=== PATIENT | male | born 1940 | race Caucasian/White ===

== ENCOUNTER 2019-12-13 12:44 | Inpatient (IN) | payer MEDICARE, BC, OTHER ==
--- NOTE | 2019-12-13 13:08 | EDM.PDOC ---
ED HPI GENERAL MEDICAL PROBLEM - General Chief Complaint: General Stated Complaint: fatigue Time Seen by Provider: 12/13/19 12:45 Source of Information: Reports: Patient, Old Records ([facility] EMR. No paper hospital chart available.), Other (Transfer records from [facility] in [place]. Hospital records from hospitalization at [facility] in [place], [place] in September 2019 and at [facility] in [place], [place] in November 2019) History Limitations: Reports: No Limitations - History of Present Illness INITIAL COMMENTS - FREE TEXT/NARRATIVE: The patient drove himself to this facility via private automobile for evaluation of progressive nonspecific dyspnea and fatigue during the last 1-2 weeks with patient just returning from [place] with hospitalization in early November for CHF and atrial fibrillation with rapid ventricular response and only briefly successful electrocardioversion and cardiac ablation. He was evaluated by STANLEY Becerra at the [facility], who did refer the patient to our emergency room for further treatment and evaluation Note previous hospitalization in [place] in early September for CHF and pneumonia with no known exposure to coccidiosis, COVID-19, influenza, etc., although he was apparently prophylactically treated with Tamiflu for possible undiagnosed influenza versus exposure in September with no known definite diagnosis of influenza at that time by patient history. He is a somewhat poor historian, however. The patient denies any chest pain/pressure, heart flutter, dizziness, orthostasis, orthopnea , diaphoresis, paresthesias, or any other anginal-type symptoms, although his exercise tolerance has been decreasing during the last couple of weeks as above. No recent history of abdominal pain, heartburn, nausea, diarrhea, melena , gross hematochezia, or any food intolerance, including fatty foods, etc., although he did have a large emesis yesterday evening despite no current or previous complaints. The patient did have a normal bowel movement yesterday evening. He denies any gross hematuria, colic, or other UTI symptoms. The patient also denies any recent fever, cough, wheezing, etc., although he has not measured his temperature or taken any recent antipyretic medications. He has been compliant with his CPAP, however has not been using O2 as recommended per his physicians in [place]. He denies any specific pain or discomfort. Onset: Gradual Duration: Week(s): (As above), Getting Worse Location: Reports: Other (No pain) Quality: Reports: Same as Previous Episode Severity: Moderate Improves with: Reports: Rest Worsens with: Reports: Movement (Activity/walking) Context: Reports: Other (As above). Denies: Sick Contact, Trauma Associated Symptoms: Reports: Nausea/Vomiting, Shortness of Breath. Denies: Confusion, Chest Pain, Cough, cough w sputum, Diaphoresis, Fever/Chills, Headaches, Loss of Appetite, Malaise, Seizure, Syncope, Weakness Treatments DIRECTOR OF MEDICAL SERVICES: Reports: Other (see below) (None although he did take his medications today.) - Related Data Allergies Allergy/AdvReac Type Severity Reaction Status Date / Time atorvastatin [From Lipitor] Allergy UNKNOWN Verified 12/13/19 12:57 clindamycin Allergy UNKNOWN Verified 12/13/19 12:57 lisinopril Allergy Cough Verified 12/13/19 12:57 Penicillins Allergy UNKNOWN Verified 12/13/19 12:57 rosuvastatin [From Crestor] Allergy unknown Verified 12/13/19 12:57 valsartan [From Diovan] Allergy UNKNOWN Verified 12/13/19 12:57 Home Meds: Home Meds ALPRAZolam [Alprazolam] 0.5 mg PO BID PRN 07/21/16 [History] Albuterol/Ipratropium [DuoNeb 3.0-0.5 MG/3 ML] 1 ampule INH QID PRN 07/21/16 [ History] Budesonide/Formoterol [Symbicort 160-4.5 MCG] 2 puff INH BID 07/21/16 [History] Calcium Carbonate/Vitamin D3 [Calcium 600 + Vit D Tablet] 1 tab PO QAM 07/21/16 [History] Cholecalciferol (Vitamin D3) [Vitamin D3] 1,000 unit PO QAM 07/21/16 [History] Furosemide [Lasix] 40 mg PO QAM 07/21/16 [History] Lovastatin 40 mg PO BEDTIME 07/21/16 [History] Magnesium 250 mg PO QAM 07/21/16 [History] Multivitamins [Tab-A-Juan] 1 tab PO DAILY 07/21/16 [History] Non-Formulary Medication [NF Drug] 1 tab PO DAILY PRN 07/21/16 [History] Omeprazole 20 mg PO DAILY 07/21/16 [History] Potassium Chloride [Klor-Con 10] 10 meq PO QAM 07/21/16 [History] Sertraline [Zoloft] 100 mg PO QAM 07/21/16 [History] Spironolactone [Aldactone] 50 mg PO BID@0812 07/21/16 [History] amLODIPine [Norvasc] 10 mg PO QAM 07/21/16 [History] metFORMIN HCl [Metformin HCl] 1,000 mg PO BID 07/21/16 [History] rOPINIRole [Requip] 1 mg PO DAILY@16 PRN 07/21/16 [History] rOPINIRole [Requip] 1 tab PO BID@07/21/16 [History] Cyanocobalamin (Vitamin B-12) [Vitamin B-12] 1,000 mcg PO DAILY 12/13/19 [ History] Gabapentin [Neurontin] 300 mg PO DAILY@16 PRN 12/13/19 [History] Gabapentin [Neurontin] 300 mg PO TID@,,12/13/19 [History] Insulin Detemir [Levemir] 22 unit SUBCUT BEDTIME 12/13/19 [History] Metoprolol Succinate 50 mg PO DAILY 12/13/19 [History] Naproxen Sodium [Aleve] 400 mg PO BID PRN 12/13/19 [History] Triamcinolone Acetonide [Kenalog 0.1% Crm] 1 applic TOP QID PRN 12/13/19 [ History] Warfarin Sodium [Jantoven] 5 mg PO SUTUWETHFRSA@12/13/19 [History] Warfarin Sodium [Jantoven] 7.5 mg PO MO@12/13/19 [History] Past Medical History HEENT History: Reports: Cataract, Impaired Vision, Other (See Below). Denies: Allergic Rhinitis, Glaucoma, Hard of Hearing, Macular Degeneration, Otitis Media , Retinal Detachment Other HEENT History: He wears glasses. No surgeries for his cataracts to this point. No history of diabetic retinopathy. Cardiovascular History: Reports: Afib, Aneurysm, Arrhythmia, CAD, Cardiomyopathy , Heart Failure, Heart Murmur, High Cholesterol, Hypertension, UT, Other (See Below). Denies: Blood Clots/VTE/DVT, Bypass, Pacemaker, PTCA, Pulmonary Hypertension, PVD, Stents, Syncope Other Cardiovascular History: History of possible small inferior wall UT, which was not known by the patient, per Cardiolite scan on 09/22/19 with evidence of reversible inferior wall cardiac ischemia and small reversible anterior wall reversible ischemia. Moderate left atrial enlargement, mild to moderate mitral valve insufficiency, and diastolic dysfunction by echocardiograms as below. Recurrent CHF with secondary hypoxia although overall good systolic ejection fraction by echocardiogram as below. Recurrent atrial fibrillation/flutter with rapid ventricular response, including previous 3:1 AND 4:1 AV block. Small abdominal aortic aneurysm by CT scan of the abdomen and pelvis on 11/10/19. Respiratory History: Reports: Bronchitis, Recurrent, COPD, Intubation, Previous , Pneumonia, Recurrent, Pulmonary Fibrosis, Sleep Apnea, SOB, Other (See Below) . 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 Patient is compliant with his CPAP. Multiple bilateral pulmonary nodules, including 9 millimeter lesion in the right middle lobe with additional 1.5 cm right-sided paratracheal lymphadenopathy by CT scan on 11/10/19. Gastrointestinal History: Reports: Colon Polyp, Diverticulosis, Gastritis, GERD , Hiatal Hernia, Other (See Below). Denies: Celiac Disease, Cholelithiasis, Chronic Constipation, Chronic Diarrhea, Fatty Liver, GI Bleed, Inflammatory Bowel Disease, Irritable Bowel Syndrome, Jaundice, Pancreatitis, PUD Other Gastrointestinal History: History of recurrent colonic polyps including arthroplastic colonic polyp removed from the proximal ascending colon and 2 tubular adenomas removed from the rectal region on 07/21/16. Genitourinary History: Reports: Acute Renal Failure, BPH, Chronic Renal Insuffiency, Diabetic Nephropathy, Other (See Below). Denies: Renal Calculus, Retention, Urinary, STD, Urinary Incontinence, UTI, Recurrent Other Genitourinary History: Bilateral complex renal cysts by CT scan on 11/10/19 with patient apparently refusing biopsies. Musculoskeletal History: Reports: Arthritis, Back Pain, Chronic, Fracture, Neck Pain, Chronic, Osteoarthritis, Osteoporosis, Other (See Below). Denies: Amputation, Gout, RA, SLE Other Musculoskeletal History: C7 cervical fracture requiring surgery as below. Multiple possible bilateral rib fractures secondary to football injuries, etc. as a teenager and in his 20s. Neurological History: Reports: Neuropathy, Diabetic, Neuropathy, Peripheral, Other (See Below). Denies: Alzheimers Disease, Cerebral Aneurysms, Concussion, CVA, Headaches, Chronic, Head Trauma, Migraines, MS, Parkinson's, Seizure, TIA, Vertigo Other Neuro History: Cerebral atrophy by CT scan. Restless leg syndrome; bIlateral carpal tunnel syndrome? Psychiatric History: Reports: Addiction, Anxiety, Dementia, Depression, Other ( See Below). Denies: Abuse, Victim of, ADD, ADHD, Psych Hospitalization(s), PTSD , Suicide Attempt, Suicidal Ideation Other Psychiatric History: Insomnia and claustrophobia. Per medical records history of previous alcohol abuse, which the patient adamantly denies. Endocrine/Metabolic History: Reports: Diabetes, Type II, IDDM, Obesity/BMI 30+, Osteopenia, Osteoporosis. Denies: Diabetes, Type I, Diabetes Mellitus, Type 3c , Hypothyroidism Hematologic History: Reports: Anemia, B12 Deficiency, Iron Deficiency. Denies: Blood Transfusion(s) Immunologic History: Reports: None. Denies: AIDS, HIV, SLE Oncologic (Cancer) History: Reports: Malignant Melanoma, Other (See Below). 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 Dermatologic History: Reports: Venous Stasis Dermatitis. Denies: Eczema, Psoriasis - Infectious Disease History Infectious Disease History: Reports: Chicken Pox, Measles, Mumps. Denies: C- Difficile, Meningitis, Mononucleosis, MRSA, Novel Coronavirus, Pertussis ( Whooping Cough), Rheumatic Fever, Rubella, Scarlet Fever, Shingles, TB, VRE - Past Surgical History Head Surgeries/Procedures: Reports: None HEENT Surgical History: Reports: Oral Surgery, Other (See Below). Denies: Adenoidectomy, Cataract Surgery, Eye Surgery, Laser Surgery, LASIK, Myringotomy w Tube(s), Naso-Sinus Surgery, Tonsillectomy Other HEENT Surgeries/Procedures: Initial excision of large right auricular melanoma on 09/28/05, including superficial parotidectomy, with subsequent reexcision/biopsy on 10/26/05 with no evidence of recurrence. Multiple teeth extractions with partial lowers. Cardiovascular Surgical History: Reports: Cardiac Ablation, Other (See Below). Denies: Aneurysm, Varicose Other Cardiovascular Surgeries/Procedures: Briefly successful cardiac ablation for atrial flutter on 11/14/19 in [place]. Respiratory Surgical History: Reports: None. Denies: Thoracentesis GI Surgical History: Reports: Colonoscopy, EGD, Polypectomy, Other (See Below). Denies: Appendectomy, Cholecystectomy, Hernia, Abdominal, Hernia, Inguinal, Hernia Repair/Other Other GI Surgeries/Procedures: Last EGD and colonoscopy on 06/18/19 with previous colonoscopy including multiple polypectomies as below on 07/21/16. Note cauterization without biopsy of hyperplastic appearing polyp in the transverse colon at that time. Male Surgical History: Reports: Vasectomy, Other (See Below). Denies: Circumcision, TURP-Transurethral Resection of Prostate Other Male Surgeries/Procedures: Vasectomy in about 1968 Endocrine Surgical History: Reports: None. Denies: Thyroid Biopsy Neurological Surgical History: Reports: C-Spine, Discectomy, Laminectomy, Spinal Fusion, Other (See Below). Denies: Lumbar Spine, Sacral Spine, Thoracic Spine, Vertebroplasty Other Neurological Surgeries/Procedures: C6C7 anterior laminectomy and spinal fusion on 03/27/12 with additional Aburto head pins secondary to previous C7 fracture. Musculoskeletal Surgical History: Reports: Knee Replacement, Other (See Below). Denies: Arthroscopic Knee, Arthroscopic Procedure, Carpal Tunnel, Ganglion Cyst, Hip Replacement, ORIF, Shoulder Surgery Other Musculoskeletal Surgeries/Procedures:: Bilateral TKAs in the Oncologic Surgical History: Reports: Other (See Below) Other Oncologic Surgeries/Procedures: Melanoma excision as above. Dermatological Surgical History: Reports: Other (See Below) Other Dermatological Surgeries/Procedures: Melanoma excision as above - Past Imaging History Past Imaging History: Reports: Cardiac Echo (Last Cardiac echo in [place] on 11/13 with ejection fraction of 5560 percent with previous echocardiogram in [place] on 09/22/19 with ejection fraction of 55% and otherwise findings as above. ), CAT Scan (DT scan of the brain on 09/21/[address] scan of the chest, abdomen , and pelvis without contrast on 11/10/19 with findings as above.), Stress Testing (Lexiscan Cardiolite evaluation on 09/22/19 with findings as above and ejection fraction of 65%.). Denies: Holter Monitor Social & Family History - Family History HEENT: Reports: None. Denies: Cataract, Macular Degeneration, Retinal Detachment Cardiac: Reports: CAD, Hypertension, UT, Other (See Below). Denies: Afib, Aneurysm, Arrhythmia, Blood Clots/VTE/DVT, Bypass, Heart Failure, High Cholesterol, Pacemaker, PVD/COD, Stent, Syncope Other Cardiac Family History: Parents from an [place] in their 70s with no apparent procedures. Hypertension in brother. Respiratory: Reports: None. Denies: Asthma, COPD, PE, Pneumothorax, Sleep Apnea GI: Reports: None. Denies: Celiac Disease, Cholelithiasis, Colon Polyps, GERD, GI bleed, Inflammatory Bowel Disease, Irritable Bowel Syndrome, PUD : Reports: None. Denies: Renal Calculus, Renal Disease/Insufficiency OBGYN: Reports: None Musculoskeletal: Reports: Arthritis, Osteoarthritis, Other (See Below). Denies : Gout, RA, SLE Other Musculoskeletal Family History: Arthritis in parents, sisters 2, and brothers 2 Neurological: Reports: None. Denies: Alzheimers Disease, CVA, Dementia, Migraines, MS, Parkinson's, Seizure, TIA Psychiatric: Reports: None. Denies: Abuse, Victim of, ADD, ADHD, Anxiety, Depression, Psych Hospitalization(s), PTSD, Suicide Attempt Endocrine/Metabolic: Reports: None. Denies: Diabetes, Type I, Diabetes, type II , Diabetes Mellitus, Type 3c, Hypothyroidism, IDDM Hematologic: Reports: None. Denies: Anemia, SLE Immunologic: Reports: None. Denies: AIDS, HIV, SLE Dermatologic: Reports: None. Denies: Eczema, Psoriasis Oncologic: Reports: Leukemia, Other (See Below). Denies: Colon Other Oncologic Family History: Brother with fatal CLL and another brother with unknown type of cancer. - Tobacco Use Smoking Status *Q: Former Smoker Tobacco Use Within Last Twelve Months: No Years of Tobacco use: 30 Packs/Tins Daily: 4 Packs/Tins Daily Comment: Smoked 45 packs of cigarettes per day with last use on 09/11/86. Used Tobacco, but Quit: Yes Smoking Cessation Information Provided To Patient: No Second Hand Smoke Exposure: No Second Hand Smoke Education Provided: No - Caffeine Use Caffeine Use: Reports: Tea (Very occasional). Denies: Coffee, Energy Drinks, Soda - Alcohol Use Alcohol Use History: Yes Days Per Week of Alcohol Use: 7 Number of Drinks Per Day: 7 Number of Drinks Per Day Comment: Usually mixed drinks per medical records with patient adamantly denying up all abuse history despite medical records Total Drinks Per Week: 49 Alcohol Use in Last Twelve Months: Yes Alcohol Use Frequency: Binges - Recreational Drug Use Recreational Drug Use: No Drug Use in Last 12 Months: No Recreational Drug Type: Denies: Amphetamines (Speed), Cocaine, Heroin, Inhalants (Glues, Solvents, Aerosols), LSD (Acid), Marijuana/Hashish (Patient denies previous marijuana use despite previous medical records), Methamphetamine , Morphine, Oxycodone - Living Situation & Occupation Living situation: Reports: (5 children), Alone 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 ED EXAM, GENERAL - Physical Exam Exam: See Below Exam Limited By: No Limitations General Appearance: WD/WN, No Apparent Distress Eye Exam: Bilateral Eye: EOMI, Normal Inspection (No nystagmus. Patient is wearing glasses), PERRL Ears: Normal External Exam, Normal Canal, Hearing Grossly Normal, Normal TMs Nose: Normal Inspection, Normal Mucosa, No Blood Throat/Mouth: Normal Inspection, Normal Lips, Normal Teeth (Partial dentures lowers), Normal Gums, Normal Oropharynx, Normal Voice, No Airway Compromise. No : Dysphagia, Perioral Cyanosis Head: Atraumatic, Normocephalic. No: Facial Swelling, Facial Tenderness, Sinus Tenderness Neck: Supple, Non-Tender, Full Range of Motion, Carotid Bruit (Mild bilateral carotid bruits versus transmitted heart sounds). No: Lymphadenopathy (L), Lymphadenopathy (R), Thyromegaly Respiratory/Chest: No Respiratory Distress, No Accessory Muscle Use, Chest Non- Tender, Rales (Mild diffuse bilateral particularly in the bases), Wheezing ( Occasional mild bilateral). No: Pleural Rub, Retractions Cardiovascular: Normal Peripheral Pulses, No Gallop, No JVD, No Rub, Systolic Murmur (Mild 1/6 ANDREW of the mitral and aortic valves), Irregularly Irregular. No: No Edema (Dependent edema as below), Gallop/S3, Gallop/S4, Extra Beats, Friction Rub Peripheral Pulses: 2+: Radial (L), Radial (R), Dorsalis Pedis (L), Dorsalis Pedis (R) GI/Abdominal: Normal Bowel Sounds, Soft, Non-Tender, No Organomegaly, No Distention, No Abnormal Bruit, No Mass, Other (Obese). No: Guarding (Male) Exam: Deferred Rectal (Males) Exam: Deferred Back Exam: Full Range of Motion, Other (Mild Kyphosis). No: CVA Tenderness (L) , CVA Tenderness (R), Muscle Spasm, Paraspinal Tenderness, Vertebral Tenderness Extremities: Normal Range of Motion, Non-Tender, Normal Capillary Refill, Pedal Edema (Trace to +1 bilateral pedal/pretibial edema), Other (Moderate venous stasis dermatitis in the anterior tibial regions bilaterally). No: Blas's Sign Neurological: Alert, Oriented, CN II-XII Intact, Normal Cognition, Normal Gait, No Motor/Sensory Deficits Psychiatric: Normal Affect, Normal Mood Skin Exam: Warm, Dry, Intact, Normal Color, Ecchymosis (Mild ecchymosis in the forearms bilaterally), Other (Venous stasis dermatitis as above). No: Diaphoretic, Wound/Incision Lymphatic: No Adenopathy EKG INTERPRETATION EKG Date: 12/13/19 Time: 13:22 Rhythm: A-Fib (With resolution of previous a flutter with 3:1 AV block) Rate (Beats/Min): 67 [place]: Normal (Neutral) P-Wave: Variable QRS: Wide (0.10 seconds representing stable repolarization changes) ST-T: Normal QT: Normal NH/PQ Interval: Variable Comparison: Change From Previous EKG (As above since the last EKG from [place] on 11/13/19) EKG Interpretation Comments: 1. No acute ischemic changes 2. Atrial fibrillation 3. Repolarization changes Course - Vital Signs Last Recorded V/S: Last Vital Signs Temp 37.1 C 12/13/19 12:51 Pulse 75 12/13/19 14:45 Resp 23 H 12/13/19 14:45 BP 100/50 L 12/13/19 14:45 Pulse Ox 95 12/13/19 14:45 Vital Signs - 24 hr 12/13/19 12/13/19 12/13/19 12:51 13:00 13:15 Temperature [ 37.1 C Oral] Pulse, 68 75 73 Peripheral [ Apical] Respiratory 20 23 H 24 H Rate Blood Pressure 101/78 105/81 121/98 H [Left Upper Arm ] O2 Sat by Pulse 92 L 94 L 94 L Oximetry 12/13/19 12/13/19 12/13/19 13:46 14:16 14:45 Temperature [ Oral] Pulse, 71 73 75 Peripheral [ Apical] Respiratory 23 H 21 H 23 H Rate Blood Pressure 105/55 L 100/50 L [Left Upper Arm ] O2 Sat by Pulse 96 95 95 Oximetry - Orders/Labs/Meds Orders: Active Orders 24 hr Category Date Time Status Cardiac Monitoring [RC] CONTINUOUS Care 12/13/19 13:09 Active Communication Order [RC] ROUTINE Care 12/13/19 13:09 Active EKG Documentation Completion [RC] ASDIRECTED Care 12/13/19 13:12 Active Oxygen Therapy, ED [RC] PRN Care 12/13/19 13:09 Active Peripheral IV Care [RC] . DIRECTED Care 12/13/19 13:12 Active Pulse Oximetry [RC] CONTINUOUS Care 12/13/19 13:09 Active Up With Assistance [RC] ASDIRECTED Care 12/13/19 13:09 Active Nothing Per Oral Diet [DIET] Diet 12/13/19 Breakfast Active Chest PE [Ang Chest] [CT] Stat Exams 12/13/19 14:37 Taken CULTURE BLOOD [BC] Stat Lab 12/13/19 13:12 Ordered CULTURE BLOOD [BC] Stat Lab 12/13/19 13:12 Ordered CULTURE SPUTUM + SMEAR [RM] Urgent Lab 12/13/19 13:09 Ordered CULTURE URINE [RM] Routine Lab 12/13/19 13:09 Ordered Sodium Chloride 0.9% [Saline Flush] Med 12/13/19 13:09 Active 10 ml FLUSH ASDIRECTED PRN Blood Culture x2 Reflex Set [OM.PC] Stat Oth 12/13/19 13:09 Ordered Obtain Past Medical Record [OM.PC] Stat Oth 12/13/19 13:09 Active Peripheral IV Insertion Adult [OM.PC] Stat Oth 12/13/19 13:09 Ordered Resuscitation Status Routine Resus Stat 12/13/19 13:09 Ordered Medication Orders Sodium Chloride (Saline Flush) 10 ml FLUSH ASDIRECTED PRN PRN Reason: Keep Vein Open Labs: Laboratory Tests 12/13/19 12/13/19 12/13/19 Range/Units 09:54 09:58 13:40 APTT 49.3 H (24.5-32.8) SEC D-Dimer, Quantitative 886 H (0-400) ng/mL Lactic Acid (0.4-2.0) mmol/L Magnesium 1.6 L (1.8-2.4) mg/dL Creatine Kinase 48 (26-308) U/L Creatine Kinase Index 1.9 (0.0-2.5) % CK-MB (CK-2) 0.90 (0.00-3.60) ng/mL Troponin I 0.000 (0.000-0.056) ng/mL TSH, Ultra Sensitive 1.787 (0.358-3.740) mIU/mL Specimen Type Urine Color Urine Appearance Urine pH (5.0-9.0) Ur Specific [place] (1.005-1.030) Urine Protein (NEGATIVE) mg/dL Urine Glucose (UA) (NEGATIVE) mg/dL Urine Ketones (NEGATIVE) mg/dL Urine Occult Blood (NEGATIVE) Urine Nitrite (NEGATIVE) Urine Bilirubin (NEGATIVE) Urine Urobilinogen (0.2-1.0) E.U./dL Ur Leukocyte Esterase (NEGATIVE) Urine RBC /HPF Urine WBC /HPF Ur Epithelial Cells /LPF Urine Bacteria (NONE TO FEW) /HPF 12/13/19 12/13/19 Range/Units 13:40 14:10 APTT (24.5-32.8) SEC D-Dimer, Quantitative (0-400) ng/mL Lactic Acid 1.1 (0.4-2.0) mmol/L Magnesium (1.8-2.4) mg/dL Creatine Kinase (26-308) U/L Creatine Kinase Index (0.0-2.5) % CK-MB (CK-2) (0.00-3.60) ng/mL Troponin I (0.000-0.056) ng/mL TSH, Ultra Sensitive (0.358-3.740) mIU/mL Specimen Type Urincc Urine Color Yellow Urine Appearance Clear Urine pH 5.5 (5.0-9.0) Ur Specific [place] 1.015 (1.005-1.030) Urine Protein Negative (NEGATIVE) mg/dL Urine Glucose (UA) Negative (NEGATIVE) mg/dL Urine Ketones Negative (NEGATIVE) mg/dL Urine Occult Blood Small H (NEGATIVE) Urine Nitrite Positive H (NEGATIVE) Urine Bilirubin Negative (NEGATIVE) Urine Urobilinogen 0.2 (0.2-1.0) E.U./dL Ur Leukocyte Esterase Small H (NEGATIVE) Urine RBC 5-10 H /HPF Urine WBC 30-40 H /HPF Ur Epithelial Cells Not seen /LPF Urine Bacteria Many H (NONE TO FEW) /HPF Blood cultures 2 were collected Urine specimen set up for culture and sensitivity Note previous blood work ordered by STANLEY Becerra at the [facility] earlier today with pertinent findings, including PVCs of 18.8, hemoglobin of 10.4, 80.8% neutrophils, random glucose 129, BUN 29, creatinine 1.16, BNP of 5192, CRP was normal, and therapeutic INR 2.3 Influenza and COVID-19 screens are pending Meds: Medications Generic Name Dose Route Start Last Admin Trade Name Freq PRN Reason Stop Dose Admin Sodium Chloride 10 ml 12/13/19 13:09 Saline Flush FLUSH ASDIRECTED PRN Keep Vein Open Discontinued Medications Generic Name Dose Route Start Last Admin Trade Name Freq PRN Reason Stop Dose Admin Iopamidol 100 ml 12/13/19 14:38 12/13/19 15:39 Isovue-370 (76%) IVPUSH 12/13/19 14:39 100 ml ONETIME ONE Administration - Radiology Interpretation Free Text/Narrative:: Chest x-ray, PA and lateral, which was ordered by STANLEY Becerra at the [facility] shows moderate COPD changes with mild aortic valve calcification and probable mild centralized CHF and/or right perihilar pulmonary infiltrates. No pneumothorax. Moderate osteoarthritic and osteoporotic changes noted. color television console monitor shows atrial fibrillation with heart rate in the 60s to 70s Departure - Departure Time of Disposition: 15:50 Disposition: Admitted As Inpatient 66 Condition: Fair Clinical Impression: CHF, Congestive heart failure, Pneumonia, D-dimer, elevated, Hypomagnesemia, Hypoalbuminemia, Mixed anxiety depressive disorder, IDDM (insulin dependent diabetes mellitus) COPD (chronic obstructive pulmonary disease) Qualifiers: COPD type: COPD with acute lower respiratory infection Qualified Code(s): J44.0 - Chronic obstructive pulmonary disease with (acute) lower respiratory infection Osteoarthritis Qualifiers: Osteoarthritis location: multiple joints Osteoarthritis type: primary Qualified Code(s): M89.49 - Other hypertrophic osteoarthropathy, multiple sites Sleep apnea Qualifiers: Sleep apnea type: obstructive Qualified Code(s): G47.33 - Obstructive sleep apnea (adult) (pediatric) Hypertension Qualifiers: Hypertension type: essential hypertension Qualified Code(s): I10 - Essential ( primary) hypertension Atrial fibrillation Qualifiers: Atrial fibrillation type: longstanding persistent Qualified Code(s): I48.11 - Longstanding persistent atrial fibrillation Coronary artery disease Qualifiers: Coronary Disease-Associated Artery/Lesion type: [place] artery [place] vs. transplanted heart: [place] heart Associated angina: without angina Qualified Code(s): I25.10 - Atherosclerotic heart disease of [place] coronary artery without angina pectoris Hyperlipidemia Qualifiers: Hyperlipidemia type: mixed hyperlipidemia Qualified Code(s): E78.2 - Mixed hyperlipidemia Anemia Qualifiers: Anemia type: iron deficiency Iron deficiency anemia type: other iron deficiency Qualified Code(s): D50.8 - Other iron deficiency anemias UTI (urinary tract infection) Qualifiers: Urinary tract infection type: acute cystitis Hematuria presence: without hematuria Qualified Code(s): N30.00 - Acute cystitis without hematuria - Discharge Information *PRESCRIPTION DRUG MONITORING PROGRAM REVIEWED*: Not Applicable *COPY OF PRESCRIPTION DRUG MONITORING REPORT IN PATIENT JOSE: Not Applicable Sepsis Event Note - Evaluation Sepsis Screening Result: No Definite Risk - Focused Exam Vital Signs: Vital Signs Temp Pulse Resp BP Pulse Ox 12/13/19 14:45 75 23 H 100/50 L 95 12/13/19 14:16 73 21 H 95 12/13/19 13:46 71 23 H 105/55 L 96 12/13/19 13:15 73 24 H 121/98 H 94 L 12/13/19 13:00 75 23 H 105/81 94 L 12/13/19 12:51 37.1 C 68 20 101/78 92 L Date Exam was Performed: 12/13/19 Time Exam was Performed: 15:50 - Problem List & Annotations (1) CHF, Congestive heart failure SNOMED Code(s): 66602215 Code(s): I50.9 - HEART FAILURE, UNSPECIFIED Status: Acute Priority: High Current Visit: No Onset Date: ~12/13/19 Annotation/Comment:: History of recurrent CHF, including recent hospitalizations in September and November 2019 as above. Initiate IV Lasix therapy with caution secondary to his previous history of diabetic nephropathy. Note recent cardiac workup including Cardiolite evaluations, echocardiograms, etc. as above. No chest pain or anginal type symptoms prior to arrival with chest pain protocol not initiated in the emergency room. Cardiology consultation depending on his clinical course. Initiate standard rule out UT orders. (2) COPD (chronic obstructive pulmonary disease) SNOMED Code(s): 73423122 Code(s): J44.9 - CHRONIC OBSTRUCTIVE PULMONARY DISEASE, UNSPECIFIED Status : Chronic Priority: Medium Current Visit: No Annotation/Comment:: COPD exacerbation secondary to probable right middle lobe pneumonia with moderate cytosis. Only minimal fever blood cultures 2 collected. Attempt to obtain sputum specimen RON. Initiate IV Rocephin and Levaquin therapy with caution secondary to his Coumadin. He has been noncompliant with his O2 therapy. O2 saturations with ambulation should be conducted prior to discharge. Consider PFTs depending on his clinical course. Low probability of COVID-19 diagnosis, however nasal specimen was collected for this virus and also influenza by STANLEY Becerra at the [facility] earlier this afternoon with results pending. Isolation protocol to be initiated. Qualifiers: COPD type: COPD with acute lower respiratory infection Qualified Code(s): J44.0 - Chronic obstructive pulmonary disease with (acute) lower respiratory infection (3) UTI (urinary tract infection) SNOMED Code(s): 25805135 Code(s): N39.0 - URINARY TRACT INFECTION, SITE NOT SPECIFIED Status: Acute Priority: High Current Visit: No Onset Date: 12/13/19 Annotation/ Comment:: IV antibiotics as above. Urine specimen collected for culture and sensitivity Qualifiers: Urinary tract infection type: acute cystitis Hematuria presence: without hematuria Qualified Code(s): N30.00 - Acute cystitis without hematuria (4) Coronary artery disease SNOMED Code(s): 86129242 Code(s): I25.10 - ATHSCL HEART DISEASE OF [place] CORONARY ARTERY W/O ANG PCTRS Status: Acute Current Visit: No Annotation/Comment:: As above. Qualifiers: Coronary Disease-Associated Artery/Lesion type: [place] artery [place] vs. transplanted heart: [place] heart Associated angina: without angina Qualified Code(s): I25.10 - Atherosclerotic heart disease of [place] coronary artery without angina pectoris (5) D-dimer, elevated SNOMED Code(s): 261370619 Code(s): R79.89 - OTHER SPECIFIED ABNORMAL FINDINGS OF BLOOD CHEMISTRY Status: Acute Priority: High Current Visit: No Onset Date: 12/13/19 Annotation/Comment:: CTA of the chest has been ordered with results pending at time of admission. Patient is already on Coumadin. Venous Doppler studies of the lower extremities will be conducted at time of next availability on 12/15 in this facility. No direct clinical evidence of DVT or PE, however. (6) Hypertension SNOMED Code(s): 65795566 Code(s): I10 - ESSENTIAL (PRIMARY) HYPERTENSION Status: Chronic Priority : Medium Current Visit: No Annotation/Comment:: Stable by history and in the emergency room. Qualifiers: Hypertension type: essential hypertension Qualified Code(s): I10 - Essential (primary) hypertension (7) Hypoalbuminemia SNOMED Code(s): 027666159 Code(s): E88.09 - OTH DISORDERS OF PLASMA-PROTEIN METABOLISM, NEC Status: Acute Priority: Medium Current Visit: No Onset Date: 12/13/19 Annotation /Comment:: Observe for now. Note obesity. Consider high protein Glucerna supplements as snacks. (8) Hypomagnesemia SNOMED Code(s): 429463785 Code(s): E83.42 - HYPOMAGNESEMIA Status: Acute Priority: Medium Current Visit: No Onset Date: 12/13/19 Annotation/Comment:: Initiate magnesium oxide therapy and especially in light of IV Lasix therapy. Continue close observation after discharge by his regular provider. (9) IDDM (insulin dependent diabetes mellitus) SNOMED Code(s): 40370673 Code(s): ZTG1258 - Status: Chronic Priority: Medium Current Visit: No Annotation/Comment:: He does not take home Accu-Cheks. Glycosylated hemoglobin in the a.m. (10) Mixed anxiety depressive disorder SNOMED Code(s): 798203051 Code(s): F41.8 - OTHER SPECIFIED ANXIETY DISORDERS Status: Chronic Priority: Medium Current Visit: No Annotation/Comment:: Stable by history. Patient denies alcohol abuse as above. No evidence of intoxication today. (11) Osteoarthritis SNOMED Code(s): 006961869 Code(s): M19.90 - UNSPECIFIED OSTEOARTHRITIS, UNSPECIFIED SITE Status: Chronic Priority: Medium Current Visit: No Annotation/Comment:: Stable by history Qualifiers: Osteoarthritis location: multiple joints Osteoarthritis type: primary Qualified Code(s): M89.49 - Other hypertrophic osteoarthropathy, multiple sites (12) Pneumonia SNOMED Code(s): 918512302 Code(s): J18.9 - PNEUMONIA, UNSPECIFIED ORGANISM Status: Acute Priority: High Current Visit: No Annotation/Comment:: As above (13) Sleep apnea SNOMED Code(s): 24732810 Code(s): G47.30 - SLEEP APNEA, UNSPECIFIED Status: Chronic Priority: Medium Current Visit: No Annotation/Comment:: He has been compliant with his CPAP, which will also be conducted during this hospitalization. Note oxygen noncompliance, however. Qualifiers: Sleep apnea type: obstructive Qualified Code(s): G47.33 - Obstructive sleep apnea (adult) (pediatric) (14) Atrial fibrillation SNOMED Code(s): 07791844 Code(s): I48.91 - UNSPECIFIED ATRIAL FIBRILLATION Status: Chronic Priority: High Current Visit: No Annotation/Comment:: Recent unsuccessful permanent cardiac ablation as above. Patient is already on Coumadin. Qualifiers: Atrial fibrillation type: longstanding persistent Qualified Code(s): I48.11 - Longstanding persistent atrial fibrillation (15) Hyperlipidemia SNOMED Code(s): 36052346 Code(s): E78.5 - HYPERLIPIDEMIA, UNSPECIFIED Status: Chronic Priority: Medium Current Visit: No Annotation/Comment:: Lipid panel in the a.m. Weight loss in moderation is advisable. Qualifiers: Hyperlipidemia type: mixed hyperlipidemia Qualified Code(s): E78.2 - Mixed hyperlipidemia (16) Anemia SNOMED Code(s): 836009043 Code(s): D64.9 - ANEMIA, UNSPECIFIED Status: Chronic Priority: Medium Current Visit: No Annotation/Comment:: Iron studies, vitamin B-12, etc. in the a.m. with current vitamin B-12 supplementation. Qualifiers: Anemia type: iron deficiency Iron deficiency anemia type: other iron deficiency Qualified Code(s): D50.8 - Other iron deficiency anemias - Problem List Review Problem List Initiated/Reviewed/Updated: Yes - My Orders Last 24 Hours: My Active Orders 12/13/19 13:09 Cardiac Monitoring [RC] CONTINUOUS Communication Order [RC] ROUTINE Oxygen Therapy, ED [RC] PRN Pulse Oximetry [RC] CONTINUOUS Up With Assistance [RC] ASDIRECTED CULTURE SPUTUM + SMEAR [RM] Urgent CULTURE URINE [RM] Routine Sodium Chloride 0.9% [Saline Flush] 10 ml FLUSH ASDIRECTED PRN Blood Culture x2 Reflex Set [OM.PC] Stat Obtain Past Medical Record [OM.PC] Stat Peripheral IV Insertion Adult [OM.PC] Stat Resuscitation Status Routine 12/13/19 13:12 EKG Documentation Completion [RC] ASDIRECTED Peripheral IV Care [RC] . DIRECTED CULTURE BLOOD [BC] Stat CULTURE BLOOD [BC] Stat 12/13/19 14:37 Chest PE [Ang Chest] [CT] Stat 12/13/19 Breakfast Nothing Per Oral Diet [DIET] - Assessment/Plan Admission H&P: Please use this note as an admission H&P Last 24 Hours: My Active Orders 12/13/19 13:09 Cardiac Monitoring [RC] CONTINUOUS Communication Order [RC] ROUTINE Oxygen Therapy, ED [RC] PRN Pulse Oximetry [RC] CONTINUOUS Up With Assistance [RC] ASDIRECTED CULTURE SPUTUM + SMEAR [RM] Urgent CULTURE URINE [RM] Routine Sodium Chloride 0.9% [Saline Flush] 10 ml FLUSH ASDIRECTED PRN Blood Culture x2 Reflex Set [OM.PC] Stat Obtain Past Medical Record [OM.PC] Stat Peripheral IV Insertion Adult [OM.PC] Stat Resuscitation Status Routine 12/13/19 13:12 EKG Documentation Completion [RC] ASDIRECTED Peripheral IV Care [RC] . DIRECTED CULTURE BLOOD [BC] Stat CULTURE BLOOD [BC] Stat 12/13/19 14:37 Chest PE [Ang Chest] [CT] Stat 12/13/19 Breakfast Nothing Per Oral Diet [DIET] Assessment:: As above Plan: As above. Extensive precautions were given to the patient, who is in agreement with the treatment plan. The patient will require about 3-4 days of inpatient/ acute care secondary to multiple health problems as above. [facility] physician assumes care later this evening.
[2019-12-13] MEDS ORDERED: Iopamidol 755 Mg/ML 100 ML Bottle IVPUSH ONE (14:38)
[2019-12-13] MEDS ORDERED: Albuterol/Ipratropium 3.0-0.5 MG/3 ML Neb Soln NEB PRN (15:58)
[2019-12-13] MEDS ORDERED: Gabapentin 300 MG Cap PO PRN (16:00)
[2019-12-13] MEDS ORDERED: Albuterol 0.083% 2.5 MG/3 ML Neb Soln NEB PRN (16:00)
[2019-12-13] MEDS ORDERED: Acetaminophen 325 MG Tab PO PRN (16:00)
[2019-12-13] MEDS ORDERED: Furosemide 40 MG/4 ML VIAL IVPUSH SCH (16:15)
[2019-12-13] MEDS: Albuterol/Ipratropium 3.0-0.5 MG/3 ML Neb Soln NEB SCH ×2 (17:25→21:37)
[2019-12-13] MEDS: Potassium Chloride 20 MEQ Tab.ER PO SCH (17:26)
[2019-12-13] MEDS: Levofloxacin/Dextrose 5%-Water 500 MG in Premix Bag 1 BAG IV SCH (17:26)
[2019-12-13] MEDS: Warfarin 5 MG Tab PO SCH (17:26)
[2019-12-13] MEDS: Sodium Chloride 0.9% 10 ML Syringe FLUSH PRN (17:26)
[2019-12-13] MEDS ORDERED: Potassium Chloride 20 MEQ Tab.ER PO SCH (18:00)
[2019-12-13] MEDS: Sodium Chloride 0.9% 10 ML Syringe FLUSH SCH (21:16)
[2019-12-13] MEDS: cefTRIAXone 1 GM in Sodium Chloride 0.9% 100 ML IV SCH (21:16)
[2019-12-13] MEDS: Furosemide 40 MG/4 ML VIAL IVPUSH SCH (21:17)
[2019-12-13] MEDS: Simvastatin 20 MG Tab PO SCH (21:24)
[2019-12-13] MEDS: Gabapentin 300 MG Cap PO SCH (21:24)
[2019-12-13] MEDS: rOPINIRole 1 MG Tab PO SCH (21:25)
[2019-12-13] MEDS: Dextromethorphan/guaiFENesin 600-30 MG Tab.ER PO SCH (21:25)
[2019-12-13] MEDS: Budesonide 0.5 MG/2 ML Neb Susp NEB SCH (21:37)
[2019-12-14] MEDS: Insulin Lispro 100 Units/ML 3 ML Vial SUBCUT SCH ×4 (08:07→21:17)
[2019-12-14] MEDS: Magnesium Oxide 400 MG Tab PO SCH (08:18)
[2019-12-14] MEDS: Sodium Chloride 0.9% 10 ML Syringe FLUSH SCH ×2 (08:18→21:06)
[2019-12-14] MEDS: Furosemide 40 MG/4 ML VIAL IVPUSH SCH ×2 (08:18→21:07)
[2019-12-14] MEDS: Potassium Chloride 20 MEQ Tab.ER PO SCH ×2 (08:18→17:09)
[2019-12-14] MEDS: Sertraline 50 MG Tab PO SCH (08:19)
[2019-12-14] MEDS: Gabapentin 300 MG Cap PO SCH ×3 (08:19→21:13)
[2019-12-14] MEDS: Omeprazole 20 MG Cap.CR PO SCH (08:19)
[2019-12-14] MEDS: Dextromethorphan/guaiFENesin 600-30 MG Tab.ER PO SCH ×2 (08:19→21:14)
[2019-12-14] MEDS: Cholecalciferol (Vitamin D3) 25 MCG Tab PO SCH (08:19)
[2019-12-14] MEDS: rOPINIRole 1 MG Tab PO SCH ×2 (08:19→21:13)
[2019-12-14] MEDS: Cyanocobalamin (Vitamin B12) 1,000 MCG Tab PO SCH (08:20)
[2019-12-14] MEDS: amLODIPine 5 MG Tab PO SCH (08:20)
[2019-12-14] MEDS: Metoprolol Succinate 50 MG Tab.ER PO SCH (08:20)
[2019-12-14] MEDS: Spironolactone 25 MG Tab PO SCH ×2 (08:20→11:47)
[2019-12-14] MEDS: Albuterol/Ipratropium 3.0-0.5 MG/3 ML Neb Soln NEB SCH ×4 (08:21→21:19)
[2019-12-14] MEDS: Budesonide 0.5 MG/2 ML Neb Susp NEB SCH ×2 (08:21→21:19)
--- NOTE | 2019-12-14 08:22 | PCM.PN ---
- General Info Date of Service: 12/14/19 Admission Dx/Problem (Free Text): UTI, CHF, COPD, sleep apnea, diabetes, atrial fibrillation. Subjective Update: Overall doing very well this morning. He denies any shortness of breath or cough. No chest pain or tightness. No dizziness or lightheadedness. No nausea , vomiting or diarrhea. No dysuria, urgency or frequency. Functional Status: Reports: Pain Controlled, Tolerating Diet - Review of Systems General: Denies: Fever, Fatigue Pulmonary: Denies: Shortness of Breath, Cough, Wheezing Cardiovascular: Denies: Chest Pain, Palpitations, Edema Gastrointestinal: Denies: Abdominal Pain, Nausea, Vomiting Genitourinary: Denies: Dysuria, Frequency, Urgency Skin: Denies: Rash Neurological: Denies: Confusion, Dizziness Psychiatric: Denies: Confusion, Depression - Patient Data Vitals - Most Recent: Last Vital Signs Temp 36.9 C 12/14/19 08:10 Pulse 71 12/14/19 08:10 Resp 22 H 12/14/19 08:10 BP 121/63 12/14/19 08:10 Pulse Ox 97 12/14/19 08:10 Weight - Most Recent: 152.679 kg I&O - Last 24 Hours: Intake & Output 12/13/19 12/14/19 12/14/19 22:59 06:59 14:59 Intake Total 200 Output Total 700 500 Balance -700 -300 Lab Results Last 24 Hours: Laboratory Results - last 24 hr 12/13/19 12/13/19 12/13/19 Range/Units 09:54 09:58 13:40 APTT 49.3 H (24.5-32.8) SEC D-Dimer, Quantitative 886 H (0-400) ng/mL POC Glucose (65-110) mg/dl Hemoglobin A1c (4.3-5.7) % Lactic Acid (0.4-2.0) mmol/L Magnesium 1.6 L (1.8-2.4) mg/dL Creatine Kinase 48 (26-308) U/L Creatine Kinase Index 1.9 (0.0-2.5) % CK-MB (CK-2) 0.90 (0.00-3.60) ng/mL Troponin I 0.000 (0.000-0.056) ng/mL TSH, Ultra Sensitive 1.787 (0.358-3.740) mIU/mL Specimen Type Urine Color Urine Appearance Urine pH (5.0-9.0) Ur Specific [place] (1.005-1.030) Urine Protein (NEGATIVE) mg/dL Urine Glucose (UA) (NEGATIVE) mg/dL Urine Ketones (NEGATIVE) mg/dL Urine Occult Blood (NEGATIVE) Urine Nitrite (NEGATIVE) Urine Bilirubin (NEGATIVE) Urine Urobilinogen (0.2-1.0) E.U./dL Ur Leukocyte Esterase (NEGATIVE) Urine RBC /HPF Urine WBC /HPF Ur Epithelial Cells /LPF Urine Bacteria (NONE TO FEW) /HPF 12/13/19 12/13/19 12/13/19 Range/Units 13:40 14:10 20:47 APTT (24.5-32.8) SEC D-Dimer, Quantitative (0-400) ng/mL POC Glucose (65-110) mg/dl Hemoglobin A1c (4.3-5.7) % Lactic Acid 1.1 (0.4-2.0) mmol/L Magnesium (1.8-2.4) mg/dL Creatine Kinase 38 (26-308) U/L Creatine Kinase Index 2.6 H (0.0-2.5) % CK-MB (CK-2) 1.00 (0.00-3.60) ng/mL Troponin I 0.000 (0.000-0.056) ng/mL TSH, Ultra Sensitive (0.358-3.740) mIU/mL Specimen Type Urincc Urine Color Yellow Urine Appearance Clear Urine pH 5.5 (5.0-9.0) Ur Specific [place] 1.015 (1.005-1.030) Urine Protein Negative (NEGATIVE) mg/dL Urine Glucose (UA) Negative (NEGATIVE) mg/dL Urine Ketones Negative (NEGATIVE) mg/dL Urine Occult Blood Small H (NEGATIVE) Urine Nitrite Positive H (NEGATIVE) Urine Bilirubin Negative (NEGATIVE) Urine Urobilinogen 0.2 (0.2-1.0) E.U./dL Ur Leukocyte Esterase Small H (NEGATIVE) Urine RBC 5-10 H /HPF Urine WBC 30-40 H /HPF Ur Epithelial Cells Not seen /LPF Urine Bacteria Many H (NONE TO FEW) /HPF 12/14/19 12/14/19 Range/Units 07:15 07:40 APTT (24.5-32.8) SEC D-Dimer, Quantitative (0-400) ng/mL POC Glucose 142 H (65-110) mg/dl Hemoglobin A1c 8.0 H (4.3-5.7) % Lactic Acid (0.4-2.0) mmol/L Magnesium (1.8-2.4) mg/dL Creatine Kinase (26-308) U/L Creatine Kinase Index (0.0-2.5) % CK-MB (CK-2) (0.00-3.60) ng/mL Troponin I (0.000-0.056) ng/mL TSH, Ultra Sensitive (0.358-3.740) mIU/mL Specimen Type Urine Color Urine Appearance Urine pH (5.0-9.0) Ur Specific [place] (1.005-1.030) Urine Protein (NEGATIVE) mg/dL Urine Glucose (UA) (NEGATIVE) mg/dL Urine Ketones (NEGATIVE) mg/dL Urine Occult Blood (NEGATIVE) Urine Nitrite (NEGATIVE) Urine Bilirubin (NEGATIVE) Urine Urobilinogen (0.2-1.0) E.U./dL Ur Leukocyte Esterase (NEGATIVE) Urine RBC /HPF Urine WBC /HPF Ur Epithelial Cells /LPF Urine Bacteria (NONE TO FEW) /HPF Med Orders - Current: Current Medications Acetaminophen (Tylenol) 650 mg PO Q4HR PRN PRN Reason: Pain/Fever Albuterol (Proventil Neb Soln) 2.5 mg NEB Q2H PRN PRN Reason: Dyspnea Albuterol/Ipratropium (Duoneb 3.0-0.5 Mg/3 Ml) 3 ml NEB Q4HRRT PRN PRN Reason: Dyspnea Albuterol/Ipratropium (Duoneb 3.0-0.5 Mg/3 Ml) 3 ml NEB QID [facility] Last Admin: 12/13/19 21:37 Dose: 3 ml Alprazolam (Xanax) 0.5 mg PO BID PRN PRN Reason: Anxiety Amlodipine Besylate (Norvasc) 10 mg PO QAM [facility] Budesonide (Pulmicort) 0.5 mg NEB BIDRT [facility] Last Admin: 12/13/19 21:37 Dose: 0.5 mg Cholecalciferol (Vitamin D3) [facility] Cyanocobalamin (Vitamin B12) 1,000 mcg PO DAILY [facility] Furosemide (Lasix) 40 mg IVPUSH Q12HR [facility] Last Admin: 12/13/19 21:17 Dose: 40 mg Gabapentin (Neurontin) 300 mg PO DAILY@16 PRN PRN Reason: RLS Gabapentin (Neurontin) 300 mg PO TID@08,12,20 [facility] Last Admin: 12/13/19 21:24 Dose: 300 mg Guaifenesin/Dextromethorphan (Mucinex Dm Er 600-30 Mg) 1 tab PO Q12HR [facility] Last Admin: 12/13/19 21:25 Dose: 1 tab Ceftriaxone Sodium 1 gm/ (Sodium Chloride) 100 mls @ 200 mls/hr IV Q24H [facility] Last Admin: 12/13/19 21:16 Dose: 200 mls/hr Levofloxacin/Dextrose 500 mg/ (Premix) 100 mls @ 100 mls/hr IV Q24H [facility] Last Admin: 12/13/19 17:26 Dose: 100 mls/hr Insulin Human Lispro (Humalog) 0 unit SUBCUT QIDACANDBED [facility]; Protocol Last Admin: 12/14/19 08:07 Dose: Not Given Magnesium Oxide (Magnesium Oxide) 400 mg PO DAILY [facility] Metformin HCl (Glucophage) 1,000 mg PO BID [facility] Metoprolol Succinate (Toprol Xl) 50 mg PO DAILY [facility] Omeprazole (Omeprazole) 20 mg PO DAILY [facility] Potassium Chloride (Klor-Con M20) 20 meq PO BID [facility] Last Admin: 12/13/19 17:26 Dose: 20 meq Ropinirole HCl (Requip) 1 mg PO DAILY@16 PRN PRN Reason: RLS Ropinirole HCl (Requip) 1 mg PO BID@,20 [facility] Last Admin: 12/13/19 21:25 Dose: 1 mg Sertraline HCl (Zoloft) 100 mg PO QAM [facility] Simvastatin (Zocor) 20 mg PO BEDTIME [facility] Last Admin: 12/13/19 21:24 Dose: 20 mg Sodium Chloride (Saline Flush) 10 ml FLUSH ASDIRECTED PRN PRN Reason: Keep Vein Open Last Admin: 12/13/19 17:26 Dose: 10 ml Sodium Chloride (Saline Flush) 10 ml FLUSH Q12HR [facility] Last Admin: 12/13/19 21:16 Dose: 10 ml Spironolactone (Aldactone) 50 mg PO BID@0800,1200 [facility] Warfarin Sodium (Coumadin) 5 mg PO SUTUWETHFRSA@18 [facility] Last Admin: 12/13/19 17:26 Dose: 5 mg Warfarin Sodium (Coumadin) 7.5 mg PO MO@18 [facility] Discontinued Medications Furosemide (Lasix) 40 mg IVPUSH Q8H [facility] Iopamidol (Isovue-370 (76%)) 100 ml IVPUSH ONETIME ONE Stop: 12/13/19 14:39 Last Admin: 12/13/19 15:39 Dose: 100 ml Potassium Chloride (Klor-Con M20) 20 meq PO TID [facility] - Exam General: Alert, Oriented Lungs: Normal Respiratory Effort, Wheezing (Mild diffuse end expiratory wheezes. ). No: Rales, Rhonchi Cardiovascular: Regular Rate, Regular Rhythm GI/Abdominal Exam: Normal Bowel Sounds, Soft, Non-Tender, No Distention, No Mass Sepsis Event Note - Evaluation Sepsis Screening Result: No Definite Risk - Focused Exam Vital Signs: Vital Signs Temp Pulse Resp BP BP Pulse Ox 12/14/19 08:10 36.9 C 71 22 H 121/63 97 12/14/19 04:00 36.9 C 71 20 96/46 L 96 Date Exam was Performed: 12/14/19 Time Exam was Performed: 09:00 - Problem List Review Problem List Initiated/Reviewed/Updated: Yes - Assessment Assessment:: Overall patient is stable. Elevated d-dimer slightly improved. Mild anemia but stable. - Plan Plan:: Continue current cares.
[2019-12-14 08:45] LABS: CHLORIDE,CL 104 mmol/L (98-107); SODIUM,NA 139 mmol/L (136-145)
[2019-12-14] MEDS: Warfarin 5 MG Tab PO SCH (17:09)
[2019-12-14] MEDS: Sodium Chloride 0.9% 10 ML Syringe FLUSH PRN (17:12)
[2019-12-14] MEDS: Levofloxacin/Dextrose 5%-Water 500 MG in Premix Bag 1 BAG IV SCH (17:12)
[2019-12-14] MEDS: cefTRIAXone 1 GM in Sodium Chloride 0.9% 100 ML IV SCH (21:11)
[2019-12-14] MEDS: Simvastatin 20 MG Tab PO SCH (21:13)
[2019-12-15] MEDS: Sodium Chloride 0.9% 10 ML Syringe FLUSH SCH ×2 (07:24→20:43)
[2019-12-15] MEDS: Albuterol/Ipratropium 3.0-0.5 MG/3 ML Neb Soln NEB SCH ×4 (07:25→20:58)
[2019-12-15] MEDS: Budesonide 0.5 MG/2 ML Neb Susp NEB SCH ×2 (07:25→20:58)
[2019-12-15] MEDS: Insulin Lispro 100 Units/ML 3 ML Vial SUBCUT SCH ×4 (07:25→20:53)
[2019-12-15] MEDS: Sertraline 50 MG Tab PO SCH (07:27)
[2019-12-15] MEDS: Magnesium Oxide 400 MG Tab PO SCH (07:27)
[2019-12-15] MEDS: Cholecalciferol (Vitamin D3) 25 MCG Tab PO SCH (07:27)
[2019-12-15] MEDS: Spironolactone 25 MG Tab PO SCH ×2 (07:28→12:03)
[2019-12-15] MEDS: Omeprazole 20 MG Cap.CR PO SCH (07:28)
[2019-12-15] MEDS: rOPINIRole 1 MG Tab PO SCH ×2 (07:29→20:56)
[2019-12-15] MEDS: Cyanocobalamin (Vitamin B12) 1,000 MCG Tab PO SCH (07:29)
[2019-12-15] MEDS: Potassium Chloride 20 MEQ Tab.ER PO SCH ×2 (07:29→17:39)
[2019-12-15] MEDS: Dextromethorphan/guaiFENesin 600-30 MG Tab.ER PO SCH ×2 (07:29→20:56)
[2019-12-15] MEDS: Gabapentin 300 MG Cap PO SCH ×3 (07:29→20:56)
[2019-12-15] MEDS: Furosemide 40 MG/4 ML VIAL IVPUSH SCH ×2 (07:30→20:43)
[2019-12-15] MEDS: Metoprolol Succinate 50 MG Tab.ER PO SCH (07:30)
[2019-12-15] MEDS: amLODIPine 5 MG Tab PO SCH (07:30)
--- NOTE | 2019-12-15 09:30 | PCM.PN ---
- General Info Date of Service: 12/15/19 Admission Dx/Problem (Free Text): UTI, CHF, COPD, sleep apnea, diabetes, atrial fibrillation. Subjective Update: Overall doing well. Feels like he is at his baseline. No shortness of breath. No chest pain or tightness. No dizziness or lightheadedness. No nausea, vomiting or diarrhea. Weight is down and edema is improved. - Review of Systems General: Denies: Fever, Chills HEENT: Reports: No Symptoms Pulmonary: Denies: Shortness of Breath, Cough, Wheezing Cardiovascular: Denies: Chest Pain, Palpitations, Lightheadedness Gastrointestinal: Denies: Abdominal Pain, Nausea, Vomiting Genitourinary: Denies: Dysuria, Frequency, Urgency Neurological: Denies: Confusion, Dizziness Psychiatric: Denies: Depression - Patient Data Vitals - Most Recent: Last Vital Signs Temp 36.9 C 12/15/19 07:22 Pulse 64 12/15/19 07:30 Resp 22 H 12/15/19 07:22 BP 121/65 12/15/19 07:30 Pulse Ox 96 12/15/19 07:22 Weight - Most Recent: 150.683 kg I&O - Last 24 Hours: Intake & Output 12/14/19 12/15/19 12/15/19 22:59 06:59 14:59 Intake Total 640 300 Output Total 600 1800 Balance 40 -1500 Lab Results Last 24 Hours: Laboratory Results - last 24 hr 12/14/19 12/14/19 12/14/19 Range/Units 11:17 17:07 21:16 PT (9.5-12.0) SEC INR POC Glucose 211 H 255 H* 212 H (65-110) mg/dl 12/15/19 12/15/19 Range/Units 07:19 07:20 PT 40.5 H (9.5-12.0) SEC INR 4.2 POC Glucose 216 H (65-110) mg/dl Arik Results Last 24 Hours: Microbiology 12/13/19 13:09 Urine Culture - Final Urine, Clean Catch Escherichia Coli 12/14/19 10:00 Stool Occult Blood (ARIK) - Final Stool / Feces NEGATIVE OCCULT BLOOD REFERENCE RANGE: NEGATIVE Med Orders - Current: Current Medications Acetaminophen (Tylenol) 650 mg PO Q4HR PRN PRN Reason: Pain/Fever Albuterol (Proventil Neb Soln) 2.5 mg NEB Q2H PRN PRN Reason: Dyspnea Albuterol/Ipratropium (Duoneb 3.0-0.5 Mg/3 Ml) 3 ml NEB Q4HRRT PRN PRN Reason: Dyspnea Albuterol/Ipratropium (Duoneb 3.0-0.5 Mg/3 Ml) 3 ml NEB QID [facility] Last Admin: 12/15/19 07:25 Dose: 3 ml Alprazolam (Xanax) 0.5 mg PO BID PRN PRN Reason: Anxiety Amlodipine Besylate (Norvasc) 10 mg PO QAM [facility] Last Admin: 12/15/19 07:30 Dose: 10 mg Budesonide (Pulmicort) 0.5 mg NEB BIDRT [facility] Last Admin: 12/15/19 07:25 Dose: 0.5 mg Cholecalciferol (Vitamin D3) [facility] Admin: 12/15/19 07:27 Dose: 25 mcg Cyanocobalamin (Vitamin B12) 1,000 mcg PO DAILY [facility] Last Admin: 12/15/19 07:29 Dose: 1,000 mcg Furosemide (Lasix) 40 mg IVPUSH Q12HR [facility] Last Admin: 12/15/19 07:30 Dose: 40 mg Gabapentin (Neurontin) 300 mg PO DAILY@16 PRN PRN Reason: RLS Gabapentin (Neurontin) 300 mg PO TID@08,12,20 [facility] Last Admin: 12/15/19 07:29 Dose: 300 mg Guaifenesin/Dextromethorphan (Mucinex Dm Er 600-30 Mg) 1 tab PO Q12HR [facility] Last Admin: 12/15/19 07:29 Dose: 1 tab Ceftriaxone Sodium 1 gm/ (Sodium Chloride) 100 mls @ 200 mls/hr IV Q24H [facility] Last Admin: 12/14/19 21:11 Dose: 200 mls/hr Levofloxacin/Dextrose 500 mg/ (Premix) 100 mls @ 100 mls/hr IV Q24H [facility] Last Admin: 12/14/19 17:12 Dose: 100 mls/hr Insulin Human Lispro (Humalog) 0 unit SUBCUT QIDACANDBED [facility]; Protocol Last Admin: 12/15/19 07:25 Dose: 4 units Magnesium Oxide (Magnesium Oxide) 400 mg PO DAILY [facility] Last Admin: 12/15/19 07:27 Dose: 400 mg Metformin HCl (Glucophage) 1,000 mg PO BID [facility] Metoprolol Succinate (Toprol Xl) 50 mg PO DAILY [facility] Last Admin: 12/15/19 07:30 Dose: 50 mg Omeprazole (Omeprazole) 20 mg PO DAILY [facility] Last Admin: 12/15/19 07:28 Dose: 20 mg Potassium Chloride (Klor-Con M20) 20 meq PO BID [facility] Last Admin: 12/15/19 07:29 Dose: 20 meq Ropinirole HCl (Requip) 1 mg PO DAILY@16 PRN PRN Reason: RLS Ropinirole HCl (Requip) 1 mg PO BID@08,20 [facility] Last Admin: 12/15/19 07:29 Dose: 1 mg Sertraline HCl (Zoloft) 100 mg PO QAM [facility] Last Admin: 12/15/19 07:27 Dose: 100 mg Simvastatin (Zocor) 20 mg PO BEDTIME [facility] Last Admin: 12/14/19 21:13 Dose: 20 mg Sodium Chloride (Saline Flush) 10 ml FLUSH ASDIRECTED PRN PRN Reason: Keep Vein Open Last Admin: 12/14/19 17:12 Dose: 10 ml Sodium Chloride (Saline Flush) 10 ml FLUSH Q12HR [facility] Last Admin: 12/15/19 07:24 Dose: 10 ml Spironolactone (Aldactone) 50 mg PO BID@0800,1200 [facility] Last Admin: 12/15/19 07:28 Dose: 50 mg Warfarin Sodium (Coumadin) 5 mg PO SUTUWETHFRSA@18 [facility] Last Admin: 12/14/19 17:09 Dose: 5 mg Warfarin Sodium (Coumadin) 7.5 mg PO MO@18 [facility] Discontinued Medications Furosemide (Lasix) 40 mg IVPUSH Q8H [facility] Iopamidol (Isovue-370 (76%)) 100 ml IVPUSH ONETIME ONE Stop: 12/13/19 14:39 Last Admin: 12/13/19 15:39 Dose: 100 ml Potassium Chloride (Klor-Con M20) 20 meq PO TID [facility] - Exam General: Alert, Oriented Lungs: Normal Respiratory Effort, Crackles (Few crackles at the base bilaterally. Lungs are otherwise clear to auscultation.) Cardiovascular: Regular Rate, Regular Rhythm GI/Abdominal Exam: Normal Bowel Sounds, Soft, Non-Tender Extremities: Pedal Edema (Trace pedal edema bilaterally.) Sepsis Event Note - Evaluation Sepsis Screening Result: No Definite Risk - Focused Exam Vital Signs: Vital Signs Temp Pulse Pulse Resp BP BP Pulse Ox 12/15/19 07:30 64 121/65 12/15/19 07:22 36.9 C 64 22 H 121/65 96 Date Exam was Performed: 12/15/19 Time Exam was Performed: 09:23 - Problem List Review Problem List Initiated/Reviewed/Updated: Yes - My Orders Last 24 Hours: My Active Orders 12/15/19 08:00 Vital Signs [RC] Q4HWA - Assessment Assessment:: Doing well overall. INR is elevated. We will hold his Coumadin. Recheck tomorrow. Urine culture is sensitive to current antibiotics. Breathing and swelling are improved. - Plan Plan:: Continue IV antibiotics. Continue diuresis. Hold his Coumadin today. Recheck INR tomorrow. Otherwise routine cares.
[2019-12-15] MEDS: rOPINIRole 1 MG Tab PO PRN (14:09)
[2019-12-15] MEDS: Levofloxacin/Dextrose 5%-Water 500 MG in Premix Bag 1 BAG IV SCH (17:37)
[2019-12-15] MEDS: Sodium Chloride 0.9% 10 ML Syringe FLUSH PRN (17:40)
[2019-12-15] MEDS: metFORMIN 500 MG Tab PO SCH (18:04)
[2019-12-15] MEDS: cefTRIAXone 1 GM in Sodium Chloride 0.9% 100 ML IV SCH (20:44)
[2019-12-15] MEDS: Simvastatin 20 MG Tab PO SCH (20:56)
[2019-12-15] MEDS: ALPRAZolam 0.25 MG Tab PO PRN (21:14)
[2019-12-16 07:45] LABS: CHLORIDE,CL 101 mmol/L (98-107); SODIUM,NA 139 mmol/L (136-145)
[2019-12-16] MEDS: Gabapentin 300 MG Cap PO SCH ×3 (08:28→20:43)
[2019-12-16] MEDS: Potassium Chloride 20 MEQ Tab.ER PO SCH ×2 (08:28→17:05)
[2019-12-16] MEDS: Spironolactone 25 MG Tab PO SCH ×2 (08:28→12:02)
[2019-12-16] MEDS: Omeprazole 20 MG Cap.CR PO SCH (08:28)
[2019-12-16] MEDS: Cyanocobalamin (Vitamin B12) 1,000 MCG Tab PO SCH (08:28)
[2019-12-16] MEDS: Sertraline 50 MG Tab PO SCH (08:28)
[2019-12-16] MEDS: Magnesium Oxide 400 MG Tab PO SCH (08:28)
[2019-12-16] MEDS: rOPINIRole 1 MG Tab PO SCH ×2 (08:29→20:43)
[2019-12-16] MEDS: metFORMIN 500 MG Tab PO SCH ×2 (08:31→17:06)
[2019-12-16] MEDS: Sodium Chloride 0.9% 10 ML Syringe FLUSH SCH ×2 (08:32→20:43)
[2019-12-16] MEDS: Albuterol/Ipratropium 3.0-0.5 MG/3 ML Neb Soln NEB SCH ×4 (08:32→20:44)
[2019-12-16] MEDS: Dextromethorphan/guaiFENesin 600-30 MG Tab.ER PO SCH ×2 (08:32→20:43)
[2019-12-16] MEDS: Furosemide 40 MG/4 ML VIAL IVPUSH SCH ×2 (08:32→20:44)
[2019-12-16] MEDS: Cholecalciferol (Vitamin D3) 25 MCG Tab PO SCH (08:32)
[2019-12-16] MEDS: Budesonide 0.5 MG/2 ML Neb Susp NEB SCH ×2 (08:32→20:44)
[2019-12-16] MEDS: Metoprolol Succinate 50 MG Tab.ER PO SCH (08:34)
[2019-12-16] MEDS: Insulin Lispro 100 Units/ML 3 ML Vial SUBCUT SCH ×4 (08:35→20:41)
[2019-12-16] MEDS: amLODIPine 5 MG Tab PO SCH (08:35)
--- NOTE | 2019-12-16 08:54 | PCM.PN ---
- General Info Date of Service: 12/16/19 Admission Dx/Problem (Free Text): 1. CHF 2. Coronary artery disease 3. COPD 4. Pneumonia 5. UTI 6. Recurrent atrial fibrillation/flutter Functional Status: Reports: Pain Controlled, Tolerating Diet, Ambulating, Urinating, Incentive Spirometry. Denies: New Symptoms Pain Score: 0 - Review of Systems General: Reports: No Symptoms. Denies: Fever, Weakness, Fatigue, Malaise, Chills, Night Sweats, Appetite (Good) HEENT: Reports: Glasses. Denies: Dysphasia, Ear Pain, Eye Pain, Headaches, Sinus Congestion, Sore Throat, Visual Changes Pulmonary: Reports: No Symptoms. Denies: Shortness of Breath, Pleuritic Chest Pain, Cough, Sputum, Hemoptysis, Wheezing Cardiovascular: Reports: Edema (Improved). Denies: Chest Pain, Palpitations, Dyspnea on Exertion, Orthopnea, PND, Lightheadedness Gastrointestinal: Reports: Other (Normal bowel movements yesterday). Denies: Abdominal Pain, Constipation, Decreased Appetite, Diarrhea, Difficulty Swallowing, Flatus, Hematochezia, Melena, Nausea, Vomiting Genitourinary: Reports: No Symptoms. Denies: Dysuria, Frequency, Burning, Pain , Urgency, Incontinence, Hematuria, Retention, Flank Pain Musculoskeletal: Reports: Shoulder Pain (Stable chronic). Denies: Neck Pain, Arm Pain, Hand Pain, Back Pain, Leg Pain, Joint Swelling Skin: Reports: Bruising (Stable). Denies: Diaphoresis, Pruritis, Rash Neurological: Reports: Numbness (Stable diabetic neuropathy), Paresthesia, Tingling. Denies: Confusion, Dizziness, Headache, Difficulty Walking, Weakness Psychiatric: Reports: No Symptoms. Denies: Confusion, Depression, Anxiety, Agitation, Cravings, Hallucinations - Patient Data Vitals - Most Recent: Last Vital Signs Temp 36.8 C 12/15/19 20:00 Pulse 69 12/16/19 08:34 Resp 20 12/15/19 20:00 BP 116/62 12/16/19 08:35 Pulse Ox 93 L 12/15/19 20:00 Vital Signs - 24 hr 12/15/19 12/15/19 12/16/19 16:22 20:00 08:34 Temperature [ 36.6 C 36.8 C Oral] Pulse, 69 Peripheral Pulse, 68 66 Peripheral [ Pulse Oximetry] Respiratory 22 H 20 Rate Blood Pressure 116/62 Blood Pressure 129/55 L 144/67 H [Left Upper Arm ] O2 Sat by Pulse 97 93 L Oximetry 12/16/19 08:35 Temperature [ Oral] Pulse, Peripheral Pulse, Peripheral [ Pulse Oximetry] Respiratory Rate Blood Pressure 116/62 Blood Pressure [Left Upper Arm ] O2 Sat by Pulse Oximetry Weight - Most Recent: 148.597 kg I&O - Last 24 Hours: Intake & Output 12/15/19 12/16/19 12/16/19 22:59 06:59 14:59 Intake Total 1000 500 Output Total 1450 1300 Balance -450 -800 Imaging Impressions - Last 24 Hours: monitoring tech stable atrial fibrillation/flutter with heart rate in the 80s with occasional PVCs Lab Results Last 24 Hours: Laboratory Results - last 24 hr 12/15/19 12/15/19 12/15/19 Range/Units 07:20 11:14 17:36 WBC 7.7 (4.0-10.2) K/uL RBC 4.81 (4.33-5.41) M/uL Hgb 10.0 L (13.1-16.8) g/dL Hct 33.2 L (39.0-49.0) % MCV 69.0 L (84.0-98.0) fL MCH 20.8 L (28.2-33.3) pg MCHC 30.1 L (31.7-36.0) g/dL RDW 18.1 H (11.2-14.1) % Plt Count 301 (150-350) K/uL Neut % (Auto) 63.6 (45.0-80.0) % Lymph % (Auto) 21.1 (10.0-50.0) % Lynn % (Auto) 12.2 (2.0-14.0) % Eos % (Auto) 2.7 (0.0-5.0) % Baso % (Auto) 0.4 (0.0-2.0) % Neut # (Auto) 4.88 (1.40-7.00) K/uL Lymph # (Auto) 1.62 (0.50-3.50) K/uL Lynn # (Auto) 0.94 (0.00-1.00) K/uL Eos # (Auto) 0.21 (0.00-0.50) K/uL Baso # (Auto) 0.03 (0.00-0.20) K/uL PT (9.5-12.0) SEC INR Sodium (136-145) mmol/L Potassium (3.5-5.1) mmol/L Chloride (98-107) mmol/L Carbon Dioxide (21.0-32.0) mmol/L BUN (7-18) mg/dL Creatinine (0.51-1.17) mg/dL Est Cr Clr Drug Dosing mL/min Estimated GFR (MDRD) mL/min Glucose (74-106) mg/dL POC Glucose 225 H 220 H (65-110) mg/dl Calcium (8.5-10.1) mg/dL Total Bilirubin (0.2-1.0) mg/dL AST (15-37) U/L ALT (12-78) U/L Alkaline Phosphatase (46-116) IU/L Total Protein (6.4-8.2) g/dL Albumin (3.4-5.0) g/dL 12/15/19 12/16/19 12/16/19 Range/Units 20:53 07:00 07:00 WBC (4.0-10.2) K/uL RBC (4.33-5.41) M/uL Hgb (13.1-16.8) g/dL Hct (39.0-49.0) % MCV (84.0-98.0) fL MCH (28.2-33.3) pg MCHC (31.7-36.0) g/dL RDW (11.2-14.1) % Plt Count (150-350) K/uL Neut % (Auto) (45.0-80.0) % Lymph % (Auto) (10.0-50.0) % Lynn % (Auto) (2.0-14.0) % Eos % (Auto) (0.0-5.0) % Baso % (Auto) (0.0-2.0) % Neut # (Auto) (1.40-7.00) K/uL Lymph # (Auto) (0.50-3.50) K/uL Lynn # (Auto) (0.00-1.00) K/uL Eos # (Auto) (0.00-0.50) K/uL Baso # (Auto) (0.00-0.20) K/uL PT 31.8 H (9.5-12.0) SEC INR 3.3 Sodium 139 (136-145) mmol/L Potassium 4.4 (3.5-5.1) mmol/L Chloride 101 (98-107) mmol/L Carbon Dioxide 28.6 (21.0-32.0) mmol/L BUN 22 H (7-18) mg/dL Creatinine 0.92 (0.51-1.17) mg/dL Est Cr Clr Drug Dosing 71.46 mL/min Estimated GFR (MDRD) > 60 mL/min Glucose 198 H (74-106) mg/dL POC Glucose 237 H (65-110) mg/dl Calcium 8.6 (8.5-10.1) mg/dL Total Bilirubin 0.2 (0.2-1.0) mg/dL AST 11 L (15-37) U/L ALT 19 (12-78) U/L Alkaline Phosphatase 87 (46-116) IU/L Total Protein 7.0 (6.4-8.2) g/dL Albumin 2.7 L (3.4-5.0) g/dL Arik Results Last 24 Hours: Microbiology 12/13/19 13:09 Urine Culture - Final Urine, Clean Catch Escherichia Coli Med Orders - Current: Current Medications Acetaminophen (Tylenol) 650 mg PO Q4HR PRN PRN Reason: Pain/Fever Last Admin: 12/15/19 14:21 Dose: 650 mg Albuterol (Proventil Neb Soln) 2.5 mg NEB Q2H PRN PRN Reason: Dyspnea Albuterol/Ipratropium (Duoneb 3.0-0.5 Mg/3 Ml) 3 ml NEB Q4HRRT PRN PRN Reason: Dyspnea Albuterol/Ipratropium (Duoneb 3.0-0.5 Mg/3 Ml) 3 ml NEB QID BAILEY Last Admin: 12/16/19 08:32 Dose: 3 ml Alprazolam (Xanax) 0.5 mg PO BID PRN PRN Reason: Anxiety Last Admin: 12/15/19 21:14 Dose: 0.5 mg Amlodipine Besylate (Norvasc) 10 mg PO QPM [facility] Budesonide (Pulmicort) 0.5 mg NEB BIDRT [facility] Last Admin: 12/16/19 08:32 Dose: 0.5 mg Cholecalciferol (Vitamin D3) 25 mcg PO QAM [facility] Last Admin: 12/16/19 08:32 Dose: 25 mcg Cyanocobalamin (Vitamin B12) 1,000 mcg PO DAILY [facility] Last Admin: 12/16/19 08:28 Dose: 1,000 mcg Furosemide (Lasix) 40 mg IVPUSH Q12HR [facility] Last Admin: 12/16/19 08:32 Dose: 40 mg Gabapentin (Neurontin) 300 mg PO DAILY@16 PRN PRN Reason: RLS Last Admin: 12/15/19 16:21 Dose: 300 mg Gabapentin (Neurontin) 300 mg PO TID@08,12,20 [facility] Last Admin: 12/16/19 08:28 Dose: 300 mg Guaifenesin/Dextromethorphan (Mucinex Dm Er 600-30 Mg) 1 tab PO Q12HR [facility] Last Admin: 12/16/19 08:32 Dose: 1 tab Ceftriaxone Sodium 1 gm/ (Sodium Chloride) 100 mls @ 200 mls/hr IV Q24H [facility] Last Admin: 12/15/19 20:44 Dose: 200 mls/hr Levofloxacin/Dextrose 500 mg/ (Premix) 100 mls @ 100 mls/hr IV Q24H [facility] Last Admin: 12/15/19 17:37 Dose: 100 mls/hr Insulin Human Lispro (Humalog) 0 unit SUBCUT QIDACANDBED [facility]; Protocol Last Admin: 12/16/19 08:35 Dose: 2 units Magnesium Oxide (Magnesium Oxide) 400 mg PO DAILY [facility] Last Admin: 12/16/19 08:28 Dose: 400 mg Metformin HCl (Glucophage) 1,000 mg PO BID [facility] Last Admin: 12/16/19 08:31 Dose: 1,000 mg Metoprolol Succinate (Toprol Xl) 50 mg PO DAILY [facility] Last Admin: 12/16/19 08:34 Dose: 50 mg Omeprazole (Omeprazole) 20 mg PO DAILY [facility] Last Admin: 12/16/19 08:28 Dose: 20 mg Potassium Chloride (Klor-Con M20) 20 meq PO BID [facility] Last Admin: 12/16/19 08:28 Dose: 20 meq Ropinirole HCl (Requip) 1 mg PO DAILY@16 PRN PRN Reason: RLS Last Admin: 12/15/19 14:09 Dose: 1 mg Ropinirole HCl (Requip) 1 mg PO BID@08,20 [facility] Last Admin: 12/16/19 08:29 Dose: 1 mg Sertraline HCl (Zoloft) 100 mg PO QAM [facility] Last Admin: 12/16/19 08:28 Dose: 100 mg Simvastatin (Zocor) 20 mg PO BEDTIME [facility] Last Admin: 12/15/19 20:56 Dose: 20 mg Sodium Chloride (Saline Flush) 10 ml FLUSH ASDIRECTED PRN PRN Reason: Keep Vein Open Last Admin: 12/15/19 17:40 Dose: 10 ml Sodium Chloride (Saline Flush) 10 ml FLUSH Q12HR [facility] Last Admin: 12/16/19 08:32 Dose: 10 ml Spironolactone (Aldactone) 50 mg PO BID@0800,1200 [facility] Last Admin: 12/16/19 08:28 Dose: 50 mg Discontinued Medications Amlodipine Besylate (Norvasc) 10 mg PO QAM [facility] Last Admin: 12/16/19 08:35 Dose: Not Given Furosemide (Lasix) 40 mg IVPUSH Q8H [facility] Iopamidol (Isovue-370 (76%)) 100 ml IVPUSH ONETIME ONE Stop: 12/13/19 14:39 Last Admin: 12/13/19 15:39 Dose: 100 ml Potassium Chloride (Klor-Con M20) 20 meq PO TID [facility] Warfarin Sodium (Coumadin) 5 mg PO SUTUWETHFRSA@18 [facility] Last Admin: 12/14/19 17:09 Dose: 5 mg Warfarin Sodium (Coumadin) 7.5 mg PO MO@18 [facility] - Exam Quality Assessment: Supplemental Oxygen, DVT Prophylaxis (Coumadin). No: Central Line/PICC, Restraints General: Alert, Oriented, Cooperative, No Acute Distress HEENT: Pupils Equal, Pupils Reactive, EOMI, Mucous Membr. Moist/Merrill, Other ( Patient wearing glasses). No: Scleral Icterus Neck: Supple, Trachea Midline, No JVD, No Thyromegaly, Carotid Bruit (Stable mild bilateral carotid bruits versus transmitted heart sounds). No: Lymphadenopathy Lungs: Normal Respiratory Effort, Rales (Mild bilateral basilar improved from admission). No: Rhonchi, Rub, Wheezing Cardiovascular: Irregular Rhythm, Murmurs (Stable 1/6 ANDREW of the mitral and aortic valve). No: Gallops, Rubs GI/Abdominal Exam: Normal Bowel Sounds, Soft, Non-Tender, No Organomegaly, No Distention, No Abnormal Bruit, No Mass, Other (Obese). No: Guarding (Male) Exam: Deferred Back Exam: Full Range of Motion, Other (Mild kyphosis). No: CVA Tenderness (L) , CVA Tenderness (R), Muscle Spasm, Paraspinal Tenderness, Vertebral Tenderness Extremities: Normal Range of Motion, Non-Tender, Normal Capillary Refill, Pedal Edema (Approved trace bilateral pedal/pretibial edema. Stable moderate venous stasis dermatitis of the lower extremities). No: Blas's Sign Peripheral Pulses: 2+: Radial (L), Radial (R), Dorsalis Pedis (L), Dorsalis Pedis (R) Skin: Warm, Dry, Intact, Ecchymosis (Occasional mostly in the forearms bilaterally) Neurological: No New Focal Deficit, Other (No clinical orthostasis) Psy/Mental Status: Alert, Normal Affect, Normal Mood. No: Anxious, Depressed, Agitated, Hallucinations, Withdrawal Symptoms Sepsis Event Note - Evaluation Sepsis Screening Result: No Definite Risk - Focused Exam Vital Signs: Vital Signs Pulse BP 12/16/19 08:35 116/62 12/16/19 08:34 69 116/62 Date Exam was Performed: 12/16/19 Time Exam was Performed: 09:30 - Problem List & Annotations (1) CHF, Congestive heart failure SNOMED Code(s): 77685313 Code(s): I50.9 - HEART FAILURE, UNSPECIFIED Status: Acute Priority: High Current Visit: Yes Onset Date: ~12/13/19 Annotation/Comment:: History of recurrent CHF, including recent hospitalizations in September and November 2019 as per emergency room note. Initiated IV Lasix therapy with caution on admission secondary to his previous history of diabetic nephropathy , which has been stable. Note recent cardiac workup, including Cardiolite evaluations, echocardiograms, etc. as per emergency room note. No chest pain or anginal type symptoms prior to arrival with chest pain protocol not initiated in the emergency room. No chest pain or anginal type symptoms throughout this hospitalization with stable atrial fibrillation. Repeat Cardiology consultation depending on his clinical course. Standard rule out [place] orders have been negative. (2) COPD (chronic obstructive pulmonary disease) SNOMED Code(s): 84256533 Code(s): J44.9 - CHRONIC OBSTRUCTIVE PULMONARY DISEASE, UNSPECIFIED Status : Chronic Priority: Medium Current Visit: Yes Qualifiers: COPD type: COPD with acute lower respiratory infection Qualified Code(s): J44.0 - Chronic obstructive pulmonary disease with (acute) lower respiratory infection Annotation/Comment:: COPD exacerbation secondary to probable right middle lobe pneumonia with moderate cyanosis on admission, although significantly improved throughout this hospitalization. cytosis. Only minimal fever on admission with negative blood cultures 2. Note positive UA for Escherichia coli with culture and sensitivity indicating sensitivity to both Rocephin and Levaquin. Sputum specimen has yet to be collected. Initiated IV Rocephin and Levaquin therapy with caution secondary to his Coumadin. He has been noncompliant with his O2 therapy. O2 saturations with ambulation should be conducted prior to discharge. Consider PFTs on an outpatient basis depending on his clinical course. Low probability of COVID-19 diagnosis, however nasal specimen was collected for this virus by STANLEY Becerra at the [facility] prior to admission, although an influenza screen was apparently not conducted per my previous request based on my review of [place]'s EMR today. Isolation protocol were initiated on admission with negative COVID19 screen as above. (3) UTI (urinary tract infection) SNOMED Code(s): 21738867 Code(s): N39.0 - URINARY TRACT INFECTION, SITE NOT SPECIFIED Status: Acute Priority: High Current Visit: Yes Onset Date: 12/13/19 Qualifiers: Urinary tract infection type: acute cystitis Hematuria presence: without hematuria Qualified Code(s): N30.00 - Acute cystitis without hematuria Annotation/Comment:: IV antibiotics and culture and sensitivity results as above. (4) Coronary artery disease SNOMED Code(s): 47018812 Code(s): I25.10 - ATHSCL HEART DISEASE OF [place] CORONARY ARTERY W/O ANG PCTRS Status: Chronic Priority: Medium Current Visit: Yes Qualifiers: Coronary Disease-Associated Artery/Lesion type: [place] artery [place] vs. transplanted heart: [place] heart Associated angina: without angina Qualified Code(s): I25.10 - Atherosclerotic heart disease of [place] coronary artery without angina pectoris Annotation/Comment:: As above. (5) D-dimer, elevated SNOMED Code(s): 720689070 Code(s): R79.89 - OTHER SPECIFIED ABNORMAL FINDINGS OF BLOOD CHEMISTRY Status: Acute Priority: High Current Visit: Yes Onset Date: 12/13/19 Annotation/Comment:: CTA of the chest results from 12/13/19 were negative. Patient is already on Coumadin. Venous Doppler studies of the lower extremities will be conducted at time of next availability on 12/15 in this facility. No direct clinical evidence of DVT or PE, however. (6) Hypertension SNOMED Code(s): 42027663 Code(s): I10 - ESSENTIAL (PRIMARY) HYPERTENSION Status: Chronic Priority : Medium Current Visit: Yes Qualifiers: Hypertension type: essential hypertension Qualified Code(s): I10 - Essential (primary) hypertension Annotation/Comment:: Stable by history and under good control in the emergency room and throughout this hospitalization. A.M. blood pressures have been somewhat low, however with Norvasc changed to an every afternoon regimen on 12/15. (7) Hypoalbuminemia SNOMED Code(s): 974445383 Code(s): E88.09 - OTH DISORDERS OF PLASMA-PROTEIN METABOLISM, NEC Status: Acute Priority: Medium Current Visit: Yes Onset Date: 12/13/19 Annotation/Comment:: Observe for now. Note obesity. Consider high protein Glucerna supplements as snacks. (8) Hypomagnesemia SNOMED Code(s): 191101930 Code(s): E83.42 - HYPOMAGNESEMIA Status: Acute Priority: Medium Current Visit: Yes Onset Date: 12/13/19 Annotation/Comment:: Initiated higher magnesium oxide therapy on admission especially in light of IV Lasix therapy. Continue close observation after discharge by his regular provider. (9) IDDM (insulin dependent diabetes mellitus) SNOMED Code(s): 10294357 Code(s): EZH8156 - Status: Chronic Priority: Medium Current Visit: Yes Annotation/Comment:: Blood sugars somewhat elevated and ranging in the 200s to 240s secondary to metformin being held, which was necessary secondary to IV contrast during his CTA of the chest as above. Reinitiated metformin on 12/14 with sliding scale to be continued at this time. Levemir not available in our facility. Lantus initiated on 12/15. Glycosylated hemoglobin on 12/13 was increased to 8.0%. (10) Mixed anxiety depressive disorder SNOMED Code(s): 469689657 Code(s): F41.8 - OTHER SPECIFIED ANXIETY DISORDERS Status: Chronic Priority: Medium Current Visit: Yes Annotation/Comment:: Stable by history. Patient denies alcohol abuse as above. No evidence of intoxication today. (11) Osteoarthritis SNOMED Code(s): 874319877 Code(s): M19.90 - UNSPECIFIED OSTEOARTHRITIS, UNSPECIFIED SITE Status: Chronic Priority: Medium Current Visit: Yes Qualifiers: Osteoarthritis location: multiple joints Osteoarthritis type: primary Qualified Code(s): M89.49 - Other hypertrophic osteoarthropathy, multiple sites Annotation/Comment:: Stable by history with the exception of chronic bilateral shoulder pain. (12) Pneumonia SNOMED Code(s): 536003485 Code(s): J18.9 - PNEUMONIA, UNSPECIFIED ORGANISM Status: Acute Priority: High Current Visit: Yes Annotation/Comment:: As above (13) Sleep apnea SNOMED Code(s): 55081466 Code(s): G47.30 - SLEEP APNEA, UNSPECIFIED Status: Chronic Priority: Medium Current Visit: Yes Qualifiers: Sleep apnea type: obstructive Qualified Code(s): G47.33 - Obstructive sleep apnea (adult) (pediatric) Annotation/Comment:: He has been compliant with his CPAP, which was also continued during this hospitalization. Note oxygen noncompliance, however. (14) Atrial fibrillation SNOMED Code(s): 41845708 Code(s): I48.91 - UNSPECIFIED ATRIAL FIBRILLATION Status: Chronic Priority: Medium Current Visit: Yes Qualifiers: Atrial fibrillation type: longstanding persistent Qualified Code(s): I48.11 - Longstanding persistent atrial fibrillation Annotation/Comment:: Recent unsuccessful permanent cardiac ablation as per emergency room note. Patient is already on Coumadin with mildly elevated INR during this hospitalization secondary to his antibiotics and was held on 12/14. INR is therapeutic on 12/15 with decreased dose today. (15) Hyperlipidemia SNOMED Code(s): 25520523 Code(s): E78.5 - HYPERLIPIDEMIA, UNSPECIFIED Status: Chronic Priority: Medium Current Visit: Yes Qualifiers: Hyperlipidemia type: mixed hyperlipidemia Qualified Code(s): E78.2 - Mixed hyperlipidemia Annotation/Comment:: Lipid panel on 12/13 showed persistent moderate dyslipidemia. Weight loss in moderation is advisable. (16) Anemia SNOMED Code(s): 132759930 Code(s): D64.9 - ANEMIA, UNSPECIFIED Status: Chronic Priority: Medium Current Visit: Yes Qualifiers: Anemia type: iron deficiency Iron deficiency anemia type: other iron deficiency Qualified Code(s): D50.8 - Other iron deficiency anemias Annotation/Comment:: Iron studies on 12/13 did show some mild iron deficiency, although his ferritin was normal. Note some mild hypoalbuminemia. Vitamin B-12 and folic acid levels were normal on 12/13 with continuation of current vitamin B- 12 supplementation. Initiate low-dose iron sulfate therapy with iron studies to be repeated in about 4 weeks. - Problem List Review Problem List Initiated/Reviewed/Updated: Yes - My Orders Last 24 Hours: My Active Orders 12/16/19 05:11 Venous Doppler Lwr Ext Bi [US] Urgent 12/16/19 18:00 amLODIPine [Norvasc] 10 mg PO QPM - Assessment Assessment:: As above - Plan Plan:: As above. Extensive precautions were given to the patient, who is in agreement with the treatment plan. Likely discharge from acute care tomorrow.
[2019-12-16] MEDS ORDERED: metFORMIN 500 MG Tab PO SCH (09:27)
[2019-12-16] MEDS: Ferrous Sulfate 325 MG Tab PO SCH (17:05)
[2019-12-16] MEDS: Levofloxacin/Dextrose 5%-Water 500 MG in Premix Bag 1 BAG IV SCH (17:06)
[2019-12-16] MEDS: Sodium Chloride 0.9% 10 ML Syringe FLUSH PRN (17:07)
[2019-12-16] MEDS: Insulin Glarg,Human.Rec.Analog 100 Unit/ML SUBCUT SCH (17:13)
[2019-12-16] MEDS ORDERED: Diltiazem 180 MG Cap.CD PO SCH (18:00)
[2019-12-16] MEDS ORDERED: Warfarin 2.5 MG Tab PO ONE (18:00)
[2019-12-16] MEDS ORDERED: Warfarin 2.5 MG Tab PO SCH (18:00)
[2019-12-16] MEDS ORDERED: amLODIPine 5 MG Tab PO SCH (18:00)
[2019-12-16] MEDS ORDERED: Simvastatin 10 MG Tab PO SCH (20:00)
[2019-12-16] MEDS: cefTRIAXone 1 GM in Sodium Chloride 0.9% 100 ML IV SCH (20:45)
[2019-12-16] MEDS: ALPRAZolam 0.25 MG Tab PO PRN (21:14)
[2019-12-17] MEDS: rOPINIRole 1 MG Tab PO PRN (01:41)
[2019-12-17 07:54] VITALS: BP 118/62; PULSE 66
[2019-12-17] MEDS: Magnesium Oxide 400 MG Tab PO SCH (07:54)
[2019-12-17] MEDS: Sertraline 50 MG Tab PO SCH (07:54)
[2019-12-17] MEDS: Spironolactone 25 MG Tab PO SCH (07:55)
[2019-12-17] MEDS: rOPINIRole 1 MG Tab PO SCH (07:55)
[2019-12-17] MEDS: Omeprazole 20 MG Cap.CR PO SCH (07:55)
[2019-12-17] MEDS: Gabapentin 300 MG Cap PO SCH (07:55)
[2019-12-17] MEDS: Cyanocobalamin (Vitamin B12) 1,000 MCG Tab PO SCH (07:55)
[2019-12-17] MEDS: Potassium Chloride 20 MEQ Tab.ER PO SCH (07:55)
[2019-12-17] MEDS: Metoprolol Succinate 50 MG Tab.ER PO SCH (07:55)
[2019-12-17] MEDS: metFORMIN 500 MG Tab PO SCH (07:55)
[2019-12-17] MEDS: Budesonide 0.5 MG/2 ML Neb Susp NEB SCH (07:56)
[2019-12-17] MEDS: Sodium Chloride 0.9% 10 ML Syringe FLUSH SCH (07:56)
[2019-12-17] MEDS: Cholecalciferol (Vitamin D3) 25 MCG Tab PO SCH (07:56)
[2019-12-17] MEDS: Dextromethorphan/guaiFENesin 600-30 MG Tab.ER PO SCH (07:56)
[2019-12-17] MEDS: Albuterol/Ipratropium 3.0-0.5 MG/3 ML Neb Soln NEB SCH (07:56)
[2019-12-17] MEDS: Insulin Lispro 100 Units/ML 3 ML Vial SUBCUT SCH (07:57)
[2019-12-17] MEDS: Furosemide 40 MG/4 ML VIAL IVPUSH SCH (07:59)
[2019-12-17] MEDS: Insulin Glarg,Human.Rec.Analog 100 Unit/ML SUBCUT SCH (07:59)
[2019-12-17 08:20] LABS: CHLORIDE,CL 100 mmol/L (98-107); SODIUM,NA 137 mmol/L (136-145)
--- NOTE | 2019-12-17 09:40 | PCM.DCSUM1 ---
Discharge Summary - Hospital Course HPI Initial Comments: See emergency room note/admission H&P Brief History: See emergency room note/admission H&P Diagnosis: Stroke: No Modified [place] Scale: No Symptoms at All Modified [place] Scale Score: 0 - Discharge Data Discharge Date: 12/17/19 Discharge Disposition: Home, Self-Care 01 Condition: Good - Referral to Home Health Primary Care Physician: Kelley Nagel NP - Discharge Diagnosis/Problem(s) (1) CHF, Congestive heart failure SNOMED Code(s): 37417270 ICD Code: I50.9 - HEART FAILURE, UNSPECIFIED Status: Acute Priority: High Current Visit: Yes Onset Date: ~12/13/19 Problem Details: History of recurrent CHF, including recent hospitalizations in September and November 2019 as per emergency room note. Initiated IV Lasix therapy with caution on admission secondary to his previous history of diabetic nephropathy , which has been stable. Note recent cardiac workup, including Cardiolite evaluations, echocardiograms, etc. as per emergency room note. No chest pain or anginal type symptoms prior to arrival with chest pain protocol not initiated in the emergency room. No chest pain or anginal type symptoms throughout this hospitalization with stable atrial fibrillation. Repeat Cardiology consultation depending on his clinical course with close follow-up by his regular provider as per discharge instructions. Standard rule out IN orders have been negative. BNP has improved with improved CHF by clinical exam. (2) COPD (chronic obstructive pulmonary disease) SNOMED Code(s): 39173142 ICD Code: J44.9 - CHRONIC OBSTRUCTIVE PULMONARY DISEASE, UNSPECIFIED Status : Chronic Priority: Medium Current Visit: Yes Problem Details: COPD exacerbation secondary to probable right middle lobe pneumonia with moderate cyanosis on admission, although significantly improved throughout this hospitalization. Only minimal fever on admission with negative blood cultures 2. Note positive UA for Escherichia coli with culture and sensitivity indicating sensitivity to both Rocephin and Levaquin. Sputum specimen has yet to be collected. Initiated IV Rocephin and Levaquin therapy with caution secondary to his Coumadin. He has been noncompliant with his previously recommended O2 therapy. O2 saturations with ambulation conducted prior to discharge showed no evidence of hypoxia or significant tachycardia with ambulation on room air. Consider PFTs on an outpatient basis depending on his clinical course and once his cardiac and pulmonary status has improved. Low probability of COVID-19 diagnosis, however nasal specimen was collected for this virus by STANLEY Becerra at the [facility] prior to admission, although an influenza screen was apparently not conducted per my previous request based on my review of [facility] EMR. Isolation protocols were initiated on admission with negative COVID19 screen as above. Qualifiers: COPD type: COPD with acute lower respiratory infection Qualified Code(s): J44.0 - Chronic obstructive pulmonary disease with (acute) lower respiratory infection (3) UTI (urinary tract infection) SNOMED Code(s): 66683528 ICD Code: N39.0 - URINARY TRACT INFECTION, SITE NOT SPECIFIED Status: Acute Priority: High Current Visit: Yes Onset Date: 12/13/19 Problem Details: IV antibiotics and culture and sensitivity results as above. He will be discharged on Levaquin, which is appropriate based on the above culture and sensitivity results. Note mild persistent leukocytosis, however patient is afebrile. Close follow-up by regular provider. Qualifiers: Urinary tract infection type: acute cystitis Hematuria presence: without hematuria Qualified Code(s): N30.00 - Acute cystitis without hematuria (4) Coronary artery disease SNOMED Code(s): 29944021 ICD Code: I25.10 - ATHSCL HEART DISEASE OF [place] CORONARY ARTERY W/O ANG PCTRS Status: Chronic Priority: Medium Current Visit: Yes Problem Details: As above. Qualifiers: Coronary Disease-Associated Artery/Lesion type: [place] artery [place] vs. transplanted heart: [place] heart Associated angina: without angina Qualified Code(s): I25.10 - Atherosclerotic heart disease of [place] coronary artery without angina pectoris (5) D-dimer, elevated SNOMED Code(s): 150229476 ICD Code: R79.89 - OTHER SPECIFIED ABNORMAL FINDINGS OF BLOOD CHEMISTRY Status: Acute Priority: High Current Visit: Yes Onset Date: 12/13/19 Problem Details: CTA of the chest results from 12/13/19 were negative. Patient is already on Coumadin. Venous Doppler studies of the lower extremities were conducted at time of next availability on 12/15 in this facility with negative preliminary report as below. No direct clinical evidence of DVT or PE. (6) Hypertension SNOMED Code(s): 22137370 ICD Code: I10 - ESSENTIAL (PRIMARY) HYPERTENSION Status: Chronic Priority : Medium Current Visit: Yes Problem Details: Stable by history and under good control in the emergency room and throughout this hospitalization. A.M. blood pressures have been somewhat low, however with Norvasc changed to an every afternoon Cardizem CD regimen 12/15 secondary to his occasional breakthrough tachycardia and recurrent atrial fibrillation. Close follow-up by his regular provider. Qualifiers: Hypertension type: essential hypertension Qualified Code(s): I10 - Essential (primary) hypertension (7) Hypoalbuminemia SNOMED Code(s): 307093005 ICD Code: E88.09 - OTH DISORDERS OF PLASMA-PROTEIN METABOLISM, NEC Status: Acute Priority: Medium Current Visit: Yes Onset Date: 12/13/19 Problem Details: Observe for now. Note obesity. Consider high protein Glucerna supplements as snacks. (8) Hypomagnesemia SNOMED Code(s): 307746135 ICD Code: E83.42 - HYPOMAGNESEMIA Status: Acute Priority: Medium Current Visit: Yes Onset Date: 12/13/19 Problem Details: Initiated higher magnesium oxide therapy on admission especially in light of IV Lasix therapy with persistent decreased magnesium prior to discharge. Continue close observation after discharge by his regular provider. (9) IDDM (insulin dependent diabetes mellitus) SNOMED Code(s): 80461415 ICD Code: TQA3017 - Status: Chronic Priority: Medium Current Visit: Yes Problem Details: Accu-Cheks improved prior to discharge. Blood sugars somewhat elevated and ranging in the 200s to 240s secondary to metformin being held, which was necessary secondary to IV contrast during his CTA of the chest as above. Reinitiated metformin on 12/14 with sliding scale to be continued at this time. Levemir not available in our facility. Lantus initiated on 12/15. Glycosylated hemoglobin on 12/13 was increased to 8.0%. (10) Mixed anxiety depressive disorder SNOMED Code(s): 819660272 ICD Code: F41.8 - OTHER SPECIFIED ANXIETY DISORDERS Status: Chronic Priority: Medium Current Visit: Yes Problem Details: Stable by history. Patient denies alcohol abuse as above. No evidence of intoxication on admission with no DTs during this hospitalization. (11) Osteoarthritis SNOMED Code(s): 639571191 ICD Code: M19.90 - UNSPECIFIED OSTEOARTHRITIS, UNSPECIFIED SITE Status: Chronic Priority: Medium Current Visit: Yes Problem Details: Stable by history with the exception of chronic bilateral shoulder pain. Qualifiers: Osteoarthritis location: multiple joints Osteoarthritis type: primary Qualified Code(s): M89.49 - Other hypertrophic osteoarthropathy, multiple sites (12) Pneumonia SNOMED Code(s): 611520523 ICD Code: J18.9 - PNEUMONIA, UNSPECIFIED ORGANISM Status: Acute Priority : High Current Visit: Yes Problem Details: As above. Patient discharged on Levaquin as above. Continue aggressive outpatient nebulizer therapy. (13) Sleep apnea SNOMED Code(s): 71867490 ICD Code: G47.30 - SLEEP APNEA, UNSPECIFIED Status: Chronic Priority: Medium Current Visit: Yes Problem Details: He has been compliant with his CPAP, which was also continued during this hospitalization. Note previous oxygen noncompliance, however this is no longer needed at this time as above. Qualifiers: Sleep apnea type: obstructive Qualified Code(s): G47.33 - Obstructive sleep apnea (adult) (pediatric) (14) Atrial fibrillation SNOMED Code(s): 77714167 ICD Code: I48.91 - UNSPECIFIED ATRIAL FIBRILLATION Status: Chronic Priority: Medium Current Visit: Yes Problem Details: Recent unsuccessful permanent cardiac ablation as per emergency room note. Patient is already on Coumadin with mildly elevated INR during this hospitalization secondary to his antibiotics with Coumadin held on 12/14. INR is therapeutic on 12/15 with decreased dose on 12/15 and at discharge. Close follow-up by regular provider. Qualifiers: Atrial fibrillation type: longstanding persistent Qualified Code(s): I48.11 - Longstanding persistent atrial fibrillation (15) Hyperlipidemia SNOMED Code(s): 07039839 ICD Code: E78.5 - HYPERLIPIDEMIA, UNSPECIFIED Status: Chronic Priority: Medium Current Visit: Yes Problem Details: Lipid panel on 12/13 showed persistent moderate dyslipidemia. Weight loss in moderation is advisable. Qualifiers: Hyperlipidemia type: mixed hyperlipidemia Qualified Code(s): E78.2 - Mixed hyperlipidemia (16) Anemia SNOMED Code(s): 101187336 ICD Code: D64.9 - ANEMIA, UNSPECIFIED Status: Chronic Priority: Medium Current Visit: Yes Problem Details: Iron studies on 12/13 did show some mild iron deficiency, although his ferritin was normal. Note some mild hypoalbuminemia. Vitamin B-12 and folic acid levels were normal on 12/13 with continuation of current vitamin B-12 supplementation. Initiate low-dose iron sulfate therapy with iron studies to be repeated in about 4 weeks. Qualifiers: Anemia type: iron deficiency Iron deficiency anemia type: other iron deficiency Qualified Code(s): D50.8 - Other iron deficiency anemias - Patient Summary/Data Operative Procedure(s) Performed: None Complications: None Consults: None Labs Pending at D/C: 1. No chest x-ray report from 12/17/19 2. Final radiological report from venous Doppler studies on 12/16/19 3. Final blood culture results 2 Recommended Follow-up Testing/Procedures: As per discharge instructions Planned Operative Procedure(s) after DC: None Hospital Course: The patient was admitted to inpatient/acute care on telemetry with negative workup for acute IN as above. Note multiple medication adjustments required during this hospitalization as above. His pneumonia, COPD, and UTI were treated with aggressive triple nebulizer and DuoNeb nebulizer treatments with additional IV Rocephin and IV Levaquin with overall good results as above. Note multiple recent hospitalizations in September and November of this year, which did require a somewhat extended hospitalization and treatment for this acute admission. Close follow-up by regular provider as per discharge instructions and as above. - Patient Instructions Diet: Fluid Restriction Diet, Other: Heart Healthy, 1500-calorie ADA, diverticulosis Activity: As Tolerated Driving: May Drive Today Showering/Bathing: May Shower Notify Provider of: Fever, Increased Pain, Nausea and/or Vomiting Other/Special Instructions: 1. Followup with your regular provider in 7 days as directed for reevaluation and recommended CBC, comprehensive metabolic panel , magnesium level, uric acid level, CK, CK-MB, troponin I, d-dimer, BNP, EKG, and chest x-ray. Bring these discharge instructions with you to that visit. 2. Recommend repeat TIBC panel and ferritin level in 4 weeks. 3. No as needed aspirin ibuprofen, Aleve, other NSAIDs, and/or Tylenol secondary to your current Coumadin therapy as discussed. 4. Public health has been notified of your multiple medication changes during this hospitalization and will set these up for you later today. 5. Immediately after this visit verify that your cellular telephone's voicemail has been activated and is empty. Also verify that your home telephone's answering machine is operating properly and has space to receive messages. Note that it is sometimes necessary for us to be able to contact you at a later date to discuss your medical care. 6. Please remember that we are ALWAYS here for you and want to answer any questions you may have. Feel free to call the hospital any time and we call you back RON. 7. Continue using your CPAP as beforecongratulations - Discharge Plan *PRESCRIPTION DRUG MONITORING PROGRAM REVIEWED*: Not Applicable *COPY OF PRESCRIPTION DRUG MONITORING REPORT IN PATIENT JOSE: Not Applicable Prescriptions/Med Rec: Dextromethorphan/guaiFENesin [Mucinex DM ER 600-30 MG] 1 tab PO Q12HR #20 tab.er Diltiazem HCl [Diltiazem 24Hr Cd] 180 mg PO QPM #30 cap.er.24h Ferrous Sulfate 325 mg PO QPM #60 tablet Furosemide [Lasix] 40 mg PO BID #20 tab Levofloxacin [Levaquin] 500 mg PO DAILY #7 tablet Lovastatin [Mevacor] 20 mg PO BEDTIME #30 tablet Magnesium Oxide 400 mg PO DAILY #30 tablet Potassium Chloride [Klor-Con M20] 20 meq PO BID #20 tab.er Warfarin Sodium [Coumadin] 2.5 mg PO QPM #20 tablet Home Medications: Home Meds ALPRAZolam [Alprazolam] 0.5 mg PO BID PRN 07/21/16 [History] Budesonide/Formoterol [Symbicort 160-4.5 MCG] 2 puff INH BID 07/21/16 [History] Calcium Carbonate/Vitamin D3 [Calcium 600 + Vit D Tablet] 1 tab PO QAM 07/21/16 [History] Cholecalciferol (Vitamin D3) [Vitamin D3] 1,000 unit PO QAM 07/21/16 [History] Multivitamins [Tab-A-Juan] 1 tab PO DAILY 07/21/16 [History] Non-Formulary Medication [NF Drug] 1 tab PO DAILY PRN 07/21/16 [History] Omeprazole 20 mg PO DAILY 07/21/16 [History] Sertraline [Zoloft] 100 mg PO QAM 07/21/16 [History] Spironolactone [Aldactone] 50 mg PO BID@0812 07/21/16 [History] metFORMIN HCl [Metformin HCl] 1,000 mg PO BID 07/21/16 [History] rOPINIRole [Requip] 1 mg PO DAILY@16 PRN 07/21/16 [History] rOPINIRole [Requip] 1 tab PO BID@,07/21/16 [History] Cyanocobalamin (Vitamin B-12) [Vitamin B-12] 1,000 mcg PO DAILY 12/13/19 [ History] Gabapentin [Neurontin] 300 mg PO DAILY@16 PRN 12/13/19 [History] Gabapentin [Neurontin] 300 mg PO TID@,,12/13/19 [History] Insulin Detemir [Levemir] 22 unit SUBCUT BEDTIME 12/13/19 [History] Metoprolol Succinate 50 mg PO DAILY 12/13/19 [History] Triamcinolone Acetonide [Kenalog 0.1% Crm] 1 applic TOP QID PRN 12/13/19 [ History] Albuterol/Ipratropium [DuoNeb 3.0-0.5 MG/3 ML] 3 ml NEB Q4HRRT PRN neb [Rx] Albuterol/Ipratropium [DuoNeb 3.0-0.5 MG/3 ML] 3 ml NEB QID neb 12/17/19 [Rx] Dextromethorphan/guaiFENesin [Mucinex DM ER 600-30 MG] 1 tab PO Q12HR #20 tab.er 12/17/19 [Rx] Diltiazem HCl [Diltiazem 24Hr Cd] 180 mg PO QPM #30 cap.er.24h 12/17/19 [Rx] Ferrous Sulfate 325 mg PO QPM #60 tablet 12/17/19 [Rx] Furosemide [Lasix] 40 mg PO BID #20 tab 12/17/19 [Rx] Levofloxacin [Levaquin] 500 mg PO DAILY #7 tablet 12/17/19 [Rx] Lovastatin [Mevacor] 20 mg PO BEDTIME #30 tablet 12/17/19 [Rx] Magnesium Oxide 400 mg PO DAILY #30 tablet 12/17/19 [Rx] Potassium Chloride [Klor-Con M20] 20 meq PO BID #20 tab.er 12/17/19 [Rx] Warfarin Sodium [Coumadin] 2.5 mg PO QPM #20 tablet 12/17/19 [Rx] Oxygen Therapy Mode: Room Air Patient Handouts: Urinary Tract Infection, Adult, [id number], Heart Failure, [id number]-[id number], Community-Acquired Pneumonia, Adult, Eekc-[id number] Forms: ED Department Discharge Referrals: Kelley Nagel FILTER W[employer]ER [employer]ESSER [Primary Care Provider] - - Discharge Summary/Plan Comment DC Time >30 min.: Yes (Coordination of care ) Discharge Summary/Plan Comment: As above. Extensive precautions were given to the patient, who is in agreement with the treatment plan. See Patient Instructions for further treatment and plan. - General Info Date of Service: 12/17/19 Admission Dx/Problem (Free Text: 1. CHF 2. Coronary artery disease 3. COPD 4. Pneumonia 5. UTI 6. Recurrent atrial fibrillation/flutter Functional Status: Reports: Pain Controlled, Tolerating Diet, Ambulating, Urinating, Incentive Spirometry. Denies: New Symptoms Numeric/FACES Score: 0 - Review of Systems General: Reports: No Symptoms. Denies: Fever, Weakness, Fatigue, Chills, Night Sweats, Appetite (Good) HEENT: Reports: Glasses. Denies: Dysphasia, Ear Pain, Eye Pain, Headaches, Post Nasal Drip, Sinus Congestion, Sore Throat, Rhinitis, Visual Changes Pulmonary: Reports: No Symptoms. Denies: Shortness of Breath, Pleuritic Chest Pain, Cough, Sputum, Hemoptysis, Wheezing Cardiovascular: Reports: Edema (Stable dependent). Denies: Chest Pain, Palpitations, Lightheadedness Gastrointestinal: Reports: No Symptoms, Other (Normal bowel movements yesterday and earlier today). Denies: Abdominal Pain, Constipation, Decreased Appetite, Diarrhea, Difficulty Swallowing, Flatus, Hematochezia, Melena, Nausea, Vomiting Genitourinary: Reports: No Symptoms. Denies: Dysuria, Frequency, Burning, Pain , Urgency, Incontinence, Hematuria, Retention, Flank Pain Musculoskeletal: Reports: Shoulder Pain (Bilateral chronic shoulder painstable) , Joint Pain (Shoulders as above). Denies: Neck Pain, Arm Pain, Hand Pain, Back Pain, Leg Pain Skin: Reports: Bruising (Stable). Denies: Diaphoresis, Rash Neurological: Reports: Numbness (Stable diabetic neuropathy), Paresthesia (As above), Tingling (As above). Denies: Confusion, Dizziness, Difficulty Walking, Weakness Psychiatric: Reports: No Symptoms. Denies: Confusion, Depression, Anxiety, Agitation, Hallucinations, Homicidal Ideation - Patient Data Vitals - Most Recent: Last Vital Signs Temp 36.4 C 12/17/19 07:53 Pulse 66 12/17/19 07:55 Resp 18 12/17/19 07:53 BP 118/62 12/17/19 07:55 Pulse Ox 96 12/17/19 07:53 Vital Signs - 24 hr 12/16/19 12/16/19 12/16/19 12:00 15:29 20:00 Temperature [ 36.6 C 36.3 C 36.9 C Oral] Pulse, Peripheral Pulse, 74 74 76 Peripheral [ Pulse Oximetry] Respiratory 20 18 18 Rate Blood Pressure Blood Pressure 132/71 [Left Upper Arm ] Blood Pressure 144/80 H 131/75 [Right Upper Arm] O2 Sat by Pulse 98 96 95 Oximetry 12/16/19 12/17/19 12/17/19 23:51 07:53 07:55 Temperature [ 36.8 C 36.4 C Oral] Pulse, 66 Peripheral Pulse, 71 66 Peripheral [ Pulse Oximetry] Respiratory 20 18 Rate Blood Pressure 118/62 Blood Pressure 130/71 [Left Upper Arm ] Blood Pressure 118/62 [Right Upper Arm] O2 Sat by Pulse 93 L 96 Oximetry Note O2 sat on room air with ambulation showed stable atrial fibrillation with heart rate in the 70s and stable 02 saturation of 94% with activity Weight - Most Recent: 148.778 kg I&O - Last 24 hours: Intake & Output 12/16/19 12/17/19 12/17/19 22:59 06:59 14:59 Intake Total 240 600 600 Output Total 450 1600 Balance -210 -1000 600 Imaging Impressions - Last 24 hrs: Programming Director shows stable atrial fibrillation with heart rate in the 70s with no other ectopy or arrhythmia Final Chest x-ray, PA and lateral, on 12/17/19 shows stable moderate COPD changes with mild mostly centralized CHF with possible additional right perihilar pulmonary infiltrates. Moderate osteoarthritic and osteoporotic changes in the thoracic spine. Preliminary verbal report from Radha electronics engineering technician, of venous Doppler studies of the lower extremities bilaterally 12/16/19. No evidence of DVT. CTA of the chest using PE protocol on 12/13/19 was mildly suboptimal however no evidence of PE Lab Results - Last 24 hrs: Laboratory Results - last 24 hr 12/16/19 12/16/19 12/16/19 Range/Units 12:01 17:02 20:38 WBC (4.0-10.2) K/uL RBC (4.33-5.41) M/uL Hgb (13.1-16.8) g/dL Hct (39.0-49.0) % MCV (84.0-98.0) fL MCH (28.2-33.3) pg MCHC (31.7-36.0) g/dL RDW (11.2-14.1) % Plt Count (150-350) K/uL Neut % (Auto) (45.0-80.0) % Lymph % (Auto) (10.0-50.0) % [place] % (Auto) (2.0-14.0) % Eos % (Auto) (0.0-5.0) % Baso % (Auto) (0.0-2.0) % Neut # (Auto) (1.40-7.00) K/uL Lymph # (Auto) (0.50-3.50) K/uL [place] # (Auto) (0.00-1.00) K/uL Eos # (Auto) (0.00-0.50) K/uL Baso # (Auto) (0.00-0.20) K/uL PT (9.5-12.0) SEC INR D-Dimer, Quantitative (0-400) ng/mL Sodium (136-145) mmol/L Potassium (3.5-5.1) mmol/L Chloride (98-107) mmol/L Carbon Dioxide (21.0-32.0) mmol/L BUN (7-18) mg/dL Creatinine (0.51-1.17) mg/dL Est Cr Clr Drug Dosing mL/min Estimated GFR (MDRD) mL/min Glucose (74-106) mg/dL POC Glucose 140 H 202 H 157 H (65-110) mg/dl Calcium (8.5-10.1) mg/dL Magnesium (1.8-2.4) mg/dL Creatine Kinase (26-308) U/L Creatine Kinase Index (0.0-2.5) % CK-MB (CK-2) (0.00-3.60) ng/mL Troponin I (0.000-0.056) ng/mL NT-Pro-B Natriuret Pep (0-125) pg/mL 12/17/19 12/17/19 12/17/19 Range/Units 07:05 07:05 07:05 WBC 11.2 H (4.0-10.2) K/uL RBC 5.07 (4.33-5.41) M/uL Hgb 10.7 L (13.1-16.8) g/dL Hct 34.9 L (39.0-49.0) % MCV 68.8 L (84.0-98.0) fL MCH 21.1 L (28.2-33.3) pg MCHC 30.7 L (31.7-36.0) g/dL RDW 18.7 H (11.2-14.1) % Plt Count 324 (150-350) K/uL Neut % (Auto) 69.0 (45.0-80.0) % Lymph % (Auto) 20.8 (10.0-50.0) % [place] % (Auto) 7.4 (2.0-14.0) % Eos % (Auto) 2.4 (0.0-5.0) % Baso % (Auto) 0.4 (0.0-2.0) % Neut # (Auto) 7.72 H (1.40-7.00) K/uL Lymph # (Auto) 2.33 (0.50-3.50) K/uL [place] # (Auto) 0.83 (0.00-1.00) K/uL Eos # (Auto) 0.27 (0.00-0.50) K/uL Baso # (Auto) 0.05 (0.00-0.20) K/uL PT 22.3 H (9.5-12.0) SEC INR 2.3 D-Dimer, Quantitative 189 (0-400) ng/mL Sodium (136-145) mmol/L Potassium (3.5-5.1) mmol/L Chloride (98-107) mmol/L Carbon Dioxide (21.0-32.0) mmol/L BUN (7-18) mg/dL Creatinine (0.51-1.17) mg/dL Est Cr Clr Drug Dosing mL/min Estimated GFR (MDRD) mL/min Glucose (74-106) mg/dL POC Glucose (65-110) mg/dl Calcium (8.5-10.1) mg/dL Magnesium (1.8-2.4) mg/dL Creatine Kinase (26-308) U/L Creatine Kinase Index (0.0-2.5) % CK-MB (CK-2) (0.00-3.60) ng/mL Troponin I (0.000-0.056) ng/mL NT-Pro-B Natriuret Pep (0-125) pg/mL 12/17/19 12/17/19 Range/Units 07:05 07:41 WBC (4.0-10.2) K/uL RBC (4.33-5.41) M/uL Hgb (13.1-16.8) g/dL Hct (39.0-49.0) % MCV (84.0-98.0) fL MCH (28.2-33.3) pg MCHC (31.7-36.0) g/dL RDW (11.2-14.1) % Plt Count (150-350) K/uL Neut % (Auto) (45.0-80.0) % Lymph % (Auto) (10.0-50.0) % [place] % (Auto) (2.0-14.0) % Eos % (Auto) (0.0-5.0) % Baso % (Auto) (0.0-2.0) % Neut # (Auto) (1.40-7.00) K/uL Lymph # (Auto) (0.50-3.50) K/uL [place] # (Auto) (0.00-1.00) K/uL Eos # (Auto) (0.00-0.50) K/uL Baso # (Auto) (0.00-0.20) K/uL PT (9.5-12.0) SEC INR D-Dimer, Quantitative (0-400) ng/mL Sodium 137 (136-145) mmol/L Potassium 4.4 (3.5-5.1) mmol/L Chloride 100 (98-107) mmol/L Carbon Dioxide 27.8 (21.0-32.0) mmol/L BUN 26 H (7-18) mg/dL Creatinine 1.01 (0.51-1.17) mg/dL Est Cr Clr Drug Dosing 65.18 mL/min Estimated GFR (MDRD) > 60 mL/min Glucose 166 H (74-106) mg/dL POC Glucose 158 H (65-110) mg/dl Calcium 8.9 (8.5-10.1) mg/dL Magnesium 1.4 L (1.8-2.4) mg/dL Creatine Kinase 24 L (26-308) U/L Creatine Kinase Index 2.9 H (0.0-2.5) % CK-MB (CK-2) 0.70 (0.00-3.60) ng/mL Troponin I 0.000 (0.000-0.056) ng/mL NT-Pro-B Natriuret Pep 1345 H (0-125) pg/mL Laboratory Tests 12/13/19 12/13/19 12/13/19 Range/Units 09:54 09:58 13:40 WBC (4.0-10.2) K/uL RBC (4.33-5.41) M/uL Hgb (13.1-16.8) g/dL Hct (39.0-49.0) % MCV (84.0-98.0) fL MCH (28.2-33.3) pg MCHC (31.7-36.0) g/dL RDW (11.2-14.1) % Plt Count (150-350) K/uL Neut % (Auto) (45.0-80.0) % Lymph % (Auto) (10.0-50.0) % [place] % (Auto) (2.0-14.0) % Eos % (Auto) (0.0-5.0) % Baso % (Auto) (0.0-2.0) % Neut # (Auto) (1.40-7.00) K/uL Lymph # (Auto) (0.50-3.50) K/uL [place] # (Auto) (0.00-1.00) K/uL Eos # (Auto) (0.00-0.50) K/uL Baso # (Auto) (0.00-0.20) K/uL PT (9.5-12.0) SEC INR APTT 49.3 H (24.5-32.8) SEC D-Dimer, Quantitative 886 H (0-400) ng/mL Sodium (136-145) mmol/L Potassium (3.5-5.1) mmol/L Chloride (98-107) mmol/L Carbon Dioxide (21.0-32.0) mmol/L BUN (7-18) mg/dL Creatinine (0.51-1.17) mg/dL Est Cr Clr Drug Dosing mL/min Estimated GFR (MDRD) mL/min Glucose (74-106) mg/dL POC Glucose (65-110) mg/dl Hemoglobin A1c (4.3-5.7) % Lactic Acid (0.4-2.0) mmol/L Calcium (8.5-10.1) mg/dL Magnesium 1.6 L (1.8-2.4) mg/dL Iron (50-175) ug/dL TIBC (250-450) ug/dL % Saturation Ferritin (8-388) ng/mL Total Bilirubin (0.2-1.0) mg/dL AST (15-37) U/L ALT (12-78) U/L Alkaline Phosphatase (46-116) IU/L Creatine Kinase 48 (26-308) U/L Creatine Kinase Index 1.9 (0.0-2.5) % CK-MB (CK-2) 0.90 (0.00-3.60) ng/mL Troponin I 0.000 (0.000-0.056) ng/mL NT-Pro-B Natriuret Pep (0-125) pg/mL Total Protein (6.4-8.2) g/dL Albumin (3.4-5.0) g/dL Triglycerides (30-150) mg/dL Cholesterol (100-200) mg/dL LDL Cholesterol, Calc (0-100) mg/dL HDL Cholesterol (40-60) mg/dL Vitamin B12 (193-986) pg/mL Folate (8.6-58.9) ng/mL TSH, Ultra Sensitive 1.787 (0.358-3.740) mIU/mL Specimen Type Urine Color Urine Appearance Urine pH (5.0-9.0) Ur Specific [place] (1.005-1.030) Urine Protein (NEGATIVE) mg/dL Urine Glucose (UA) (NEGATIVE) mg/dL Urine Ketones (NEGATIVE) mg/dL Urine Occult Blood (NEGATIVE) Urine Nitrite (NEGATIVE) Urine Bilirubin (NEGATIVE) Urine Urobilinogen (0.2-1.0) E.U./dL Ur Leukocyte Esterase (NEGATIVE) Urine RBC /HPF Urine WBC /HPF Ur Epithelial Cells /LPF Urine Bacteria (NONE TO FEW) /HPF 12/13/19 12/13/19 12/13/19 Range/Units 13:40 14:10 20:47 WBC (4.0-10.2) K/uL RBC (4.33-5.41) M/uL Hgb (13.1-16.8) g/dL Hct (39.0-49.0) % MCV (84.0-98.0) fL MCH (28.2-33.3) pg MCHC (31.7-36.0) g/dL RDW (11.2-14.1) % Plt Count (150-350) K/uL Neut % (Auto) (45.0-80.0) % Lymph % (Auto) (10.0-50.0) % [place] % (Auto) (2.0-14.0) % Eos % (Auto) (0.0-5.0) % Baso % (Auto) (0.0-2.0) % Neut # (Auto) (1.40-7.00) K/uL Lymph # (Auto) (0.50-3.50) K/uL [place] # (Auto) (0.00-1.00) K/uL Eos # (Auto) (0.00-0.50) K/uL Baso # (Auto) (0.00-0.20) K/uL PT (9.5-12.0) SEC INR APTT (24.5-32.8) SEC D-Dimer, Quantitative (0-400) ng/mL Sodium (136-145) mmol/L Potassium (3.5-5.1) mmol/L Chloride (98-107) mmol/L Carbon Dioxide (21.0-32.0) mmol/L BUN (7-18) mg/dL Creatinine (0.51-1.17) mg/dL Est Cr Clr Drug Dosing mL/min Estimated GFR (MDRD) mL/min Glucose (74-106) mg/dL POC Glucose (65-110) mg/dl Hemoglobin A1c (4.3-5.7) % Lactic Acid 1.1 (0.4-2.0) mmol/L Calcium (8.5-10.1) mg/dL Magnesium (1.8-2.4) mg/dL Iron (50-175) ug/dL TIBC (250-450) ug/dL % Saturation Ferritin (8-388) ng/mL Total Bilirubin (0.2-1.0) mg/dL AST (15-37) U/L ALT (12-78) U/L Alkaline Phosphatase (46-116) IU/L Creatine Kinase 38 (26-308) U/L Creatine Kinase Index 2.6 H (0.0-2.5) % CK-MB (CK-2) 1.00 (0.00-3.60) ng/mL Troponin I 0.000 (0.000-0.056) ng/mL NT-Pro-B Natriuret Pep (0-125) pg/mL Total Protein (6.4-8.2) g/dL Albumin (3.4-5.0) g/dL Triglycerides (30-150) mg/dL Cholesterol (100-200) mg/dL LDL Cholesterol, Calc (0-100) mg/dL HDL Cholesterol (40-60) mg/dL Vitamin B12 (193-986) pg/mL Folate (8.6-58.9) ng/mL TSH, Ultra Sensitive (0.358-3.740) mIU/mL Specimen Type Urincc Urine Color Yellow Urine Appearance Clear Urine pH 5.5 (5.0-9.0) Ur Specific [place] 1.015 (1.005-1.030) Urine Protein Negative (NEGATIVE) mg/dL Urine Glucose (UA) Negative (NEGATIVE) mg/dL Urine Ketones Negative (NEGATIVE) mg/dL Urine Occult Blood Small H (NEGATIVE) Urine Nitrite Positive H (NEGATIVE) Urine Bilirubin Negative (NEGATIVE) Urine Urobilinogen 0.2 (0.2-1.0) E.U./dL Ur Leukocyte Esterase Small H (NEGATIVE) Urine RBC 5-10 H /HPF Urine WBC 30-40 H /HPF Ur Epithelial Cells Not seen /LPF Urine Bacteria Many H (NONE TO FEW) /HPF 04/04/20 04/04/20 04/04/20 Range/Units 07:15 07:15 07:15 WBC 8.7 (4.0-10.2) K/uL RBC 4.58 (4.33-5.41) M/uL Hgb 9.6 L (13.1-16.8) g/dL Hct 31.9 L (39.0-49.0) % MCV 69.7 L (84.0-98.0) fL MCH 21.0 L (28.2-33.3) pg MCHC 30.1 L (31.7-36.0) g/dL RDW 18.1 H (11.2-14.1) % Plt Count 230 (150-350) K/uL Neut % (Auto) 80.3 H (45.0-80.0) % Lymph % (Auto) 9.5 L (10.0-50.0) % [place] % (Auto) 8.8 (2.0-14.0) % Eos % (Auto) 1.2 (0.0-5.0) % Baso % (Auto) 0.2 (0.0-2.0) % Neut # (Auto) 6.97 (1.40-7.00) K/uL Lymph # (Auto) 0.82 (0.50-3.50) K/uL [place] # (Auto) 0.76 (0.00-1.00) K/uL Eos # (Auto) 0.10 (0.00-0.50) K/uL Baso # (Auto) 0.02 (0.00-0.20) K/uL PT (9.5-12.0) SEC INR APTT (24.5-32.8) SEC D-Dimer, Quantitative 519 H (0-400) ng/mL Sodium 139 (136-145) mmol/L Potassium 4.3 (3.5-5.1) mmol/L Chloride 104 (98-107) mmol/L Carbon Dioxide 26.0 (21.0-32.0) mmol/L BUN 27 H (7-18) mg/dL Creatinine 1.01 (0.51-1.17) mg/dL Est Cr Clr Drug Dosing 65.09 mL/min Estimated GFR (MDRD) > 60 mL/min Glucose 139 H (74-106) mg/dL POC Glucose (65-110) mg/dl Hemoglobin A1c (4.3-5.7) % Lactic Acid (0.4-2.0) mmol/L Calcium 8.5 (8.5-10.1) mg/dL Magnesium (1.8-2.4) mg/dL Iron (50-175) ug/dL TIBC (250-450) ug/dL % Saturation Ferritin (8-388) ng/mL Total Bilirubin 0.3 (0.2-1.0) mg/dL AST 14 L (15-37) U/L ALT 19 (12-78) U/L Alkaline Phosphatase 81 (46-116) IU/L Creatine Kinase 19 L (26-308) U/L Creatine Kinase Index 3.7 H (0.0-2.5) % CK-MB (CK-2) 0.70 (0.00-3.60) ng/mL Troponin I 0.000 (0.000-0.056) ng/mL NT-Pro-B Natriuret Pep 2603 H (0-125) pg/mL Total Protein 7.0 (6.4-8.2) g/dL Albumin 2.5 L (3.4-5.0) g/dL Triglycerides 100 (30-150) mg/dL Cholesterol 155 (100-200) mg/dL LDL Cholesterol, Calc 106 H (0-100) mg/dL HDL Cholesterol 29 L (40-60) mg/dL Vitamin B12 455 (193-986) pg/mL Folate 22.6 (8.6-58.9) ng/mL TSH, Ultra Sensitive (0.358-3.740) mIU/mL Specimen Type Urine Color Urine Appearance Urine pH (5.0-9.0) Ur Specific [place] (1.005-1.030) Urine Protein (NEGATIVE) mg/dL Urine Glucose (UA) (NEGATIVE) mg/dL Urine Ketones (NEGATIVE) mg/dL Urine Occult Blood (NEGATIVE) Urine Nitrite (NEGATIVE) Urine Bilirubin (NEGATIVE) Urine Urobilinogen (0.2-1.0) E.U./dL Ur Leukocyte Esterase (NEGATIVE) Urine RBC /HPF Urine WBC /HPF Ur Epithelial Cells /LPF Urine Bacteria (NONE TO FEW) /HPF 12/14/19 12/14/19 12/14/19 Range/Units 07:15 07:15 07:15 WBC (4.0-10.2) K/uL RBC (4.33-5.41) M/uL Hgb (13.1-16.8) g/dL Hct (39.0-49.0) % MCV (84.0-98.0) fL MCH (28.2-33.3) pg MCHC (31.7-36.0) g/dL RDW (11.2-14.1) % Plt Count (150-350) K/uL Neut % (Auto) (45.0-80.0) % Lymph % (Auto) (10.0-50.0) % [place] % (Auto) (2.0-14.0) % Eos % (Auto) (0.0-5.0) % Baso % (Auto) (0.0-2.0) % Neut # (Auto) (1.40-7.00) K/uL Lymph # (Auto) (0.50-3.50) K/uL [place] # (Auto) (0.00-1.00) K/uL Eos # (Auto) (0.00-0.50) K/uL Baso # (Auto) (0.00-0.20) K/uL PT 36.0 H (9.5-12.0) SEC INR 3.8 APTT (24.5-32.8) SEC D-Dimer, Quantitative (0-400) ng/mL Sodium (136-145) mmol/L Potassium (3.5-5.1) mmol/L Chloride (98-107) mmol/L Carbon Dioxide (21.0-32.0) mmol/L BUN (7-18) mg/dL Creatinine (0.51-1.17) mg/dL Est Cr Clr Drug Dosing mL/min Estimated GFR (MDRD) mL/min Glucose (74-106) mg/dL POC Glucose (65-110) mg/dl Hemoglobin A1c 8.0 H (4.3-5.7) % Lactic Acid (0.4-2.0) mmol/L Calcium (8.5-10.1) mg/dL Magnesium (1.8-2.4) mg/dL Iron 13 L (50-175) ug/dL TIBC 337 (250-450) ug/dL % Saturation [id number] Ferritin 132 (8-388) ng/mL Total Bilirubin (0.2-1.0) mg/dL AST (15-37) U/L ALT (12-78) U/L Alkaline Phosphatase (46-116) IU/L Creatine Kinase (26-308) U/L Creatine Kinase Index (0.0-2.5) % CK-MB (CK-2) (0.00-3.60) ng/mL Troponin I (0.000-0.056) ng/mL NT-Pro-B Natriuret Pep (0-125) pg/mL Total Protein (6.4-8.2) g/dL Albumin (3.4-5.0) g/dL Triglycerides (30-150) mg/dL Cholesterol (100-200) mg/dL LDL Cholesterol, Calc (0-100) mg/dL HDL Cholesterol (40-60) mg/dL Vitamin B12 (193-986) pg/mL Folate (8.6-58.9) ng/mL TSH, Ultra Sensitive (0.358-3.740) mIU/mL Specimen Type Urine Color Urine Appearance Urine pH (5.0-9.0) Ur Specific [place] (1.005-1.030) Urine Protein (NEGATIVE) mg/dL Urine Glucose (UA) (NEGATIVE) mg/dL Urine Ketones (NEGATIVE) mg/dL Urine Occult Blood (NEGATIVE) Urine Nitrite (NEGATIVE) Urine Bilirubin (NEGATIVE) Urine Urobilinogen (0.2-1.0) E.U./dL Ur Leukocyte Esterase (NEGATIVE) Urine RBC /HPF Urine WBC /HPF Ur Epithelial Cells /LPF Urine Bacteria (NONE TO FEW) /HPF 12/14/19 12/14/19 12/14/19 Range/Units 07:40 11:17 17:07 WBC (4.0-10.2) K/uL RBC (4.33-5.41) M/uL Hgb (13.1-16.8) g/dL Hct (39.0-49.0) % MCV (84.0-98.0) fL MCH (28.2-33.3) pg MCHC (31.7-36.0) g/dL RDW (11.2-14.1) % Plt Count (150-350) K/uL Neut % (Auto) (45.0-80.0) % Lymph % (Auto) (10.0-50.0) % [place] % (Auto) (2.0-14.0) % Eos % (Auto) (0.0-5.0) % Baso % (Auto) (0.0-2.0) % Neut # (Auto) (1.40-7.00) K/uL Lymph # (Auto) (0.50-3.50) K/uL [place] # (Auto) (0.00-1.00) K/uL Eos # (Auto) (0.00-0.50) K/uL Baso # (Auto) (0.00-0.20) K/uL PT (9.5-12.0) SEC INR APTT (24.5-32.8) SEC D-Dimer, Quantitative (0-400) ng/mL Sodium (136-145) mmol/L Potassium (3.5-5.1) mmol/L Chloride (98-107) mmol/L Carbon Dioxide (21.0-32.0) mmol/L BUN (7-18) mg/dL Creatinine (0.51-1.17) mg/dL Est Cr Clr Drug Dosing mL/min Estimated GFR (MDRD) mL/min Glucose (74-106) mg/dL POC Glucose 142 H 211 H 255 H* (65-110) mg/dl Hemoglobin A1c (4.3-5.7) % Lactic Acid (0.4-2.0) mmol/L Calcium (8.5-10.1) mg/dL Magnesium (1.8-2.4) mg/dL Iron (50-175) ug/dL TIBC (250-450) ug/dL % Saturation Ferritin (8-388) ng/mL Total Bilirubin (0.2-1.0) mg/dL AST (15-37) U/L ALT (12-78) U/L Alkaline Phosphatase (46-116) IU/L Creatine Kinase (26-308) U/L Creatine Kinase Index (0.0-2.5) % CK-MB (CK-2) (0.00-3.60) ng/mL Troponin I (0.000-0.056) ng/mL NT-Pro-B Natriuret Pep (0-125) pg/mL Total Protein (6.4-8.2) g/dL Albumin (3.4-5.0) g/dL Triglycerides (30-150) mg/dL Cholesterol (100-200) mg/dL LDL Cholesterol, Calc (0-100) mg/dL HDL Cholesterol (40-60) mg/dL Vitamin B12 (193-986) pg/mL Folate (8.6-58.9) ng/mL TSH, Ultra Sensitive (0.358-3.740) mIU/mL Specimen Type Urine Color Urine Appearance Urine pH (5.0-9.0) Ur Specific [place] (1.005-1.030) Urine Protein (NEGATIVE) mg/dL Urine Glucose (UA) (NEGATIVE) mg/dL Urine Ketones (NEGATIVE) mg/dL Urine Occult Blood (NEGATIVE) Urine Nitrite (NEGATIVE) Urine Bilirubin (NEGATIVE) Urine Urobilinogen (0.2-1.0) E.U./dL Ur Leukocyte Esterase (NEGATIVE) Urine RBC /HPF Urine WBC /HPF Ur Epithelial Cells /LPF Urine Bacteria (NONE TO FEW) /HPF 12/14/19 12/15/19 12/15/19 Range/Units 21:16 07:19 07:20 WBC (4.0-10.2) K/uL RBC (4.33-5.41) M/uL Hgb (13.1-16.8) g/dL Hct (39.0-49.0) % MCV (84.0-98.0) fL MCH (28.2-33.3) pg MCHC (31.7-36.0) g/dL RDW (11.2-14.1) % Plt Count (150-350) K/uL Neut % (Auto) (45.0-80.0) % Lymph % (Auto) (10.0-50.0) % [place] % (Auto) (2.0-14.0) % Eos % (Auto) (0.0-5.0) % Baso % (Auto) (0.0-2.0) % Neut # (Auto) (1.40-7.00) K/uL Lymph # (Auto) (0.50-3.50) K/uL [place] # (Auto) (0.00-1.00) K/uL Eos # (Auto) (0.00-0.50) K/uL Baso # (Auto) (0.00-0.20) K/uL PT 40.5 H (9.5-12.0) SEC INR 4.2 APTT (24.5-32.8) SEC D-Dimer, Quantitative (0-400) ng/mL Sodium (136-145) mmol/L Potassium (3.5-5.1) mmol/L Chloride (98-107) mmol/L Carbon Dioxide (21.0-32.0) mmol/L BUN (7-18) mg/dL Creatinine (0.51-1.17) mg/dL Est Cr Clr Drug Dosing mL/min Estimated GFR (MDRD) mL/min Glucose (74-106) mg/dL POC Glucose 212 H 216 H (65-110) mg/dl Hemoglobin A1c (4.3-5.7) % Lactic Acid (0.4-2.0) mmol/L Calcium (8.5-10.1) mg/dL Magnesium (1.8-2.4) mg/dL Iron (50-175) ug/dL TIBC (250-450) ug/dL % Saturation Ferritin (8-388) ng/mL Total Bilirubin (0.2-1.0) mg/dL AST (15-37) U/L ALT (12-78) U/L Alkaline Phosphatase (46-116) IU/L Creatine Kinase (26-308) U/L Creatine Kinase Index (0.0-2.5) % CK-MB (CK-2) (0.00-3.60) ng/mL Troponin I (0.000-0.056) ng/mL NT-Pro-B Natriuret Pep (0-125) pg/mL Total Protein (6.4-8.2) g/dL Albumin (3.4-5.0) g/dL Triglycerides (30-150) mg/dL Cholesterol (100-200) mg/dL LDL Cholesterol, Calc (0-100) mg/dL HDL Cholesterol (40-60) mg/dL Vitamin B12 (193-986) pg/mL Folate (8.6-58.9) ng/mL TSH, Ultra Sensitive (0.358-3.740) mIU/mL Specimen Type Urine Color Urine Appearance Urine pH (5.0-9.0) Ur Specific [place] (1.005-1.030) Urine Protein (NEGATIVE) mg/dL Urine Glucose (UA) (NEGATIVE) mg/dL Urine Ketones (NEGATIVE) mg/dL Urine Occult Blood (NEGATIVE) Urine Nitrite (NEGATIVE) Urine Bilirubin (NEGATIVE) Urine Urobilinogen (0.2-1.0) E.U./dL Ur Leukocyte Esterase (NEGATIVE) Urine RBC /HPF Urine WBC /HPF Ur Epithelial Cells /LPF Urine Bacteria (NONE TO FEW) /HPF 12/15/19 12/15/19 12/15/19 Range/Units 07:20 11:14 17:36 WBC 7.7 (4.0-10.2) K/uL RBC 4.81 (4.33-5.41) M/uL Hgb 10.0 L (13.1-16.8) g/dL Hct 33.2 L (39.0-49.0) % MCV 69.0 L (84.0-98.0) fL MCH 20.8 L (28.2-33.3) pg MCHC 30.1 L (31.7-36.0) g/dL RDW 18.1 H (11.2-14.1) % Plt Count 301 (150-350) K/uL Neut % (Auto) 63.6 (45.0-80.0) % Lymph % (Auto) 21.1 (10.0-50.0) % [place] % (Auto) 12.2 (2.0-14.0) % Eos % (Auto) 2.7 (0.0-5.0) % Baso % (Auto) 0.4 (0.0-2.0) % Neut # (Auto) 4.88 (1.40-7.00) K/uL Lymph # (Auto) 1.62 (0.50-3.50) K/uL [place] # (Auto) 0.94 (0.00-1.00) K/uL Eos # (Auto) 0.21 (0.00-0.50) K/uL Baso # (Auto) 0.03 (0.00-0.20) K/uL PT (9.5-12.0) SEC INR APTT (24.5-32.8) SEC D-Dimer, Quantitative (0-400) ng/mL Sodium (136-145) mmol/L Potassium (3.5-5.1) mmol/L Chloride (98-107) mmol/L Carbon Dioxide (21.0-32.0) mmol/L BUN (7-18) mg/dL Creatinine (0.51-1.17) mg/dL Est Cr Clr Drug Dosing mL/min Estimated GFR (MDRD) mL/min Glucose (74-106) mg/dL POC Glucose 225 H 220 H (65-110) mg/dl Hemoglobin A1c (4.3-5.7) % Lactic Acid (0.4-2.0) mmol/L Calcium (8.5-10.1) mg/dL Magnesium (1.8-2.4) mg/dL Iron (50-175) ug/dL TIBC (250-450) ug/dL % Saturation Ferritin (8-388) ng/mL Total Bilirubin (0.2-1.0) mg/dL AST (15-37) U/L ALT (12-78) U/L Alkaline Phosphatase (46-116) IU/L Creatine Kinase (26-308) U/L Creatine Kinase Index (0.0-2.5) % CK-MB (CK-2) (0.00-3.60) ng/mL Troponin I (0.000-0.056) ng/mL NT-Pro-B Natriuret Pep (0-125) pg/mL Total Protein (6.4-8.2) g/dL Albumin (3.4-5.0) g/dL Triglycerides (30-150) mg/dL Cholesterol (100-200) mg/dL LDL Cholesterol, Calc (0-100) mg/dL HDL Cholesterol (40-60) mg/dL Vitamin B12 (193-986) pg/mL Folate (8.6-58.9) ng/mL TSH, Ultra Sensitive (0.358-3.740) mIU/mL Specimen Type Urine Color Urine Appearance Urine pH (5.0-9.0) Ur Specific [place] (1.005-1.030) Urine Protein (NEGATIVE) mg/dL Urine Glucose (UA) (NEGATIVE) mg/dL Urine Ketones (NEGATIVE) mg/dL Urine Occult Blood (NEGATIVE) Urine Nitrite (NEGATIVE) Urine Bilirubin (NEGATIVE) Urine Urobilinogen (0.2-1.0) E.U./dL Ur Leukocyte Esterase (NEGATIVE) Urine RBC /HPF Urine WBC /HPF Ur Epithelial Cells /LPF Urine Bacteria (NONE TO FEW) /HPF 12/15/19 12/16/19 12/16/19 Range/Units 20:53 07:00 07:00 WBC (4.0-10.2) K/uL RBC (4.33-5.41) M/uL Hgb (13.1-16.8) g/dL Hct (39.0-49.0) % MCV (84.0-98.0) fL MCH (28.2-33.3) pg MCHC (31.7-36.0) g/dL RDW (11.2-14.1) % Plt Count (150-350) K/uL Neut % (Auto) (45.0-80.0) % Lymph % (Auto) (10.0-50.0) % [place] % (Auto) (2.0-14.0) % Eos % (Auto) (0.0-5.0) % Baso % (Auto) (0.0-2.0) % Neut # (Auto) (1.40-7.00) K/uL Lymph # (Auto) (0.50-3.50) K/uL [place] # (Auto) (0.00-1.00) K/uL Eos # (Auto) (0.00-0.50) K/uL Baso # (Auto) (0.00-0.20) K/uL PT 31.8 H (9.5-12.0) SEC INR 3.3 APTT (24.5-32.8) SEC D-Dimer, Quantitative (0-400) ng/mL Sodium 139 (136-145) mmol/L Potassium 4.4 (3.5-5.1) mmol/L Chloride 101 (98-107) mmol/L Carbon Dioxide 28.6 (21.0-32.0) mmol/L BUN 22 H (7-18) mg/dL Creatinine 0.92 (0.51-1.17) mg/dL Est Cr Clr Drug Dosing 71.46 mL/min Estimated GFR (MDRD) > 60 mL/min Glucose 198 H (74-106) mg/dL POC Glucose 237 H (65-110) mg/dl Hemoglobin A1c (4.3-5.7) % Lactic Acid (0.4-2.0) mmol/L Calcium 8.6 (8.5-10.1) mg/dL Magnesium (1.8-2.4) mg/dL Iron (50-175) ug/dL TIBC (250-450) ug/dL % Saturation Ferritin (8-388) ng/mL Total Bilirubin 0.2 (0.2-1.0) mg/dL AST 11 L (15-37) U/L ALT 19 (12-78) U/L Alkaline Phosphatase 87 (46-116) IU/L Creatine Kinase (26-308) U/L Creatine Kinase Index (0.0-2.5) % CK-MB (CK-2) (0.00-3.60) ng/mL Troponin I (0.000-0.056) ng/mL NT-Pro-B Natriuret Pep (0-125) pg/mL Total Protein 7.0 (6.4-8.2) g/dL Albumin 2.7 L (3.4-5.0) g/dL Triglycerides (30-150) mg/dL Cholesterol (100-200) mg/dL LDL Cholesterol, Calc (0-100) mg/dL HDL Cholesterol (40-60) mg/dL Vitamin B12 (193-986) pg/mL Folate (8.6-58.9) ng/mL TSH, Ultra Sensitive (0.358-3.740) mIU/mL Specimen Type Urine Color Urine Appearance Urine pH (5.0-9.0) Ur Specific [place] (1.005-1.030) Urine Protein (NEGATIVE) mg/dL Urine Glucose (UA) (NEGATIVE) mg/dL Urine Ketones (NEGATIVE) mg/dL Urine Occult Blood (NEGATIVE) Urine Nitrite (NEGATIVE) Urine Bilirubin (NEGATIVE) Urine Urobilinogen (0.2-1.0) E.U./dL Ur Leukocyte Esterase (NEGATIVE) Urine RBC /HPF Urine WBC /HPF Ur Epithelial Cells /LPF Urine Bacteria (NONE TO FEW) /HPF 12/16/19 12/16/19 12/16/19 Range/Units 12:01 17:02 20:38 WBC (4.0-10.2) K/uL RBC (4.33-5.41) M/uL Hgb (13.1-16.8) g/dL Hct (39.0-49.0) % MCV (84.0-98.0) fL MCH (28.2-33.3) pg MCHC (31.7-36.0) g/dL RDW (11.2-14.1) % Plt Count (150-350) K/uL Neut % (Auto) (45.0-80.0) % Lymph % (Auto) (10.0-50.0) % [place] % (Auto) (2.0-14.0) % Eos % (Auto) (0.0-5.0) % Baso % (Auto) (0.0-2.0) % Neut # (Auto) (1.40-7.00) K/uL Lymph # (Auto) (0.50-3.50) K/uL [place] # (Auto) (0.00-1.00) K/uL Eos # (Auto) (0.00-0.50) K/uL Baso # (Auto) (0.00-0.20) K/uL PT (9.5-12.0) SEC INR APTT (24.5-32.8) SEC D-Dimer, Quantitative (0-400) ng/mL Sodium (136-145) mmol/L Potassium (3.5-5.1) mmol/L Chloride (98-107) mmol/L Carbon Dioxide (21.0-32.0) mmol/L BUN (7-18) mg/dL Creatinine (0.51-1.17) mg/dL Est Cr Clr Drug Dosing mL/min Estimated GFR (MDRD) mL/min Glucose (74-106) mg/dL POC Glucose 140 H 202 H 157 H (65-110) mg/dl Hemoglobin A1c (4.3-5.7) % Lactic Acid (0.4-2.0) mmol/L Calcium (8.5-10.1) mg/dL Magnesium (1.8-2.4) mg/dL Iron (50-175) ug/dL TIBC (250-450) ug/dL % Saturation Ferritin (8-388) ng/mL Total Bilirubin (0.2-1.0) mg/dL AST (15-37) U/L ALT (12-78) U/L Alkaline Phosphatase (46-116) IU/L Creatine Kinase (26-308) U/L Creatine Kinase Index (0.0-2.5) % CK-MB (CK-2) (0.00-3.60) ng/mL Troponin I (0.000-0.056) ng/mL NT-Pro-B Natriuret Pep (0-125) pg/mL Total Protein (6.4-8.2) g/dL Albumin (3.4-5.0) g/dL Triglycerides (30-150) mg/dL Cholesterol (100-200) mg/dL LDL Cholesterol, Calc (0-100) mg/dL HDL Cholesterol (40-60) mg/dL Vitamin B12 (193-986) pg/mL Folate (8.6-58.9) ng/mL TSH, Ultra Sensitive (0.358-3.740) mIU/mL Specimen Type Urine Color Urine Appearance Urine pH (5.0-9.0) Ur Specific [place] (1.005-1.030) Urine Protein (NEGATIVE) mg/dL Urine Glucose (UA) (NEGATIVE) mg/dL Urine Ketones (NEGATIVE) mg/dL Urine Occult Blood (NEGATIVE) Urine Nitrite (NEGATIVE) Urine Bilirubin (NEGATIVE) Urine Urobilinogen (0.2-1.0) E.U./dL Ur Leukocyte Esterase (NEGATIVE) Urine RBC /HPF Urine WBC /HPF Ur Epithelial Cells /LPF Urine Bacteria (NONE TO FEW) /HPF 12/17/19 12/17/19 12/17/19 Range/Units 07:05 07:05 07:05 WBC 11.2 H (4.0-10.2) K/uL RBC 5.07 (4.33-5.41) M/uL Hgb 10.7 L (13.1-16.8) g/dL Hct 34.9 L (39.0-49.0) % MCV 68.8 L (84.0-98.0) fL MCH 21.1 L (28.2-33.3) pg MCHC 30.7 L (31.7-36.0) g/dL RDW 18.7 H (11.2-14.1) % Plt Count 324 (150-350) K/uL Neut % (Auto) 69.0 (45.0-80.0) % Lymph % (Auto) 20.8 (10.0-50.0) % [place] % (Auto) 7.4 (2.0-14.0) % Eos % (Auto) 2.4 (0.0-5.0) % Baso % (Auto) 0.4 (0.0-2.0) % Neut # (Auto) 7.72 H (1.40-7.00) K/uL Lymph # (Auto) 2.33 (0.50-3.50) K/uL [place] # (Auto) 0.83 (0.00-1.00) K/uL Eos # (Auto) 0.27 (0.00-0.50) K/uL Baso # (Auto) 0.05 (0.00-0.20) K/uL PT 22.3 H (9.5-12.0) SEC INR 2.3 APTT (24.5-32.8) SEC D-Dimer, Quantitative 189 (0-400) ng/mL Sodium (136-145) mmol/L Potassium (3.5-5.1) mmol/L Chloride (98-107) mmol/L Carbon Dioxide (21.0-32.0) mmol/L BUN (7-18) mg/dL Creatinine (0.51-1.17) mg/dL Est Cr Clr Drug Dosing mL/min Estimated GFR (MDRD) mL/min Glucose (74-106) mg/dL POC Glucose (65-110) mg/dl Hemoglobin A1c (4.3-5.7) % Lactic Acid (0.4-2.0) mmol/L Calcium (8.5-10.1) mg/dL Magnesium (1.8-2.4) mg/dL Iron (50-175) ug/dL TIBC (250-450) ug/dL % Saturation Ferritin (8-388) ng/mL Total Bilirubin (0.2-1.0) mg/dL AST (15-37) U/L ALT (12-78) U/L Alkaline Phosphatase (46-116) IU/L Creatine Kinase (26-308) U/L Creatine Kinase Index (0.0-2.5) % CK-MB (CK-2) (0.00-3.60) ng/mL Troponin I (0.000-0.056) ng/mL NT-Pro-B Natriuret Pep (0-125) pg/mL Total Protein (6.4-8.2) g/dL Albumin (3.4-5.0) g/dL Triglycerides (30-150) mg/dL Cholesterol (100-200) mg/dL LDL Cholesterol, Calc (0-100) mg/dL HDL Cholesterol (40-60) mg/dL Vitamin B12 (193-986) pg/mL Folate (8.6-58.9) ng/mL TSH, Ultra Sensitive (0.358-3.740) mIU/mL Specimen Type Urine Color Urine Appearance Urine pH (5.0-9.0) Ur Specific [place] (1.005-1.030) Urine Protein (NEGATIVE) mg/dL Urine Glucose (UA) (NEGATIVE) mg/dL Urine Ketones (NEGATIVE) mg/dL Urine Occult Blood (NEGATIVE) Urine Nitrite (NEGATIVE) Urine Bilirubin (NEGATIVE) Urine Urobilinogen (0.2-1.0) E.U./dL Ur Leukocyte Esterase (NEGATIVE) Urine RBC /HPF Urine WBC /HPF Ur Epithelial Cells /LPF Urine Bacteria (NONE TO FEW) /HPF 12/17/19 12/17/19 Range/Units 07:05 07:41 WBC (4.0-10.2) K/uL RBC (4.33-5.41) M/uL Hgb (13.1-16.8) g/dL Hct (39.0-49.0) % MCV (84.0-98.0) fL MCH (28.2-33.3) pg MCHC (31.7-36.0) g/dL RDW (11.2-14.1) % Plt Count (150-350) K/uL Neut % (Auto) (45.0-80.0) % Lymph % (Auto) (10.0-50.0) % [place] % (Auto) (2.0-14.0) % Eos % (Auto) (0.0-5.0) % Baso % (Auto) (0.0-2.0) % Neut # (Auto) (1.40-7.00) K/uL Lymph # (Auto) (0.50-3.50) K/uL [place] # (Auto) (0.00-1.00) K/uL Eos # (Auto) (0.00-0.50) K/uL Baso # (Auto) (0.00-0.20) K/uL PT (9.5-12.0) SEC INR APTT (24.5-32.8) SEC D-Dimer, Quantitative (0-400) ng/mL Sodium 137 (136-145) mmol/L Potassium 4.4 (3.5-5.1) mmol/L Chloride 100 (98-107) mmol/L Carbon Dioxide 27.8 (21.0-32.0) mmol/L BUN 26 H (7-18) mg/dL Creatinine 1.01 (0.51-1.17) mg/dL Est Cr Clr Drug Dosing 65.18 mL/min Estimated GFR (MDRD) > 60 mL/min Glucose 166 H (74-106) mg/dL POC Glucose 158 H (65-110) mg/dl Hemoglobin A1c (4.3-5.7) % Lactic Acid (0.4-2.0) mmol/L Calcium 8.9 (8.5-10.1) mg/dL Magnesium 1.4 L (1.8-2.4) mg/dL Iron (50-175) ug/dL TIBC (250-450) ug/dL % Saturation Ferritin (8-388) ng/mL Total Bilirubin (0.2-1.0) mg/dL AST (15-37) U/L ALT (12-78) U/L Alkaline Phosphatase (46-116) IU/L Creatine Kinase 24 L (26-308) U/L Creatine Kinase Index 2.9 H (0.0-2.5) % CK-MB (CK-2) 0.70 (0.00-3.60) ng/mL Troponin I 0.000 (0.000-0.056) ng/mL NT-Pro-B Natriuret Pep 1345 H (0-125) pg/mL Total Protein (6.4-8.2) g/dL Albumin (3.4-5.0) g/dL Triglycerides (30-150) mg/dL Cholesterol (100-200) mg/dL LDL Cholesterol, Calc (0-100) mg/dL HDL Cholesterol (40-60) mg/dL Vitamin B12 (193-986) pg/mL Folate (8.6-58.9) ng/mL TSH, Ultra Sensitive (0.358-3.740) mIU/mL Specimen Type Urine Color Urine Appearance Urine pH (5.0-9.0) Ur Specific [place] (1.005-1.030) Urine Protein (NEGATIVE) mg/dL Urine Glucose (UA) (NEGATIVE) mg/dL Urine Ketones (NEGATIVE) mg/dL Urine Occult Blood (NEGATIVE) Urine Nitrite (NEGATIVE) Urine Bilirubin (NEGATIVE) Urine Urobilinogen (0.2-1.0) E.U./dL Ur Leukocyte Esterase (NEGATIVE) Urine RBC /HPF Urine WBC /HPF Ur Epithelial Cells /LPF Urine Bacteria (NONE TO FEW) /HPF DION Results - Last 24 hrs: Microbiology 12/13/19 13:09 Urine, Clean Catch Urine Culture - Final Escherichia Coli 12/14/19 10:00 Stool / Feces Stool Occult Blood (DION) - Final NEGATIVE OCCULT BLOOD REFERENCE RANGE: NEGATIVE Urine culture showed sensitivity to both Levaquin and Rocephin. Blood culture results 2 negative to this point with final report scheduled for 12/18/19 Med Orders - Current: Current Medications Acetaminophen (Tylenol) 650 mg PO Q4HR PRN PRN Reason: Pain/Fever Last Admin: 12/15/19 14:21 Dose: 650 mg Albuterol (Proventil Neb Soln) 2.5 mg NEB Q2H PRN PRN Reason: Dyspnea Albuterol/Ipratropium (Duoneb 3.0-0.5 Mg/3 Ml) 3 ml NEB Q4HRRT PRN PRN Reason: Dyspnea Albuterol/Ipratropium (Duoneb 3.0-0.5 Mg/3 Ml) 3 ml NEB QID [facility] Last Admin: 12/17/19 07:56 Dose: 3 ml Alprazolam (Xanax) 0.5 mg PO BID PRN PRN Reason: Anxiety Last Admin: 12/16/19 21:14 Dose: 0.5 mg Budesonide (Pulmicort) 0.5 mg NEB BIDRT [facility] Last Admin: 12/17/19 07:56 Dose: 0.5 mg Cholecalciferol (Vitamin D3) 25 mcg PO QAM [facility] Last Admin: 12/17/19 07:56 Dose: 25 mcg Cyanocobalamin (Vitamin B12) 1,000 mcg PO DAILY [facility] Last Admin: 12/17/19 07:55 Dose: 1,000 mcg Diltiazem HCl (Cardizem Cd) 180 mg PO QPM [facility] Last Admin: 12/16/19 17:05 Dose: 180 mg Ferrous Sulfate (Ferrous Sulfate) 325 mg PO QPM [facility] Last Admin: 12/16/19 17:05 Dose: 325 mg Furosemide (Lasix) 40 mg IVPUSH Q12HR [facility] Last Admin: 12/17/19 07:59 Dose: 40 mg Gabapentin (Neurontin) 300 mg PO DAILY@16 PRN PRN Reason: RLS Last Admin: 12/15/19 16:21 Dose: 300 mg Gabapentin (Neurontin) 300 mg PO TID@08,12,20 [facility] Last Admin: 12/17/19 07:55 Dose: 300 mg Guaifenesin/Dextromethorphan (Mucinex Dm Er 600-30 Mg) 1 tab PO Q12HR [facility] Last Admin: 12/17/19 07:56 Dose: 1 tab Ceftriaxone Sodium 1 gm/ (Sodium Chloride) 100 mls @ 200 mls/hr IV Q24H [facility] Last Admin: 12/16/19 20:45 Dose: 200 mls/hr Levofloxacin/Dextrose 500 mg/ (Premix) 100 mls @ 100 mls/hr IV Q24H [facility] Last Admin: 12/16/19 17:06 Dose: 100 mls/hr Insulin Glargine (Lantus) 10 unit SUBCUT BID [facility] Last Admin: 12/17/19 07:59 Dose: 10 units Insulin Human Lispro (Humalog) 0 unit SUBCUT QIDACANDBED [facility]; Protocol Last Admin: 12/17/19 07:57 Dose: 2 units Magnesium Oxide (Magnesium Oxide) 400 mg PO DAILY [facility] Last Admin: 12/17/19 07:54 Dose: 400 mg Metformin HCl (Glucophage) 1,000 mg PO BID [facility] Last Admin: 12/17/19 07:55 Dose: 1,000 mg Metoprolol Succinate (Toprol Xl) 50 mg PO DAILY [facility] Last Admin: 12/17/19 07:55 Dose: 50 mg Omeprazole (Omeprazole) 20 mg PO DAILY [facility] Last Admin: 12/17/19 07:55 Dose: 20 mg Potassium Chloride (Klor-Con M20) 20 meq PO BID [facility] Last Admin: 12/17/19 07:55 Dose: 20 meq Ropinirole HCl (Requip) 1 mg PO DAILY@16 PRN PRN Reason: RLS Last Admin: 12/17/19 01:41 Dose: 1 mg Ropinirole HCl (Requip) 1 mg PO BID@08,20 [facility] Last Admin: 12/17/19 07:55 Dose: 1 mg Sertraline HCl (Zoloft) 100 mg PO QAM [facility] Last Admin: 12/17/19 07:54 Dose: 100 mg Simvastatin (Zocor) 10 mg PO BEDTIME [facility] Last Admin: 12/16/19 20:42 Dose: 10 mg Sodium Chloride (Saline Flush) 10 ml FLUSH ASDIRECTED PRN PRN Reason: Keep Vein Open Last Admin: 12/16/19 17:07 Dose: 10 ml Sodium Chloride (Saline Flush) 10 ml FLUSH Q12HR [facility] Last Admin: 12/17/19 07:56 Dose: 10 ml Spironolactone (Aldactone) 50 mg PO BID@0800,1200 [facility] Last Admin: 12/17/19 07:55 Dose: 50 mg Discontinued Medications Amlodipine Besylate (Norvasc) 10 mg PO QAM [facility] Last Admin: 12/16/19 08:35 Dose: Not Given Amlodipine Besylate (Norvasc) 10 mg PO QPM [facility] Furosemide (Lasix) 40 mg IVPUSH Q8H [facility] Iopamidol (Isovue-370 (76%)) 100 ml IVPUSH ONETIME ONE Stop: 12/13/19 14:39 Last Admin: 12/13/19 15:39 Dose: 100 ml Metformin HCl (Glucophage) 1,000 mg PO BIDMEALS [facility] Last Admin: 12/16/19 13:22 Dose: Not Given Potassium Chloride (Klor-Con M20) 20 meq PO TID [facility] Simvastatin (Zocor) 20 mg PO BEDTIME [facility] Last Admin: 12/15/19 20:56 Dose: 20 mg Warfarin Sodium (Coumadin) 5 mg PO SUTUWETHFRSA@18 [facility] Last Admin: 12/14/19 17:09 Dose: 5 mg Warfarin Sodium (Coumadin) 7.5 mg PO MO@18 [facility] Warfarin Sodium (Coumadin) 2.5 mg PO ONETIME ONE Stop: 12/16/19 18:01 Last Admin: 12/16/19 17:06 Dose: 2.5 mg - Exam Quality Assessment: Reports: DVT Prophylaxis (Coumadin). Denies: Supplemental Oxygen, Urine Catheter, Restraints General: Reports: Alert, Oriented, Cooperative, No Acute Distress HEENT: Reports: Pupils Equal, Pupils Reactive, EOMI, Mucous Membr. Moist/Bowlegs, Other (Patient wearing glasses). Denies: Scleral Icterus Neck: Reports: Supple, Trachea Midline, No JVD, No Thyromegaly, Carotid Bruit ( Bilateral carotid bruits). Denies: Lymphadenopathy Lungs: Reports: Rales (Mild occasional bilateral particular on the basis), Rhonchi (Occasional bilateral). Denies: Rub, Wheezing Cardiovascular: Reports: Regular Rate, No Murmurs, Irregular Rhythm. Denies: Gallops, Rubs GI/Abdominal Exam: Normal Bowel Sounds, Soft, Non-Tender, No Organomegaly, No Distention, No Abnormal Bruit, No Mass, Other (Obese). No: Guarding (Male) Exam: Deferred Rectal (Males) Exam: Deferred Back Exam: Reports: Full Range of Motion, Other (Kyphosismild). Denies: CVA Tenderness (L), CVA Tenderness (R), Decreased Range of Motion, Muscle Spasm, Paraspinal Tenderness, Vertebral Tenderness Extremities: Normal Capillary Refill, Pedal Edema (Trace bilateral pedal/ pretibial edema), Limited Range of Motion (Shoulders bilaterallystable). No: Non-Tender (Mild stable bilateral shoulder pain with range of motion), Blas's Sign Skin: Reports: Ecchymosis (Stable ecchymosis on the forearms bilaterally) Neurological: Reports: No New Focal Deficit Psy/Mental Status: Reports: Alert, Normal Affect, Normal Mood. Denies: Anxious , Depressed, Agitated, Hallucinations, Withdrawal Symptoms EKG INTERPRETATION EKG Date: 12/17/19 Time: 07:34 Rhythm: A-Flutter Rate (Beats/Min): 73 [place]: Normal (Neutral) P-Wave: Variable QRS: Normal (0.9 seconds with some repolarization changes) ST-T: Normal QT: Normal WA/PQ Interval: Variable. Poor R-wave progression in the anterior leads Comparison: No Change (12/14/19) EKG Interpretation Comments: 1. Atrial Fibrillation/flutter 2. Repolarization changes 3. No Acute ischemic changes
== END 2019-12-17 12:15 | disposition home or self-care (01) | DRG 291 ==
LOC: LL.ED 12:44 → LL.MS 15:20 → UNDOADMIN 15:20 → LL.MS 15:51
PROVIDERS: ADMIT Family Medicine; ATTEND Family Medicine
PROC: 8E0ZXY6 Isolation (ICD-10-PCS; principal; 2019-12-17)
DX: I13.0 Hypertensive heart and chronic kidney disease with heart failure and stage 1 through stage 4 chronic kidney disease, or unspecified chronic kidney disease (principal); J18.9 Pneumonia, unspecified organism; M89.49 Other hypertrophic osteoarthropathy, multiple sites; J44.0 Chronic obstructive pulmonary disease with (acute) lower respiratory infection; N30.00 Acute cystitis without hematuria; I48.11 Longstanding persistent atrial fibrillation; I50.9 Heart failure, unspecified; I25.10 Atherosclerotic heart disease of native coronary artery without angina pectoris; D64.9 Anemia, unspecified; D50.8 Other iron deficiency anemias; E53.8 Deficiency of other specified B group vitamins; E78.5 Hyperlipidemia, unspecified; E11.9 Type 2 diabetes mellitus without complications; E83.42 Hypomagnesemia; E88.09 Other disorders of plasma-protein metabolism, not elsewhere classified; F41.8 Other specified anxiety disorders; Z88.1 Allergy status to other antibiotic agents; M19.90 Unspecified osteoarthritis, unspecified site; G47.33 Obstructive sleep apnea (adult) (pediatric); E78.2 Mixed hyperlipidemia; D50.9 Iron deficiency anemia, unspecified; M81.0 Age-related osteoporosis without current pathological fracture; H54.7 Unspecified visual loss; H26.9 Unspecified cataract; E66.9 Obesity, unspecified; Z99.81 Dependence on supplemental oxygen; K21.9 Gastro-esophageal reflux disease without esophagitis; B96.20 Unspecified Escherichia coli [E. coli] as the cause of diseases classified elsewhere; Z85.820 Personal history of malignant melanoma of skin; Z96.653 Presence of artificial knee joint, bilateral; M85.80 Other specified disorders of bone density and structure, unspecified site; E11.21 Type 2 diabetes mellitus with diabetic nephropathy; N18.9 Chronic kidney disease, unspecified; E11.22 Type 2 diabetes mellitus with diabetic chronic kidney disease; Z88.8 Allergy status to other drugs, medicaments and biological substances; Z88.0 Allergy status to penicillin; Z79.4 Long term (current) use of insulin; Z79.01 Long term (current) use of anticoagulants; Z79.899 Other long term (current) drug therapy; I25.2 Old myocardial infarction; Z95.0 Presence of cardiac pacemaker; Z95.5 Presence of coronary angioplasty implant and graft; Z87.891 Personal history of nicotine dependence
CPT/HCPCS: 36415; 71046; 71275; 80048; 80053; 80061; 81001; 82272; 82550; 82553; 82607; 82728; 82746; 82962; 83036; 83540; 83550; 83605; 83735; 83880; 84443; 84484; 85025; 85379; 85610; 85730; 86140; 87040; 87086; 87088; 87186; 93005; 93010; 93970; 94640; 99283; 99285-25; A9270-GY; J0696; J1815-GY; J1940; J1956; J7050; J7620-GY; Q9967

== ENCOUNTER 2019-12-23 11:39 | Emergency (ER) | payer MEDICARE, BC ==
--- NOTE | 2019-12-23 11:52 | EDM.PDOC ---
ED HPI GENERAL MEDICAL PROBLEM - General Chief Complaint: Cardiovascular Problem Stated Complaint: Weakness, short of breath, decreased appetite Time Seen by Provider: 12/23/19 11:45 Source of Information: Reports: Patient, Old Records ([facility] EMR. No paper hospital chart available.) History Limitations: Reports: No Limitations - History of Present Illness INITIAL COMMENTS - FREE TEXT/NARRATIVE: The patient was brought to the emergency room via private automobile by his son , Issac, for evaluation of nonspecific lethargy, fatigue, dyspnea, and bradycardia, which was diagnosed by the [facility] nurse in [place] shortly prior to arrival to this facility. Note that the patient has had multiple hospitalizations for both his COPD and heart disease, including hospitalization in this facility from 12/12 through 12/17/19, hospitalization in September 2019 in [place] and November 2019 in [place] with records from those hospitalizations reviewed at time of last admission on 12/13/19. The patient is a somewhat poor historian, however he did take 2 rather than one of his previous Xanax tablets at 10 AM this morning secondary to nonspecific insomnia during the last couple of nights. The patient has been having 10/10 intrascapular pain radiating to his mid chest, which he describes as pressure, although he previously related this to his chronic back pain. The patient denies any other radiation of his chest discomfort, dizziness, orthostasis, diaphoresis, paresthesias, etc., however some dizziness, orthopnea, and decreased exercise tolerance during the last couple of days. He has not yet followed up with his regular provider or been seen by home health since 12/16, other than medication set up by home health at time of hospital discharge as above. He denies or any other anginal-type symptoms. No recent history of abdominal pain, heartburn, nausea, diarrhea, melena, gross hematochezia, or any food intolerance, including fatty foods, etc. , although he has had some problems with flatulence during the last couple of days. He did have a normal bowel movement earlier this morning. He denies any gross hematuria, colic, or other UTI symptoms. The patient also denies any recent fever, cough, wheezing, dyspnea, etc.. No history of recent headaches, visual changes, diplopia, change in mental status, falls, injuries, or other change in neurological status. Note that [facility] did record a fingerstick INR of 1.3 and an Accu-Chek of 196 mg percent this morning. He denies any current chest pain or discomfort, however. Onset: Today, Gradual, Unknown/Unsure Onset Date: 12/23/19 Duration: Resolved Prior to Arrival Location: Reports: Chest, Back, Radiates to (As above), Other (As above). Denies: Head, Neck, Upper Extremity, Left, Upper Extremity, Right Quality: Reports: Pressure, Same as Previous Episode Severity: Severe Improves with: Reports: None Worsens with: Reports: None Context: Reports: Other (As above). Denies: Sick Contact, Trauma Associated Symptoms: Reports: Chest Pain, Malaise (As below), Shortness of Breath, Weakness, Other (Lethargy secondary to Xanax this morning). Denies: Confusion (Mild lethargy), Cough, cough w sputum, Diaphoresis, Fever/Chills, Headaches, Nausea/Vomiting, Seizure, Syncope Treatments NIB ASSEMBLER: Reports: Other Medication(s) (Morning medications and extra Xanax as above) - Related Data Allergies Allergy/AdvReac Type Severity Reaction Status Date / Time atorvastatin [From Lipitor] Allergy UNKNOWN Verified 12/23/19 12:03 clindamycin Allergy UNKNOWN Verified 12/23/19 12:03 lisinopril Allergy Cough Verified 12/23/19 12:03 Penicillins Allergy UNKNOWN Verified 12/23/19 12:03 rosuvastatin [From Crestor] Allergy unknown Verified 12/23/19 12:03 valsartan [From Diovan] Allergy UNKNOWN Verified 12/23/19 12:03 Home Meds: Home Meds ALPRAZolam [Alprazolam] 0.5 mg PO BID PRN 07/21/16 [History] Budesonide/Formoterol [Symbicort 160-4.5 MCG] 2 puff INH BID 07/21/16 [History] Calcium Carbonate/Vitamin D3 [Calcium 600 + Vit D Tablet] 1 tab PO QAM 07/21/16 [History] Cholecalciferol (Vitamin D3) [Vitamin D3] 1,000 unit PO QAM 07/21/16 [History] Multivitamins [Tab-A-Juan] 1 tab PO DAILY 07/21/16 [History] Non-Formulary Medication [NF Drug] 1 tab PO DAILY PRN 07/21/16 [History] Omeprazole 20 mg PO DAILY 07/21/16 [History] Sertraline [Zoloft] 100 mg PO QAM 07/21/16 [History] Spironolactone [Aldactone] 50 mg PO BID@0812 07/21/16 [History] metFORMIN HCl [Metformin HCl] 1,000 mg PO BID 07/21/16 [History] rOPINIRole [Requip] 1 mg PO DAILY@16 PRN 07/21/16 [History] rOPINIRole [Requip] 1 tab PO BID@07/21/16 [History] Cyanocobalamin (Vitamin B-12) [Vitamin B-12] 1,000 mcg PO DAILY 12/13/19 [ History] Gabapentin [Neurontin] 300 mg PO DAILY@16 PRN 12/13/19 [History] Gabapentin [Neurontin] 300 mg PO TID@,,12/13/19 [History] Insulin Detemir [Levemir] 22 unit SUBCUT BEDTIME 12/13/19 [History] Metoprolol Succinate 50 mg PO DAILY 12/13/19 [History] Triamcinolone Acetonide [Kenalog 0.1% Crm] 1 applic TOP QID PRN 12/13/19 [ History] Albuterol/Ipratropium [DuoNeb 3.0-0.5 MG/3 ML] 3 ml NEB Q4HRRT PRN neb [Rx] Albuterol/Ipratropium [DuoNeb 3.0-0.5 MG/3 ML] 3 ml NEB QID neb 12/17/19 [Rx] Dextromethorphan/guaiFENesin [Mucinex DM ER 600-30 MG] 1 tab PO Q12HR #20 tab.er 12/17/19 [Rx] Diltiazem HCl [Diltiazem 24Hr Cd] 180 mg PO QPM #30 cap.er.24h 12/17/19 [Rx] Ferrous Sulfate 325 mg PO QPM #60 tablet 12/17/19 [Rx] Furosemide [Lasix] 40 mg PO BID #20 tab 12/17/19 [Rx] Levofloxacin [Levaquin] 500 mg PO DAILY #7 tablet 12/17/19 [Rx] Lovastatin [Mevacor] 20 mg PO BEDTIME #30 tablet 12/17/19 [Rx] Magnesium Oxide 400 mg PO DAILY #30 tablet 12/17/19 [Rx] Potassium Chloride [Klor-Con M20] 20 meq PO BID #20 tab.er 12/17/19 [Rx] Warfarin Sodium [Coumadin] 2.5 mg PO QPM #20 tablet 12/17/19 [Rx] levoFLOXacin [Levaquin] 500 mg PO DAILY 12/23/19 [History] Past Medical History HEENT History: Reports: Cataract, Impaired Vision, Other (See Below). Denies: Allergic Rhinitis, Glaucoma, Hard of Hearing, Macular Degeneration, Otitis Media , Retinal Detachment Other HEENT History: He wears glasses. No surgeries for his cataracts to this point. No history of diabetic retinopathy. Cardiovascular History: Reports: Afib, Aneurysm, Arrhythmia, CAD, Cardiomyopathy , Heart Failure, Heart Murmur, High Cholesterol, Hypertension, NC, Other (See Below). Denies: Blood Clots/VTE/DVT, PVD, Syncope Other Cardiovascular History: History of possible small inferior wall NC, which was not known by the patient, per Cardiolite scan on 09/22/19 with evidence of reversible inferior wall cardiac ischemia and small reversible anterior wall reversible ischemia. Moderate left atrial enlargement, mild to moderate mitral valve insufficiency, and diastolic dysfunction by echocardiograms as below. Recurrent CHF with secondary hypoxia although overall good systolic ejection fraction by echocardiogram as below. Recurrent atrial fibrillation/flutter with rapid ventricular response, including previous 3:1 AND 4:1 AV block. Small abdominal aortic aneurysm by CT scan of the abdomen and pelvis on 11/10/19. D- dimer elevation on 12/13/19 with negative workup as below. Respiratory History: Reports: Bronchitis, Recurrent, COPD, Intubation, Previous , Pneumonia, Recurrent, Pulmonary Fibrosis, Sleep Apnea, SOB, Other (See Below) Other Respiratory History: O2 dependent COPD with previous history of oxygen noncompliance, however no oxygen is required when his CHF is under good control. Patient is compliant with his CPAP. Multiple bilateral pulmonary nodules, including 9 millimeter lesion in the right middle lobe with additional 1.5 cm right-sided paratracheal lymphadenopathy by CT scan on 11/10/19. Gastrointestinal History: Reports: Colon Polyp, Diverticulosis, Gastritis, GERD , Hiatal Hernia, Other (See Below). Denies: Bowel Obstruction, Celiac Disease, Cholelithiasis, Chronic Constipation, Chronic Diarrhea, Fatty Liver, Fecal Incontinence, Hemorrhoids, Inflammatory Bowel Disease, Irritable Bowel Syndrome , Jaundice, PUD Other Gastrointestinal History: History of recurrent colonic polyps including hyperplastic colonic polyp removed from the proximal ascending colon and 2 tubular adenomas removed from the rectal region on 07/21/16. Genitourinary History: Reports: Acute Renal Failure, BPH, Chronic Renal Insuffiency, Diabetic Nephropathy, Prostate Disorder, Other (See Below). Denies : Renal Calculus, STD, Urinary Incontinence, UTI, Recurrent Other Genitourinary History: Bilateral complex renal cysts by CT scan on 11/10/19 with patient apparently refusing biopsies. Musculoskeletal History: Reports: Arthritis, Back Pain, Chronic, Fracture, Neck Pain, Chronic, Osteoarthritis, Osteoporosis, Other (See Below). Denies: Amputation, Gout, RA, SLE Other Musculoskeletal History: C7 cervical fracture requiring surgery as below. Multiple possible bilateral rib fractures secondary to football injuries, etc. as a teenager and in his 20s. Neurological History: Reports: Neuropathy, Diabetic, Neuropathy, Peripheral, Other (See Below). Denies: Cerebral Aneurysms, CVA, Migraines, MS, Parkinson's , Seizure, TIA, Vertigo Other Neuro History: Cerebral atrophy by CT scan. Restless leg syndrome; bIlateral carpal tunnel syndrome? Psychiatric History: Reports: Addiction, Anxiety, Dementia, Depression, Other ( See Below). Denies: Abuse, Victim of, ADD, ADHD, Psych Hospitalization(s), PTSD , Suicide Attempt, Suicidal Ideation Other Psychiatric History: Insomnia and claustrophobia. Per medical records history of previous alcohol abuse, which the patient adamantly denies. Endocrine/Metabolic History: Reports: Diabetes, Type II, Hypomagnesemia, IDDM, Obesity/BMI 30+, Osteopenia, Osteoporosis, Other (See Below). Denies: Diabetes , Type I, Diabetes Mellitus, Type 3c, Hypothyroidism Other Endocrine/Metabolic History: Hypoalbuminemia Hematologic History: Reports: Anemia, B12 Deficiency, Iron Deficiency. Denies: Blood Transfusion(s) Immunologic History: Reports: None. Denies: AIDS, HIV, SLE Oncologic (Cancer) History: Reports: Malignant Melanoma, Other (See Below). 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 Dermatologic History: Reports: Venous Stasis Dermatitis. Denies: Eczema, Psoriasis - Infectious Disease History Infectious Disease History: Reports: Chicken Pox, Measles, Mumps. Denies: C- Difficile, Meningitis, Mononucleosis, MRSA, Novel Coronavirus, Pertussis ( Whooping Cough), Rheumatic Fever, Rubella, Scarlet Fever, Shingles, TB, VRE - Past Surgical History Head Surgeries/Procedures: Reports: None HEENT Surgical History: Reports: Oral Surgery, Other (See Below). Denies: Adenoidectomy, Cataract Surgery, Eye Surgery, Laser Surgery, LASIK, Myringotomy w Tube(s), Naso-Sinus Surgery, Retinal Other HEENT Surgeries/Procedures: Initial excision of large right auricular melanoma on 09/28/05, including superficial parotidectomy, with subsequent reexcision/biopsy on 10/26/05 with no evidence of recurrence. Multiple teeth extractions with partial lowers. Cardiovascular Surgical History: Reports: Cardiac Ablation, Other (See Below). Denies: AAA Repair, Carotid Endarterectomy, Coronary Artery Stent, Pacer, Percutaneous Transluminal Angioplasty, Valve Replacement, Varicose, Vascular Surgery Other Cardiovascular Surgeries/Procedures: Briefly successful cardiac ablation for atrial flutter on 11/14/19 in [place]. Respiratory Surgical History: Reports: None. Denies: Thoracentesis GI Surgical History: Reports: Colonoscopy, EGD, Polypectomy, Other (See Below). Denies: Appendectomy, Cholecystectomy, Hernia, Abdominal, Hernia, Inguinal, Hernia Repair/Other Other GI Surgeries/Procedures: Last EGD and colonoscopy on 06/18/19 with previous colonoscopy including multiple polypectomies as below on 07/21/16. Note cauterization without biopsy of hyperplastic appearing polyp in the transverse colon at that time. Male Surgical History: Reports: Vasectomy, Other (See Below). Denies: Circumcision, Renal Calculus, TURP-Transurethral Resection of Prostate Other Male Surgeries/Procedures: Vasectomy in about 1968 Endocrine Surgical History: Reports: None. Denies: Thyroid Biopsy Neurological Surgical History: Reports: C-Spine, Discectomy, Laminectomy, Spinal Fusion, Other (See Below). Denies: Lumbar Spine, Sacral Spine, Thoracic Spine, Vertebroplasty Other Neurological Surgeries/Procedures: C6C7 anterior laminectomy and spinal fusion on 03/27/12 with additional Aburto head pins secondary to previous C7 fracture. Musculoskeletal Surgical History: Reports: Knee Replacement, Other (See Below). Denies: Arthroscopic Procedure, Carpal Tunnel, Ganglion Cyst, Hip Replacement , Joint Replacement, ORIF, Shoulder Surgery Other Musculoskeletal Surgeries/Procedures:: Bilateral TKAs in the Oncologic Surgical History: Reports: Other (See Below) Other Oncologic Surgeries/Procedures: Melanoma excision as above. Dermatological Surgical History: Reports: Other (See Below) Other Dermatological Surgeries/Procedures: As above - Past Imaging History Past Imaging History: Reports: Cardiac Echo (Last Cardiac echo in [place] on 11/13 with ejection fraction of 5560 percent with previous echocardiogram in [place] on 09/22/19 with ejection fraction of 55% and otherwise findings as above. ), CAT Scan (Negative CTA of the chest on 12/13/[address] scan of the brain on 09/21/[address] scan of the chest, abdomen, and pelvis without contrast on 11/10/19 with findings as above.), Stress Testing (Lexiscan Cardiolite evaluation on 09/22/19 with findings as above and ejection fraction of 65%.), Venous Doppler (Negative venous Doppler studies of the lower extremities on 12/16/19.). Denies: Holter Monitor Social & Family History - Family History HEENT: Reports: None. Denies: Glaucoma, Macular Degeneration, Retinal Detachment Cardiac: Reports: CAD, Hypertension, NC, Other (See Below). Denies: Afib, AICD , Aneurysm, Arrhythmia, Blood Clots/VTE/DVT, Bypass, Heart Failure, Heart Murmur , Heart Valve Replacement, Pacemaker, PVD/COD, Stent, Syncope Other Cardiac Family History: Parents from an NC in their 70s with no apparent procedures. Hypertension in brother. Respiratory: Reports: None. Denies: Asthma, COPD, PE, Pneumothorax, Sleep Apnea GI: Reports: None. Denies: Celiac Disease, Cholelithiasis, Colon Polyps, GERD, GI bleed, Inflammatory Bowel Disease, Irritable Bowel Syndrome, PUD : Reports: None. Denies: Renal Calculus, Renal Disease/Insufficiency OBGYN: Reports: None. Denies: Endometriosis, Recurrent Spontaneous Musculoskeletal: Reports: Arthritis, Osteoarthritis, Other (See Below). Denies : Gout, RA, SLE Other Musculoskeletal Family History: Arthritis in parents, sisters 2, and brothers 2 Neurological: Reports: None. Denies: Alzheimers Disease, Cerebral Aneurysms, CVA, Migraines, MS, Parkinson's, Seizure, TIA, Vertigo Psychiatric: Reports: None. Denies: Abuse, Victim of, ADD, ADHD, Anxiety, Depression, Psych Hospitalization(s), PTSD, Suicide Attempt Endocrine/Metabolic: Reports: None. Denies: Diabetes, Gestational, Diabetes, Type I, Diabetes, type II, Diabetes Mellitus, Type 3c, Hyperparathyroidism, Hypothyroidism, IDDM, Obesity/MBI 30+ Hematologic: Reports: None. Denies: SLE Immunologic: Reports: None. Denies: AIDS, HIV, SLE Dermatologic: Reports: None. Denies: Eczema, Psoriasis Oncologic: Reports: Leukemia, Other (See Below) Other Oncologic Family History: Brother with fatal CLL and another brother with unknown type of cancer. - Tobacco Use Smoking Status *Q: Former Smoker Tobacco Use Within Last Twelve Months: No Years of Tobacco use: 30 Packs/Tins Daily: 4 Packs/Tins Daily Comment: Smoked 45 packs of cigarettes per day with last use on 09/11/86 Used Tobacco, but Quit: Yes Smoking Cessation Information Provided To Patient: No Second Hand Smoke Exposure: No Second Hand Smoke Education Provided: No - Caffeine Use Caffeine Use: Reports: Tea (Very occasional). Denies: Coffee, Energy Drinks, Soda - Alcohol Use Alcohol Use History: Yes Days Per Week of Alcohol Use: 7 Number of Drinks Per Day: 7 Number of Drinks Per Day Comment: Usually mixed drinks per medical records with patient adamantly denying any alcohol abuse history in the past in spite of of previous medical records. 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 ED EXAM, GENERAL - Physical Exam Exam: See Below Exam Limited By: No Limitations General Appearance: Alert, WD/WN, No Apparent Distress Eye Exam: Bilateral Eye: EOMI, Normal Inspection (Patient is wearing glasses, no nystagmus), PERRL Ears: Normal External Exam, Normal Canal, Hearing Grossly Normal, Normal TMs Nose: Normal Inspection, Normal Mucosa, No Blood Throat/Mouth: Normal Inspection, Normal Lips, Normal Teeth (Partial lower dentures), Normal Gums, Normal Oropharynx, Normal Voice, No Airway Compromise. No: Dysphagia, Perioral Cyanosis Head: Atraumatic, Normocephalic. No: Facial Swelling, Facial Tenderness, Sinus Tenderness Neck: Supple, Non-Tender, Full Range of Motion, Carotid Bruit (Bilateral carotid bruits versus transmitted heart sounds). No: Lymphadenopathy (L), Lymphadenopathy (R), Thyromegaly Respiratory/Chest: No Respiratory Distress, No Accessory Muscle Use, Chest Non- Tender, Decreased Breath Sounds (Somewhat in left lower lobe), Rales (Mild bilateral basilar rales). No: Rhonchi, Wheezing, Retractions Cardiovascular: Normal Peripheral Pulses, No Gallop, No JVD, No Murmur, No Rub, Bradycardia (Junctional bradycardia as below), Systolic Murmur (Mild 1/6 ANDREW of the mitral and aortic valves). No: No Edema (Dependent edema as below), Gallop/ S3, Gallop/S4, Extra Beats, Friction Rub Peripheral Pulses: 1+: Dorsalis Pedis (L), Dorsalis Pedis (R), 2+: Radial (L), Radial (R) GI/Abdominal: Normal Bowel Sounds, Soft, Non-Tender, No Organomegaly, No Distention, No Abnormal Bruit, No Mass, Pelvis Stable, Other (Obese). No: Guarding (Male) Exam: Deferred Rectal (Males) Exam: Deferred Back Exam: Full Range of Motion, Other (Mild kyphosis). No: CVA Tenderness (L) , CVA Tenderness (R), Muscle Spasm, Paraspinal Tenderness, Vertebral Tenderness Extremities: Non-Tender, Normal Capillary Refill, Pedal Edema (Trace bilateral pedal/pretibial edema with secondary mild venous stasis dermatitis of the anterior tibial regions), Limited Range of Motion (Stable in shoulders bilaterally secondary to arthritis). No: Blas's Sign Neurological: Alert, Oriented, CN II-XII Intact, Normal Cognition, Normal Gait, Normal Reflexes (Negative Babinski's), No Motor/Sensory Deficits Psychiatric: Normal Affect, Normal Mood Skin Exam: Ecchymosis (Stable to improving ecchymosis of the forearms bilaterally after recent hospitalizations as above), Rash (Venous stasis dermatitis as above). No: Diaphoretic, Wound/Incision Lymphatic: No Adenopathy EKG INTERPRETATION EKG Date: 12/23/19 Time: 12:00 Rhythm: Other (Junctional bradycardia) Rate (Beats/Min): 39 [place]: Normal (Neutral) P-Wave: Absent QRS: Wide (0.09 seconds representing repolarization changes versus beginning bifascicular incomplete bundle branch block) ST-T: Other (Nonspecific ST changes likely secondary to peaked T waves and repolarization changes in leads 2, 3, and V6 consistent with possible inferolateral STEMI versus artifact) QT: Normal NE/PQ Interval: Absent with stable extreme poor R-wave progression in the anterior leads Comparison: Change From Previous EKG (As above since 12/17/19) EKG Interpretation Comments: 1. Possible inferolateral STEMI versus artifact 2. Junctional bradycardia with history of refractory atrial fibrillation/ flutter 3. Repolarization changes versus incomplete bifascicular bundle branch block Course - Vital Signs Last Recorded V/S: Last Vital Signs Temp 35.9 C L 12/23/19 11:41 Pulse 35 L 12/23/19 13:24 Resp 24 H 12/23/19 13:24 BP 101/72 12/23/19 13:24 Pulse Ox 100 12/23/19 13:24 Vital Signs - 24 hr 12/23/19 12/23/19 12/23/19 11:41 11:51 11:55 Temperature [ 35.9 C L Temporal] Pulse, 37 L 38 L Peripheral [ Left Pulse Oximetry] Respiratory 20 23 H Rate Blood Pressure 126/59 L 126/59 L [Left Upper Arm ] O2 Sat by Pulse 91 L 92 L Oximetry O2 Sat by Pulse 91 L Oximetry [ Nasal Cannula] 12/23/19 12/23/19 12/23/19 12:08 12:15 12:24 Temperature [ Temporal] Pulse, 38 L 37 L 38 L Peripheral [ Left Pulse Oximetry] Respiratory 20 22 H Rate Blood Pressure 116/59 L 112/66 [Left Upper Arm ] O2 Sat by Pulse 97 100 Oximetry O2 Sat by Pulse Oximetry [ Nasal Cannula] 12/23/19 12/23/19 12/23/19 12:38 12:55 13:08 Temperature [ Temporal] Pulse, 37 L 37 L 37 L Peripheral [ Left Pulse Oximetry] Respiratory 21 H 22 H 22 H Rate Blood Pressure 112/53 L 104/52 L 109/57 L [Left Upper Arm ] O2 Sat by Pulse 99 99 100 Oximetry O2 Sat by Pulse Oximetry [ Nasal Cannula] 12/23/19 13:24 Temperature [ Temporal] Pulse, 35 L Peripheral [ Left Pulse Oximetry] Respiratory 24 H Rate Blood Pressure 101/72 [Left Upper Arm ] O2 Sat by Pulse 100 Oximetry O2 Sat by Pulse Oximetry [ Nasal Cannula] - Orders/Labs/Meds Orders: Active Orders 24 hr Category Date Time Status Cardiac Monitoring [RC] . DIRECTED Care 12/23/19 11:52 Active EKG Documentation Completion [RC] ASDIRECTED Care 12/23/19 11:52 Active Oxygen Therapy, ED [RC] CONTINUOUS Care 12/23/19 11:52 Active Peripheral IV Care [RC] . DIRECTED Care 12/23/19 11:52 Active Pulse Oximetry [RC] CONTINUOUS Care 12/23/19 11:52 Active Up With Assistance [RC] PFP Care 12/23/19 11:52 Active Vital Signs [RC] PFP Care 12/23/19 11:52 Active Nothing per Oral Now Diet [DIET] Diet 12/23/19 Breakfast Active Chest 1V Frontal [CR] Stat Exams 12/23/19 11:52 Ordered Sodium Chloride 0.9% [Saline Flush] Med 12/23/19 11:52 Active 10 ml FLUSH ASDIRECTED PRN Obtain Past Medical Record [OM.PC] Urgent Oth 12/23/19 11:52 Active Peripheral IV Insertion Adult [OM.PC] Stat Oth 12/23/19 11:52 Ordered Resuscitation Status Stat Resus Stat 12/23/19 11:52 Ordered Medication Orders Sodium Chloride (Saline Flush) 10 ml FLUSH ASDIRECTED PRN PRN Reason: Keep Vein Open Last Admin: 12/23/19 12:00 Dose: 10 ml Labs: Laboratory Tests 04/13/20 04/13/20 04/13/20 Range/Units 11:54 11:54 11:54 WBC 15.2 H (4.0-10.2) K/uL RBC 4.93 (4.33-5.41) M/uL Hgb 10.5 L (13.1-16.8) g/dL Hct 33.6 L (39.0-49.0) % MCV 68.2 L (84.0-98.0) fL MCH 21.3 L (28.2-33.3) pg MCHC 31.3 L (31.7-36.0) g/dL RDW 19.5 H (11.2-14.1) % Plt Count 315 (150-350) K/uL Neut % (Auto) 76.7 (45.0-80.0) % Lymph % (Auto) 14.8 (10.0-50.0) % Wilcox % (Auto) 7.8 (2.0-14.0) % Eos % (Auto) 0.5 (0.0-5.0) % Baso % (Auto) 0.2 (0.0-2.0) % Neut # (Auto) 11.64 H (1.40-7.00) K/uL Lymph # (Auto) 2.24 (0.50-3.50) K/uL Wilcox # (Auto) 1.18 H (0.00-1.00) K/uL Eos # (Auto) 0.07 (0.00-0.50) K/uL Baso # (Auto) 0.03 (0.00-0.20) K/uL PT 14.1 H D (9.5-12.0) SEC INR 1.4 APTT 33.0 H (24.5-32.8) SEC D-Dimer, Quantitative 956 H (0-400) ng/mL Sodium (136-145) mmol/L Potassium (3.5-5.1) mmol/L Chloride (98-107) mmol/L Carbon Dioxide (21.0-32.0) mmol/L BUN (7-18) mg/dL Creatinine (0.51-1.17) mg/dL Est Cr Clr Drug Dosing mL/min Estimated GFR (MDRD) mL/min Glucose (74-106) mg/dL Lactic Acid (0.4-2.0) mmol/L Uric Acid (2.6-7.2) mg/dL Calcium (8.5-10.1) mg/dL Magnesium (1.8-2.4) mg/dL Total Bilirubin (0.2-1.0) mg/dL AST (15-37) U/L ALT (12-78) U/L Alkaline Phosphatase (46-116) IU/L Creatine Kinase (26-308) U/L Creatine Kinase Index (0.0-2.5) % CK-MB (CK-2) (0.00-3.60) ng/mL Troponin I (0.000-0.056) ng/mL NT-Pro-B Natriuret Pep (0-125) pg/mL Total Protein (6.4-8.2) g/dL Albumin (3.4-5.0) g/dL TSH, Ultra Sensitive (0.358-3.740) mIU/mL 12/23/19 12/23/19 Range/Units 11:54 11:54 WBC (4.0-10.2) K/uL RBC (4.33-5.41) M/uL Hgb (13.1-16.8) g/dL Hct (39.0-49.0) % MCV (84.0-98.0) fL MCH (28.2-33.3) pg MCHC (31.7-36.0) g/dL RDW (11.2-14.1) % Plt Count (150-350) K/uL Neut % (Auto) (45.0-80.0) % Lymph % (Auto) (10.0-50.0) % [place] % (Auto) (2.0-14.0) % Eos % (Auto) (0.0-5.0) % Baso % (Auto) (0.0-2.0) % Neut # (Auto) (1.40-7.00) K/uL Lymph # (Auto) (0.50-3.50) K/uL [place] # (Auto) (0.00-1.00) K/uL Eos # (Auto) (0.00-0.50) K/uL Baso # (Auto) (0.00-0.20) K/uL PT (9.5-12.0) SEC INR APTT (24.5-32.8) SEC D-Dimer, Quantitative (0-400) ng/mL Sodium 134 L (136-145) mmol/L Potassium 5.0 (3.5-5.1) mmol/L Chloride 97 L (98-107) mmol/L Carbon Dioxide 25.9 (21.0-32.0) mmol/L BUN 34 H (7-18) mg/dL Creatinine 1.39 H (0.51-1.17) mg/dL Est Cr Clr Drug Dosing 47.30 mL/min Estimated GFR (MDRD) 49 mL/min Glucose 153 H (74-106) mg/dL Lactic Acid 1.4 (0.4-2.0) mmol/L Uric Acid 10.0 H (2.6-7.2) mg/dL Calcium 9.1 (8.5-10.1) mg/dL Magnesium 1.8 (1.8-2.4) mg/dL Total Bilirubin 0.5 (0.2-1.0) mg/dL AST 18 (15-37) U/L ALT 25 (12-78) U/L Alkaline Phosphatase 85 (46-116) IU/L Creatine Kinase 28 (26-308) U/L Creatine Kinase Index 3.2 H (0.0-2.5) % CK-MB (CK-2) 0.90 (0.00-3.60) ng/mL Troponin I 0.000 (0.000-0.056) ng/mL NT-Pro-B Natriuret Pep 3400 H (0-125) pg/mL Total Protein 7.5 (6.4-8.2) g/dL Albumin 3.0 L (3.4-5.0) g/dL TSH, Ultra Sensitive 3.311 (0.358-3.740) mIU/mL Meds: Medications Generic Name Dose Route Start Last Admin Trade Name Freq PRN Reason Stop Dose Admin Sodium Chloride 10 ml 12/23/19 11:52 12/23/19 12:00 Saline Flush FLUSH 10 ml ASDIRECTED PRN Administration Keep Vein Open Discontinued Medications Generic Name Dose Route Start Last Admin Trade Name Freq PRN Reason Stop Dose Admin Famotidine 40 mg 12/23/19 11:52 12/23/19 12:00 Pepcid IVPUSH 12/23/19 11:53 40 mg ONETIME ONE Administration - Radiology Interpretation Free Text/Narrative:: compliance monitor shows probable severe junctional bradycardia with heart rates in the high 30s to low 40s with no ectopy or arrhythmia Chest x-ray, portable, shows moderate to severe cardiomegaly with moderate aortic valve calcification and moderate CHF, including mild to moderate new left pleural effusion. Moderate COPD and pulmonary fibrotic changes were also present with no pulmonary infiltrates, pneumothorax, etc. Departure - Departure Time of Disposition: 13:43 Disposition: DC/Tfer to [facility] 02 Reason for Transfer *Q: Other (Cardiology consultation as below) Condition: Fair Clinical Impression: Coronary artery disease, IDDM (insulin dependent diabetes mellitus), Hypertension, Mixed anxiety depressive disorder, Sleep apnea, Osteoarthritis, CHF, Congestive heart failure, D-dimer, elevated, COPD (chronic obstructive pulmonary disease), Anemia, Hypoalbuminemia, Atrial fibrillation, Hypomagnesemia , Hyperlipidemia, Junctional bradycardia Referrals: Kelley Nagel, ADULT [employer]STRUCTOR [Primary Care Provider] - Forms: ED Department Discharge, Interfacility Transfer [facility] Sepsis Event Note - Evaluation Sepsis Screening Result: No Definite Risk - Focused Exam Vital Signs: Vital Signs Temp Pulse Resp BP Pulse Ox Pulse Ox 12/23/19 13:24 35 L 24 H 101/72 100 12/23/19 13:08 37 L 22 H 109/57 L 100 12/23/19 12:55 37 L 22 H 104/52 L 99 12/23/19 12:38 37 L 21 H 112/53 L 99 12/23/19 12:24 38 L 22 H 112/66 100 12/23/19 12:15 37 L 116/59 L 12/23/19 12:08 38 L 20 97 12/23/19 11:55 91 L 12/23/19 11:51 38 L 23 H 126/59 L 92 L 12/23/19 11:41 35.9 C L 37 L 20 126/59 L 91 L Date Exam was Performed: 12/23/19 Time Exam was Performed: 13:32 - Problem List & Annotations (1) Junctional bradycardia SNOMED Code(s): 924067348 Code(s): R00.1 - BRADYCARDIA, UNSPECIFIED Status: Acute Priority: High Current Visit: Yes Onset Date: 12/23/19 Annotation/Comment:: Newly diagnosed junctional bradycardia with Toprol XL and Cardiazem CD being contributing factors as above/below. Note that this will be the patient's fourth hospitalization since September 2019 for his heart disease and/or COPD. Extensive cardiac workup during recent months as above, although the patient was backloaded benefit from possible heart catheterization and/or pacemaker evaluation. Last echocardiogram on 11/14/19 did show an excellent ejection fraction of 5560 percent, however. Telephone consultation at 12:[address] Rene, hospitalist at [facility], who does accept the patient for direct admission and further treatment and evaluation, with no further treatment recommendations given. No interventions or medications required in the emergency room with stable vital signs and clinical exam at time of transfer. He did take his medications this morning. (2) CHF, Congestive heart failure SNOMED Code(s): 58617902 Code(s): I50.9 - HEART FAILURE, UNSPECIFIED Status: Acute Priority: High Current Visit: Yes Onset Date: ~12/23/19 Annotation/Comment:: Note return of his CHF today with some nonspecific anginal type symptoms as below and junctional bradycardia being a component. Multiple medication changes during recent hospitalization as above, which he did tolerate well prior to hospital discharge on 12/16. Long history of recurrent CHF, including recent hospitalizations in September and November 2019 as above. Note recent cardiac workup , including Cardiolite evaluations, echocardiograms, etc. as above. Chest pain protocol not initiated in the emergency room secondary to his nonspecific symptoms with the patient already on Coumadin. Recommend cardiology consultation with standard rule out NC orders and possible future heart catheterization and/or pacemaker evaluation. Note concomitant low dose of Toprol -XL and Cardizem CD therapy, which will likely need to be adjusted secondary to his bradycardia. BNP has increased since her last hospital discharge with new left pleural effusion, etc. as above. Note otherwise negative cardiac enzymes with nonspecific EKG changes as above/below. (3) Coronary artery disease SNOMED Code(s): 75789118 Code(s): I25.10 - ATHSCL HEART DISEASE OF [place] CORONARY ARTERY W/O ANG PCTRS Status: Chronic Priority: Medium Current Visit: Yes Annotation/ Comment:: As above. Note positive Cardiolite scan on 09/22/19 did indicate some possible reversible anterior wall cardiac ischemia, although today's nonspecific EKG changes indicating possible inferolateral cardiac disease. I did feel that these EKG changes are artifactual in nature as above with EKG faxed to [facility] for their review prior to transfer of the patient to their facility. He was essentially chest pain-free at time of transfer. Qualifiers: Coronary Disease-Associated Artery/Lesion type: [place] artery [place] vs. transplanted heart: [place] heart Associated angina: without angina Qualified Code(s): I25.10 - Atherosclerotic heart disease of [place] coronary artery without angina pectoris (4) Atrial fibrillation SNOMED Code(s): 65187482 Code(s): I48.91 - UNSPECIFIED ATRIAL FIBRILLATION Status: Chronic Priority: Medium Current Visit: Yes Annotation/Comment:: Recent unsuccessful permanent cardiac ablation as above. Patient is already on Coumadin with mildly subtherapeutic INR secondary to decrease Coumadin therapy because of his current Levaquin, which is scheduled to be completed tomorrow. Close follow-up by accepting provider. Qualifiers: Atrial fibrillation type: longstanding persistent Qualified Code(s): I48.11 - Longstanding persistent atrial fibrillation (5) D-dimer, elevated SNOMED Code(s): 439045191 Code(s): R79.89 - OTHER SPECIFIED ABNORMAL FINDINGS OF BLOOD CHEMISTRY Status: Acute Priority: High Current Visit: Yes Onset Date: 12/13/19 Annotation/Comment:: History of d-dimer elevation in December 2019 with negative workup as above. Patient is already on Coumadin, however subtherapeutic at this time. No direct clinical evidence of DVT or PE. (6) Hypoalbuminemia SNOMED Code(s): 312454392 Code(s): E88.09 - [facility] DISORDERS OF PLASMA-PROTEIN METABOLISM, NEC Status: Acute Priority: Medium Current Visit: Yes Onset Date: 12/13/19 Annotation/Comment:: Observe for now. Note obesity. Consider high protein Glucerna supplements as snacks. Note current obesity. (7) Anemia SNOMED Code(s): 112108263 Code(s): D64.9 - ANEMIA, UNSPECIFIED Status: Chronic Priority: Medium Current Visit: Yes Annotation/Comment:: Iron studies on 12/13 did show some mild iron deficiency, although his ferritin was normal. Note some mild hypoalbuminemia. Vitamin B-12 and folic acid levels were normal on 12/13 with continuation of current vitamin B-12 supplementation. Initiated low-dose iron sulfate therapy with iron studies to be repeated in about 4 weeks. Qualifiers: Anemia type: iron deficiency Iron deficiency anemia type: other iron deficiency Qualified Code(s): D50.8 - Other iron deficiency anemias (8) COPD (chronic obstructive pulmonary disease) SNOMED Code(s): 79337712 Code(s): J44.9 - CHRONIC OBSTRUCTIVE PULMONARY DISEASE, UNSPECIFIED Status : Chronic Priority: Medium Current Visit: Yes Annotation/Comment:: Hospitalization from 12/12 through 12/17/19 in this facility secondary to COPD exacerbation and probable right middle lobe pneumonia with moderate hypoxia on admission, although significantly improved after recent hospitalization with patient no longer O2 dependent with exercise or at rest with mild leukocytosis today likely secondary to stress reaction with no recent fever or other true bronchitic type symptoms. Note positive UA for Escherichia coli with culture and sensitivity indicating sensitivity to both Rocephin and Levaquin, which was given during recent hospitalization. Patient is about ready to complete Levaquin as above with repeat UA with culture and sensitivity recommended. O2 saturations with ambulation conducted prior to discharge showed no evidence of hypoxia or significant tachycardia with ambulation on room air. Consider PFTs on an outpatient basis depending on his clinical course and once his cardiac and pulmonary status has improved. Low probability of COVID-19 diagnosis, however nasal specimen was collected for this virus by STANLEY Becerra at the [facility] prior to admission, although an influenza screen was apparently not conducted per my previous request based on my review of [facility] EMR. Isolation protocols were initiated on admission with negative COVID19 screen as above. Qualifiers: COPD type: COPD with acute lower respiratory infection Qualified Code(s): J44.0 - Chronic obstructive pulmonary disease with (acute) lower respiratory infection (9) Hypertension SNOMED Code(s): 27461060 Code(s): I10 - ESSENTIAL (PRIMARY) HYPERTENSION Status: Chronic Priority : Medium Current Visit: Yes Annotation/Comment:: Stable by history and under good control in the emergency room and throughout prior hospitalization. A.M. blood pressures had been somewhat low, however with Norvasc changed to an every afternoon Cardizem CD regimen on 12/15 secondary to his occasional breakthrough tachycardia and recurrent atrial fibrillation. Close follow-up by his accepting provider with medication adjustments likely needed secondary to his bradycardia today as above. Qualifiers: Hypertension type: essential hypertension Qualified Code(s): I10 - Essential (primary) hypertension (10) IDDM (insulin dependent diabetes mellitus) SNOMED Code(s): 37688131 Code(s): BLI6603 - Status: Chronic Priority: Medium Current Visit: Yes Annotation/Comment:: Accu-Cheks not normally taken at home with Accu-Chek of 196 mg percent earlier this morning as above. Glycosylated hemoglobin on 12/13 was increased to 8.0%. (11) Mixed anxiety depressive disorder SNOMED Code(s): 120683191 Code(s): F41.8 - OTHER SPECIFIED ANXIETY DISORDERS Status: Chronic Priority: Medium Current Visit: Yes Annotation/Comment:: Stable by history. Patient denies alcohol abuse as above. No evidence of intoxication on admission with no DTs during this hospitalization. (12) Osteoarthritis SNOMED Code(s): 043974162 Code(s): M19.90 - UNSPECIFIED OSTEOARTHRITIS, UNSPECIFIED SITE Status: Chronic Priority: Medium Current Visit: Yes Annotation/Comment:: Stable by history with the exception of chronic bilateral shoulder pain. Qualifiers: Osteoarthritis location: multiple joints Osteoarthritis type: primary Qualified Code(s): M89.49 - Other hypertrophic osteoarthropathy, multiple sites (13) Sleep apnea SNOMED Code(s): 95985352 Code(s): G47.30 - SLEEP APNEA, UNSPECIFIED Status: Chronic Priority: Medium Current Visit: Yes Annotation/Comment:: He has been compliant with his CPAP with his daughter bringing his CPAP equipment to the emergency room prior to patient transfer. Note previous oxygen requirement, however this is no longer needed at this time as above. Qualifiers: Sleep apnea type: obstructive Qualified Code(s): G47.33 - Obstructive sleep apnea (adult) (pediatric) (14) Hypomagnesemia SNOMED Code(s): 037057512 Code(s): E83.42 - HYPOMAGNESEMIA Status: Acute Priority: Medium Current Visit: Yes Onset Date: 12/13/19 Annotation/Comment:: Initiated higher magnesium oxide therapy during recent hospitalization with normal magnesium level today. Continue close observation after discharge by his accepting provider. (15) UTI (urinary tract infection) SNOMED Code(s): 06839240 Code(s): N39.0 - URINARY TRACT INFECTION, SITE NOT SPECIFIED Status: Acute Priority: High Current Visit: Yes Onset Date: 12/13/19 Annotation/ Comment:: As above Qualifiers: Urinary tract infection type: acute cystitis Hematuria presence: without hematuria Qualified Code(s): N30.00 - Acute cystitis without hematuria (16) Hyperlipidemia SNOMED Code(s): 48748264 Code(s): E78.5 - HYPERLIPIDEMIA, UNSPECIFIED Status: Chronic Priority: Medium Current Visit: Yes Annotation/Comment:: Lipid panel on 12/13 showed persistent moderate dyslipidemia. Weight loss in moderation is advisable. Qualifiers: Hyperlipidemia type: mixed hyperlipidemia Qualified Code(s): E78.2 - Mixed hyperlipidemia - Problem List Review Problem List Initiated/Reviewed/Updated: Yes - My Orders Last 24 Hours: My Active Orders 12/23/19 11:52 Cardiac Monitoring [RC] . DIRECTED EKG Documentation Completion [RC] ASDIRECTED Oxygen Therapy, ED [RC] CONTINUOUS Peripheral IV Care [RC] . DIRECTED Pulse Oximetry [RC] CONTINUOUS Up With Assistance [RC] PFP Vital Signs [RC] PFP Chest 1V Frontal [CR] Stat Sodium Chloride 0.9% [Saline Flush] 10 ml FLUSH ASDIRECTED PRN Obtain Past Medical Record [OM.PC] Urgent Peripheral IV Insertion Adult [OM.PC] Stat Resuscitation Status Stat 12/23/19 Breakfast Nothing per Oral Now Diet [DIET] - Assessment/Plan Last 24 Hours: My Active Orders 12/23/19 11:52 Cardiac Monitoring [RC] . DIRECTED EKG Documentation Completion [RC] ASDIRECTED Oxygen Therapy, ED [RC] CONTINUOUS Peripheral IV Care [RC] . DIRECTED Pulse Oximetry [RC] CONTINUOUS Up With Assistance [RC] PFP Vital Signs [RC] PFP Chest 1V Frontal [CR] Stat Sodium Chloride 0.9% [Saline Flush] 10 ml FLUSH ASDIRECTED PRN Obtain Past Medical Record [OM.PC] Urgent Peripheral IV Insertion Adult [OM.PC] Stat Resuscitation Status Stat 12/23/19 Breakfast Nothing per Oral Now Diet [DIET] Assessment:: As above Plan: As above. Extensive precautions were given to the patient and his son and his daughter, Perla, by telephone, who are in agreement with the treatment plan. Ambulance transfer to [facility] via ambulance with maintenance mechanic helper accompaniment as above.
[2019-12-23] MEDS: Famotidine 20 MG/2 ML SDV IVPUSH ONE (12:00)
[2019-12-23] MEDS: Sodium Chloride 0.9% 10 ML Syringe FLUSH PRN (12:00)
[2019-12-23 13:27] VITALS: BP 101/72; PULSE 35
== END 2019-12-23 13:43 ==
LOC: LL.ED 11:39
DX: I11.0 Hypertensive heart disease with heart failure (principal); I50.9 Heart failure, unspecified; I25.10 Atherosclerotic heart disease of native coronary artery without angina pectoris; I48.91 Unspecified atrial fibrillation; E83.42 Hypomagnesemia; R00.1 Bradycardia, unspecified; F41.8 Other specified anxiety disorders; G47.30 Sleep apnea, unspecified; J44.9 Chronic obstructive pulmonary disease, unspecified; D64.9 Anemia, unspecified; E87.5 Hyperkalemia; E13.21 Other specified diabetes mellitus with diabetic nephropathy; M19.90 Unspecified osteoarthritis, unspecified site; E11.42 Type 2 diabetes mellitus with diabetic polyneuropathy; E66.9 Obesity, unspecified; Z68.42 Body mass index [BMI] 45.0-49.9, adult; F03.90 Unspecified dementia, unspecified severity, without behavioral disturbance, psychotic disturbance, mood disturbance, and anxiety; F32.9 Major depressive disorder, single episode, unspecified; F41.9 Anxiety disorder, unspecified; E88.09 Other disorders of plasma-protein metabolism, not elsewhere classified; F17.210 Nicotine dependence, cigarettes, uncomplicated; Z88.8 Allergy status to other drugs, medicaments and biological substances; Z79.899 Other long term (current) drug therapy; K21.9 Gastro-esophageal reflux disease without esophagitis; Z79.01 Long term (current) use of anticoagulants; Z79.4 Long term (current) use of insulin; Z88.0 Allergy status to penicillin
CPT/HCPCS: 36415; 71045; 80053; 82550; 82553; 83605; 83735; 83880; 84443; 84484; 84550; 85025; 85379; 85610; 85730; 93005; 93010; 96374; 99284; 99285-25; J3490

== ENCOUNTER 2019-12-30 11:09 | Inpatient (IN) | payer MEDICARE, BC ==
--- NOTE | 2019-12-30 11:11 | EDM.PDOC ---
ED HPI GENERAL MEDICAL PROBLEM - General Chief Complaint: Gastrointestinal Problem Stated Complaint: nausea Time Seen by Provider: 12/30/19 11:11 Source of Information: Reports: Patient, Old Records ([facility] EMR. No paper hospital chart available.), Other ([facility]) History Limitations: Reports: No Limitations - History of Present Illness INITIAL COMMENTS - FREE TEXT/NARRATIVE: Patient drove himself to the emergency room for evaluation of a 2 day history of nonspecific nausea associated with dry heaves without true emesis. Note that the patient was recently discharged from [facility] on 12/24/19 for treatment of junctional bradycardia secondary to medications with metoprolol therapy discontinued at that time. The patient denies any heart flutter, dizziness, orthostasis, orthopnea, diaphoresis, paresthesias, recent decreased exercise tolerance, or any other anginal-type symptoms however possible nonspecific 2-3/10 retrosternal chest discomfort possibly secondary to his dry heaves. No recent history of abdominal pain, heartburn, diarrhea, melena, gross hematochezia, or any food intolerance, including fatty foods, etc. with 3 normal bowel movements. He denies any gross hematuria, colic, or other UTI symptoms. The patient also denies any recent fever, cough, wheezing, dyspnea, etc.. Patient is a somewhat poor historian secondary to his baseline confusion? Onset: Gradual Onset Date: 12/28/19 Duration: Intermittent Location: Reports: Chest. Denies: Head, Face, Neck, Abdomen, Back, Pelvis, Upper Extremity, Left, Upper Extremity, Right, Lower Extremity, Left, Lower Extremity, Right, Generalized, Radiates to Quality: Reports: Ache, Same as Previous Episode Severity: Mild Improves with: Reports: None Worsens with: Reports: None Context: Reports: Other (As above). Denies: Sick Contact, Trauma Associated Symptoms: Reports: Confusion (Stable baseline?), Chest Pain. 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 RESIDENT: Reports: Other (see below) (None) Chest Pain Score (Numeric/FACES): 3 - Related Data Allergies Allergy/AdvReac Type Severity Reaction Status Date / Time atorvastatin [From Lipitor] Allergy UNKNOWN Verified 12/30/19 12:57 clindamycin Allergy UNKNOWN Verified 12/30/19 12:57 lisinopril Allergy Cough Verified 12/30/19 12:57 Penicillins Allergy UNKNOWN Verified 12/30/19 12:57 rosuvastatin [From Crestor] Allergy unknown Verified 12/30/19 12:57 valsartan [From Diovan] Allergy UNKNOWN Verified 12/30/19 12:57 Home Meds: Home Meds ALPRAZolam [Alprazolam] 0.5 mg PO BID PRN 07/21/16 [History] Budesonide/Formoterol [Symbicort 160-4.5 MCG] 2 puff INH BID 07/21/16 [History] Calcium Carbonate/Vitamin D3 [Calcium 600 + Vit D Tablet] 1 tab PO QAM 07/21/16 [History] Cholecalciferol (Vitamin D3) [Vitamin D3] 1,000 unit PO QAM 07/21/16 [History] Multivitamins [Tab-A-Juan] 1 tab PO DAILY 07/21/16 [History] Non-Formulary Medication [NF Drug] 1 tab PO DAILY PRN 07/21/16 [History] Omeprazole 20 mg PO DAILY 07/21/16 [History] Sertraline [Zoloft] 100 mg PO QAM 07/21/16 [History] Spironolactone [Aldactone] 50 mg PO BID@0812 07/21/16 [History] metFORMIN HCl [Metformin HCl] 1,000 mg PO BID 07/21/16 [History] rOPINIRole [Requip] 1 mg PO DAILY@16 PRN 07/21/16 [History] rOPINIRole [Requip] 1 tab PO BID@07/21/16 [History] Cyanocobalamin (Vitamin B-12) [Vitamin B-12] 1,000 mcg PO DAILY 12/13/19 [ History] Gabapentin [Neurontin] 300 mg PO DAILY@16 PRN 12/13/19 [History] Gabapentin [Neurontin] 300 mg PO TID@,,12/13/19 [History] Insulin Detemir [Levemir] 22 unit SUBCUT BEDTIME 12/13/19 [History] Metoprolol Succinate 50 mg PO DAILY 12/13/19 [History] Triamcinolone Acetonide [Kenalog 0.1% Crm] 1 applic TOP QID PRN 12/13/19 [ History] Albuterol/Ipratropium [DuoNeb 3.0-0.5 MG/3 ML] 3 ml NEB Q4HRRT PRN neb [Rx] Albuterol/Ipratropium [DuoNeb 3.0-0.5 MG/3 ML] 3 ml NEB QID neb 12/17/19 [Rx] Dextromethorphan/guaiFENesin [Mucinex DM ER 600-30 MG] 1 tab PO Q12HR #20 tab.er 12/17/19 [Rx] Diltiazem HCl [Diltiazem 24Hr Cd] 180 mg PO QPM #30 cap.er.24h 12/17/19 [Rx] Ferrous Sulfate 325 mg PO QPM #60 tablet 12/17/19 [Rx] Furosemide [Lasix] 40 mg PO BID #20 tab 12/17/19 [Rx] Levofloxacin [Levaquin] 500 mg PO DAILY #7 tablet 12/17/19 [Rx] Lovastatin [Mevacor] 20 mg PO BEDTIME #30 tablet 12/17/19 [Rx] Magnesium Oxide 400 mg PO DAILY #30 tablet 12/17/19 [Rx] Potassium Chloride [Klor-Con M20] 20 meq PO BID #20 tab.er 12/17/19 [Rx] Warfarin Sodium [Coumadin] 2.5 mg PO QPM #20 tablet 12/17/19 [Rx] levoFLOXacin [Levaquin] 500 mg PO DAILY 12/23/19 [History] Past Medical History HEENT History: Reports: Cataract, Impaired Vision, Other (See Below). Denies: Allergic Rhinitis, Glaucoma, Hard of Hearing, Macular Degeneration, Otitis Media , Retinal Detachment Other HEENT History: He wears glasses. No surgeries for his cataracts to this point. No history of diabetic retinopathy. Cardiovascular History: Reports: Afib, Aneurysm, Arrhythmia, CAD, Cardiomyopathy , Heart Failure, Heart Murmur, High Cholesterol, Hypertension, [place], Other (See Below). 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 History of possible small inferior wall [place], which was not known by the patient, per Cardiolite scan on 09/22/19 with evidence of reversible inferior wall cardiac ischemia and small reversible anterior wall reversible ischemia. Moderate left atrial enlargement, mild to moderate mitral valve insufficiency, and diastolic dysfunction by echocardiograms as below. Recurrent CHF with secondary hypoxia although overall good systolic ejection fraction by echocardiogram as below. Recurrent atrial fibrillation/flutter with rapid ventricular response, including previous 3:1 AND 4:1 AV block. Small abdominal aortic aneurysm by CT scan of the abdomen and pelvis on 11/10/19. Chronic D-dimer elevation on 12/13/19 with negative workup as below. Respiratory History: Reports: Bronchitis, Recurrent, COPD, Intubation, Previous , Pneumonia, Recurrent, Pulmonary Fibrosis, Sleep Apnea, SOB, Other (See Below) . 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 Patient is compliant with his CPAP. Multiple bilateral pulmonary nodules, including 9 millimeter lesion in the right middle lobe with additional 1.5 cm right-sided paratracheal lymphadenopathy by CT scan on 11/10/19. Gastrointestinal History: Reports: Colon Polyp, Diverticulosis, Gastritis, GERD , Hiatal Hernia, Other (See Below). Denies: Bowel Obstruction, Celiac Disease, Cholelithiasis, Chronic Constipation, Chronic Diarrhea, Fatty Liver, Fecal Incontinence, Hemorrhoids, Inflammatory Bowel Disease, Irritable Bowel Syndrome , Jaundice, PUD Other Gastrointestinal History: History of recurrent colonic polyps including hyperplastic colonic polyp removed from the proximal ascending colon and 2 tubular adenomas removed from the rectal region on 07/21/16. Genitourinary History: Reports: Acute Renal Failure, BPH, Chronic Renal Insuffiency, Diabetic Nephropathy, Prostate Disorder, Other (See Below). Denies : Renal Calculus, STD, Urinary Incontinence, UTI, Recurrent Other Genitourinary History: Bilateral complex renal cysts by CT scan on 11/10/19 with patient apparently refusing biopsies. Musculoskeletal History: Reports: Arthritis, Back Pain, Chronic, Fracture, Gout , Neck Pain, Chronic, Osteoarthritis, Osteoporosis, Other (See Below). Denies: Amputation, RA, SLE Other Musculoskeletal History: C7 cervical fracture requiring surgery as below. Multiple possible bilateral rib fractures secondary to football injuries, etc. as a teenager and in his 20s. Neurological History: Reports: Neuropathy, Diabetic, Neuropathy, Peripheral, Other (See Below). Denies: Alzheimers Disease, Cerebral Aneurysms, Concussion, CVA, Head Trauma, Migraines, MS, Parkinson's, Seizure, TIA, Vertigo Other Neuro History: Cerebral atrophy by CT scan. Restless leg syndrome; bIlateral carpal tunnel syndrome? Psychiatric History: Reports: Addiction, Anxiety, Dementia, Depression, Other ( See Below). Denies: Abuse, Victim of, ADD, ADHD, Psych Hospitalization(s), PTSD , Suicide Attempt, Suicidal Ideation Other Psychiatric History: Insomnia and claustrophobia. Per medical records history of previous alcohol abuse, which the patient adamantly denies. 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 Endocrine/Metabolic History: Reports: Diabetes, Type II, Hypomagnesemia, IDDM, Obesity/BMI 30+, Osteopenia, Osteoporosis, Other (See Below). Denies: Diabetes , Type I, Diabetes Mellitus, Type 3c, Hypokalemia, Hypothyroidism Other Endocrine/Metabolic History: Hypoalbuminemia Hematologic History: Reports: Anemia, B12 Deficiency, Iron Deficiency. Denies: Blood Transfusion(s) Immunologic History: Reports: None. Denies: AIDS, HIV, SLE Oncologic (Cancer) History: Reports: Malignant Melanoma, Other (See Below). 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 Dermatologic History: Reports: Venous Stasis Dermatitis. Denies: Eczema, Psoriasis - Infectious Disease History Infectious Disease History: Reports: Chicken Pox, Measles, Mumps. Denies: C- Difficile, Meningitis, Mononucleosis, MRSA, Novel Coronavirus, Pertussis ( Whooping Cough), Rheumatic Fever, Rubella, Scarlet Fever, Shingles, TB, VRE - Past Surgical History Head Surgeries/Procedures: Reports: None HEENT Surgical History: Reports: Oral Surgery, Other (See Below). Denies: Adenoidectomy, Cataract Surgery, Eye Surgery, Laser Surgery, LASIK, Myringotomy w Tube(s), Naso-Sinus Surgery, Retinal Other HEENT Surgeries/Procedures: Initial excision of large right auricular melanoma on 09/28/05, including superficial parotidectomy, with subsequent reexcision/biopsy on 10/26/05 with no evidence of recurrence. Multiple teeth extractions with partial lowers. Cardiovascular Surgical History: Reports: Cardiac Ablation, Other (See Below). Denies: AAA Repair, Carotid Endarterectomy, Coronary Artery Stent, Pacer, Percutaneous Transluminal Angioplasty, Valve Replacement, Varicose, Vascular Surgery Other Cardiovascular Surgeries/Procedures: Briefly successful cardiac ablation for atrial flutter on 11/14/19 in [place] with previous electrocardioversion at [facility] on 05/23/18. Respiratory Surgical History: Reports: None. Denies: Thoracentesis GI Surgical History: Reports: Colonoscopy, EGD, Polypectomy, Other (See Below). Denies: Appendectomy, Cholecystectomy, Hernia, Abdominal, Hernia, Inguinal, Hernia Repair/Other Other GI Surgeries/Procedures: Last EGD and colonoscopy on 06/18/19 with previous colonoscopy including multiple polypectomies as below on 07/21/16. Note cauterization without biopsy of hyperplastic appearing polyp in the transverse colon at that time. Male Surgical History: Reports: Vasectomy, Other (See Below). Denies: Circumcision, Renal Calculus, TURP-Transurethral Resection of Prostate Other Male Surgeries/Procedures: Vasectomy in about 1968 Endocrine Surgical History: Reports: None. Denies: Thyroid Biopsy Neurological Surgical History: Reports: C-Spine, Discectomy, Laminectomy, Spinal Fusion, Other (See Below). Denies: Lumbar Spine, Sacral Spine, Thoracic Spine, Vertebroplasty Other Neurological Surgeries/Procedures: C6C7 anterior laminectomy and spinal fusion on 03/27/12 with additional Aburto head pins secondary to previous C7 fracture. Musculoskeletal Surgical History: Reports: Knee Replacement, Other (See Below). Denies: Arthroscopic Procedure, Carpal Tunnel, Ganglion Cyst, Hip Replacement , Joint Replacement, ORIF, Shoulder Surgery Other Musculoskeletal Surgeries/Procedures:: Bilateral TKAs in the Oncologic Surgical History: Reports: Other (See Below) Other Oncologic Surgeries/Procedures: Melanoma excision as above. Dermatological Surgical History: Reports: Other (See Below) Other Dermatological Surgeries/Procedures: As above - Past Imaging History Past Imaging History: Reports: Cardiac Echo (Last echocardiogram at [facility] on 12/23/19 with ejection fraction of 65% with previous evaluation that facility on 01/29/13. Additional recent echocardiogram [place] on 11/14/2019 with ejection fraction of 5560 percent with previous echocardiogram in [place] on 09/22/19 with ejection fraction of 55% and otherwise findings as above.), CAT Scan (Negative CTA of the chest on 12/13/[address] scan of the brain on 09/21/[address] scan of the chest, abdomen, and pelvis without contrast on 11/10/19 with findings as above.), MRI (Lumbar spine on .), Stress Testing (Lexiscan Cardiolite evaluation on 09/22/19 with findings as above and ejection fraction of 65%.), Venous Doppler (Negative Doppler studies of the legs bilaterally on 12/16/19 with previous negative venous Doppler studies of the lower extremities on 12/16/19.). Denies: Holter Monitor Social & Family History - Family History HEENT: Reports: None. Denies: Glaucoma, Macular Degeneration, Retinal Detachment Cardiac: Reports: CAD, Hypertension, [place], Other (See Below). Denies: Afib, AICD , Aneurysm, Arrhythmia, Blood Clots/VTE/DVT, Bypass, Heart Failure, Heart Murmur , Heart Valve Replacement, Pacemaker, PVD/COD, Stent, Syncope Other Cardiac Family History: Parents from an [place] in their 70s with no apparent procedures. Hypertension in brother. Respiratory: Reports: None. Denies: Asthma, COPD, PE, Pneumothorax, Sleep Apnea GI: Reports: None. Denies: Celiac Disease, Cholelithiasis, Colon Polyps, GERD, GI bleed, Inflammatory Bowel Disease, Irritable Bowel Syndrome, PUD : Reports: None. Denies: Renal Calculus, Renal Disease/Insufficiency OBGYN: Reports: None. Denies: Endometriosis, Recurrent Spontaneous Musculoskeletal: Reports: Arthritis, Osteoarthritis, Other (See Below). Denies : Gout, RA, SLE Other Musculoskeletal Family History: Arthritis in parents, sisters 2, and brothers 2 Neurological: Reports: None. Denies: Alzheimers Disease, Cerebral Aneurysms, CVA, Migraines, MS, Parkinson's, Seizure, TIA, Vertigo Psychiatric: Reports: None. Denies: Abuse, Victim of, ADD, ADHD, Anxiety, Depression, Psych Hospitalization(s), PTSD, Suicide Attempt Endocrine/Metabolic: Reports: None. Denies: Diabetes, Gestational, Diabetes, Type I, Diabetes, type II, Diabetes Mellitus, Type 3c, Hyperparathyroidism, Hypothyroidism, IDDM, Obesity/MBI 30+ Hematologic: Reports: None. Denies: SLE Immunologic: Reports: None. Denies: AIDS, HIV, SLE Dermatologic: Reports: None. Denies: Eczema, Psoriasis Oncologic: Reports: Leukemia, Other (See Below) Other Oncologic Family History: Brother with fatal CLL and another brother with unknown type of cancer. - Tobacco Use Smoking Status *Q: Former Smoker Tobacco Use Within Last Twelve Months: No Years of Tobacco use: 30 Packs/Tins Daily: 4 Packs/Tins Daily Comment: Smoked 45 packs of cigarettes per day with last use on 09/11/86 Used Tobacco, but Quit: Yes Smoking Cessation Information Provided To Patient: No Second Hand Smoke Exposure: No Second Hand Smoke Education Provided: No - Caffeine Use Caffeine Use: Reports: Tea (Very occasional). Denies: Coffee, Energy Drinks, Soda - Alcohol Use Alcohol Use History: Yes Days Per Week of Alcohol Use: 7 Number of Drinks Per Day: 7 Number of Drinks Per Day Comment: Usually mixed drinks per medical records with patient adamantly denying any alcohol abuse history in the past in spite of previous medical records. 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 ED EXAM, GENERAL - Physical Exam Exam: See Below Exam Limited By: No Limitations General Appearance: Alert, WD/WN, No Apparent Distress Eye Exam: Bilateral Eye: EOMI, Normal Inspection (Patient wearing glasses. No nystagmus), Other Ears: Normal External Exam, Normal Canal, Normal TMs, Hearing Loss (Moderate bilateral presbycusis) Nose: Normal Inspection, Normal Mucosa, No Blood Throat/Mouth: Normal Inspection, Normal Lips, Normal Teeth (Partial lower dentures), Normal Gums, Normal Oropharynx, Normal Voice, No Airway Compromise. No: Dysphagia, Perioral Cyanosis Head: Atraumatic, Normocephalic. No: Facial Swelling, Facial Tenderness, Sinus Tenderness Neck: Supple, Non-Tender, Full Range of Motion, Carotid Bruit (Mild Bilateral carotid bruits versus transmitted heart sounds). No: Lymphadenopathy (L), Lymphadenopathy (R), Thyromegaly Respiratory/Chest: No Respiratory Distress, No Accessory Muscle Use, Chest Non- Tender, Rales (Mild bilateral basilar). No: Rhonchi, Wheezing, Pleural Rub, Retractions Cardiovascular: Normal Peripheral Pulses, No JVD, No Rub, Bradycardia, Systolic Murmur (Stable 1/6 ANDREW of the mitral and aortic valves). No: No Edema ( Dependent edema as below), Gallop/S3, Gallop/S4, Extra Beats, Friction Rub Peripheral Pulses: 2+: Radial (L), Radial (R), Dorsalis Pedis (L), Dorsalis Pedis (R) GI/Abdominal: Normal Bowel Sounds, Soft, Non-Tender, No Organomegaly, No Distention, No Abnormal Bruit, No Mass, Other (Obese). No: Pelvis Stable, Guarding (Male) Exam: Deferred Rectal (Males) Exam: Deferred Back Exam: Full Range of Motion, Other (Mild kyphosis). No: CVA Tenderness (L) , CVA Tenderness (R), Muscle Spasm, Paraspinal Tenderness, Vertebral Tenderness Extremities: Normal Range of Motion, Non-Tender, Normal Capillary Refill, Pedal Edema (Wrist bilateral pedal/pretibial edema with mild venous stasis dermatitis of the anterior tibial regions), Limited Range of Motion (Stable in the shoulders bilaterally secondary to chronic pain/arthritis). No: Blas's Sign Neurological: Alert, Oriented, CN II-XII Intact, Normal Gait, Normal Reflexes ( Negative Babinski's), No Motor/Sensory Deficits, Confused (Borderline organic brain syndrome as above) Psychiatric: Normal Affect, Normal Mood Skin Exam: Warm, Dry, Intact, Normal Color, Ecchymosis (Multiple area secondary to recent hospitalizations and current Lovenox therapy), Rash (Venous stasis dermatitis as above). No: Diaphoretic, Petechiae, Wound/Incision Lymphatic: No Adenopathy EKG INTERPRETATION EKG Date: 12/30/19 Time: 11:36 Rhythm: Other (Returned junctional bradycardia) Rate (Beats/Min): 48 [place]: Normal (Neutral) P-Wave: Absent QRS: Other (QRS of 0.12 seconds representing a stable bifascicular bundle- branch block) ST-T: Other (Borderline T-wave inversion in lead aVL) QT: Normal MT/PQ Interval: Extreme poor R-wave progression in the anterior leads Comparison: Change From Previous EKG (As above since last EKG at [facility] on 12/24/19.) EKG Interpretation Comments: 1. Recurrent junctional bradycardia with history of atrial flutter 2. Bifascicular bundle-branch block Course - Vital Signs Last Recorded V/S: Last Vital Signs Temp 36.5 C 12/30/19 11:10 Pulse 48 L 12/30/19 12:45 Resp 20 12/30/19 12:45 BP 127/75 12/30/19 12:45 Pulse Ox 97 12/30/19 12:45 Vital Signs - 24 hr 12/30/19 12/30/19 12/30/19 11:10 11:51 12:15 Temperature [ 36.5 C Oral] Pulse, 56 L 49 L 46 L Peripheral [ Pulse Oximetry] Respiratory 24 H 18 17 Rate Blood Pressure 123/74 128/63 122/107 H [Left Upper Arm ] O2 Sat by Pulse 97 94 L 94 L Oximetry 12/30/19 12/30/19 12/30/19 12:30 12:45 13:15 Temperature [ Oral] Pulse, 45 L 48 L 51 L Peripheral [ Pulse Oximetry] Respiratory 20 20 17 Rate Blood Pressure 133/65 127/75 132/81 [Left Upper Arm ] O2 Sat by Pulse 90 L 97 96 Oximetry - Orders/Labs/Meds Orders: Active Orders 24 hr Category Date Time Status Cardiac Monitoring [RC] . DIRECTED Care 12/30/19 11:13 Active EKG Documentation Completion [RC] ASDIRECTED Care 12/30/19 11:13 Active Oxygen Therapy, ED [RC] PRN Care 12/30/19 11:13 Active Peripheral IV Care [RC] . DIRECTED Care 12/30/19 11:13 Active Pulse Oximetry [RC] CONTINUOUS Care 12/30/19 11:13 Active Up With Assistance [RC] PFP Care 12/30/19 11:13 Active Vital Signs [RC] PFP Care 12/30/19 11:13 Active Nothing per Oral Now Diet [DIET] Diet 12/30/19 Breakfast Active Abdomen Series w Chest 1V [CR] Routine Exams 12/30/19 11:15 Taken CULTURE BLOOD [BC] Stat Lab 12/30/19 13:01 Ordered CULTURE BLOOD [BC] Stat Lab 12/30/19 13:01 Ordered Sodium Chloride 0.9% [Saline Flush] Med 12/30/19 11:13 Active 10 ml FLUSH ASDIRECTED PRN Blood Culture x2 Reflex Set [OM.PC] Urgent Oth 12/30/19 13:01 Ordered Obtain Past Medical Record [OM.PC] Urgent Oth 12/30/19 11:13 Active Peripheral IV Insertion Adult [OM.PC] Stat Oth 12/30/19 11:13 Ordered Resuscitation Status Stat Resus Stat 12/30/19 11:13 Ordered EKG 12 Lead [EK] Stat Ther 12/30/19 11:13 Ordered Medication Orders Sodium Chloride (Saline Flush) 10 ml FLUSH ASDIRECTED PRN PRN Reason: Keep Vein Open Last Admin: 12/30/19 12:46 Dose: 10 ml Admin: 12/30/19 12:42 Dose: 10 ml Labs: Laboratory Tests 12/30/19 12/30/19 12/30/19 Range/Units 11:50 11:50 11:50 WBC (4.0-10.2) K/uL RBC (4.33-5.41) M/uL Hgb (13.1-16.8) g/dL Hct (39.0-49.0) % MCV (84.0-98.0) fL MCH (28.2-33.3) pg MCHC (31.7-36.0) g/dL RDW (11.2-14.1) % Plt Count (150-350) K/uL Neut % (Auto) (45.0-80.0) % Lymph % (Auto) (10.0-50.0) % [place] % (Auto) (2.0-14.0) % Eos % (Auto) (0.0-5.0) % Baso % (Auto) (0.0-2.0) % Neut # (Auto) (1.40-7.00) K/uL Lymph # (Auto) (0.50-3.50) K/uL [place] # (Auto) (0.00-1.00) K/uL Eos # (Auto) (0.00-0.50) K/uL Baso # (Auto) (0.00-0.20) K/uL PT 13.5 H (9.5-12.0) SEC INR 1.4 APTT 37.2 H (24.5-32.8) SEC D-Dimer, Quantitative 1540 H (0-400) ng/mL Sodium 129 L (136-145) mmol/L Potassium 5.7 H* (3.5-5.1) mmol/L Chloride 93 L (98-107) mmol/L Carbon Dioxide 23.0 (21.0-32.0) mmol/L BUN 36 H (7-18) mg/dL Creatinine 1.89 H (0.51-1.17) mg/dL Est Cr Clr Drug Dosing 33.75 mL/min Estimated GFR (MDRD) 35 mL/min Glucose 276 H (74-106) mg/dL Lactic Acid (0.4-2.0) mmol/L Uric Acid 9.0 H (2.6-7.2) mg/dL Calcium 9.0 (8.5-10.1) mg/dL Magnesium 1.7 L (1.8-2.4) mg/dL Total Bilirubin 0.5 (0.2-1.0) mg/dL AST 22 (15-37) U/L ALT 33 (12-78) U/L Alkaline Phosphatase 98 (46-116) IU/L Creatine Kinase 19 L (26-308) U/L Creatine Kinase Index 4.2 H (0.0-2.5) % CK-MB (CK-2) 0.80 (0.00-3.60) ng/mL Troponin I 0.002 (0.000-0.056) ng/mL NT-Pro-B Natriuret Pep 851 H (0-125) pg/mL Total Protein 7.5 (6.4-8.2) g/dL Albumin 3.2 L (3.4-5.0) g/dL Amylase 23 L (25-115) U/L Lipase 91 (73-393) U/L TSH, Ultra Sensitive 5.340 H (0.358-3.740) mIU/mL Ethyl Alcohol 0.005 (0.000-0.080) g/dL 12/30/19 12/30/19 Range/Units 11:50 11:55 WBC 12.5 H (4.0-10.2) K/uL RBC 5.00 (4.33-5.41) M/uL Hgb 10.8 L (13.1-16.8) g/dL Hct 35.1 L (39.0-49.0) % MCV 70.2 L (84.0-98.0) fL MCH 21.6 L (28.2-33.3) pg MCHC 30.8 L (31.7-36.0) g/dL RDW 21.2 H (11.2-14.1) % Plt Count 350 (150-350) K/uL Neut % (Auto) 70.2 (45.0-80.0) % Lymph % (Auto) 20.2 (10.0-50.0) % [place]er % (Auto) 8.5 (2.0-14.0) % Eos % (Auto) 0.6 (0.0-5.0) % Baso % (Auto) 0.5 (0.0-2.0) % Neut # (Auto) 8.80 H (1.40-7.00) K/uL Lymph # (Auto) 2.53 (0.50-3.50) K/uL [place] # (Auto) 1.06 H (0.00-1.00) K/uL Eos # (Auto) 0.08 (0.00-0.50) K/uL Baso # (Auto) 0.06 (0.00-0.20) K/uL PT (9.5-12.0) SEC INR APTT (24.5-32.8) SEC D-Dimer, Quantitative (0-400) ng/mL Sodium (136-145) mmol/L Potassium (3.5-5.1) mmol/L Chloride (98-107) mmol/L Carbon Dioxide (21.0-32.0) mmol/L BUN (7-18) mg/dL Creatinine (0.51-1.17) mg/dL Est Cr Clr Drug Dosing mL/min Estimated GFR (MDRD) mL/min Glucose (74-106) mg/dL Lactic Acid 4.8 H (0.4-2.0) mmol/L Uric Acid (2.6-7.2) mg/dL Calcium (8.5-10.1) mg/dL Magnesium (1.8-2.4) mg/dL Total Bilirubin (0.2-1.0) mg/dL AST (15-37) U/L ALT (12-78) U/L Alkaline Phosphatase (46-116) IU/L Creatine Kinase (26-308) U/L Creatine Kinase Index (0.0-2.5) % CK-MB (CK-2) (0.00-3.60) ng/mL Troponin I (0.000-0.056) ng/mL NT-Pro-B Natriuret Pep (0-125) pg/mL Total Protein (6.4-8.2) g/dL Albumin (3.4-5.0) g/dL Amylase (25-115) U/L Lipase (73-393) U/L TSH, Ultra Sensitive (0.358-3.740) mIU/mL Ethyl Alcohol (0.000-0.080) g/dL Meds: Medications Generic Name Dose Route Start Last Admin Trade Name Freq PRN Reason Stop Dose Admin Sodium Chloride 10 ml 12/30/19 11:13 12/30/19 12:46 Saline Flush FLUSH 10 ml ASDIRECTED PRN Administration Keep Vein Open Discontinued Medications Generic Name Dose Route Start Last Admin Trade Name Freq PRN Reason Stop Dose Admin Famotidine 40 mg 12/30/19 11:13 12/30/19 12:42 Pepcid IVPUSH 12/30/19 11:14 40 mg ONETIME ONE Administration Ondansetron HCl 4 mg 12/30/19 11:43 12/30/19 12:42 Zofran IVPUSH 12/30/19 11:44 4 mg ONETIME ONE Administration - Radiology Interpretation Free Text/Narrative:: cardiac monitor shows junctional bradycardia with heart rate in the mid 40s to low 50s with no other ectopy or arrhythmia Acute abdominal x-rays shows mild cardiomegaly and aortic valve calcification with possible mild centralized CHF and/or pulmonary hypertension. Moderate COPD the changes with no acute pulmonary infiltrates, pneumothorax, etc. Moderate osteoarthritic changes including some spurs. No free air, fluid levels, ileus, or obstruction. Departure - Departure Time of Disposition: 14:05 Disposition: Admitted As Inpatient 66 Condition: Fair Clinical Impression: Junctional bradycardia, IDDM (insulin dependent diabetes mellitus), Mixed anxiety depressive disorder, CHF, Congestive heart failure, D-dimer, elevated, Cerebral atrophy, Hypothyroidism (acquired), Renal insufficiency, Lactic acid increased, Hyperuricemia, Hypomagnesemia, Hyperlipidemia, Hypertension COPD (chronic obstructive pulmonary disease) Qualifiers: COPD type: COPD with acute lower respiratory infection Qualified Code(s): J44.0 - Chronic obstructive pulmonary disease with (acute) lower respiratory infection Coronary artery disease Qualifiers: Coronary Disease-Associated Artery/Lesion type: [place] artery [place] vs. transplanted heart: [place] heart Associated angina: without angina Qualified Code(s): I25.10 - Atherosclerotic heart disease of [place] coronary artery without angina pectoris Sleep apnea Qualifiers: Sleep apnea type: obstructive Qualified Code(s): G47.33 - Obstructive sleep apnea (adult) (pediatric) Osteoarthritis Qualifiers: Osteoarthritis location: multiple joints Osteoarthritis type: primary Qualified Code(s): M89.49 - Other hypertrophic osteoarthropathy, multiple sites Atrial fibrillation Qualifiers: Atrial fibrillation type: longstanding persistent Qualified Code(s): I48.11 - Longstanding persistent atrial fibrillation Anemia Qualifiers: Anemia type: iron deficiency Iron deficiency anemia type: other iron deficiency Qualified Code(s): D50.8 - Other iron deficiency anemias - Discharge Information Referrals: Kelley Nagel NP [Primary Care Provider] - Forms: ED Department Discharge Care Plan Goals: See plan Sepsis Event Note - Focused Exam Vital Signs: Vital Signs Temp Pulse Resp BP Pulse Ox 12/30/19 12:45 48 L 20 127/75 97 12/30/19 12:30 45 L 20 133/65 90 L 12/30/19 12:15 46 L 17 122/107 H 94 L 12/30/19 11:51 49 L 18 128/63 94 L 12/30/19 11:10 36.5 C 56 L 24 H 123/74 97 Date Exam was Performed: 12/30/19 Time Exam was Performed: 13:15 - Problem List & Annotations (1) Junctional bradycardia SNOMED Code(s): 631286189 Code(s): R00.1 - BRADYCARDIA, UNSPECIFIED Status: Acute Priority: High Current Visit: Yes Onset Date: 12/23/19 Annotation/Comment:: Recurrent junctional bradycardia as above with recent discontinuation of his Toprol XL and Cardiazem CD to be decreased at this time as above. Note that this will be the patient's fifth hospitalization since September 2019 for his heart disease and /or COPD. Extensive cardiac workup during recent months as above, although recent cardiology evaluation at [facility] in [place] with the patient not deemed a candidate for a pacemaker or heart catheterization. Last echocardiogram on 12/23/19 as above. The patient did take his medications this morning. (2) CHF, Congestive heart failure SNOMED Code(s): 13526434 Code(s): I50.9 - HEART FAILURE, UNSPECIFIED Status: Acute Priority: High Current Visit: Yes Onset Date: ~12/23/19 Annotation/Comment:: Note current CHF, although improved BNP from recent ER evaluation on 12/23/19. Note some secondary hyponatremia with increased oral Lasix therapy recently initiated at [facility] with additional discontinuation of spironolactone at that time. Change to IV Lasix with close observation of his renal status with progressive renal insufficiency since last ER evaluation on . Initiate standard rule out [place] orders, however chest pain protocol was not initiated in the emergency room secondary to absence of clear complaints. Secondary to his returned junctional bradycardia his Cardizem CD will be decreased during this hospitalization and initially held. Note recent echocardiogram on 12/23/19 at [facility] as above. Nausea resolved with IV Zofran with mild leukocytosis likely secondary to stress reaction. Blood Cultures 2 were collected, however. (3) Coronary artery disease SNOMED Code(s): 77872913 Code(s): I25.10 - ATHSCL HEART DISEASE OF [place] CORONARY ARTERY W/O ANG PCTRS Status: Chronic Priority: Medium Current Visit: Yes Annotation/ Comment:: As above. Unspecific chest pain completely resolved at time of admission. Initiate standard rule out [place] orders. Note positive Cardiolite scan on 09/22/19 did indicate some possible reversible anterior wall cardiac ischemia. Qualifiers: Coronary Disease-Associated Artery/Lesion type: [place] artery [place] vs. transplanted heart: [place] heart Associated angina: without angina Qualified Code(s): I25.10 - Atherosclerotic heart disease of [place] coronary artery without angina pectoris (4) Cerebral atrophy SNOMED Code(s): 748500538 Code(s): G31.9 - DEGENERATIVE DISEASE OF NERVOUS SYSTEM, UNSPECIFIED Status : Chronic Priority: Medium Current Visit: Yes Annotation/Comment:: Note cerebral atrophy by CT scan with possible borderline secondary beginning organic brain syndrome. Possible alcohol abuse history as above, however patient denies this as above. Otherwise no neurological deficits. (5) D-dimer, elevated SNOMED Code(s): 492954526 Code(s): R79.89 - OTHER SPECIFIED ABNORMAL FINDINGS OF BLOOD CHEMISTRY Status: Acute Priority: High Current Visit: Yes Onset Date: 12/13/19 Annotation/Comment:: Known history of chronic History of d-dimer elevation with negative workup as above.Patient is already on Lovenox and previously on Coumadin, however subtherapeutic INR at this time. No direct clinical evidence of DVT or PE. Adjust anticoagulation therapy during this hospitalization, including resumption of Coumadin therapy on admission. (6) Hyperuricemia SNOMED Code(s): 89462918 Code(s): E79.0 - HYPERURICEMIA W/O SIGNS OF INFLAM ARTHRIT AND TOPHACEOUS DIS Status: Chronic Priority: Medium Current Visit: Yes Onset Date: ~ Annotation/Comment:: Improved from 12/22. (7) Hypomagnesemia SNOMED Code(s): 419880253 Code(s): E83.42 - HYPOMAGNESEMIA Status: Acute Priority: Medium Current Visit: Yes Onset Date: 12/13/19 Annotation/Comment:: Continue medication adjustment during this hospitalization with caution secondary to his renal insufficiency. Recommend close observation after discharge by his regular provider. (8) Hypothyroidism (acquired) SNOMED Code(s): 167061719 Code(s): E03.9 - HYPOTHYROIDISM, UNSPECIFIED Status: Acute Priority: Medium Current Visit: Yes Onset Date: 12/30/19 Annotation/Comment:: Mildly elevated TSH. Low-dose Synthroid therapy to be initiated. Note normal TSH on 12/22. Recommend repeat TSH in about 4 weeks. (9) Lactic acid increased SNOMED Code(s): 62514791 Code(s): E87.2 - ACIDOSIS Status: Acute Priority: High Current Visit: Yes Onset Date: 12/30/19 Annotation/Comment:: No clinical evidence of sepsis. Repeat lactic acid level with next set of cardiac enzymes. Sepsis standing orders to be initiated after admission. (10) Renal insufficiency SNOMED Code(s): 480481865, 903779563 Code(s): N28.9 - DISORDER OF KIDNEY AND URETER, UNSPECIFIED Status: Acute Priority: High Current Visit: Yes Annotation/Comment:: Progressive renal insufficiency as above. IV Lasix to be initiated as above. Note mild hyperkalemia. Observe closely. (11) Anemia SNOMED Code(s): 924033335 Code(s): D64.9 - ANEMIA, UNSPECIFIED Status: Chronic Priority: Medium Current Visit: Yes Onset Date: ~12/14/19 Annotation/Comment:: Iron studies on 12/13 did show some mild iron deficiency, although his ferritin was normal. Note some mild hypoalbuminemia. Vitamin B-12 and folic acid levels were normal on 12/13 with continuation of current vitamin B-12 supplementation. Initiated low- dose iron sulfate therapy with iron studies to be repeated in about 4 weeks. Qualifiers: Anemia type: iron deficiency Iron deficiency anemia type: other iron deficiency Qualified Code(s): D50.8 - Other iron deficiency anemias (12) Atrial fibrillation SNOMED Code(s): 13388213 Code(s): I48.91 - UNSPECIFIED ATRIAL FIBRILLATION Status: Chronic Priority: Medium Current Visit: Yes Annotation/Comment:: Subtherapeutic INR with further medication adjustments as above Qualifiers: Atrial fibrillation type: longstanding persistent Qualified Code(s): I48.11 - Longstanding persistent atrial fibrillation (13) COPD (chronic obstructive pulmonary disease) SNOMED Code(s): 69633772 Code(s): J44.9 - CHRONIC OBSTRUCTIVE PULMONARY DISEASE, UNSPECIFIED Status : Chronic Priority: Medium Current Visit: Yes Annotation/Comment:: No recent fever or bronchitic type symptoms. Qualifiers: COPD type: COPD with acute lower respiratory infection Qualified Code(s): J44.0 - Chronic obstructive pulmonary disease with (acute) lower respiratory infection (14) IDDM (insulin dependent diabetes mellitus) SNOMED Code(s): 77236575 Code(s): EAU5872 - Status: Chronic Priority: Medium Current Visit: Yes Annotation/Comment:: Accu-Cheks not normally taken at home. Glycosylated hemoglobin on 12/13 was increased to 8.0%. (15) Mixed anxiety depressive disorder SNOMED Code(s): 546930767 Code(s): F41.8 - OTHER SPECIFIED ANXIETY DISORDERS Status: Chronic Priority: Medium Current Visit: Yes Annotation/Comment:: Stable by history. Patient denies alcohol abuse as above. No evidence of intoxication on admission with no DTs during this hospitalization. (16) Osteoarthritis SNOMED Code(s): 272218903 Code(s): M19.90 - UNSPECIFIED OSTEOARTHRITIS, UNSPECIFIED SITE Status: Chronic Priority: Medium Current Visit: Yes Annotation/Comment:: Stable by history with the exception of chronic bilateral shoulder pain. 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 Note previous oxygen requirement, however this is no longer needed at this time. Qualifiers: Sleep apnea type: obstructive Qualified Code(s): G47.33 - Obstructive sleep apnea (adult) (pediatric) (18) Hypertension SNOMED Code(s): 53872693 Code(s): I10 - ESSENTIAL (PRIMARY) HYPERTENSION Status: Chronic Priority : Medium Current Visit: No Annotation/Comment:: Stable by history and under good control in the emergency room. Qualifiers: Hypertension type: essential hypertension Qualified Code(s): I10 - Essential (primary) hypertension (19) Hyperlipidemia SNOMED Code(s): 88837849 Code(s): E78.5 - HYPERLIPIDEMIA, UNSPECIFIED Status: Chronic Priority: Medium Current Visit: Yes Annotation/Comment:: Lipid panel on 12/13 showed persistent moderate dyslipidemia. Weight loss in moderation is advisable. Qualifiers: Hyperlipidemia type: mixed hyperlipidemia Qualified Code(s): E78.2 - Mixed hyperlipidemia - Problem List Review Problem List Initiated/Reviewed/Updated: Yes - My Orders Last 24 Hours: My Active Orders 12/30/19 11:13 Cardiac Monitoring [RC] . DIRECTED EKG Documentation Completion [RC] ASDIRECTED Oxygen Therapy, ED [RC] PRN Peripheral IV Care [RC] . DIRECTED Pulse Oximetry [RC] CONTINUOUS Up With Assistance [RC] PFP Vital Signs [RC] PFP Sodium Chloride 0.9% [Saline Flush] 10 ml FLUSH ASDIRECTED PRN Obtain Past Medical Record [OM.PC] Urgent Peripheral IV Insertion Adult [OM.PC] Stat Resuscitation Status Stat EKG 12 Lead [EK] Stat 12/30/19 11:15 Abdomen Series w Chest 1V [CR] Routine 12/30/19 13:01 CULTURE BLOOD [BC] Stat CULTURE BLOOD [BC] Stat Blood Culture x2 Reflex Set [OM.PC] Urgent 12/30/19 Breakfast Nothing per Oral Now Diet [DIET] - Assessment/Plan Admission H&P: Please use this note as an admission H&P Last 24 Hours: My Active Orders 12/30/19 11:13 Cardiac Monitoring [RC] . DIRECTED EKG Documentation Completion [RC] ASDIRECTED Oxygen Therapy, ED [RC] PRN Peripheral IV Care [RC] . DIRECTED Pulse Oximetry [RC] CONTINUOUS Up With Assistance [RC] PFP Vital Signs [RC] PFP Sodium Chloride 0.9% [Saline Flush] 10 ml FLUSH ASDIRECTED PRN Obtain Past Medical Record [OM.PC] Urgent Peripheral IV Insertion Adult [OM.PC] Stat Resuscitation Status Stat EKG 12 Lead [EK] Stat 12/30/19 11:15 Abdomen Series w Chest 1V [CR] Routine 12/30/19 13:01 CULTURE BLOOD [BC] Stat CULTURE BLOOD [BC] Stat Blood Culture x2 Reflex Set [OM.PC] Urgent 12/30/19 Breakfast Nothing per Oral Now Diet [DIET] Assessment:: As above Plan: As above. Extensive precautions were given to the patient, who is in agreement with the treatment plan. The patient will require about 3-4 days of inpatient/ acute care secondary to multiple health problems as above.
[2019-12-30] MEDS ORDERED: Famotidine 20 MG/2 ML SDV IVPUSH ONE (11:13)
[2019-12-30] MEDS ORDERED: Ondansetron 4 MG/2 ML SDV IVPUSH ONE (11:43)
[2019-12-30 12:14] LABS: PTT,PARTIAL THROMBOPLSTIN TIME 37.2 SEC (24.5-32.8)
[2019-12-30] MEDS: Sodium Chloride 0.9% 10 ML Syringe FLUSH PRN ×3 (12:42→15:15)
[2019-12-30] MEDS ORDERED: Sodium Chloride 0.9% 10 ML Syringe FLUSH PRN (14:19)
[2019-12-30] MEDS ORDERED: Acetaminophen 325 MG Tab PO PRN (14:19)
[2019-12-30] MEDS ORDERED: Albuterol/Ipratropium 3.0-0.5 MG/3 ML Neb Soln NEB PRN (14:22)
[2019-12-30] MEDS ORDERED: Albuterol 0.083% 2.5 MG/3 ML Neb Soln INH PRN (14:22)
[2019-12-30] MEDS ORDERED: Ondansetron 4 MG/2 ML SDV IVPUSH PRN (14:25)
[2019-12-30] MEDS ORDERED: ALPRAZolam 0.25 MG Tab PO PRN (14:49)
[2019-12-30] MEDS ORDERED: Enoxaparin 40 MG/0.4 ML Syringe SUBCUT SCH (15:00)
[2019-12-30] MEDS ORDERED: Sodium Chloride 0.9% 1,000 ML IV SCH ×2 (15:15→19:32)
[2019-12-30] MEDS: Furosemide 40 MG/4 ML VIAL IVPUSH SCH ×2 (15:15→22:49)
[2019-12-30] MEDS ORDERED: rOPINIRole 1 MG Tab PO PRN (16:00)
[2019-12-30] MEDS ORDERED: Gabapentin 300 MG Cap PO PRN (16:00)
[2019-12-30] MEDS: metFORMIN 500 MG Tab PO SCH (17:17)
[2019-12-30] MEDS ORDERED: Magnesium Oxide 400 MG Tab PO SCH (18:00)
[2019-12-30] MEDS ORDERED: Warfarin 5 MG Tab PO SCH (18:00)
[2019-12-30] MEDS ORDERED: Ferrous Sulfate 325 MG Tab PO SCH (18:00)
[2019-12-30] MEDS ORDERED: Levofloxacin/Dextrose 5%-Water 500 MG in Premix Bag 1 BAG IV SCH (19:30)
[2019-12-30] MEDS ORDERED: Insulin Glarg,Human.Rec.Analog 100 Unit/ML SUBCUT SCH (20:00)
[2019-12-30] MEDS ORDERED: LOVASTATIN 20 MG PO SCH (20:00)
[2019-12-30] MEDS: Budesonide 0.5 MG/2 ML Neb Susp NEB SCH (20:15)
[2019-12-30] MEDS: Albuterol/Ipratropium 3.0-0.5 MG/3 ML Neb Soln NEB SCH (20:15)
[2019-12-30] MEDS: Gabapentin 300 MG Cap PO SCH (20:16)
[2019-12-30] MEDS: rOPINIRole 1 MG Tab PO SCH (20:16)
[2019-12-30] MEDS ORDERED: Sodium Chloride 0.9% 1,000 ML IV ONE (22:25)
[2019-12-30] MEDS: Sodium Chloride 0.9% 1,000 ML IV SCH (23:57)
[2019-12-31] MEDS: Albuterol/Ipratropium 3.0-0.5 MG/3 ML Neb Soln NEB SCH ×2 (02:14→08:50)
[2019-12-31] MEDS: Sodium Chloride 0.9% 1,000 ML IV SCH (06:13)
[2019-12-31] MEDS ORDERED: Norepinephrine 4 MG in Dextrose 5% in Water 246 ML IV SCH ×2 (07:15)
[2019-12-31] MEDS ORDERED: Omeprazole 20 MG Cap.CR PO SCH (07:30)
[2019-12-31] MEDS ORDERED: Levothyroxine 50 MCG Tab PO SCH (07:30)
--- NOTE | 2019-12-31 07:33 | PCM.DCSUM1 ---
Discharge Summary - Hospital Course HPI Initial Comments: See emergency room note/admission H&P Brief History: See emergency room note/admission H&P Diagnosis: Stroke: No Modified Tabor Scale: No Symptoms at All Modified Tabor Scale Score: 0 - Discharge Data Discharge Date: 12/31/19 Discharge Disposition: DC/Tfer to Acute Hospital 02 Condition: Serious - Referral to Home Health Primary Care Physician: Kelley Nagel NP - Discharge Diagnosis/Problem(s) (1) Hypotension SNOMED Code(s): 58357978 ICD Code: I95.9 - HYPOTENSION, UNSPECIFIED Status: Acute Priority: High Current Visit: Yes Onset Date: 12/31/19 Problem Details: Telephone consultation with [facility] initially at 08:22 hours and then at 08:[address] Moore, hospitalist, who is requesting that I consult with the truss builder. Subsequent telephone consultation at 10:[address] Dueñas, truss builder, who does accept the patient for direct admission with no further treatment recommendations given. They will initially evaluate the patient in droplet precautions with repeat COVID-19 evaluation, however using their rapid protocol. Note negative COVID-19 screen in their facility on . Ambulance transfer with lawn and tree service spray supervisor accompaniment with appropriate contact precautions. Vital signs and clinical exam were stable at time of transfer with no sequelae from delayed transport. Significant episode of hypotension with possible vasovagal reaction as below at 07:05 hours with blood pressure of only 72/48 at that time. No chest pain or anginal complaints with heart rate in the 50s after brief episode of bradycardia in the high 30s lasting for only a few seconds. Note progressive lactic acid elevation and leukocytosis as below, although infection source cannot be determined. Possible sepsis with sepsis protocol initiated on admission. IV norepinephrine infusion was initiated per standard protocol with improved blood pressure of 94/62 thereafter and improvement of his blood pressure to 112/58 after increased to 4 g/min of norepinephrine. Further titration as per standard protocol. His morning medications were held. IV Pepcid and IV Protonix were given this morning as GI prophylaxis. Qualifiers: Hypotension type: other hypotension type Qualified Code(s): I95.89 - Other hypotension (2) Lactic acid increased SNOMED Code(s): 16242099 ICD Code: E87.2 - ACIDOSIS Status: Acute Priority: High Current Visit: Yes Onset Date: 12/30/19 Problem Details: Note hypotension this morning with otherwise stable blood pressures during early phases of this hospitalization, including systolic blood pressures in the 110s to 120s. In spite of progressive lactic acid elevations, hypotension and progressive leukocytosis, there is no other clinical evidence of infection. Note that an 1 L bolus of normal saline was given during the evening with patient admitted with aggressive normal saline IV hydration, which was continued throughout this hospitalizations. Sepsis standing orders/order set was initiated after admission. No definite source of infection as above with no evidence of UTI, pneumonia, etc. Secondary to progressive lactic acid elevation IV Levaquin was initiated, however. Patient is still afebrile. (3) Junctional bradycardia SNOMED Code(s): 790026030 ICD Code: R00.1 - BRADYCARDIA, UNSPECIFIED Status: Acute Priority: High Current Visit: Yes Onset Date: 12/23/19 Problem Details: Persistent junctional bradycardia with occasional PACs with average heart rate in the mid 50s prior to initiation of norepinephrine infusion. Patient did have an episode of moderate dizziness and bradycardia to the high 30s briefly earlier this morning when going to the bathroom with assistance with no history of fall, injury, etc.. Per nursing staff the patient did have some moderate pallor at that time but no diaphoresis, chest pain or other anginal-type symptoms. Note recurrent junctional bradycardia on admission as per emergency room note with previous recent discontinuation of his Toprol XL at [facility], although continuation of his previous Cardiazem CD. Initial plan to decrease his Cardizem CD therapy, which was held, however note that patient had already taken his Cardizem CD on the morning of admission. The patient had had 2 unsuccessful electrocardioversions in the past for his atrial flutter with rapid ventricular response. Note that this is the patient's fifth hospitalization since September 2019 for his heart disease and/or COPD. Extensive cardiac workup during recent months per emergency room note, including recent cardiology evaluation at [facility] in [place] earlier this month with the patient apparently not deemed a candidate for a pacemaker or heart catheterization. Last echocardiogram on 12/23/19. Cardiology consultation once again recommended. (4) CHF, Congestive heart failure SNOMED Code(s): 82251182 ICD Code: I50.9 - HEART FAILURE, UNSPECIFIED Status: Acute Priority: High Current Visit: Yes Onset Date: ~12/23/19 Problem Details: Note current CHF, although improved BNP on admission when compared to recent ER evaluation on 12/23/19. Somewhat increased BNP this morning secondary to IV fluids, although no clinical evidence of significant decompensation of his CHF. Continue aggressive IV hydration and additional norepinephrine infusion as above. Note some secondary hyponatremia with increased oral Lasix therapy recently initiated at [facility] in [place] with additional discontinuation of spironolactone at that time. He was changed to IV Lasix on admission, although his a.m. dose was held secondary to his hypotension with close observation of his renal status with progressive renal insufficiency since last ER evaluation on 12/22. Standard rule out DC orders were initiated on admission, however chest pain protocol was not initiated in the emergency room secondary to absence of clear anginal complaints. Note current subcutaneous Lovenox therapy. Note recent echocardiogram on 12/23/19 at [facility] as above. Nausea resolved with IV Zofran in the emergency room, however this did reoccur intermittently during this hospitalization. Nonspecific possible difficulty swallowing/dysphagia while drinking water no aspiration, however secondary dry heaves, brief bradycardia, and hypotension as above consistent with possible vasovagal reaction. Mild leukocytosis likely secondary to stress reaction prior to admission with no infection source noted as below. Blood Cultures 2 were collected on admission, however, with subsequent negative UA and urine culture pending. (5) Coronary artery disease SNOMED Code(s): 98294065 ICD Code: I25.10 - ATHSCL HEART DISEASE OF [place] CORONARY ARTERY W/O ANG PCTRS Status: Chronic Priority: Medium Current Visit: Yes Problem Details: As above. Nonnspecific chest pain completely resolved at time of admission with recurring nonspecific epigastric discomfort when patient lays on his back. Standard rule out DC orders have been negative to this point. Note positive Cardiolite scan on 09/22/19 did indicate some possible reversible anterior wall cardiac ischemia. Qualifiers: Coronary Disease-Associated Artery/Lesion type: [place] artery [place] vs. transplanted heart: [place] heart Associated angina: without angina Qualified Code(s): I25.10 - Atherosclerotic heart disease of [place] coronary artery without angina pectoris (6) Renal insufficiency SNOMED Code(s): 056419770, 645534345 ICD Code: N28.9 - DISORDER OF KIDNEY AND URETER, UNSPECIFIED Status: Acute Priority: High Current Visit: Yes Problem Details: Progressive renal insufficiency during this hospitalization with IV Lasix initiated on admission as above. Note mild hyperkalemia on admission, however progressive this morning. Observe closely. (7) Hyperkalemia SNOMED Code(s): 00481869 ICD Code: E87.5 - HYPERKALEMIA Status: Acute Priority: High Current Visit: Yes Onset Date: 12/30/19 Problem Details: Progressive hyperkalemia in spite of aggressive normal saline hydration and IV Lasix as above. One dose of 10 units of Humulin regular given IV with additional one oral dose of 15 g of Kayexalate prior to discharge. Accu-Chek conducted immediately prior to patient's transfer was stable at 216 mg/dl.. Note elevated glucose earlier this morning with known history of IDDM. (8) Elevated LFTs SNOMED Code(s): 835457940, 179400155 ICD Code: R79.89 - OTHER SPECIFIED ABNORMAL FINDINGS OF BLOOD CHEMISTRY Status: Acute Priority: High Current Visit: Yes Onset Date: 12/31/19 Problem Details: New moderate LFTs elevation with normal total bilirubin and additional normal lipase and amylase on admission. CHF may be a partial factor, although further workup is needed including possible abdominal ultrasound, etc. (9) Cerebral atrophy SNOMED Code(s): 481345966 ICD Code: G31.9 - DEGENERATIVE DISEASE OF NERVOUS SYSTEM, UNSPECIFIED Status: Chronic Priority: [facility] Current Visit: Yes Problem Details: Note cerebral atrophy by CT scan with possible borderline secondary beginning organic brain syndrome. Possible alcohol abuse history as above, however patient denies this as above. Otherwise no neurological deficits. (10) D-dimer, elevated SNOMED Code(s): 941204228 ICD Code: R79.89 - OTHER SPECIFIED ABNORMAL FINDINGS OF BLOOD CHEMISTRY Status: Acute Priority: High Current Visit: Yes Onset Date: 12/13/19 Problem Details: Known history of chronic History of d-dimer elevation with negative workup as per emergency room note.Patient is already on Lovenox and previously on Coumadin, however subtherapeutic INR at time of admission. No direct clinical evidence of DVT or PE. Adjusted anticoagulation therapy during this hospitalization, including resumption of Coumadin therapy on admission. (11) Hyperuricemia SNOMED Code(s): 97352754 ICD Code: E79.0 - HYPERURICEMIA W/O SIGNS OF INFLAM ARTHRIT AND TOPHACEOUS DIS Status: Chronic Priority: Medium Current Visit: Yes Onset Date: ~ Problem Details: Improved from 12/22 at time of admission, although somewhat increased today secondary to IV Lasix and his progressive renal insufficiency. Continue to observe closely by accepting providers, etc. (12) Hypomagnesemia SNOMED Code(s): 782251559 ICD Code: E83.42 - HYPOMAGNESEMIA Status: Acute Priority: Medium Current Visit: Yes Onset Date: 12/13/19 Problem Details: Continued medication adjustment during this hospitalization with caution secondary to his renal insufficiency. Recommend close observation by his accepting providers and after discharge by his regular provider. (13) Hypothyroidism (acquired) SNOMED Code(s): 728155005 ICD Code: E03.9 - HYPOTHYROIDISM, UNSPECIFIED Status: Acute Priority: Medium Current Visit: Yes Onset Date: 12/30/19 Problem Details: Mildly elevated TSH. Low-dose Synthroid therapy to be initiated. Note normal TSH on . Recommend repeat TSH in about 4 weeks. (14) Anemia SNOMED Code(s): 991147544 ICD Code: D64.9 - ANEMIA, UNSPECIFIED Status: Chronic Priority: Medium Current Visit: Yes Onset Date: ~12/14/19 Problem Details: Anemia stable at time of transfer with no evidence of GI bleed, etc. despite current loading Coumadin and subcutaneous Lovenox therapy. Iron studies on 12/13 did show some mild iron deficiency, although his ferritin was normal. Note some mild hypoalbuminemia. Vitamin B-12 and folic acid levels were normal on 12/13 with continuation of current vitamin B-12 supplementation. Initiated low-dose iron sulfate therapy during recent hospitalization at [place] with iron studies to be repeated in about 4 weeks. Qualifiers: Anemia type: iron deficiency Iron deficiency anemia type: other iron deficiency Qualified Code(s): D50.8 - Other iron deficiency anemias (15) Atrial fibrillation SNOMED Code(s): 29394337 ICD Code: I48.91 - UNSPECIFIED ATRIAL FIBRILLATION Status: Chronic Priority: Medium Current Visit: Yes Problem Details: Subtherapeutic INR on admission with further medication adjustments as above. Note the patient was discharged on subcutaneous Lovenox therapy with no additional Coumadin after discharge from [facility] as per emergency room note. INR is still subtherapeutic today in spite of 5 mg loading dose of Coumadin yesterday evening with further adjustment of his Lovenox and/or Coumadin by accepting providers. Qualifiers: Atrial fibrillation type: longstanding persistent Qualified Code(s): I48.11 - Longstanding persistent atrial fibrillation (16) COPD (chronic obstructive pulmonary disease) SNOMED Code(s): 10470867 ICD Code: J44.9 - CHRONIC OBSTRUCTIVE PULMONARY DISEASE, UNSPECIFIED Status : Chronic Priority: Medium Current Visit: Yes Problem Details: No recent fever or bronchitic type symptoms. Triple nebulizer treatments were initiated on admission. Note that the patient was COVID-19 negative on 12/13/19. Qualifiers: COPD type: COPD with acute lower respiratory infection Qualified Code(s): J44.0 - Chronic obstructive pulmonary disease with (acute) lower respiratory infection (17) IDDM (insulin dependent diabetes mellitus) SNOMED Code(s): 55200032 ICD Code: DYC5133 - Status: Chronic Priority: Medium Current Visit: Yes Problem Details: Accu-Cheks not normally taken at home. Glycosylated hemoglobin on 12/13 was increased to 8.0%. (18) Mixed anxiety depressive disorder SNOMED Code(s): 996307411 ICD Code: F41.8 - OTHER SPECIFIED ANXIETY DISORDERS Status: Chronic Priority: Medium Current Visit: Yes Problem Details: Stable by history. Patient denies alcohol abuse as above. No evidence of intoxication on admission with no DTs during this hospitalization. (19) Osteoarthritis SNOMED Code(s): 172252924 ICD Code: M19.90 - UNSPECIFIED OSTEOARTHRITIS, UNSPECIFIED SITE Status: Chronic Priority: Medium Current Visit: Yes Problem Details: Stable by history with the exception of chronic bilateral shoulder pain. Qualifiers: Osteoarthritis location: multiple joints Osteoarthritis type: primary Qualified Code(s): M89.49 - Other hypertrophic osteoarthropathy, multiple sites (20) Sleep apnea SNOMED Code(s): 62121377 ICD Code: G47.30 - SLEEP APNEA, UNSPECIFIED Status: Chronic Priority: Medium Current Visit: Yes Problem Details: He has been compliant with his CPAP with his daughter bringing his CPAP equipment to the hospital. Note previous oxygen requirement while awake, however this is no longer needed at this time. Qualifiers: Sleep apnea type: obstructive Qualified Code(s): G47.33 - Obstructive sleep apnea (adult) (pediatric) (21) Hypertension SNOMED Code(s): 64885073 ICD Code: I10 - ESSENTIAL (PRIMARY) HYPERTENSION Status: Chronic Priority : Medium Current Visit: Yes Problem Details: Stable by history and under good control in the emergency room, however note hypotension as above.. Qualifiers: Hypertension type: essential hypertension Qualified Code(s): I10 - Essential (primary) hypertension (22) Hyperlipidemia SNOMED Code(s): 87320760 ICD Code: E78.5 - HYPERLIPIDEMIA, UNSPECIFIED Status: Chronic Priority: Medium Current Visit: Yes Problem Details: Lipid panel on 12/13 showed persistent moderate dyslipidemia. Weight loss in moderation is advisable. Qualifiers: Hyperlipidemia type: mixed hyperlipidemia Qualified Code(s): E78.2 - Mixed hyperlipidemia (23) Hypoalbuminemia SNOMED Code(s): 865845821 ICD Code: E88.09 - OTH DISORDERS OF PLASMA-PROTEIN METABOLISM, NEC Status: Acute Priority: Medium Current Visit: No Onset Date: 12/13/19 Problem Details: Observe for now. Note obesity. Consider high protein Glucerna supplements as snacks. Note current obesity. - Patient Summary/Data Operative Procedure(s) Performed: None Complications: Hypotension with probable progressive sepsis as above Consults: Hospitalist and truss builder as above Labs Pending at D/C: 1. Final blood culture results 2 2. Final urine culture and sensitivity results 3. Final x-ray report from acute abdominal series on 12/30/19 Recommended Follow-up Testing/Procedures: Possible abdominal ultrasound and/or as per accepting providers Planned Operative Procedure(s) after DC: Per accepting providers Hospital Course: The patient was admitted to acute care on telemetry with aggressive treatment as above. Note progressive signs of sepsis, although this was not initially suspected on admission with main admission diagnosis of recurrent junctional bradycardia with secondary CHF, etc. as above. No source of an infection has been determined to this point as above, although note LFTs elevation as above. Prognosis is extremely guarded. - Patient Instructions Diet: NPO Activity: Bedrest Driving: Do Not Drive Showering/Bathing: No Showering Notify Provider of: Fever, Increased Pain, Nausea and/or Vomiting Other/Special Instructions: Ambulance transfer with lawn and tree service spray supervisor accompaniment - Discharge Plan *PRESCRIPTION DRUG MONITORING PROGRAM REVIEWED*: Not Applicable *COPY OF PRESCRIPTION DRUG MONITORING REPORT IN PATIENT JOSE: Not Applicable Home Medications: Home Meds ALPRAZolam [Alprazolam] 0.5 mg PO BID PRN 07/21/16 [History] Budesonide/Formoterol [Symbicort 160-4.5 MCG] 2 puff INH BID 07/21/16 [History] Calcium Carbonate/Vitamin D3 [Calcium 600 + Vit D Tablet] 1 tab PO QAM 07/21/16 [History] Cholecalciferol (Vitamin D3) [Vitamin D3] 1,000 unit PO QAM 07/21/16 [History] Multivitamins [Tab-A-Juan] 1 tab PO DAILY 07/21/16 [History] Non-Formulary Medication [NF Drug] 1 tab PO DAILY PRN 07/21/16 [History] Omeprazole 20 mg PO DAILY 07/21/16 [History] Sertraline [Zoloft] 100 mg PO QAM 07/21/16 [History] metFORMIN HCl [Metformin HCl] 1,000 mg PO BID 07/21/16 [History] rOPINIRole [Requip] 1 mg PO DAILY@16 PRN 07/21/16 [History] rOPINIRole [Requip] 1 tab PO BID@,07/21/16 [History] Cyanocobalamin (Vitamin B-12) [Vitamin B-12] 1,000 mcg PO DAILY 12/13/19 [ History] Gabapentin [Neurontin] 300 mg PO DAILY@16 PRN 12/13/19 [History] Gabapentin [Neurontin] 300 mg PO TID@08,,12/13/19 [History] Insulin Detemir [Levemir] 22 unit SUBCUT BEDTIME 12/13/19 [History] Triamcinolone Acetonide [Kenalog 0.1% Crm] 1 applic TOP QID PRN 12/13/19 [ History] Albuterol/Ipratropium [DuoNeb 3.0-0.5 MG/3 ML] 3 ml NEB Q4HRRT PRN neb [Rx] Albuterol/Ipratropium [DuoNeb 3.0-0.5 MG/3 ML] 3 ml NEB QID neb 12/17/19 [Rx] Ferrous Sulfate 325 mg PO QPM #60 tablet 12/17/19 [Rx] Lovastatin [Mevacor] 20 mg PO BEDTIME #30 tablet 12/17/19 [Rx] Magnesium Oxide 400 mg PO DAILY #30 tablet 12/17/19 [Rx] Diltiazem HCl [Cartia Xt] 180 mg PO DAILY 12/30/19 [History] Enoxaparin [Lovenox] 150 mg SUBCUT BID PRN 12/30/19 [History] Furosemide [Lasix] 60 mg PO BID 12/30/19 [History] Potassium Chloride [Klor-Con M20] 10 meq PO DAILY 12/30/19 [History] Warfarin Sodium [Coumadin] 0 mg PO QPM 12/30/19 [History] Oxygen Therapy Mode: Nasal Cannula Oxygen Flow Rate (L/min): 2 Maintain SpO2% greater than: 92 Patient Handouts: Bradycardia, Adult, Heart Failure, [id number] Forms: ED Department Discharge, Interfacility Transfer EMTALA Referrals: Kelley Nagel DEMURRAGE CLERK [Primary Care Provider] - - Discharge Summary/Plan Comment DC Time >30 min.: Yes (Coordination of care ) Discharge Summary/Plan Comment: As above. Extensive precautions were given to the patient, who is in agreement with the treatment plan. Ambulance transfer to [facility] in [place] as above. - General Info Date of Service: 12/31/19 Admission Dx/Problem (Free Text: 1. Recurrent junctional bradycardia with history of recurrent atrial fibrillation/flutter 2. CHF 3. D-dimer elevation 4. Lactic acid elevation Functional Status: Reports: Pain Controlled, Tolerating Diet, Ambulating (With assist), Urinating, New Symptoms (Hypotension as above), Incentive Spirometry Numeric/FACES Score: 0 - Review of Systems General: Reports: Weakness, Fatigue. Denies: Fever, Chills, Night Sweats, Appetite HEENT: Reports: No Symptoms. Denies: Dysphasia, Headaches, Post Nasal Drip, Sinus Congestion, Sore Throat, Rhinitis, Visual Changes Pulmonary: Reports: No Symptoms. Denies: Shortness of Breath, Pleuritic Chest Pain, Cough, Sputum, Hemoptysis, Wheezing Cardiovascular: Reports: Dyspnea on Exertion, Orthopnea (Chronic), Lightheadedness. Denies: Chest Pain, Palpitations, Edema (Resolved) Gastrointestinal: Reports: Nausea. Denies: Abdominal Pain, Constipation, Decreased Appetite, Difficulty Swallowing, Hematochezia, Melena, Vomiting (Dry heaves as above with possible dysphagia) Genitourinary: Reports: No Symptoms. Denies: Dysuria, Frequency, Burning, Pain , Urgency, Incontinence, Hematuria, Retention, Flank Pain Musculoskeletal: Reports: Shoulder Pain (Stable chronic bilateral). Denies: Neck Pain, Arm Pain, Back Pain, Leg Pain Skin: Reports: Pallor (Brief with dysphagia episodes as above), Bruising ( Stable after recent hospitalizations), Rash (Venous stasis dermatitis). Denies : Diaphoresis, Pruritis Neurological: Reports: Confusion (Borderline), Weakness. Denies: Numbness, Paresthesia, Seizure, Syncope, Tingling, Trouble Speaking, Difficulty Walking, Change in Speech, Gait Disturbance Psychiatric: Reports: Confusion (As above), Depression (Mild), Anxiety (Mild). Denies: Agitation, Cravings, Hallucinations - Patient Data Vitals - Most Recent: Last Vital Signs Temp 36.6 C 12/31/19 06:00 Pulse 56 L 12/31/19 06:00 Resp 16 12/31/19 06:00 BP 103/38 L 12/31/19 06:00 Pulse Ox 93 L 12/31/19 06:00 Vital Signs - 24 hr 12/30/19 12/30/19 12/30/19 12:15 12:30 12:45 Temperature [ Oral] Temperature [ Temporal] Pulse, 46 L 45 L 48 L Peripheral [ Pulse Oximetry] Respiratory 17 20 20 Rate Blood Pressure 122/107 H 133/65 127/75 [Left Upper Arm ] Blood Pressure [Right Upper Arm] O2 Sat by Pulse 94 L 90 L 97 Oximetry 12/30/19 12/30/19 12/30/19 13:15 13:40 14:15 Temperature [ Oral] Temperature [ Temporal] Pulse, 51 L 45 L 44 L Peripheral [ Pulse Oximetry] Respiratory 17 21 H 20 Rate Blood Pressure 132/81 122/62 116/99 H [Left Upper Arm ] Blood Pressure [Right Upper Arm] O2 Sat by Pulse 96 90 L 90 L Oximetry 12/30/19 12/30/19 12/30/19 15:00 17:19 20:00 Temperature [ 36.6 C Oral] Temperature [ 36.3 C 36.0 C L Temporal] Pulse, 45 L 44 L 50 L Peripheral [ Pulse Oximetry] Respiratory 22 H 20 20 Rate Blood Pressure 109/44 L 92/48 L 127/85 [Left Upper Arm ] Blood Pressure [Right Upper Arm] O2 Sat by Pulse 90 L 92 L 93 L Oximetry 12/30/19 12/31/19 12/31/19 21:59 00:00 02:00 Temperature [ Oral] Temperature [ 36.8 C 36.7 C 36.1 C Temporal] Pulse, 61 56 L 54 L Peripheral [ Pulse Oximetry] Respiratory 20 18 19 Rate Blood Pressure 120/53 L [Left Upper Arm ] Blood Pressure 118/56 L 104/52 L [Right Upper Arm] O2 Sat by Pulse 88 L 93 L 94 L Oximetry 12/31/19 12/31/19 12/31/19 04:00 06:00 07:05 Temperature [ Oral] Temperature [ 36.6 C 36.6 C Temporal] Pulse, 54 L 56 L 54 L Peripheral [ Pulse Oximetry] Respiratory 16 16 18 Rate Blood Pressure [Left Upper Arm ] Blood Pressure 109/58 L 103/38 L 72/48 L [Right Upper Arm] O2 Sat by Pulse 93 L 93 L 92 L Oximetry 12/31/19 12/31/19 12/31/19 07:59 08:35 09:22 Temperature [ Oral] Temperature [ 36.2 C Temporal] Pulse, 55 L 60 60 Peripheral [ Pulse Oximetry] Respiratory 24 H Rate Blood Pressure [Left Upper Arm ] Blood Pressure 94/62 112/52 L 112/58 L [Right Upper Arm] O2 Sat by Pulse 92 L 92 L 93 L Oximetry 12/31/19 10:29 Temperature [ Oral] Temperature [ 35.8 C L Temporal] Pulse, 59 L Peripheral [ Pulse Oximetry] Respiratory 22 H Rate Blood Pressure [Left Upper Arm ] Blood Pressure 110/58 L [Right Upper Arm] O2 Sat by Pulse 93 L Oximetry Weight - Most Recent: 149.685 kg I&O - Last 24 hours: Intake & Output 12/30/19 12/31/19 12/31/19 22:59 06:59 14:59 Intake Total 1540 1200 1580 Output Total 120 Balance 1420 1200 1580 Imaging Impressions - Last 24 hrs: supervisor [employer] showed improved sinus bradycardia with heart rate in the mid to high 50s with only very occasional PACs and improvement of previous moderate bradycardia in the high 40s. Note brief episode of bradycardia at 37 with vasovagal episode as above. Acute abdominal x-rays on 4/20/20 shows mild cardiomegaly and aortic valve calcification with possible mild centralized CHF and/or pulmonary hypertension. Moderate COPD the changes with no acute pulmonary infiltrates, pneumothorax, etc. Moderate osteoarthritic changes including some spurs. No free air, fluid levels, ileus, or obstruction. Lab Results - Last 24 hrs: Laboratory Results - last 24 hr 12/30/19 12/30/19 12/30/19 Range/Units 11:50 11:50 11:50 WBC (4.0-10.2) K/uL RBC (4.33-5.41) M/uL Hgb (13.1-16.8) g/dL Hct (39.0-49.0) % MCV (84.0-98.0) fL MCH (28.2-33.3) pg MCHC (31.7-36.0) g/dL RDW (11.2-14.1) % Plt Count (150-350) K/uL Neut % (Auto) (45.0-80.0) % Lymph % (Auto) (10.0-50.0) % [place] % (Auto) (2.0-14.0) % Eos % (Auto) (0.0-5.0) % Baso % (Auto) (0.0-2.0) % Neut # (Auto) (1.40-7.00) K/uL Lymph # (Auto) (0.50-3.50) K/uL [place] # (Auto) (0.00-1.00) K/uL Eos # (Auto) (0.00-0.50) K/uL Baso # (Auto) (0.00-0.20) K/uL PT 13.5 H (9.5-12.0) SEC INR 1.4 APTT 37.2 H (24.5-32.8) SEC D-Dimer, Quantitative 1540 H (0-400) ng/mL Sodium 129 L (136-145) mmol/L Potassium 5.7 H* (3.5-5.1) mmol/L Chloride 93 L (98-107) mmol/L Carbon Dioxide 23.0 (21.0-32.0) mmol/L BUN 36 H (7-18) mg/dL Creatinine 1.89 H (0.51-1.17) mg/dL Est Cr Clr Drug Dosing 33.75 mL/min Estimated GFR (MDRD) 35 mL/min Glucose 276 H (74-106) mg/dL Lactic Acid (0.4-2.0) mmol/L Uric Acid 9.0 H (2.6-7.2) mg/dL Calcium 9.0 (8.5-10.1) mg/dL Magnesium 1.7 L (1.8-2.4) mg/dL Total Bilirubin 0.5 (0.2-1.0) mg/dL AST 22 (15-37) U/L ALT 33 (12-78) U/L Alkaline Phosphatase 98 (46-116) IU/L Creatine Kinase 19 L (26-308) U/L Creatine Kinase Index 4.2 H (0.0-2.5) % CK-MB (CK-2) 0.80 (0.00-3.60) ng/mL Troponin I 0.002 (0.000-0.056) ng/mL NT-Pro-B Natriuret Pep 851 H (0-125) pg/mL Total Protein 7.5 (6.4-8.2) g/dL Albumin 3.2 L (3.4-5.0) g/dL Amylase 23 L (25-115) U/L Lipase 91 (73-393) U/L TSH, Ultra Sensitive 5.340 H (0.358-3.740) mIU/mL Specimen Type Urine Color Urine Appearance Urine pH (5.0-9.0) Ur Specific [place] (1.005-1.030) Urine Protein (NEGATIVE) mg/dL Urine Glucose (UA) (NEGATIVE) mg/dL Urine Ketones (NEGATIVE) mg/dL Urine Occult Blood (NEGATIVE) Urine Nitrite (NEGATIVE) Urine Bilirubin (NEGATIVE) Urine Urobilinogen (0.2-1.0) E.U./dL Ur Leukocyte Esterase (NEGATIVE) U Hyaline Cast (Auto) Urine RBC /HPF Urine WBC /HPF Ur Epithelial Cells /LPF Other Crystals /HPF Urine Bacteria (NONE TO FEW) /HPF Ethyl Alcohol 0.005 (0.000-0.080) g/dL 12/30/19 12/30/19 12/30/19 Range/Units 11:50 11:55 17:32 WBC 12.5 H (4.0-10.2) K/uL RBC 5.00 (4.33-5.41) M/uL Hgb 10.8 L (13.1-16.8) g/dL Hct 35.1 L (39.0-49.0) % MCV 70.2 L (84.0-98.0) fL MCH 21.6 L (28.2-33.3) pg MCHC 30.8 L (31.7-36.0) g/dL RDW 21.2 H (11.2-14.1) % Plt Count 350 (150-350) K/uL Neut % (Auto) 70.2 (45.0-80.0) % Lymph % (Auto) 20.2 (10.0-50.0) % [place] % (Auto) 8.5 (2.0-14.0) % Eos % (Auto) 0.6 (0.0-5.0) % Baso % (Auto) 0.5 (0.0-2.0) % Neut # (Auto) 8.80 H (1.40-7.00) K/uL Lymph # (Auto) 2.53 (0.50-3.50) K/uL [place] # (Auto) 1.06 H (0.00-1.00) K/uL Eos # (Auto) 0.08 (0.00-0.50) K/uL Baso # (Auto) 0.06 (0.00-0.20) K/uL PT (9.5-12.0) SEC INR APTT (24.5-32.8) SEC D-Dimer, Quantitative (0-400) ng/mL Sodium (136-145) mmol/L Potassium (3.5-5.1) mmol/L Chloride (98-107) mmol/L Carbon Dioxide (21.0-32.0) mmol/L BUN (7-18) mg/dL Creatinine (0.51-1.17) mg/dL Est Cr Clr Drug Dosing mL/min Estimated GFR (MDRD) mL/min Glucose (74-106) mg/dL Lactic Acid 4.8 H 3.9 H (0.4-2.0) mmol/L Uric Acid (2.6-7.2) mg/dL Calcium (8.5-10.1) mg/dL Magnesium (1.8-2.4) mg/dL Total Bilirubin (0.2-1.0) mg/dL AST (15-37) U/L ALT (12-78) U/L Alkaline Phosphatase (46-116) IU/L Creatine Kinase (26-308) U/L Creatine Kinase Index (0.0-2.5) % CK-MB (CK-2) (0.00-3.60) ng/mL Troponin I (0.000-0.056) ng/mL NT-Pro-B Natriuret Pep (0-125) pg/mL Total Protein (6.4-8.2) g/dL Albumin (3.4-5.0) g/dL Amylase (25-115) U/L Lipase (73-393) U/L TSH, Ultra Sensitive (0.358-3.740) mIU/mL Specimen Type Urine Color Urine Appearance Urine pH (5.0-9.0) Ur Specific [place] (1.005-1.030) Urine Protein (NEGATIVE) mg/dL Urine Glucose (UA) (NEGATIVE) mg/dL Urine Ketones (NEGATIVE) mg/dL Urine Occult Blood (NEGATIVE) Urine Nitrite (NEGATIVE) Urine Bilirubin (NEGATIVE) Urine Urobilinogen (0.2-1.0) E.U./dL Ur Leukocyte Esterase (NEGATIVE) U Hyaline Cast (Auto) Urine RBC /HPF Urine WBC /HPF Ur Epithelial Cells /LPF Other Crystals /HPF Urine Bacteria (NONE TO FEW) /HPF Ethyl Alcohol (0.000-0.080) g/dL 12/30/19 12/30/19 12/30/19 Range/Units 17:32 18:00 21:35 WBC (4.0-10.2) K/uL RBC (4.33-5.41) M/uL Hgb (13.1-16.8) g/dL Hct (39.0-49.0) % MCV (84.0-98.0) fL MCH (28.2-33.3) pg MCHC (31.7-36.0) g/dL RDW (11.2-14.1) % Plt Count (150-350) K/uL Neut % (Auto) (45.0-80.0) % Lymph % (Auto) (10.0-50.0) % [place] % (Auto) (2.0-14.0) % Eos % (Auto) (0.0-5.0) % Baso % (Auto) (0.0-2.0) % Neut # (Auto) (1.40-7.00) K/uL Lymph # (Auto) (0.50-3.50) K/uL [place] # (Auto) (0.00-1.00) K/uL Eos # (Auto) (0.00-0.50) K/uL Baso # (Auto) (0.00-0.20) K/uL PT (9.5-12.0) SEC INR APTT (24.5-32.8) SEC D-Dimer, Quantitative (0-400) ng/mL Sodium (136-145) mmol/L Potassium (3.5-5.1) mmol/L Chloride (98-107) mmol/L Carbon Dioxide (21.0-32.0) mmol/L BUN (7-18) mg/dL Creatinine (0.51-1.17) mg/dL Est Cr Clr Drug Dosing mL/min Estimated GFR (MDRD) mL/min Glucose (74-106) mg/dL Lactic Acid 7.1 H (0.4-2.0) mmol/L Uric Acid (2.6-7.2) mg/dL Calcium (8.5-10.1) mg/dL Magnesium (1.8-2.4) mg/dL Total Bilirubin (0.2-1.0) mg/dL AST (15-37) U/L ALT (12-78) U/L Alkaline Phosphatase (46-116) IU/L Creatine Kinase 18 L (26-308) U/L Creatine Kinase Index 3.9 H (0.0-2.5) % CK-MB (CK-2) 0.70 (0.00-3.60) ng/mL Troponin I 0.000 (0.000-0.056) ng/mL NT-Pro-B Natriuret Pep (0-125) pg/mL Total Protein (6.4-8.2) g/dL Albumin (3.4-5.0) g/dL Amylase (25-115) U/L Lipase (73-393) U/L TSH, Ultra Sensitive (0.358-3.740) mIU/mL Specimen Type Urincc Urine Color Dark yellow Urine Appearance Slightly cloudy Urine pH 5.0 (5.0-9.0) Ur Specific [place] >= 1.030 (1.005-1.030) Urine Protein 30 H (NEGATIVE) mg/dL Urine Glucose (UA) Negative (NEGATIVE) mg/dL Urine Ketones 15 H (NEGATIVE) mg/dL Urine Occult Blood Negative (NEGATIVE) Urine Nitrite Negative (NEGATIVE) Urine Bilirubin Small H (NEGATIVE) Urine Urobilinogen 0.2 (0.2-1.0) E.U./dL Ur Leukocyte Esterase Negative (NEGATIVE) U Hyaline Cast (Auto) Few Urine RBC 0-5 /HPF Urine WBC 0-5 /HPF Ur Epithelial Cells Rare /LPF Other Crystals Few /HPF Urine Bacteria Rare (NONE TO FEW) /HPF Ethyl Alcohol (0.000-0.080) g/dL 12/31/19 Range/Units 02:45 WBC (4.0-10.2) K/uL RBC (4.33-5.41) M/uL Hgb (13.1-16.8) g/dL Hct (39.0-49.0) % MCV (84.0-98.0) fL MCH (28.2-33.3) pg MCHC (31.7-36.0) g/dL RDW (11.2-14.1) % Plt Count (150-350) K/uL Neut % (Auto) (45.0-80.0) % Lymph % (Auto) (10.0-50.0) % [place] % (Auto) (2.0-14.0) % Eos % (Auto) (0.0-5.0) % Baso % (Auto) (0.0-2.0) % Neut # (Auto) (1.40-7.00) K/uL Lymph # (Auto) (0.50-3.50) K/uL [place] # (Auto) (0.00-1.00) K/uL Eos # (Auto) (0.00-0.50) K/uL Baso # (Auto) (0.00-0.20) K/uL PT (9.5-12.0) SEC INR APTT (24.5-32.8) SEC D-Dimer, Quantitative (0-400) ng/mL Sodium (136-145) mmol/L Potassium (3.5-5.1) mmol/L Chloride (98-107) mmol/L Carbon Dioxide (21.0-32.0) mmol/L BUN (7-18) mg/dL Creatinine (0.51-1.17) mg/dL Est Cr Clr Drug Dosing mL/min Estimated GFR (MDRD) mL/min Glucose (74-106) mg/dL Lactic Acid 7.0 H (0.4-2.0) mmol/L Uric Acid (2.6-7.2) mg/dL Calcium (8.5-10.1) mg/dL Magnesium (1.8-2.4) mg/dL Total Bilirubin (0.2-1.0) mg/dL AST (15-37) U/L ALT (12-78) U/L Alkaline Phosphatase (46-116) IU/L Creatine Kinase (26-308) U/L Creatine Kinase Index (0.0-2.5) % CK-MB (CK-2) (0.00-3.60) ng/mL Troponin I (0.000-0.056) ng/mL NT-Pro-B Natriuret Pep (0-125) pg/mL Total Protein (6.4-8.2) g/dL Albumin (3.4-5.0) g/dL Amylase (25-115) U/L Lipase (73-393) U/L TSH, Ultra Sensitive (0.358-3.740) mIU/mL Specimen Type Urine Color Urine Appearance Urine pH (5.0-9.0) Ur Specific [place] (1.005-1.030) Urine Protein (NEGATIVE) mg/dL Urine Glucose (UA) (NEGATIVE) mg/dL Urine Ketones (NEGATIVE) mg/dL Urine Occult Blood (NEGATIVE) Urine Nitrite (NEGATIVE) Urine Bilirubin (NEGATIVE) Urine Urobilinogen (0.2-1.0) E.U./dL Ur Leukocyte Esterase (NEGATIVE) U Hyaline Cast (Auto) Urine RBC /HPF Urine WBC /HPF Ur Epithelial Cells /LPF Other Crystals /HPF Urine Bacteria (NONE TO FEW) /HPF Ethyl Alcohol (0.000-0.080) g/dL Laboratory Tests 12/30/19 12/30/19 12/30/19 Range/Units 11:50 11:50 11:50 WBC (4.0-10.2) K/uL RBC (4.33-5.41) M/uL Hgb (13.1-16.8) g/dL Hct (39.0-49.0) % MCV (84.0-98.0) fL MCH (28.2-33.3) pg MCHC (31.7-36.0) g/dL RDW (11.2-14.1) % Plt Count (150-350) K/uL Neut % (Auto) (45.0-80.0) % Lymph % (Auto) (10.0-50.0) % [place] % (Auto) (2.0-14.0) % Eos % (Auto) (0.0-5.0) % Baso % (Auto) (0.0-2.0) % Neut # (Auto) (1.40-7.00) K/uL Lymph # (Auto) (0.50-3.50) K/uL [place] # (Auto) (0.00-1.00) K/uL Eos # (Auto) (0.00-0.50) K/uL Baso # (Auto) (0.00-0.20) K/uL PT 13.5 H (9.5-12.0) SEC INR 1.4 APTT 37.2 H (24.5-32.8) SEC D-Dimer, Quantitative 1540 H (0-400) ng/mL Sodium 129 L (136-145) mmol/L Potassium 5.7 H* (3.5-5.1) mmol/L Chloride 93 L (98-107) mmol/L Carbon Dioxide 23.0 (21.0-32.0) mmol/L BUN 36 H (7-18) mg/dL Creatinine 1.89 H (0.51-1.17) mg/dL Est Cr Clr Drug Dosing 33.75 mL/min Estimated GFR (MDRD) 35 mL/min Glucose 276 H (74-106) mg/dL POC Glucose (65-110) mg/dl Lactic Acid (0.4-2.0) mmol/L Uric Acid 9.0 H (2.6-7.2) mg/dL Calcium 9.0 (8.5-10.1) mg/dL Magnesium 1.7 L (1.8-2.4) mg/dL Total Bilirubin 0.5 (0.2-1.0) mg/dL AST 22 (15-37) U/L ALT 33 (12-78) U/L Alkaline Phosphatase 98 (46-116) IU/L Creatine Kinase 19 L (26-308) U/L Creatine Kinase Index 4.2 H (0.0-2.5) % CK-MB (CK-2) 0.80 (0.00-3.60) ng/mL Troponin I 0.002 (0.000-0.056) ng/mL NT-Pro-B Natriuret Pep 851 H (0-125) pg/mL Total Protein 7.5 (6.4-8.2) g/dL Albumin 3.2 L (3.4-5.0) g/dL Amylase 23 L (25-115) U/L Lipase 91 (73-393) U/L TSH, Ultra Sensitive 5.340 H (0.358-3.740) mIU/mL Specimen Type Urine Color Urine Appearance Urine pH (5.0-9.0) Ur Specific [place] (1.005-1.030) Urine Protein (NEGATIVE) mg/dL Urine Glucose (UA) (NEGATIVE) mg/dL Urine Ketones (NEGATIVE) mg/dL Urine Occult Blood (NEGATIVE) Urine Nitrite (NEGATIVE) Urine Bilirubin (NEGATIVE) Urine Urobilinogen (0.2-1.0) E.U./dL Ur Leukocyte Esterase (NEGATIVE) U Hyaline Cast (Auto) Urine RBC /HPF Urine WBC /HPF Ur Epithelial Cells /LPF Other Crystals /HPF Urine Bacteria (NONE TO FEW) /HPF Ethyl Alcohol 0.005 (0.000-0.080) g/dL 12/30/19 12/30/19 12/30/19 Range/Units 11:50 11:55 17:32 WBC 12.5 H (4.0-10.2) K/uL RBC 5.00 (4.33-5.41) M/uL Hgb 10.8 L (13.1-16.8) g/dL Hct 35.1 L (39.0-49.0) % MCV 70.2 L (84.0-98.0) fL MCH 21.6 L (28.2-33.3) pg MCHC 30.8 L (31.7-36.0) g/dL RDW 21.2 H (11.2-14.1) % Plt Count 350 (150-350) K/uL Neut % (Auto) 70.2 (45.0-80.0) % Lymph % (Auto) 20.2 (10.0-50.0) % [place] % (Auto) 8.5 (2.0-14.0) % Eos % (Auto) 0.6 (0.0-5.0) % Baso % (Auto) 0.5 (0.0-2.0) % Neut # (Auto) 8.80 H (1.40-7.00) K/uL Lymph # (Auto) 2.53 (0.50-3.50) K/uL [place] # (Auto) 1.06 H (0.00-1.00) K/uL Eos # (Auto) 0.08 (0.00-0.50) K/uL Baso # (Auto) 0.06 (0.00-0.20) K/uL PT (9.5-12.0) SEC INR APTT (24.5-32.8) SEC D-Dimer, Quantitative (0-400) ng/mL Sodium (136-145) mmol/L Potassium (3.5-5.1) mmol/L Chloride (98-107) mmol/L Carbon Dioxide (21.0-32.0) mmol/L BUN (7-18) mg/dL Creatinine (0.51-1.17) mg/dL Est Cr Clr Drug Dosing mL/min Estimated GFR (MDRD) mL/min Glucose (74-106) mg/dL POC Glucose (65-110) mg/dl Lactic Acid 4.8 H 3.9 H (0.4-2.0) mmol/L Uric Acid (2.6-7.2) mg/dL Calcium (8.5-10.1) mg/dL Magnesium (1.8-2.4) mg/dL Total Bilirubin (0.2-1.0) mg/dL AST (15-37) U/L ALT (12-78) U/L Alkaline Phosphatase (46-116) IU/L Creatine Kinase (26-308) U/L Creatine Kinase Index (0.0-2.5) % CK-MB (CK-2) (0.00-3.60) ng/mL Troponin I (0.000-0.056) ng/mL NT-Pro-B Natriuret Pep (0-125) pg/mL Total Protein (6.4-8.2) g/dL Albumin (3.4-5.0) g/dL Amylase (25-115) U/L Lipase (73-393) U/L TSH, Ultra Sensitive (0.358-3.740) mIU/mL Specimen Type Urine Color Urine Appearance Urine pH (5.0-9.0) Ur Specific [place] (1.005-1.030) Urine Protein (NEGATIVE) mg/dL Urine Glucose (UA) (NEGATIVE) mg/dL Urine Ketones (NEGATIVE) mg/dL Urine Occult Blood (NEGATIVE) Urine Nitrite (NEGATIVE) Urine Bilirubin (NEGATIVE) Urine Urobilinogen (0.2-1.0) E.U./dL Ur Leukocyte Esterase (NEGATIVE) U Hyaline Cast (Auto) Urine RBC /HPF Urine WBC /HPF Ur Epithelial Cells /LPF Other Crystals /HPF Urine Bacteria (NONE TO FEW) /HPF Ethyl Alcohol (0.000-0.080) g/dL 12/30/19 12/30/19 12/30/19 Range/Units 17:32 18:00 21:35 WBC (4.0-10.2) K/uL RBC (4.33-5.41) M/uL Hgb (13.1-16.8) g/dL Hct (39.0-49.0) % MCV (84.0-98.0) fL MCH (28.2-33.3) pg MCHC (31.7-36.0) g/dL RDW (11.2-14.1) % Plt Count (150-350) K/uL Neut % (Auto) (45.0-80.0) % Lymph % (Auto) (10.0-50.0) % [place] % (Auto) (2.0-14.0) % Eos % (Auto) (0.0-5.0) % Baso % (Auto) (0.0-2.0) % Neut # (Auto) (1.40-7.00) K/uL Lymph # (Auto) (0.50-3.50) K/uL [place] # (Auto) (0.00-1.00) K/uL Eos # (Auto) (0.00-0.50) K/uL Baso # (Auto) (0.00-0.20) K/uL PT (9.5-12.0) SEC INR APTT (24.5-32.8) SEC D-Dimer, Quantitative (0-400) ng/mL Sodium (136-145) mmol/L Potassium (3.5-5.1) mmol/L Chloride (98-107) mmol/L Carbon Dioxide (21.0-32.0) mmol/L BUN (7-18) mg/dL Creatinine (0.51-1.17) mg/dL Est Cr Clr Drug Dosing mL/min Estimated GFR (MDRD) mL/min Glucose (74-106) mg/dL POC Glucose (65-110) mg/dl Lactic Acid 7.1 H (0.4-2.0) mmol/L Uric Acid (2.6-7.2) mg/dL Calcium (8.5-10.1) mg/dL Magnesium (1.8-2.4) mg/dL Total Bilirubin (0.2-1.0) mg/dL AST (15-37) U/L ALT (12-78) U/L Alkaline Phosphatase (46-116) IU/L Creatine Kinase 18 L (26-308) U/L Creatine Kinase Index 3.9 H (0.0-2.5) % CK-MB (CK-2) 0.70 (0.00-3.60) ng/mL Troponin I 0.000 (0.000-0.056) ng/mL NT-Pro-B Natriuret Pep (0-125) pg/mL Total Protein (6.4-8.2) g/dL Albumin (3.4-5.0) g/dL Amylase (25-115) U/L Lipase (73-393) U/L TSH, Ultra Sensitive (0.358-3.740) mIU/mL Specimen Type Urincc Urine Color Dark yellow Urine Appearance Slightly cloudy Urine pH 5.0 (5.0-9.0) Ur Specific [place] >= 1.030 (1.005-1.030) Urine Protein 30 H (NEGATIVE) mg/dL Urine Glucose (UA) Negative (NEGATIVE) mg/dL Urine Ketones 15 H (NEGATIVE) mg/dL Urine Occult Blood Negative (NEGATIVE) Urine Nitrite Negative (NEGATIVE) Urine Bilirubin Small H (NEGATIVE) Urine Urobilinogen 0.2 (0.2-1.0) E.U./dL Ur Leukocyte Esterase Negative (NEGATIVE) U Hyaline Cast (Auto) Few Urine RBC 0-5 /HPF Urine WBC 0-5 /HPF Ur Epithelial Cells Rare /LPF Other Crystals Few /HPF Urine Bacteria Rare (NONE TO FEW) /HPF Ethyl Alcohol (0.000-0.080) g/dL 12/31/19 12/31/19 12/31/19 Range/Units 02:45 07:20 07:20 WBC 15.2 H (4.0-10.2) K/uL RBC 4.80 (4.33-5.41) M/uL Hgb 10.3 L (13.1-16.8) g/dL Hct 34.8 L (39.0-49.0) % MCV 72.5 L (84.0-98.0) fL MCH 21.5 L (28.2-33.3) pg MCHC 29.6 L (31.7-36.0) g/dL RDW 21.2 H (11.2-14.1) % Plt Count 374 H (150-350) K/uL Neut % (Auto) 75.1 (45.0-80.0) % Lymph % (Auto) 15.8 (10.0-50.0) % [place] % (Auto) 8.7 (2.0-14.0) % Eos % (Auto) 0.1 (0.0-5.0) % Baso % (Auto) 0.3 (0.0-2.0) % Neut # (Auto) 11.43 H (1.40-7.00) K/uL Lymph # (Auto) 2.40 (0.50-3.50) K/uL [place] # (Auto) 1.33 H (0.00-1.00) K/uL Eos # (Auto) 0.01 (0.00-0.50) K/uL Baso # (Auto) 0.05 (0.00-0.20) K/uL PT (9.5-12.0) SEC INR APTT (24.5-32.8) SEC D-Dimer, Quantitative 1020 H (0-400) ng/mL Sodium (136-145) mmol/L Potassium (3.5-5.1) mmol/L Chloride (98-107) mmol/L Carbon Dioxide (21.0-32.0) mmol/L BUN (7-18) mg/dL Creatinine (0.51-1.17) mg/dL Est Cr Clr Drug Dosing mL/min Estimated GFR (MDRD) mL/min Glucose (74-106) mg/dL POC Glucose (65-110) mg/dl Lactic Acid 7.0 H (0.4-2.0) mmol/L Uric Acid (2.6-7.2) mg/dL Calcium (8.5-10.1) mg/dL Magnesium (1.8-2.4) mg/dL Total Bilirubin (0.2-1.0) mg/dL AST (15-37) U/L ALT (12-78) U/L Alkaline Phosphatase (46-116) IU/L Creatine Kinase (26-308) U/L Creatine Kinase Index (0.0-2.5) % CK-MB (CK-2) (0.00-3.60) ng/mL Troponin I (0.000-0.056) ng/mL NT-Pro-B Natriuret Pep (0-125) pg/mL Total Protein (6.4-8.2) g/dL Albumin (3.4-5.0) g/dL Amylase (25-115) U/L Lipase (73-393) U/L TSH, Ultra Sensitive (0.358-3.740) mIU/mL Specimen Type Urine Color Urine Appearance Urine pH (5.0-9.0) Ur Specific [place] (1.005-1.030) Urine Protein (NEGATIVE) mg/dL Urine Glucose (UA) (NEGATIVE) mg/dL Urine Ketones (NEGATIVE) mg/dL Urine Occult Blood (NEGATIVE) Urine Nitrite (NEGATIVE) Urine Bilirubin (NEGATIVE) Urine Urobilinogen (0.2-1.0) E.U./dL Ur Leukocyte Esterase (NEGATIVE) U Hyaline Cast (Auto) Urine RBC /HPF Urine WBC /HPF Ur Epithelial Cells /LPF Other Crystals /HPF Urine Bacteria (NONE TO FEW) /HPF Ethyl Alcohol (0.000-0.080) g/dL 12/31/19 12/31/19 12/31/19 Range/Units 07:20 07:20 07:20 WBC (4.0-10.2) K/uL RBC (4.33-5.41) M/uL Hgb (13.1-16.8) g/dL Hct (39.0-49.0) % MCV (84.0-98.0) fL MCH (28.2-33.3) pg MCHC (31.7-36.0) g/dL RDW (11.2-14.1) % Plt Count (150-350) K/uL Neut % (Auto) (45.0-80.0) % Lymph % (Auto) (10.0-50.0) % [place] % (Auto) (2.0-14.0) % Eos % (Auto) (0.0-5.0) % Baso % (Auto) (0.0-2.0) % Neut # (Auto) (1.40-7.00) K/uL Lymph # (Auto) (0.50-3.50) K/uL [place] # (Auto) (0.00-1.00) K/uL Eos # (Auto) (0.00-0.50) K/uL Baso # (Auto) (0.00-0.20) K/uL PT 15.4 H (9.5-12.0) SEC INR 1.6 APTT (24.5-32.8) SEC D-Dimer, Quantitative (0-400) ng/mL Sodium 130 L (136-145) mmol/L Potassium 6.7 H* (3.5-5.1) mmol/L Chloride 95 L (98-107) mmol/L Carbon Dioxide 17.0 L (21.0-32.0) mmol/L BUN 46 H (7-18) mg/dL Creatinine 2.97 H (0.51-1.17) mg/dL Est Cr Clr Drug Dosing 21.48 mL/min Estimated GFR (MDRD) 21 mL/min Glucose 265 H (74-106) mg/dL POC Glucose (65-110) mg/dl Lactic Acid 9.3 H (0.4-2.0) mmol/L Uric Acid (2.6-7.2) mg/dL Calcium 8.4 L (8.5-10.1) mg/dL Magnesium (1.8-2.4) mg/dL Total Bilirubin 0.6 (0.2-1.0) mg/dL AST 561 H (15-37) U/L ALT 538 H (12-78) U/L Alkaline Phosphatase 100 (46-116) IU/L Creatine Kinase 27 (26-308) U/L Creatine Kinase Index 2.6 H (0.0-2.5) % CK-MB (CK-2) 0.70 (0.00-3.60) ng/mL Troponin I 0.000 (0.000-0.056) ng/mL NT-Pro-B Natriuret Pep 1583 H (0-125) pg/mL Total Protein 6.8 (6.4-8.2) g/dL Albumin 2.8 L (3.4-5.0) g/dL Amylase (25-115) U/L Lipase (73-393) U/L TSH, Ultra Sensitive (0.358-3.740) mIU/mL Specimen Type Urine Color Urine Appearance Urine pH (5.0-9.0) Ur Specific [place] (1.005-1.030) Urine Protein (NEGATIVE) mg/dL Urine Glucose (UA) (NEGATIVE) mg/dL Urine Ketones (NEGATIVE) mg/dL Urine Occult Blood (NEGATIVE) Urine Nitrite (NEGATIVE) Urine Bilirubin (NEGATIVE) Urine Urobilinogen (0.2-1.0) E.U./dL Ur Leukocyte Esterase (NEGATIVE) U Hyaline Cast (Auto) Urine RBC /HPF Urine WBC /HPF Ur Epithelial Cells /LPF Other Crystals /HPF Urine Bacteria (NONE TO FEW) /HPF Ethyl Alcohol (0.000-0.080) g/dL / Range/Units 10:34 WBC (4.0-10.2) K/uL RBC (4.33-5.41) M/uL Hgb (13.1-16.8) g/dL Hct (39.0-49.0) % MCV (84.0-98.0) fL MCH (28.2-33.3) pg MCHC (31.7-36.0) g/dL RDW (11.2-14.1) % Plt Count (150-350) K/uL Neut % (Auto) (45.0-80.0) % Lymph % (Auto) (10.0-50.0) % [place] % (Auto) (2.0-14.0) % Eos % (Auto) (0.0-5.0) % Baso % (Auto) (0.0-2.0) % Neut # (Auto) (1.40-7.00) K/uL Lymph # (Auto) (0.50-3.50) K/uL [place] # (Auto) (0.00-1.00) K/uL Eos # (Auto) (0.00-0.50) K/uL Baso # (Auto) (0.00-0.20) K/uL PT (9.5-12.0) SEC INR APTT (24.5-32.8) SEC D-Dimer, Quantitative (0-400) ng/mL Sodium (136-145) mmol/L Potassium (3.5-5.1) mmol/L Chloride (98-107) mmol/L Carbon Dioxide (21.0-32.0) mmol/L BUN (7-18) mg/dL Creatinine (0.51-1.17) mg/dL Est Cr Clr Drug Dosing mL/min Estimated GFR (MDRD) mL/min Glucose (74-106) mg/dL POC Glucose 216 H (65-110) mg/dl Lactic Acid (0.4-2.0) mmol/L Uric Acid (2.6-7.2) mg/dL Calcium (8.5-10.1) mg/dL Magnesium (1.8-2.4) mg/dL Total Bilirubin (0.2-1.0) mg/dL AST (15-37) U/L ALT (12-78) U/L Alkaline Phosphatase (46-116) IU/L Creatine Kinase (26-308) U/L Creatine Kinase Index (0.0-2.5) % CK-MB (CK-2) (0.00-3.60) ng/mL Troponin I (0.000-0.056) ng/mL NT-Pro-B Natriuret Pep (0-125) pg/mL Total Protein (6.4-8.2) g/dL Albumin (3.4-5.0) g/dL Amylase (25-115) U/L Lipase (73-393) U/L TSH, Ultra Sensitive (0.358-3.740) mIU/mL Specimen Type Urine Color Urine Appearance Urine pH (5.0-9.0) Ur Specific [place] (1.005-1.030) Urine Protein (NEGATIVE) mg/dL Urine Glucose (UA) (NEGATIVE) mg/dL Urine Ketones (NEGATIVE) mg/dL Urine Occult Blood (NEGATIVE) Urine Nitrite (NEGATIVE) Urine Bilirubin (NEGATIVE) Urine Urobilinogen (0.2-1.0) E.U./dL Ur Leukocyte Esterase (NEGATIVE) U Hyaline Cast (Auto) Urine RBC /HPF Urine WBC /HPF Ur Epithelial Cells /LPF Other Crystals /HPF Urine Bacteria (NONE TO FEW) /HPF Ethyl Alcohol (0.000-0.080) g/dL DION Results - Last 24 hrs: Microbiology 12/30/19 18:00 Stool Occult Blood (DION) - Final Stool / Feces NEGATIVE OCCULT BLOOD REFERENCE RANGE: NEGATIVE Microbiology 12/30/19 18:00 Urine, Clean Catch Urine Culture - Preliminary NO GROWTH AFTER 1 DAY 12/30/19 18:00 Stool / Feces Stool Occult Blood (DION) - Final NEGATIVE OCCULT BLOOD REFERENCE RANGE: NEGATIVE Blood culture x 2 PENDING Med Orders - Current: Current Medications Acetaminophen (Tylenol) 650 mg PO Q4H PRN PRN Reason: Pain Last Admin: 12/30/19 17:18 Dose: 650 mg Albuterol (Proventil Neb Soln) 2.5 mg INH Q2H PRN PRN Reason: SHORTNESS OF BREATH Albuterol/Ipratropium (Duoneb 3.0-0.5 Mg/3 Ml) 3 ml NEB Q4HRRT PRN PRN Reason: Dyspnea Last Admin: 12/30/19 15:16 Dose: 3 ml Albuterol/Ipratropium (Duoneb 3.0-0.5 Mg/3 Ml) 3 ml NEB Q6HRRT [facility] Last Admin: 12/31/19 02:14 Dose: 3 ml Alprazolam (Xanax) 0.5 mg PO BID PRN PRN Reason: Anxiety Last Admin: 12/30/19 23:01 Dose: 0.5 mg Budesonide (Pulmicort) 0.5 mg NEB BIDRT [facility] Last Admin: 12/30/19 20:15 Dose: 0.5 mg Enoxaparin Sodium (Lovenox) 40 mg SUBCUT Q24H [facility] Last Admin: 12/30/19 15:15 Dose: 40 mg Ferrous Sulfate (Ferrous Sulfate) 325 mg PO QPM [facility] Last Admin: 12/30/19 17:17 Dose: 325 mg Furosemide (Lasix) 40 mg IVPUSH Q8H [facility] Last Admin: 12/30/19 22:49 Dose: 40 mg Gabapentin (Neurontin) 300 mg PO DAILY@16 PRN PRN Reason: RLS Gabapentin (Neurontin) 300 mg PO TID@08,12,20 [facility] Last Admin: 12/30/19 20:16 Dose: 300 mg Levofloxacin/Dextrose 500 mg/ (Premix) 100 mls @ 100 mls/hr IV Q24H [facility] Last Admin: 12/30/19 20:14 Dose: 100 mls/hr Sodium Chloride (Normal Saline) 1,000 mls @ 150 mls/hr IV ASDIRECTED [facility] Last Admin: 12/31/19 06:13 Dose: 150 mls/hr Norepinephrine Bitartrate 4 mg (/ Dextrose/Water) 250 mls @ 7.5 mls/hr IV TITRATE [facility]; Protocol Last Admin: 12/31/19 07:17 Dose: 2 mcg/min, 7.5 mls/hr Insulin Glargine (Lantus) 22 unit SUBCUT BEDTIME [facility] Last Admin: 12/30/19 20:19 Dose: 22 units Levothyroxine Sodium (Synthroid) 50 mcg PO ACBREAKFAST [facility] Magnesium Oxide (Magnesium Oxide) 800 mg PO QPM [facility] Last Admin: 12/30/19 17:17 Dose: 800 mg Metformin HCl (Glucophage) 1,000 mg PO BIDMEALS [facility] Last Admin: 12/30/19 17:17 Dose: 1,000 mg Lovastatin 20 Mg (Own Med) 20 mg PO BEDTIME [facility] Last Admin: 12/30/19 20:17 Dose: 20 mg Omeprazole (Omeprazole) 20 mg PO ACBREAKFAST [facility] Ondansetron HCl (Zofran) 4 mg IVPUSH Q6H PRN PRN Reason: Nausea/Vomiting Last Admin: 12/31/19 06:13 Dose: 4 mg Ropinirole HCl (Requip) 1 mg PO DAILY@16 PRN PRN Reason: RLS Ropinirole HCl (Requip) 1 mg PO BID@08,20 [facility] Last Admin: 12/30/19 20:16 Dose: 1 mg Sertraline HCl (Zoloft) 100 mg PO QAM [facility] Sodium Chloride (Saline Flush) 10 ml FLUSH ASDIRECTED PRN PRN Reason: Keep Vein Open Last Admin: 12/30/19 15:15 Dose: 10 ml Sodium Chloride (Saline Flush) 10 ml FLUSH Q12HR PRN PRN Reason: Keep Vein Open Warfarin Sodium (Coumadin) 5 mg PO QPM [facility] Last Admin: 12/30/19 17:17 Dose: 5 mg Discontinued Medications Famotidine (Pepcid) 40 mg IVPUSH ONETIME ONE Stop: 12/30/19 11:14 Last Admin: 12/30/19 12:42 Dose: 40 mg Sodium Chloride (Normal Saline) 1,000 mls @ 200 mls/hr IV ASDIRECTED [facility] Last Admin: 12/30/19 15:15 Dose: 200 mls/hr Sodium Chloride (Normal Saline) 1,000 mls @ 125 mls/hr IV ASDIRECTED [facility] Sodium Chloride (Normal Saline) 1,000 mls @ 999 mls/hr IV ONETIME ONE Stop: 12/30/19 23:25 Last Admin: 12/30/19 22:49 Dose: 999 mls/hr Ondansetron HCl (Zofran) 4 mg IVPUSH ONETIME ONE Stop: 12/30/19 11:44 Last Admin: 12/30/19 12:42 Dose: 4 mg - Exam Quality Assessment: Reports: DVT Prophylaxis (Lovenox and Coumadin). Denies: Supplemental Oxygen, Central Line/PICC, Urine Catheter, Skin Breakdown, Restraints General: Reports: Alert, Oriented, Cooperative, No Acute Distress HEENT: Reports: Pupils Equal, Pupils Reactive, EOMI, Mucous Membr. Moist/[place]. Denies: Scleral Icterus Neck: Reports: Supple, Trachea Midline, No JVD, No Thyromegaly, Carotid Bruit ( Mild bilateral carotid bruits versus transmitted heart sounds). Denies: Lymphadenopathy Lungs: Reports: Normal Respiratory Effort, Rales (Bilateral basilarmild). 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 Denies: Gallops, Rubs GI/Abdominal Exam: Normal Bowel Sounds, Soft, Non-Tender, No Organomegaly, No Distention, No Abnormal Bruit, No Mass, Other (Obese). No: Guarding (Male) Exam: Deferred Rectal (Males) Exam: Deferred Back Exam: Reports: Full Range of Motion, Other (Mild kyphoscoliosis). Denies: CVA Tenderness (L), CVA Tenderness (R), Muscle Spasm, Paraspinal Tenderness, Vertebral Tenderness Extremities: No Pedal Edema, Normal Capillary Refill, Limited Range of Motion ( Secondary to shoulder pain). No: Non-Tender (Stable chronic bilateral shoulder pain with movement), Joint Swelling, Blas's Sign Skin: Reports: Warm, Dry, Intact, Rash (Mild venous stasis dermatitis with additional moderate seborrheic keratosis), Ecchymosis (Stable) Neurological: Reports: No New Focal Deficit, Other (Borderline clinical orthostasis with hypotension) Psy/Mental Status: Reports: Alert, Anxious (Mild), Depressed (Mild), Other ( Borderline organic brain syndrome). Denies: Agitated, Hallucinations, Withdrawal Symptoms EKG INTERPRETATION EKG Date: 12/31/19 Time: 07:09 Rhythm: Other (Junctional bradycardia with improved bradycardia) Rate (Beats/Min): 56 [place]: Normal P-Wave: Absent QRS: Other (QRS interval of 0.14 seconds representing a complete bifascicular bundle-branch block) ST-T: Normal QT: Normal GA/PQ Interval: P waves not noted. Extreme poor progression in the anterior leads. Comparison: Change From Previous EKG (As above since 12/30/19) EKG Interpretation Comments: 1. Junctional bradycardia with improved bradycardia and history of recurrent atrial fibrillation/flutter 2. Complete bifascicular bundle-branch block
[2019-12-31] MEDS ORDERED: Sertraline 50 MG Tab PO SCH (08:00)
[2019-12-31] MEDS ORDERED: Insulin Regular, Human 100 Units/ML 3 ML Vial IV ONE (08:47)
[2019-12-31] MEDS ORDERED: Sodium Polystyrene Sulfonate 15 GM/60 ML Susp 60 ML Bot PO ONE (08:48)
[2019-12-31] MEDS: metFORMIN 500 MG Tab PO SCH (08:48)
[2019-12-31] MEDS: Gabapentin 300 MG Cap PO SCH (08:48)
[2019-12-31] MEDS: rOPINIRole 1 MG Tab PO SCH (08:49)
[2019-12-31] MEDS: Budesonide 0.5 MG/2 ML Neb Susp NEB SCH (08:50)
[2019-12-31] MEDS ORDERED: Famotidine 20 MG/2 ML SDV IVPUSH ONE (10:02)
[2019-12-31] MEDS ORDERED: Pantoprazole 40 MG Vial IVPUSH ONE (10:02)
[2019-12-31] MEDS: Sodium Chloride 0.9% 10 ML Syringe FLUSH PRN (10:19)
[2019-12-31 10:29] VITALS: BP 110/58; PULSE 59
== END 2019-12-31 11:00 | DRG 292 ==
LOC: LL.ED 11:09 → UNDOADMIN 13:47 → LL.MS 13:47
PROVIDERS: ADMIT Family Medicine; ATTEND Family Medicine
DX: I13.0 Hypertensive heart and chronic kidney disease with heart failure and stage 1 through stage 4 chronic kidney disease, or unspecified chronic kidney disease (principal); E87.2 Acidosis; I48.91 Unspecified atrial fibrillation; E11.9 Type 2 diabetes mellitus without complications; I11.0 Hypertensive heart disease with heart failure; E87.1 Hypo-osmolality and hyponatremia; I48.11 Longstanding persistent atrial fibrillation; N28.9 Disorder of kidney and ureter, unspecified; J44.0 Chronic obstructive pulmonary disease with (acute) lower respiratory infection; E66.9 Obesity, unspecified; I50.9 Heart failure, unspecified; R00.1 Bradycardia, unspecified; I95.89 Other hypotension; D72.829 Elevated white blood cell count, unspecified; F43.9 Reaction to severe stress, unspecified; Z79.84 Long term (current) use of oral hypoglycemic drugs; I25.10 Atherosclerotic heart disease of native coronary artery without angina pectoris; Z99.81 Dependence on supplemental oxygen; E87.5 Hyperkalemia; R79.89 Other specified abnormal findings of blood chemistry; G31.9 Degenerative disease of nervous system, unspecified; E79.0 Hyperuricemia without signs of inflammatory arthritis and tophaceous disease; E83.42 Hypomagnesemia; E03.9 Hypothyroidism, unspecified; D50.8 Other iron deficiency anemias; F41.8 Other specified anxiety disorders; M89.49 Other hypertrophic osteoarthropathy, multiple sites; G47.33 Obstructive sleep apnea (adult) (pediatric); E78.5 Hyperlipidemia, unspecified; E88.09 Other disorders of plasma-protein metabolism, not elsewhere classified; E78.00 Pure hypercholesterolemia, unspecified; E11.22 Type 2 diabetes mellitus with diabetic chronic kidney disease; K21.9 Gastro-esophageal reflux disease without esophagitis; N40.0 Benign prostatic hyperplasia without lower urinary tract symptoms; E11.42 Type 2 diabetes mellitus with diabetic polyneuropathy; M81.0 Age-related osteoporosis without current pathological fracture; Z88.0 Allergy status to penicillin; Z88.1 Allergy status to other antibiotic agents; Z88.8 Allergy status to other drugs, medicaments and biological substances; Z79.4 Long term (current) use of insulin; Z79.899 Other long term (current) drug therapy; Z79.01 Long term (current) use of anticoagulants; Z79.890 Hormone replacement therapy; Z98.49 Cataract extraction status, unspecified eye; I25.2 Old myocardial infarction; Z87.891 Personal history of nicotine dependence
CPT/HCPCS: 36415; 74022; 80053; 80307; 81001; 82150; 82272; 82550; 82553; 82962; 83605; 83690; 83735; 83880; 84443; 84484; 84550; 85025; 85379; 85610; 85730; 87040; 87086; 87338; 93005; 94640; 96374; 96375; 99285-25; A9270-GY; C9113; J1650; J1815-GY; J1940; J1956; J2405; J3490; J7030; J7060; J7620-GY

== ENCOUNTER 2020-01-09 14:57 | Emergency (ER) | payer MEDICARE, BC ==
[~2020-01-09 14:57] MED LIST: Iopamidol 755 Mg/ML 100 ML Bottle IVPUSH ONE
[2020-01-09 15:41] VITALS: BP 158/63; PULSE 70
[2020-01-09 15:47] LABS: CHLORIDE,CL 102 mmol/L (98-107); SODIUM,NA 140 mmol/L (136-145)
--- NOTE | 2020-01-09 17:10 | EDM.PDOC ---
ED HPI GENERAL MEDICAL PROBLEM - General Chief Complaint: General Stated Complaint: Shortness of breath, weakness Time Seen by Provider: 01/09/20 15:26 Source of Information: Reports: Patient, Family History Limitations: Reports: No Limitations - History of Present Illness INITIAL COMMENTS - FREE TEXT/NARRATIVE: Patient comes to ER to be seen for shortness of breath/fatigue/weakness. Recently hospitalized at [facility] due to cardiogenic shock/pericardial effusion and tamponade. Required resuscitation during hospitalization. Discharged two days ago. Also concerned about a lump on abdomen that he found near right groin. Patient is NOT any more SOB than when he was discharged from [facility]. He denies any acute worsening of the SOB/phlegm/cough/pleuritic pain. Has history of COPD and CHF. He reports being bedbound for most of his time at [facility] and was only up and walking the day of discharge. He was evaluated by PT there per his description. Weakness has not worsened since coming home. Has issues getting up the four stairs into the kitchen from his TV room however. His daughter spoke to Kelley, his provider at [facility], and it was wondered if he could qualify for Swing Bed with PT and OT. He was sent here for the evaluation. No other acute changes per patient. Denies fevers/chills. Eating and drinking ok. His daughter notes that he has been complaining of increased burping/ passing gas since discharge. - Related Data Allergies Allergy/AdvReac Type Severity Reaction Status Date / Time atorvastatin [From Lipitor] Allergy UNKNOWN Verified 01/09/20 15:06 clindamycin Allergy UNKNOWN Verified 01/09/20 15:06 lisinopril Allergy Cough Verified 01/09/20 15:06 Penicillins Allergy UNKNOWN Verified 01/09/20 15:06 rosuvastatin [From Crestor] Allergy unknown Verified 01/09/20 15:06 valsartan [From Diovan] Allergy UNKNOWN Verified 01/09/20 15:06 Home Meds: Home Meds Budesonide/Formoterol [Symbicort 160-4.5 MCG] 2 puff INH BID 07/21/16 [History] Calcium Carbonate/Vitamin D3 [Calcium 600 + Vit D Tablet] 1 tab PO QAM 07/21/16 [History] Cholecalciferol (Vitamin D3) [Vitamin D3] 1,000 unit PO QAM 07/21/16 [History] Multivitamins [Tab-A-Juan] 1 tab PO DAILY 07/21/16 [History] Sertraline [Zoloft] 100 mg PO QAM 07/21/16 [History] metFORMIN HCl [Metformin HCl] 1,000 mg PO BIDMEALS 07/21/16 [History] rOPINIRole [Requip] 1 tab PO BID@,20 07/21/16 [History] rOPINIRole [Requip] 2 mg PO DAILY@16 07/21/16 [History] Cyanocobalamin (Vitamin B-12) [Vitamin B-12] 1,000 mcg PO DAILY 12/13/19 [ History] Gabapentin [Neurontin] 300 mg PO DAILY@16 PRN 12/13/19 [History] Gabapentin [Neurontin] 300 mg PO TID@,,12/13/19 [History] Insulin Detemir [Levemir] 22 unit SUBCUT BEDTIME 12/13/19 [History] Triamcinolone Acetonide [Kenalog 0.1% Crm] 1 applic TOP BID PRN 12/13/19 [ History] Lovastatin [Mevacor] 20 mg PO BEDTIME #30 tablet 12/17/19 [Rx] Magnesium Oxide 400 mg PO DAILY #30 tablet 12/17/19 [Rx] Furosemide [Lasix] 60 mg PO BID 12/30/19 [History] dilTIAZem HCL [Cartia Xt] 180 mg PO DAILY 12/30/19 [History] Albuterol/Ipratropium [DuoNeb 3.0-0.5 MG/3 ML] 3 ml NEB QID PRN 01/09/20 [ History] Ferrous Sulfate 325 mg PO DAILY 01/09/20 [History] Pantoprazole Sodium [Protonix] 40 mg PO DAILY 01/09/20 [History] Potassium Chloride 10 meq PO DAILY 01/09/20 [History] Sildenafil [Viagra] 100 mg PO ASDIRECTED PRN 01/09/20 [History] Past Medical History HEENT History: Reports: Cataract, Impaired Vision, Other (See Below) Other HEENT History: He wears glasses. No surgeries for his cataracts to this point. No history of diabetic retinopathy. Cardiovascular History: Reports: Afib, Aneurysm, Arrhythmia, CAD, Cardiomyopathy , Heart Failure, Heart Murmur, High Cholesterol, Hypertension, IA, Other (See Below) Other Cardiovascular History: Junctional bradycardia secondary to medications on 12/23/19. History of possible small inferior wall IA, which was not known by the patient, per Cardiolite scan on 09/22/19 with evidence of reversible inferior wall cardiac ischemia and small reversible anterior wall reversible ischemia. Moderate left atrial enlargement, mild to moderate mitral valve insufficiency, and diastolic dysfunction by echocardiograms as below. Recurrent CHF with secondary hypoxia although overall good systolic ejection fraction by echocardiogram as below. Recurrent atrial fibrillation/flutter with rapid ventricular response, including previous 3:1 AND 4:1 AV block. Small abdominal aortic aneurysm by CT scan of the abdomen and pelvis on 11/10/19. Chronic D-dimer elevation on 12/13/19 with negative workup as below. 01/09/20: recent cardiac tampanode Respiratory History: Reports: Bronchitis, Recurrent, COPD, Intubation, Previous , Pneumonia, Recurrent, Pulmonary Fibrosis, Sleep Apnea, SOB, Other (See Below) Other Respiratory History: O2 dependent COPD with previous history of oxygen noncompliance, however no oxygen is required when his CHF is under good control. Patient is compliant with his CPAP. Multiple bilateral pulmonary nodules, including 9 millimeter lesion in the right middle lobe with additional 1.5 cm right-sided paratracheal lymphadenopathy by CT scan on 11/10/19. Gastrointestinal History: Reports: Colon Polyp, Diverticulosis, Gastritis, GERD , Hiatal Hernia, Other (See Below) Other Gastrointestinal History: History of recurrent colonic polyps including hyperplastic colonic polyp removed from the proximal ascending colon and 2 tubular adenomas removed from the rectal region on 07/21/16. Genitourinary History: Reports: Acute Renal Failure, BPH, Chronic Renal Insuffiency, Diabetic Nephropathy, Prostate Disorder, Other (See Below) Other Genitourinary History: Bilateral complex renal cysts by CT scan on 11/10/19 with patient apparently refusing biopsies. Musculoskeletal History: Reports: Arthritis, Back Pain, Chronic, Fracture, Gout , Neck Pain, Chronic, Osteoarthritis, Osteoporosis, Other (See Below) Other Musculoskeletal History: C7 cervical fracture requiring surgery as below. Multiple possible bilateral rib fractures secondary to football injuries, etc. as a teenager and in his 20s. Neurological History: Reports: Neuropathy, Diabetic, Neuropathy, Peripheral, Other (See Below) Other Neuro History: Cerebral atrophy by CT scan. Restless leg syndrome; bIlateral carpal tunnel syndrome? Psychiatric History: Reports: Addiction, Anxiety, Dementia, Depression, Other ( See Below) Other Psychiatric History: Insomnia and claustrophobia. Per medical records history of previous alcohol abuse, which the patient adamantly denies. 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 Dermatologic History: Reports: Venous Stasis Dermatitis - Infectious Disease History Infectious Disease History: Reports: Chicken Pox, Measles, Mumps - Past Surgical History Head Surgeries/Procedures: Reports: None HEENT Surgical History: Reports: Oral Surgery, Other (See Below) Other HEENT Surgeries/Procedures: Initial excision of large right auricular melanoma on 09/28/05, including superficial parotidectomy, with subsequent reexcision/biopsy on 10/26/05 with no evidence of recurrence. Multiple teeth extractions with partial lowers. Cardiovascular Surgical History: Reports: Cardiac Ablation, Other (See Below) Other Cardiovascular Surgeries/Procedures: Briefly successful cardiac ablation for atrial flutter on 11/14/19 in [place] with previous electrocardioversion at [facility] on 05/23/18. Respiratory Surgical History: Reports: None GI Surgical History: Reports: Colonoscopy, EGD, Polypectomy, Other (See Below) Other GI Surgeries/Procedures: Last EGD and colonoscopy on 06/18/19 with previous colonoscopy including multiple polypectomies as below on 07/21/16. Note cauterization without biopsy of hyperplastic appearing polyp in the transverse colon at that time. Male Surgical History: Reports: Vasectomy, Other (See Below) Other Male Surgeries/Procedures: Vasectomy in about 1968 Endocrine Surgical History: Reports: None Neurological Surgical History: Reports: C-Spine, Discectomy, Laminectomy, Spinal Fusion, Other (See Below) Other Neurological Surgeries/Procedures: C6C7 anterior laminectomy and spinal fusion on 7/17/12 with additional Aburto head pins secondary to previous C7 fracture. Musculoskeletal Surgical History: Reports: Knee Replacement, Other (See Below) Other Musculoskeletal Surgeries/Procedures:: Bilateral TKAs in the Oncologic Surgical History: Reports: Other (See Below) Other Oncologic Surgeries/Procedures: Melanoma excision as above. Dermatological Surgical History: Reports: Other (See Below) - Past Imaging History Past Imaging History: Reports: Cardiac Echo (Last echocardiogram at [facility] on 12/23/19 with ejection fraction of 65% with previous evaluation that facility on 01/29/13. Additional recent echocardiogram [facility] on 11/14/2019 with ejection fraction of 5560 percent with previous echocardiogram in [place] on 09/22/19 with ejection fraction of 55% and otherwise findings as above.), CAT Scan (Negative CTA of the chest on 12/13/[address] scan of the brain on 09/21/[address] scan of the chest, abdomen, and pelvis without contrast on 11/10/19 with findings as above.), MRI (Lumbar spine on .), Stress Testing (Lexiscan Cardiolite evaluation on 09/22/19 with findings as above and ejection fraction of 65%.), Venous Doppler (Negative Doppler studies of the legs bilaterally on 12/16/19 with previous negative venous Doppler studies of the lower extremities on 12/16/19.). Denies: Holter Monitor Social & Family History - Family History HEENT: Reports: None Cardiac: Reports: CAD, Hypertension, IA, Other (See Below) Other Cardiac Family History: Parents from an [place] in their 70s with no apparent procedures. Hypertension in brother. Respiratory: Reports: None GI: Reports: None : Reports: None OBGYN: Reports: None Musculoskeletal: Reports: Arthritis, Osteoarthritis, Other (See Below) Other Musculoskeletal Family History: Arthritis in parents, sisters 2, and brothers 2 Neurological: Reports: None Psychiatric: Reports: None Endocrine/Metabolic: Reports: None Hematologic: Reports: None Immunologic: Reports: None Dermatologic: Reports: None Oncologic: Reports: Leukemia, Other (See Below) Other Oncologic Family History: Brother with fatal CLL and another brother with unknown type of cancer. - Tobacco Use Smoking Status *Q: Former Smoker Packs/Tins Daily: 5 Used Tobacco, but Quit: Yes Month/Year Tobacco Last Used: quit approx. 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 Denies: Fever, Chills, Night Sweats , Diaphoresis, Decreased Appetite, Weight Loss HEENT: Reports: No Symptoms (no acute changes) Respiratory: Reports: Shortness of Breath (chronic). Denies: Wheezing, Pleuritic Chest Pain, Cough, Sputum, Hemoptysis Cardiovascular: Reports: Dyspnea on Exertion. Denies: Chest Pain, Claudication , Edema, Lightheadedness Endocrine: Reports: Other (no overall changes in pattern reported) GI/Abdominal: Reports: Flatus, Other (feels a lump on lower right abdomen). Denies: Abdominal Pain, Constipation, Diarrhea, Decreased Appetite, Difficulty Swallowing, Hematemesis, Hematochezia, Melena, Nausea, Vomiting : Reports: No Symptoms Musculoskeletal: Reports: Other (no acute changes from baseline) Skin: Reports: Bruising (scattered. Says he was receiving Lovenox at [facility]. Also receives SQ insulin. ) Neurological: Reports: Difficulty Walking (hard to get up stairs), Weakness ( global). Denies: Confusion, Dizziness, Headache, Numbness, Paresthesia, Pre- Existing Deficit, Syncope, Tingling, Tremors, Trouble Speaking, Change in Speech Psychiatric: Reports: No Symptoms ED EXAM, GENERAL - Physical Exam Exam: See Below Exam Limited By: No Limitations General Appearance: Alert, No Apparent Distress, Other (Morbidly obese. ) Eye Exam: Bilateral Eye: EOMI, PERRL Ears: Hearing Grossly Normal Nose: No: Nasal Deformity, Nasal Swelling, Nasal Drainage Throat/Mouth: Normal Lips, Normal Voice, No Airway Compromise Head: Atraumatic, Normocephalic Neck: Normal Inspection, Supple, Non-Tender, Full Range of Motion Respiratory/Chest: No Respiratory Distress, Lungs Clear, Chest Non-Tender, Other (diminished breathsounds throughout all amaro. No retractions/abdominal breathing. Slightly exagerated respiratory effort. ) Cardiovascular: Regular Rate, Rhythm, No Murmur GI/Abdominal: Normal Bowel Sounds, Soft, Other (Morbidly obese. Large abdomen. Some scattered bruising noted from SQ injections (presumably). Area of firmness noted right lower quadrant around 5cm by 5cm. Nontender. ). No: Guarding, Rigid, Rebound, Tender (Male) Exam: No: Deferred Rectal (Males) Exam: No: Deferred Back Exam: No: CVA Tenderness (L), CVA Tenderness (R), Muscle Spasm, Paraspinal Tenderness, Vertebral Tenderness Extremities: Non-Tender, Normal Capillary Refill, Other (Minimal edema around ankles). No: Blas's Sign, Leg Pain, Increased Warmth, Mottled, Pallor, Redness Neurological: Alert, Oriented, Normal Cognition, Other (equal tone and strength bilaterally) Psychiatric: Normal Affect, Normal Mood Skin Exam: Warm, Dry, Intact, Ecchymosis (as above) EKG INTERPRETATION EKG Date: 01/09/20 Time: 15:14 Rhythm: A-Fib Rate (Beats/Min): 77 Maxbass: Normal P-Wave: Absent QRS: Normal ST-T: Normal QT: Normal Comparison: Change From Previous EKG EKG Interpretation Comments: Patient has history of AFib. Noted to be in wide QRS pattern when evaluated here earlier this month when cardiac tamponade present Course - Vital Signs Last Recorded V/S: Last Vital Signs Temp 36.6 C 01/09/20 15:02 Pulse 70 01/09/20 15:02 Resp 20 01/09/20 15:02 BP 158/63 H 01/09/20 15:02 Pulse Ox 95 01/09/20 15:02 - Orders/Labs/Meds Orders: Active Orders 24 hr Category Date Time Status EKG Documentation Completion [RC] ASDIRECTED Care 01/09/20 15:04 Active PT Evaluation and Treatment [CONS] Routine Cons 01/09/20 15:04 Active Chest 2V [CR] Stat Exams 01/09/20 15:02 Taken PE Chest [Ang Chest] [CT] Stat Exams 01/09/20 17:02 Taken Labs: Laboratory Tests 01/09/20 01/09/20 01/09/20 Range/Units 15:16 15:16 15:16 WBC 7.3 (4.0-10.2) K/uL RBC 4.29 L (4.33-5.41) M/uL Hgb 9.5 L (13.1-16.8) g/dL Hct 32.2 L (39.0-49.0) % MCV 75.1 L (84.0-98.0) fL MCH 22.1 L (28.2-33.3) pg MCHC 29.5 L (31.7-36.0) g/dL RDW 22.4 H (11.2-14.1) % Plt Count 281 D (150-350) K/uL Neut % (Auto) 60.3 (45.0-80.0) % Lymph % (Auto) 24.3 (10.0-50.0) % Elmore % (Auto) 10.2 (2.0-14.0) % Eos % (Auto) 4.8 (0.0-5.0) % Baso % (Auto) 0.4 (0.0-2.0) % Neut # (Auto) 4.43 (1.40-7.00) K/uL Lymph # (Auto) 1.78 (0.50-3.50) K/uL Elmore # (Auto) 0.75 (0.00-1.00) K/uL Eos # (Auto) 0.35 (0.00-0.50) K/uL Baso # (Auto) 0.03 (0.00-0.20) K/uL D-Dimer, Quantitative (0-400) ng/mL Sodium 140 D (136-145) mmol/L Potassium 4.6 D (3.5-5.1) mmol/L Chloride 102 (98-107) mmol/L Carbon Dioxide 31.9 D (21.0-32.0) mmol/L BUN 23 H (7-18) mg/dL Creatinine 0.98 D (0.51-1.17) mg/dL Est Cr Clr Drug Dosing 66.09 mL/min Estimated GFR (MDRD) > 60 mL/min Glucose 194 H (74-106) mg/dL Lactic Acid 2.1 H (0.4-2.0) mmol/L Calcium 8.8 (8.5-10.1) mg/dL Magnesium 1.5 L (1.8-2.4) mg/dL Total Bilirubin 0.4 (0.2-1.0) mg/dL AST 28 (15-37) U/L ALT 173 H (12-78) U/L Alkaline Phosphatase 118 H (46-116) IU/L Creatine Kinase 23 L (26-308) U/L Creatine Kinase Index 4.3 H (0.0-2.5) % CK-MB (CK-2) 1.00 (0.00-3.60) ng/mL Troponin I 0.002 (0.000-0.056) ng/mL NT-Pro-B Natriuret Pep 2971 H (0-125) pg/mL Total Protein 6.9 (6.4-8.2) g/dL Albumin 2.8 L (3.4-5.0) g/dL Specimen Type Urine Color Urine Appearance Urine pH (5.0-9.0) Ur Specific Gal[place] (1.005-1.030) Urine Protein (NEGATIVE) mg/dL Urine Glucose (UA) (NEGATIVE) mg/dL Urine Ketones (NEGATIVE) mg/dL Urine Occult Blood (NEGATIVE) Urine Nitrite (NEGATIVE) Urine Bilirubin (NEGATIVE) Urine Urobilinogen (0.2-1.0) E.U./dL Ur Leukocyte Esterase (NEGATIVE) Urine RBC /HPF Urine WBC /HPF Ur Epithelial Cells /LPF Urine Bacteria (NONE TO FEW) /HPF 01/09/20 01/09/20 Range/Units 15:16 18:28 WBC (4.0-10.2) K/uL RBC (4.33-5.41) M/uL Hgb (13.1-16.8) g/dL Hct (39.0-49.0) % MCV (84.0-98.0) fL MCH (28.2-33.3) pg MCHC (31.7-36.0) g/dL RDW (11.2-14.1) % Plt Count (150-350) K/uL Neut % (Auto) (45.0-80.0) % Lymph % (Auto) (10.0-50.0) % Elmore % (Auto) (2.0-14.0) % Eos % (Auto) (0.0-5.0) % Baso % (Auto) (0.0-2.0) % Neut # (Auto) (1.40-7.00) K/uL Lymph # (Auto) (0.50-3.50) K/uL Elmore # (Auto) (0.00-1.00) K/uL Eos # (Auto) (0.00-0.50) K/uL Baso # (Auto) (0.00-0.20) K/uL D-Dimer, Quantitative 3100 H (0-400) ng/mL Sodium (136-145) mmol/L Potassium (3.5-5.1) mmol/L Chloride (98-107) mmol/L Carbon Dioxide (21.0-32.0) mmol/L BUN (7-18) mg/dL Creatinine (0.51-1.17) mg/dL Est Cr Clr Drug Dosing mL/min Estimated GFR (MDRD) mL/min Glucose (74-106) mg/dL Lactic Acid (0.4-2.0) mmol/L Calcium (8.5-10.1) mg/dL Magnesium (1.8-2.4) mg/dL Total Bilirubin (0.2-1.0) mg/dL AST (15-37) U/L ALT (12-78) U/L Alkaline Phosphatase (46-116) IU/L Creatine Kinase (26-308) U/L Creatine Kinase Index (0.0-2.5) % CK-MB (CK-2) (0.00-3.60) ng/mL Troponin I (0.000-0.056) ng/mL NT-Pro-B Natriuret Pep (0-125) pg/mL Total Protein (6.4-8.2) g/dL Albumin (3.4-5.0) g/dL Specimen Type Urinvoid Urine Color Yellow Urine Appearance Clear Urine pH 7.5 (5.0-9.0) Ur Specific [place] 1.020 (1.005-1.030) Urine Protein Negative (NEGATIVE) mg/dL Urine Glucose (UA) Negative (NEGATIVE) mg/dL Urine Ketones Negative (NEGATIVE) mg/dL Urine Occult Blood Small H (NEGATIVE) Urine Nitrite Negative (NEGATIVE) Urine Bilirubin Negative (NEGATIVE) Urine Urobilinogen 0.2 (0.2-1.0) E.U./dL Ur Leukocyte Esterase Small H (NEGATIVE) Urine RBC 0-5 /HPF Urine WBC 0-5 /HPF Ur Epithelial Cells Occasional /LPF Urine Bacteria Few (NONE TO FEW) /HPF Meds: Medications Discontinued Medications Generic Name Dose Route Start Last Admin Trade Name Arabella PRN Reason Stop Dose Admin Sodium Chloride 250 mls @ 250 mls/hr 01/09/20 17:30 01/09/20 17:42 Normal Saline IV 01/09/20 18:29 250 mls/hr ONETIME ONE Administration Iopamidol 100 ml 01/09/20 13:00 Isovue-370 (76%) IVPUSH 01/09/20 13:01 ONETIME ONE Iopamidol 100 ml 01/09/20 17:15 01/09/20 18:01 Isovue-370 (76%) IVPUSH 01/09/20 17:16 100 ml ONETIME ONE Administration - Radiology Interpretation Free Text/Narrative:: Chest xray read by Radiology. No acute changes since [facility] film taken during last hospitalization. - Re-Assessments/Exams Free Text/Narrative Re-Assessment/Exam: 01/09/20 17:31 Patient observed to be able to transfer himself/ambulate relatively easily during stay in ER. Labs/EKG/chest xray requested. No acute focal findings on exam. O2 sats on room air 95% with respiratory rate of 20. Vital signs stable. Hgb stable at 9.5. Minimal decline when compared to [facility]'s value prior to discharge. ProBNP elevated but in similar range as multiple previous readings. DDimer elevated over 3000. Patient has had DDimer elevations in past and recent negative CTA performed December 12. Suspect chronically elevated DDimer given the multiple elevated readings in past. However, given patient's complaint of SOB/recent hospitalization and immobility the potential for blood clots was discussed with patient and he elected to receive another CTA study for formal r/o of PE. He does have history of Afib but no longer receives chronic anticoagulation for this. PT also asked to evaluate the patient for possible Swing Bed placement. This was a primary reason for evaluation in ER today. He was ambulated up/down halls and ultimately also was tested on stairs. PT concluded that patient did well overall and was not candidate for Swing Bed admission. CTA ordered. Patient rested comfortably in ER before and after CT. Small amount of IV fluids given after procedure to help flush patient's kidneys. CT read as negative for acute changes/pneumo/PE/pericardial effusion/CHF exacerbation/pneumonia, although there was some artifact in the periphery that made complete exclusion of small PE impossible. Given the recent other negative CT, normal RR and O2 sats, and fact that patient says the SOB is no worse than what he has been experiencing chronically for some time, no additional testing for PE indicated at this time. Suspect deconditioning from recent illness and hospital stay is part of current presentation. Patient is quite morbidly obese and has multiple medical problems. It was discussed with him that CHF/COPD are progressive and some of this may reflect worsening of baseline disease. He complained about the amount of medications that he needs to take. It was suggested that he might consider a more anti-inflammatory/lower carb diet to see if that would be useful. He admitted to having 3 pounds of candy stashed at home and had breakfast of ice cream and brownies and decided that he would likely not change his patterns. Patient's daughter contacted by phone. Workup and results shared with her. Plan discussed with her and patient was to make no changes in medications and have patient return home. He is going to have home visits from our PT team three times a week in addition to home health visits. Hopefully working with PT will help him do better at navigating around his home. He is to continue to follow up closely with his local primary provider and [facility] providers as needed. To return to the ER as needed if he experiences sudden changes or worsening. Patient and daughter are in agreement with the above plan. Patient wishes to be DNR/DNI, daughter has POA. They requested a packet for formally determining advanced directives. Patient aware that he is not to take Metformin for two days. Departure - Departure Time of Disposition: 19:00 Disposition: Home, Self-Care 01 Condition: Good Clinical Impression: CHF, Congestive heart failure, D-dimer, elevated, Physical deconditioning COPD (chronic obstructive pulmonary disease) Qualifiers: COPD type: COPD with acute lower respiratory infection Qualified Code(s): J44.0 - Chronic obstructive pulmonary disease with (acute) lower respiratory infection - Discharge Information *PRESCRIPTION DRUG MONITORING PROGRAM REVIEWED*: Not Applicable *COPY OF PRESCRIPTION DRUG MONITORING REPORT IN PATIENT JOSE: Not Applicable Referrals: Kelley Nagel NP [Primary Care Provider] - Forms: ED Department Discharge Additional Instructions: DO NOT TAKE METFORMIN for TWO full days!!! This is because of the dye you received for the study. It can harm your kidneys if you take the Metformin. You can restart it Monday night. See how you feel over the next few days and if doing the PT/OT work helps you get around your house better. Follow up closely with your primary providers/[facility] so that they can keep track of how you are doing and how much shortness of breath you are feeling. Follow up otherwise as needed if you have new or worsening problems. Sepsis Event Note - Evaluation Sepsis Screening Result: No Definite Risk - Focused Exam Vital Signs: Vital Signs Temp Pulse Resp BP Pulse Ox 01/09/20 15:02 36.6 C 70 20 158/63 H 95 Date Exam was Performed: 01/09/20 Time Exam was Performed: 22:29 - My Orders Last 24 Hours: My Active Orders 01/09/20 15:02 Chest 2V [CR] Stat 01/09/20 15:04 EKG Documentation Completion [RC] ASDIRECTED PT Evaluation and Treatment [CONS] Routine 01/09/20 17:02 PE Chest [Ang Chest] [CT] Stat - Assessment/Plan Last 24 Hours: My Active Orders 01/09/20 15:02 Chest 2V [CR] Stat 01/09/20 15:04 EKG Documentation Completion [RC] ASDIRECTED PT Evaluation and Treatment [CONS] Routine 01/09/20 17:02 PE Chest [Ang Chest] [CT] Stat
[2020-01-09] MEDS: Sodium Chloride 0.9% 250 ML IV ONE (17:42)
[2020-01-09] MEDS: Iopamidol 755 Mg/ML 100 ML Bottle IVPUSH ONE (18:01)
== END 2020-01-09 19:00 | disposition home or self-care (01) ==
LOC: LL.ED 14:57
DX: J44.0 Chronic obstructive pulmonary disease with (acute) lower respiratory infection (principal); I11.0 Hypertensive heart disease with heart failure; I50.9 Heart failure, unspecified; R79.89 Other specified abnormal findings of blood chemistry; R53.81 Other malaise; I48.91 Unspecified atrial fibrillation; E78.00 Pure hypercholesterolemia, unspecified; I25.2 Old myocardial infarction; I13.0 Hypertensive heart and chronic kidney disease with heart failure and stage 1 through stage 4 chronic kidney disease, or unspecified chronic kidney disease; N18.9 Chronic kidney disease, unspecified; E11.40 Type 2 diabetes mellitus with diabetic neuropathy, unspecified; E11.21 Type 2 diabetes mellitus with diabetic nephropathy; F03.90 Unspecified dementia, unspecified severity, without behavioral disturbance, psychotic disturbance, mood disturbance, and anxiety; F41.9 Anxiety disorder, unspecified; F32.9 Major depressive disorder, single episode, unspecified; K21.9 Gastro-esophageal reflux disease without esophagitis; E66.9 Obesity, unspecified; Z68.42 Body mass index [BMI] 45.0-49.9, adult; Z87.891 Personal history of nicotine dependence; Z88.8 Allergy status to other drugs, medicaments and biological substances; Z88.1 Allergy status to other antibiotic agents; Z88.0 Allergy status to penicillin; Z99.81 Dependence on supplemental oxygen
CPT/HCPCS: 36415; 71046; 71275; 80053; 81001; 82550; 82553; 83605; 83735; 83880; 84484; 85025; 85379; 93005; 99285-25; J7050; Q9967

== ENCOUNTER 2020-06-25 10:05 | Inpatient (IN) | payer MEDICARE, BC, OTHER ==
--- NOTE | 2020-06-25 10:12 | EDM.PDOC ---
ED HPI GENERAL MEDICAL PROBLEM - General Chief Complaint: Respiratory Problem Stated Complaint: Shortness of Breath, COVID + Time Seen by Provider: 06/25/20 10:05 Source of Information: Reports: Patient, Old Records ([facility] EMR. No paper hospital chart available.), Other ([facility]) History Limitations: Reports: No Limitations - History of Present Illness INITIAL COMMENTS - FREE TEXT/NARRATIVE: The patient drove himself to the emergency room via private automobile for evaluation of recently diagnosed COVID-19 infection on 06/24/2020. Note that the patient did have a telephone consultation with his regular provider, STANLEY Becerra at the [facility], earlier this morning with the apparent mild hypotension with home systolic blood pressures in the 90s and borderline hypoxia with home O2 sat between 90-91% this morning. He is otherwise completely nonsymptomatic, however was referred to our emergency room for further evaluation. 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 The patient denies any chest pain/pressure, heart flutter, dizziness, orthostasis, orthopnea, diaphoresis, paresthesias, recent decreased exercise tolerance, or any other anginal-type symptoms. No recent history of abdominal pain, heartburn, nausea, diarrhea, melena, gross hematochezia, or any food intolerance, including fatty foods, etc. with normal bowel movement earlier this morning. He denies any gross hematuria, colic, or other UTI symptoms. The patient also denies any recent fever, wheezing, dyspnea, etc. with stable chronic nonproductive cough. No history of recent headaches, visual changes, diplopia, change in mental status, or other change in neurological status. He denies any current pain or discomfort. Onset: Today Location: Reports: Other (No pain) Quality: Reports: Same as Previous Episode Improves with: Reports: None Worsens with: Reports: None Context: Reports: Other (As above). Denies: Sick Contact, Trauma Associated Symptoms: Reports: Confusion (Stable chronic), Cough (Stable chronic). Denies: Chest Pain, cough w sputum, Diaphoresis, Fever/Chills, Headaches, Loss of Appetite, Malaise, Nausea/Vomiting, Rash, Seizure, Shortness of Breath, Syncope, Weakness Treatments ODD JOB [employer]ER: Reports: Other (see below) (None) - Related Data Allergies Allergy/AdvReac Type Severity Reaction Status Date / Time atorvastatin [From Lipitor] Allergy UNKNOWN Verified 06/25/20 13:53 clindamycin Allergy UNKNOWN Verified 06/25/20 13:53 lisinopril Allergy Cough Verified 06/25/20 13:53 Penicillins Allergy UNKNOWN Verified 06/25/20 13:53 rosuvastatin [From Crestor] Allergy unknown Verified 06/25/20 13:53 valsartan [From Diovan] Allergy UNKNOWN Verified 06/25/20 13:53 Home Meds: Home Meds Budesonide/Formoterol [Symbicort 160-4.5 MCG] 2 puff INH BID 07/21/16 [History] Calcium Carbonate/Vitamin D3 [Calcium 600 + Vit D Tablet] 1 tab PO QAM 07/21/16 [History] Cholecalciferol (Vitamin D3) [Vitamin D3] 1,000 unit PO QAM 07/21/16 [History] Multivitamins [Tab-A-Juan] 1 tab PO DAILY 07/21/16 [History] Sertraline [Zoloft] 100 mg PO QAM 07/21/16 [History] metFORMIN HCl [Metformin HCl] 1,000 mg PO BIDMEALS 07/21/16 [History] rOPINIRole [Requip] 1 mg PO DAILY PRN 07/21/16 [History] rOPINIRole [Requip] 1 tab PO BID@,,07/21/16 [History] Cyanocobalamin (Vitamin B-12) [Vitamin B-12] 1,000 mcg PO DAILY 12/13/19 [History] Gabapentin [Neurontin] 300 mg PO DAILY@16 PRN 12/13/19 [History] Gabapentin [Neurontin] 300 mg PO TID@,,12/13/19 [History] Insulin Detemir [Levemir] 22 unit SUBCUT BEDTIME 12/13/19 [History] Triamcinolone Acetonide [Kenalog 0.1% Crm] 1 applic TOP BID PRN 12/13/19 [History] Lovastatin [Mevacor] 20 mg PO BEDTIME #30 tablet 12/17/19 [Rx] Magnesium Oxide 400 mg PO DAILY #30 tablet 12/17/19 [Rx] Furosemide [Lasix] 60 mg PO BID 12/30/19 [History] dilTIAZem HCL [Cartia Xt] 180 mg PO DAILY 12/30/19 [History] Albuterol/Ipratropium [DuoNeb 3.0-0.5 MG/3 ML] 3 ml NEB QID PRN 01/09/20 [History] Ferrous Sulfate 325 mg PO DAILY 01/09/20 [History] Pantoprazole Sodium [Protonix] 40 mg PO DAILY 01/09/20 [History] Potassium Chloride 10 meq PO DAILY 01/09/20 [History] Sildenafil [Viagra] 100 mg PO ASDIRECTED PRN 01/09/20 [History] Acetaminophen [Tylenol Arthritis] 650 mg PO TID 06/25/20 [History] Apixaban [Eliquis] 5 mg PO BID 06/25/20 [History] Aspirin [Aspirin EC] 81 mg PO DAILY 06/25/20 [History] Sertraline [Zoloft] 25 mg PO DAILY 06/25/20 [History] traZODone HCl [Trazodone HCl] 50 mg PO BEDTIME 06/25/20 [History] Past Medical History HEENT History: Reports: Cataract, Hard of Hearing, Impaired Vision, Other (See Below) Other HEENT History: He wears glasses. No surgeries for his cataracts to this point. No history of diabetic retinopathy. Mild bilateral presbycusis with no current therapy. Cardiovascular History: Reports: Afib, Aneurysm, Arrhythmia, CAD, Cardiomyopathy, Heart Failure, Heart Murmur, High Cholesterol, Hypertension, TX, Pulmonary Hypertension, Other (See Below). Denies: Blood Clots/VTE/DVT, PTCA, PVD, Stents, Syncope Other Cardiovascular History: Large pericardial effusion on 12/31/2019 with cardiac tamponade requiring procedure as below. Previous junctional bradycardia secondary to medications on 12/23/19 with chronic atrial fibrillation and required pacemaker placement as below. History of possible small inferior wall TX, which was not known by the patient, per Cardiolite scan on 09/22/19 with evidence of reversible inferior wall cardiac ischemia and small reversible anterior wall reversible ischemia. Moderate left atrial enlargement, mild to moderate mitral valve insufficiency and mitral valve stenosis with diastolic dysfunction by echocardiograms as below. Recurrent CHF with secondary hypoxia although overall good systolic ejection fraction by echocardiogram as below. Recurrent atrial fibrillation/flutter with rapid ventricular response, including previous 3:1 AND 4:1 AV block. Small abdominal aortic aneurysm by CT scan of the abdomen and pelvis on 11/10/19. Chronic D-dimer elevation on 12/13/19 with negative workup as below. Respiratory History: Reports: Bronchitis, Recurrent, COPD, Intubation, Previous, Pneumonia, Recurrent, Pulmonary Fibrosis, Sleep Apnea, SOB, Other (See Below). 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 Patient is compliant with his CPAP. Multiple bilateral pulmonary nodules, including 9 millimeter lesion in the right middle lobe with additional 1.5 cm right-sided paratracheal lymphadenopathy by CT scan on 11/10/19. History of respiratory failure. Gastrointestinal History: Reports: Colon Polyp, Diverticulosis, Gastritis, GERD, Hiatal Hernia, Other (See Below). Denies: Bowel Obstruction, Celiac Disease, Cholelithiasis, Chronic Constipation, Chronic Diarrhea, GI Bleed, Inflammatory Bowel Disease, Irritable Bowel Syndrome, Jaundice, PUD Other Gastrointestinal History: History of recurrent colonic polyps including hyperplastic colonic polyp removed from the proximal ascending colon and 2 tubular adenomas removed from the rectal region on 07/21/16. Genitourinary History: Reports: Acute Renal Failure, BPH, Chronic Renal Insuffiency, Diabetic Nephropathy, Prostate Disorder, Other (See Below). Denies: Renal Calculus, STD, Urinary Incontinence, UTI, Recurrent Other Genitourinary History: Bilateral complex renal cysts by CT scan on 11/10/19 with patient apparently refusing biopsies. Musculoskeletal History: Reports: Arthritis, Back Pain, Chronic, Fracture, Gout, Neck Pain, Chronic, Osteoarthritis, Osteoporosis, Other (See Below). Denies: RA, SLE Other Musculoskeletal History: C7 cervical fracture requiring surgery as below. Multiple possible bilateral rib fractures secondary to football injuries, etc. as a teenager and in his 20s. Neurological History: Reports: Neuropathy, Diabetic, Neuropathy, Peripheral, Other (See Below). 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 Restless leg syndrome; bIlateral carpal tunnel syndrome? Psychiatric History: Reports: Addiction, Anxiety, Dementia, Depression, Other (See Below). Denies: Abuse, Victim of, ADD, ADHD, Psych Hospitalization(s), PTSD, Suicide Attempt, Suicidal Ideation Other Psychiatric History: Insomnia and claustrophobia. Per medical records history of previous alcohol abuse, which the patient adamantly denies. 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 Endocrine/Metabolic History: Reports: Diabetes, Type II, Hypomagnesemia, IDDM, Obesity/BMI 30+, Osteopenia, Osteoporosis, Other (See Below). Denies: Diabetes, Type I, Diabetes Mellitus, Type 3c, Hypothyroidism Other Endocrine/Metabolic History: Hyperkalemia. Hypoalbuminemia Hematologic History: Reports: Anemia, B12 Deficiency, Iron Deficiency. Denies: Blood Transfusion(s) Immunologic History: Reports: None. Denies: AIDS, HIV, SLE Oncologic (Cancer) History: Reports: Malignant Melanoma, Other (See Below). 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 Dermatologic History: Reports: Venous Stasis Dermatitis. Denies: Eczema, Psoriasis - Infectious Disease History Infectious Disease History: Reports: Chicken Pox, Measles, Mumps, Novel Coronavirus (Diagnosed 06/24/2020). Denies: C-Difficile, Meningitis, Mononucleosis, MRSA, Pertussis (Whooping Cough), Rheumatic Fever, Rubella, Scarlet Fever, Shingles, TB, VRE - Past Surgical History Head Surgeries/Procedures: Reports: None HEENT Surgical History: Reports: Oral Surgery, Other (See Below). Denies: Adenoidectomy, Cataract Surgery, Eye Surgery, Laser Surgery, LASIK, Myringotomy w Tube(s), Naso-Sinus Surgery, Tonsillectomy Other HEENT Surgeries/Procedures: Initial excision of large right auricular melanoma on 09/28/05, including superficial parotidectomy, with subsequent reexcision/biopsy on 10/26/05 with no evidence of recurrence. Multiple teeth e xtractions with partial lowers. Cardiovascular Surgical History: Reports: Cardiac Ablation, Other (See Below). Denies: Aneurysm, Varicose Other Cardiovascular Surgeries/Procedures: Aspiration of large pericardial effusion on 12/31/2019. Watchman left atrial appendage closure placement on 06/11/2020. Briefly successful cardiac ablation for atrial flutter on 11/14/19 in [place] with previous electrocardioversion at [facility] on 05/23/18. Respiratory Surgical History: Reports: None. Denies: Thoracentesis GI Surgical History: Reports: Colonoscopy, EGD, Polypectomy, Other (See Below). Denies: Appendectomy, Cholecystectomy, Hernia, Abdominal, Hernia, Inguinal, Hernia Repair/Other Other GI Surgeries/Procedures: Last EGD and colonoscopy on 06/18/19 with previous colonoscopy including multiple polypectomies as below on 07/21/16. Note cauterization without biopsy of hyperplastic appearing polyp in the transverse colon at that time. Male Surgical History: Reports: Vasectomy, Other (See Below). Denies: Circumcision, TURP-Transurethral Resection of Prostate Other Male Surgeries/Procedures: Vasectomy in about 1968 Endocrine Surgical History: Reports: None. Denies: Thyroid Biopsy Neurological Surgical History: Reports: C-Spine, Discectomy, Laminectomy, Spinal Fusion, Other (See Below). Denies: Lumbar Spine, Sacral Spine, Thoracic Spine Other Neurological Surgeries/Procedures: C6C7 anterior laminectomy and spinal fusion on 03/27/12 with additional Aburto head pins secondary to previous C7 fracture. Musculoskeletal Surgical History: Reports: Knee Replacement, Other (See Below). Denies: Arthroscopic Procedure, Carpal Tunnel, Ganglion Cyst, Joint Replacement, ORIF Other Musculoskeletal Surgeries/Procedures:: Bilateral TKAs in the Oncologic Surgical History: Reports: Other (See Below) Other Oncologic Surgeries/Procedures: Melanoma excision as above. Dermatological Surgical History: Reports: Other (See Below) Other Dermatological Surgeries/Procedures: As above. - Past Imaging History Past Imaging History: Reports: Cardiac Echo (Last echocardiogram at [facility] on 06/12/2020 with ejection fraction of 55% and otherwise findings as above. Additional echocardiogram on 03/11/2020 showed resolution of previous large pericardial effusion with previous large pericardial effusion on 12/31/2019. Otherwise echocardiogram on 12/23/19 with no pericardial effusion at that time and ejection fraction of 65%. Additional evaluation at [facility] in [place] on 01/29/13. Additional recent echocardiogram Emmanuelle on 11/14/2019 with ejection fraction of 5560 percent with previous echocardiogram in [place] on 09/22/19 with ejection fraction of 55% and otherwise findings as above.), CAT Scan (Negative CTA of the chest on 01/09/2020 and 12/13/[address] scan of the brain on 09/21/[address] scan of the chest, abdomen, and pelvis without contrast on 11/10/19 with findings as above.), Event Monitor (03/27/2020 with findings as above.), MRI (Lumbar spine on 04/12/19.), Stress Testing (Lexiscan Cardiolite evaluation on 09/22/19 with findings as above and ejection fraction of 65%.), Venous Doppler (Negative Doppler studies of the legs bilaterally on 12/16/19 with previous negative venous Doppler studies of the lower extremities on 12/16/19.). Denies: Holter Monitor Social & Family History - Family History HEENT: Reports: None. Denies: Cataract, Glaucoma, Macular Degeneration, Retinal Detachment Cardiac: Reports: CAD, Hypertension, TX, Other (See Below). Denies: Afib, AICD, Aneurysm, Arrhythmia, Blood Clots/VTE/DVT, Heart Failure, Heart Murmur, High Cholesterol, PVD/COD, Syncope Other Cardiac Family History: Parents from an [place] in their 70s with no apparent procedures. Hypertension in brother. Respiratory: Reports: None. Denies: Asthma, COPD, PE, Pneumothorax, Sleep Apnea GI: Reports: None. Denies: Celiac Disease, Cholelithiasis, Colon Polyps, GERD, GI bleed, Inflammatory Bowel Disease, Irritable Bowel Syndrome, PUD : Reports: None. Denies: Renal Calculus, Renal Disease/Insufficiency OBGYN: Reports: None. Denies: Endometriosis, Recurrent Spontaneous Musculoskeletal: Reports: Arthritis, Osteoarthritis, Other (See Below). Denies: Gout, RA, SLE Other Musculoskeletal Family History: Arthritis in parents, sisters 2, and b rothers 2 Neurological: Reports: None. Denies: Alzheimers Disease, CVA, Dementia, Migraines, MS, Parkinson's, Seizure, TIA Psychiatric: Reports: None. Denies: Abuse, Victim of, ADD, ADHD, Anxiety, Depression, Psych Hospitalization(s), PTSD, Suicide Attempt Endocrine/Metabolic: Reports: None. Denies: Diabetes, Type I, Diabetes, type II, Diabetes Mellitus, Type 3c, Hypothyroidism, IDDM Hematologic: Reports: None. Denies: SLE Immunologic: Reports: None. Denies: AIDS, HIV, SLE Dermatologic: Reports: None. Denies: Eczema, Psoriasis Oncologic: Reports: Leukemia, Other (See Below) Other Oncologic Family History: Brother with fatal CLL and another brother with unknown type of cancer. - Tobacco Use Tobacco Use Status *Q: Former Tobacco User Tobacco Use Within Last Twelve Months: No Years of Tobacco use: 30 Packs/Tins Daily: 4 Packs/Tins Daily Comment: Smoked 4-5 packs of cigarettes per day with last use on 09/11/1986. Used Tobacco, but Quit: Yes Smoking Cessation Information Provided To Patient: No Second Hand Smoke Exposure: No Second Hand Smoke Education Provided: No - Caffeine Use Caffeine Use: Reports: Soda (Occasional), Tea (Occasional). Denies: Coffee, Energy Drinks - Alcohol Use Alcohol Use History: Yes Days Per Week of Alcohol Use: 2 Number of Drinks Per Day: 7 Number of Drinks Per Day Comment: Previous history of daily alcohol use until recently with patient denying alcohol abuse despite previous medical records. Patient usually drinks mixed drinks. 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 ED EXAM, GENERAL - Physical Exam Exam: See Below Exam Limited By: No Limitations General Appearance: Alert, WD/WN, No Apparent Distress Eye Exam: Bilateral Eye: EOMI, Normal Inspection (No nystagmus), PERRL Ears: Normal External Exam, Normal Canal, Hearing Grossly Normal, Normal TMs Nose: Normal Inspection, Normal Mucosa, No Blood Throat/Mouth: Normal Inspection, Normal Lips, Normal Teeth (Lower bridge noted), Normal Gums, Normal Oropharynx, Normal Voice, No Airway Compromise. No: Dysphagia, Inflammation, Perioral Cyanosis Head: Atraumatic, Normocephalic. No: Facial Swelling, Facial Tenderness, Sinus Tenderness Neck: Supple, Non-Tender, Full Range of Motion, Carotid Bruit (Stable mild bilateral bruits versus transmitted heart sounds). No: Lymphadenopathy (L), Lymphadenopathy (R), Thyromegaly Respiratory/Chest: No Respiratory Distress, Lungs Clear, Normal Breath Sounds, No Accessory Muscle Use, Chest Non-Tender. No: Pleural Rub, Retractions Cardiovascular: Normal Peripheral Pulses, No JVD, No Rub, Systolic Murmur (Stable 1/6 ANDREW of the mitral and aortic valves), Irregularly Irregular. No: No Edema (Dependent edema as below), Gallop/S3, Gallop/S4, Extra Beats, Friction Rub Peripheral Pulses: 2+: Radial (L), Radial (R), Dorsalis Pedis (L), Dorsalis Pedis (R) GI/Abdominal: Normal Bowel Sounds, Soft, Non-Tender, No Organomegaly, No Distention, No Abnormal Bruit, No Mass, Other (Obese). No: Guarding (Male) Exam: Deferred Rectal (Males) Exam: Deferred Back Exam: Normal Inspection, Full Range of Motion. No: CVA Tenderness (L), CVA Tenderness (R), Muscle Spasm Extremities: Non-Tender, Normal Capillary Refill, Pedal Edema (Stable trace bilateral pedal/pretibial edema with venous stasis dermatitis in the anterior tibial regions), Limited Range of Motion (Shoulders bilaterally secondary to chronic arthritis). No: Blas's Sign Neurological: Alert, CN II-XII Intact, Normal Gait, Confused (Stable borderline mild organic brain syndrome) Psychiatric: Normal Affect Skin Exam: Warm, Dry, Intact, Normal Color, Rash (Venous stasis dermatitis as below). No: Diaphoretic Lymphatic: No Adenopathy #1 Interpretation EKG Date: 06/25/20 Time: 10:20 Rhythm: A-Fib Rate (Beats/Min): 83 [place]: Normal (Neutral cardiac axis) P-Wave: Variable QRS: Normal (0.09 seconds with mild repolarization changes) ST-T: Normal QT: Normal ND/PQ Interval: Variable. Stable poor R wave progression in the anterior leads. Comparison: No Change (From last EKG on 01/09/2020) EKG Interpretation Comments: 1. No acute ischemic changes 2. Atrial fibrillation 3. Repolarization changes Course - Vital Signs Last Recorded V/S: Last Vital Signs Temp 37.0 C 06/25/20 10:05 Pulse 73 06/25/20 10:05 Resp 20 06/25/20 10:05 BP 124/69 06/25/20 10:05 Pulse Ox 94 L 06/25/20 10:05 Vital Signs - 24 hr 06/25/20 10:05 Temperature [ 37.0 C Oral] Pulse, 73 Peripheral [ Pulse Oximetry] Respiratory 20 Rate Blood Pressure 124/69 [Right Upper Arm] O2 Sat by Pulse 94 L Oximetry - Orders/Labs/Meds Orders: Active Orders 24 hr Category Date Time Status EKG Documentation Completion [RC] ASDIRECTED Care 06/25/20 10:18 Active Oxygen Therapy, ED [RC] PRN Care 06/25/20 10:18 Active Pulse Oximetry [RC] CONTINUOUS Care 06/25/20 10:18 Active Up With Assistance [RC] PFP Care 06/25/20 10:18 Active Vital Signs [RC] PFP Care 06/25/20 10:18 Active Nothing per Oral Now Diet [DIET] Diet 06/25/20 Breakfast Active Chest 1V Frontal [CR] Stat Exams 06/25/20 10:18 Taken CULTURE BLOOD [BC] Stat Lab 06/25/20 12:15 Received Blood Culture x2 Reflex Set [OM.PC] Urgent Oth 06/25/20 12:10 Ordered Obtain Past Medical Record [OM.PC] Urgent Oth 06/25/20 10:18 Active Resuscitation Status Stat Resus Stat 06/25/20 10:18 Ordered Labs: Laboratory Tests 06/25/20 06/25/20 06/25/20 Range/Units 10:40 10:40 10:40 WBC 7.3 (4.0-10.2) K/uL RBC 4.67 (4.33-5.41) M/uL Hgb 12.7 L D (13.1-16.8) g/dL Hct 40.2 (39.0-49.0) % MCV 86.1 D (84.0-98.0) fL MCH 27.2 L (28.2-33.3) pg MCHC 31.6 L (31.7-36.0) g/dL RDW 16.6 H (11.2-14.1) % Plt Count 189 D (150-350) K/uL Neut % (Auto) 65.6 (45.0-80.0) % Lymph % (Auto) 18.2 (10.0-50.0) % [place] % (Auto) 13.8 (2.0-14.0) % Eos % (Auto) 2.1 (0.0-5.0) % Baso % (Auto) 0.3 (0.0-2.0) % Neut # (Auto) 4.79 (1.40-7.00) K/uL Lymph # (Auto) 1.33 (0.50-3.50) K/uL [place] # (Auto) 1.01 H (0.00-1.00) K/uL Eos # (Auto) 0.15 (0.00-0.50) K/uL Baso # (Auto) 0.02 (0.00-0.20) K/uL PT 11.3 (9.5-12.0) SEC INR 1.1 APTT 32.8 (24.5-32.8) SEC D-Dimer, Quantitative 690 H (0-400) ng/mL Sodium (136-145) mmol/L Potassium (3.5-5.1) mmol/L Chloride (98-107) mmol/L Carbon Dioxide (21.0-32.0) mmol/L BUN (7-18) mg/dL Creatinine (0.51-1.17) mg/dL Est Cr Clr Drug Dosing mL/min Estimated GFR (MDRD) mL/min Glucose (74-106) mg/dL Lactic Acid (0.4-2.0) mmol/L Uric Acid (2.6-7.2) mg/dL Calcium (8.5-10.1) mg/dL Magnesium (1.8-2.4) mg/dL Total Bilirubin (0.2-1.0) mg/dL AST (15-37) U/L ALT (12-78) U/L Alkaline Phosphatase (46-116) IU/L Creatine Kinase (26-308) U/L Creatine Kinase Index (0.0-2.5) % CK-MB (CK-2) (0.00-3.60) ng/mL Troponin I (0.000-0.056) ng/mL NT-Pro-B Natriuret Pep (0-125) pg/mL Total Protein (6.4-8.2) g/dL Albumin (3.4-5.0) g/dL TSH, Ultra Sensitive (0.358-3.740) mIU/mL 06/25/20 06/25/20 Range/Units 10:40 10:40 WBC (4.0-10.2) K/uL RBC (4.33-5.41) M/uL Hgb (13.1-16.8) g/dL Hct (39.0-49.0) % MCV (84.0-98.0) fL MCH (28.2-33.3) pg MCHC (31.7-36.0) g/dL RDW (11.2-14.1) % Plt Count (150-350) K/uL Neut % (Auto) (45.0-80.0) % Lymph % (Auto) (10.0-50.0) % [place] % (Auto) (2.0-14.0) % Eos % (Auto) (0.0-5.0) % Baso % (Auto) (0.0-2.0) % Neut # (Auto) (1.40-7.00) K/uL Lymph # (Auto) (0.50-3.50) K/uL [place] # (Auto) (0.00-1.00) K/uL Eos # (Auto) (0.00-0.50) K/uL Baso # (Auto) (0.00-0.20) K/uL PT (9.5-12.0) SEC INR APTT (24.5-32.8) SEC D-Dimer, Quantitative (0-400) ng/mL Sodium 137 (136-145) mmol/L Potassium 3.6 (3.5-5.1) mmol/L Chloride 98 (98-107) mmol/L Carbon Dioxide 28.3 (21.0-32.0) mmol/L BUN 19 H (7-18) mg/dL Creatinine 1.16 (0.51-1.17) mg/dL Est Cr Clr Drug Dosing 56.68 mL/min Estimated GFR (MDRD) > 60 mL/min Glucose 221 H (74-106) mg/dL Lactic Acid 2.9 H (0.4-2.0) mmol/L Uric Acid 10.8 H (2.6-7.2) mg/dL Calcium 8.6 (8.5-10.1) mg/dL Magnesium 1.9 (1.8-2.4) mg/dL Total Bilirubin 0.3 (0.2-1.0) mg/dL AST 23 (15-37) U/L ALT 26 (12-78) U/L Alkaline Phosphatase 112 (46-116) IU/L Creatine Kinase 31 (26-308) U/L Creatine Kinase Index 1.6 (0.0-2.5) % CK-MB (CK-2) 0.50 (0.00-3.60) ng/mL Troponin I 0.003 (0.000-0.056) ng/mL NT-Pro-B Natriuret Pep 1723 H (0-125) pg/mL Total Protein 7.4 (6.4-8.2) g/dL Albumin 3.1 L (3.4-5.0) g/dL TSH, Ultra Sensitive 3.087 (0.358-3.740) mIU/mL Meds: Medications Discontinued Medications Generic Name Dose Route Start Last Admin Trade Name Freq PRN Reason Stop Dose Admin Levofloxacin/Dextrose 500 mg/ 100 mls @ 100 mls/hr 06/25/20 11:47 06/25/20 12:15 Premix IV 06/25/20 12:46 100 mls/hr ONETIME ONE Administration - Radiology Interpretation Free Text/Narrative:: Chest x-ray was evidence of moderate cardiomegaly with mild centralized CHF with additional moderate COPD changes. Note mild aortic valve calcification with pacemaker noted. Possible concomitant pulmonary infiltrates with pneumothorax, etc. 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 vs. transplanted heart: [place] heart Associated angina: without angina Qualified Code(s): I25.10 - Atherosclerotic heart disease of [place] coronary artery without angina pectoris Anemia Qualifiers: Anemia type: iron deficiency Iron deficiency anemia type: other iron deficiency Qualified Code(s): D50.8 - Other iron deficiency anemias - Discharge Information *PRESCRIPTION DRUG MONITORING PROGRAM REVIEWED*: Not Applicable *COPY OF PRESCRIPTION DRUG MONITORING REPORT IN PATIENT JOSE: Not Applicable Referrals: Kelley Nagel NP [Primary Care Provider] - Forms: ED Department Discharge Care Plan Goals: See plan Sepsis Event Note (ED) - Evaluation Sepsis Screening Result: No Definite Risk - Focused Exam Vital Signs: Vital Signs Temp Pulse Resp BP Pulse Ox 06/25/20 10:05 37.0 C 73 20 124/69 94 L - Problem List & Annotations (1) COVID-19 SNOMED Code(s): 097234008 Code(s): U07.1 - COVID-19 Status: Acute Priority: High Current Visit: Yes Onset Date: 06/24/20 Annotation/Comment:: Patient completely nonsymptomatic and was referred to our emergency room secondary to multiple risk factors. Despite elevated lactic acid level and possible concomitant pneumonia the patient refused on several occasions to leave [facility], however was finally convinced to be admitted. Unfortunately only one blood culture was collected prior to initiation of IV Levaquin therapy. Attempt to obtain sputum for culture and sensitivity. Per telephone consultation with his regular provider, STANLEY Becerra at the [facility], his influenza screen on 06/24 was negative. Secondary to lack of current O2 requirement the patient is not a candidate for dexamethasone, remdesivir, etc. (2) CHF, Congestive heart failure SNOMED Code(s): 11104771 Code(s): I50.9 - HEART FAILURE, UNSPECIFIED Status: Acute Priority: High Current Visit: Yes Onset Date: ~12/23/19 Annotation/Comment:: Note recurrent CHF with initiation of IV Lasix therapy shortly after admission. Note recent echocardiogram as above. No chest pain or anginal type symptoms on admission. Repeat EKG and cardiac enzymes in the a.m. Chest pain protocol not initiated in the emergency room secondary to absence of cardiac type symptoms. (3) D-dimer, elevated SNOMED Code(s): 826178255 Code(s): R79.89 - OTHER SPECIFIED ABNORMAL FINDINGS OF BLOOD CHEMISTRY Status: Acute Priority: High Current Visit: Yes Onset Date: 12/13/19 Annotation/Comment:: Known history of chronic d-dimer elevation with negative workup in the past as above. Patient was previously on Coumadin and is apparently on Eliquis per [facility], although problems with medication noncompliance in the past. Initiate subcutaneous sodium heparin, which will also be beneficial for his current COVID infection, if he is currently not on any anticoagulation therapy. No direct clinical evidence of DVT or PE. (4) Lactic acid increased SNOMED Code(s): 31589895 Code(s): E87.2 - ACIDOSIS Status: Acute Priority: High Current Visit: Yes Onset Date: 12/30/19 Annotation/Comment:: Blood cultures obtained x1 as above. IV Levaquin initiated in the emergency room with additional oral doxycycline therapy secondary to his COVID-19 and possible concomitant pneumonia. Repeat lactic acid level with next set of cardiac enzymes. Secondary to his CHF IV fluid bolus was not given. (5) Renal insufficiency SNOMED Code(s): 373715023, 356769404 Code(s): N28.9 - DISORDER OF KIDNEY AND URETER, UNSPECIFIED Status: Acute Priority: High Current Visit: Yes Annotation/Comment:: Continue to observe closely during this hospitalization secondary to IV Lasix therapy with additional concomitant hyperuricemia. (6) Anemia SNOMED Code(s): 733468578 Code(s): D64.9 - ANEMIA, UNSPECIFIED Status: Chronic Priority: Medium Current Visit: Yes Onset Date: ~12/14/19 Annotation/Comment:: Stable anemia secondary to his renal insufficiency, iron deficiency, and vitamin B12 deficiency. No evidence of GI bleed, etc. Observe for now. Qualifiers: Anemia type: iron deficiency Iron deficiency anemia type: other iron deficiency Qualified Code(s): D50.8 - Other iron deficiency anemias (7) Atrial fibrillation SNOMED Code(s): 50718066 Code(s): I48.91 - UNSPECIFIED ATRIAL FIBRILLATION Status: Chronic Priority: Medium Current Visit: Yes Annotation/Comment:: As above. Qualifiers: Atrial fibrillation type: longstanding persistent Qualified Code(s): I48.11 - Longstanding persistent atrial fibrillation (8) COPD (chronic obstructive pulmonary disease) SNOMED Code(s): 69014565 Code(s): J44.9 - CHRONIC OBSTRUCTIVE PULMONARY DISEASE, UNSPECIFIED Status: Chronic Priority: Medium Current Visit: Yes Annotation/Comment:: No recent fever or bronchitic type symptoms. Secondary to COVID-19 patient will be changed to inhaler rather than nebulizer treatments. Qualifiers: COPD type: COPD with acute lower respiratory infection Qualified Code(s): J44.0 - Chronic obstructive pulmonary disease with (acute) lower respiratory infection (9) Coronary artery disease SNOMED Code(s): 30502278 Code(s): I25.10 - ATHSCL HEART DISEASE OF [place] CORONARY ARTERY W/O ANG PCTRS Status: Chronic Priority: Medium Current Visit: Yes Annotation/Comment:: As above. Qualifiers: Coronary Disease-Associated Artery/Lesion type: [place] artery [place] vs. transplanted heart: [place] heart Associated angina: without angina Qualified Code(s): I25.10 - Atherosclerotic heart disease of [place] coronary artery without angina pectoris (10) IDDM (insulin dependent diabetes mellitus) SNOMED Code(s): 29811846 Code(s): ELK2734 - Status: Chronic Priority: Medium Current Visit: Yes Annotation/Comment:: Glycosylated hemoglobin in the a.m. (11) Mixed anxiety depressive disorder SNOMED Code(s): 761575461 Code(s): F41.8 - OTHER SPECIFIED ANXIETY DISORDERS Status: Chronic Priority: Medium Current Visit: Yes Annotation/Comment:: Stable by history. Patient denies alcohol abuse as above. No evidence of intoxication on admission with no history of DTs. (12) Hypoalbuminemia SNOMED Code(s): 689448552 Code(s): E88.09 - OTH DISORDERS OF PLASMA-PROTEIN METABOLISM, NEC Status: Acute Priority: Medium Current Visit: Yes Onset Date: 12/13/19 Annotation/Comment:: Observe for now. Consider high protein Glucerna supplements as snacks. Note current obesity. (13) Hypertension SNOMED Code(s): 27067310 Code(s): I10 - ESSENTIAL (PRIMARY) HYPERTENSION Status: Chronic Priority: Medium Current Visit: Yes Annotation/Comment:: Stable by history and under good control in the emergency room. Qualifiers: Hypertension type: essential hypertension Qualified Code(s): I10 - Essential (primary) hypertension (14) Hyperuricemia SNOMED Code(s): 53639649 Code(s): E79.0 - HYPERURICEMIA W/O SIGNS OF INFLAM ARTHRIT AND TOPHACEOUS DIS Status: Chronic Priority: Medium Current Visit: Yes Onset Date: ~12/23/19 Annotation/Comment:: As above. - Problem List Review Problem List Initiated/Reviewed/Updated: Yes - My Orders Last 24 Hours: My Active Orders 06/25/20 Breakfast Nothing per Oral Now Diet [DIET] 06/25/20 10:18 EKG Documentation Completion [RC] ASDIRECTED Oxygen Therapy, ED [RC] PRN Pulse Oximetry [RC] CONTINUOUS Up With Assistance [RC] PFP Vital Signs [RC] PFP Chest 1V Frontal [CR] Stat Obtain Past Medical Record [OM.PC] Urgent Resuscitation Status Stat 06/25/20 12:10 Blood Culture x2 Reflex Set [OM.PC] Urgent 06/25/20 12:15 CULTURE BLOOD [BC] Stat - Assessment/Plan Admission H&P: Please use this note as an admission H&P Last 24 Hours: My Active Orders 06/25/20 Breakfast Nothing per Oral Now Diet [DIET] 06/25/20 10:18 EKG Documentation Completion [RC] ASDIRECTED Oxygen Therapy, ED [RC] PRN Pulse Oximetry [RC] CONTINUOUS Up With Assistance [RC] PFP Vital Signs [RC] PFP Chest 1V Frontal [CR] Stat Obtain Past Medical Record [OM.PC] Urgent Resuscitation Status Stat 06/25/20 12:10 Blood Culture x2 Reflex Set [OM.PC] Urgent 06/25/20 12:15 CULTURE BLOOD [BC] Stat Assessment:: As above. Plan: As above. Extensive precautions were given to the patient, who is in agreement with the treatment plan. The patient will require about 3-4 days of inpatient/acute care secondary to multiple health problems as above.
[2020-06-25 11:07] LABS: PTT,PARTIAL THROMBOPLSTIN TIME 32.8 SEC (24.5-32.8)
[2020-06-25 11:24] LABS: CHLORIDE,CL 98 mmol/L (98-107); SODIUM,NA 137 mmol/L (136-145)
[2020-06-25] MEDS ORDERED: Levofloxacin/Dextrose 5%-Water 500 MG in Premix Bag 1 BAG IV ONE (11:47)
[2020-06-25] MEDS ORDERED: rOPINIRole 1 MG Tab PO PRN (14:49)
[2020-06-25] MEDS ORDERED: Albuterol 8 GM Inhaler INH PRN (15:00)
[2020-06-25] MEDS ORDERED: Acetaminophen 325 MG Tab PO PRN (15:00)
[2020-06-25] MEDS ORDERED: Triamcinolone Acetonide 0.1% Crm 15 GM Tube TOP PRN (15:42)
[2020-06-25] MEDS ORDERED: rOPINIRole 1 MG Tab PO SCH (16:00)
[2020-06-25] MEDS ORDERED: Gabapentin 300 MG Cap PO PRN (16:00)
[2020-06-25] MEDS: Albuterol/Ipratropium 4 GM Inhalation Spray INH SCH ×2 (16:10→21:15)
[2020-06-25] MEDS: Furosemide 40 MG/4 ML VIAL IVPUSH SCH ×2 (16:11→23:07)
[2020-06-25] MEDS: Sodium Chloride 0.9% 10 ML Syringe FLUSH PRN ×2 (16:12→23:08)
[2020-06-25] MEDS: metFORMIN 500 MG Tab PO SCH (17:54)
[2020-06-25] MEDS: Formoterol/Mometasone 200-5 MCG 8.8 GM Inhaler IH SCH (17:54)
[2020-06-25] MEDS: Acetaminophen 650 MG Tab.ER PO SCH (17:55)
[2020-06-25] MEDS: Potassium Chloride 20 MEQ Tab.ER PO SCH (17:55)
[2020-06-25] MEDS: Dextromethorphan/guaiFENesin 600-30 MG Tab.ER PO SCH (17:55)
[2020-06-25] MEDS: Apixaban 5 MG Tab PO SCH (17:57)
[2020-06-25] MEDS: Gabapentin 300 MG Cap PO SCH (21:10)
[2020-06-25] MEDS: traZODone 50 MG Tab PO SCH (21:11)
[2020-06-25] MEDS: Doxycycline Monohydrate 100 MG Cap PO SCH (21:11)
[2020-06-25] MEDS: rOPINIRole 1 MG Tab PO SCH (21:11)
[2020-06-25] MEDS: Simvastatin 10 MG Tab PO SCH (21:11)
[2020-06-25] MEDS: Insulin Glarg,Human.Rec.Analog 100 Unit/ML SUBCUT SCH (21:15)
[2020-06-26] MEDS: Ferrous Sulfate 325 MG Tab PO SCH (07:57)
[2020-06-26] MEDS: metFORMIN 500 MG Tab PO SCH ×2 (07:57→17:30)
[2020-06-26] MEDS: Dextromethorphan/guaiFENesin 600-30 MG Tab.ER PO SCH ×2 (07:57→17:31)
[2020-06-26] MEDS: Pantoprazole 40 MG Tab.CR PO SCH (07:57)
[2020-06-26] MEDS: Gabapentin 300 MG Cap PO SCH ×3 (07:58→20:59)
[2020-06-26] MEDS: Doxycycline Monohydrate 100 MG Cap PO SCH ×2 (07:58→20:58)
[2020-06-26] MEDS: Acetaminophen 650 MG Tab.ER PO SCH ×3 (07:58→17:31)
[2020-06-26] MEDS: Potassium Chloride 20 MEQ Tab.ER PO SCH ×3 (07:58→17:31)
[2020-06-26] MEDS: Apixaban 5 MG Tab PO SCH ×2 (07:58→17:31)
[2020-06-26] MEDS: Diltiazem 180 MG Cap.CD PO SCH (07:58)
[2020-06-26] MEDS: Magnesium Oxide 400 MG Tab PO SCH (07:58)
[2020-06-26] MEDS: Cyanocobalamin (Vitamin B12) 1,000 MCG Tab PO SCH (07:58)
[2020-06-26] MEDS: Aspirin 81 MG Tab.EC PO SCH (07:59)
[2020-06-26] MEDS: rOPINIRole 1 MG Tab PO SCH ×3 (07:59→20:58)
[2020-06-26] MEDS: Furosemide 40 MG/4 ML VIAL IVPUSH SCH ×2 (07:59→17:31)
[2020-06-26] MEDS: Sodium Chloride 0.9% 10 ML Syringe FLUSH PRN ×2 (07:59→17:32)
[2020-06-26] MEDS: Sertraline 50 MG Tab PO SCH (07:59)
[2020-06-26] MEDS: Albuterol/Ipratropium 4 GM Inhalation Spray INH SCH ×4 (08:00→20:59)
[2020-06-26] MEDS: Formoterol/Mometasone 200-5 MCG 8.8 GM Inhaler IH SCH ×2 (08:00→17:32)
[2020-06-26] MEDS ORDERED: Sertraline 25 MG Tab PO SCH (08:00)
[2020-06-26 08:49] LABS: HEMOGLOBIN A1C 7.7 % (4.3-5.7)
[2020-06-26] MEDS: Levofloxacin/Dextrose 5%-Water 500 MG in Premix Bag 1 BAG IV SCH (12:08)
--- NOTE | 2020-06-26 15:33 | PCM.PN ---
- General Info Date of Service: 06/26/20 Admission Dx/Problem (Free Text): 1. COVID-19 2. Bilateral pneumonia 3. CHF 4. COPD Functional Status: Reports: Pain Controlled, Tolerating Diet, Ambulating, Urinating, Incentive Spirometry. Denies: New Symptoms Pain Score: 0 - Review of Systems General: Reports: Fever (37.6 degrees earlier this morning). Denies: Weakness, Fatigue, Malaise, Chills, Night Sweats, Appetite (Good) HEENT: Reports: No Symptoms. Denies: Dysphasia, Ear Pain, Eye Pain, Glasses, Headaches, Post Nasal Drip, Sinus Congestion, Sore Throat, Rhinitis, Visual Changes Pulmonary: Reports: Cough. Denies: Shortness of Breath, Pleuritic Chest Pain, Sputum, Hemoptysis, Wheezing Cardiovascular: Reports: Edema (Improved dependent). Denies: Chest Pain, Palpitations, Dyspnea on Exertion, Orthopnea, PND, Lightheadedness Gastrointestinal: Reports: Other (Normal bowel movement yesterday and earlier this morning). Denies: Abdominal Pain, Constipation, Decreased Appetite, Diarrhea, Difficulty Swallowing, Flatus, Hematochezia, Melena, Nausea, Vomiting Genitourinary: Reports: No Symptoms. Denies: Dysuria, Frequency, Burning, Pain, Urgency, Hematuria, Retention, Flank Pain Musculoskeletal: Reports: No Symptoms. Denies: Neck Pain, Shoulder Pain, Arm Pain, Back Pain, Leg Pain Skin: Reports: No Symptoms. Denies: Diaphoresis Neurological: Reports: No Symptoms. Denies: Confusion, Headache, Numbness, Paresthesia, Tingling, Weakness Psychiatric: Reports: No Symptoms. Denies: Confusion, Depression, Anxiety, Agitation, Cravings, Hallucinations - Patient Data Vitals - Most Recent: Last Vital Signs Temp 37.5 C 06/26/20 12:00 Pulse 94 06/26/20 12:00 Resp 20 06/26/20 12:00 BP 143/93 H 06/26/20 07:54 Pulse Ox 95 06/26/20 12:00 Vital Signs - 24 hr 06/25/20 06/25/20 06/25/20 16:00 20:00 23:14 Temperature [ 36.7 C 37.9 C 37.5 C Oral] Pulse, 79 83 81 Peripheral [ Pulse Oximetry] Respiratory 20 20 20 Rate Blood Pressure 122/65 [Left Upper Arm ] Blood Pressure 135/73 113/72 [Right Upper Arm] O2 Sat by Pulse 94 L 94 L 95 Oximetry 06/26/20 06/26/20 06/26/20 04:00 07:54 12:00 Temperature [ 37.6 C 37.6 C 37.5 C Oral] Pulse, 68 86 94 Peripheral [ Pulse Oximetry] Respiratory 20 20 20 Rate Blood Pressure 143/93 H [Left Upper Arm ] Blood Pressure 120/77 [Right Upper Arm] O2 Sat by Pulse 90 L 90 L 95 Oximetry Weight - Most Recent: 151.636 kg I&O - Last 24 Hours: Intake & Output 06/26/20 06/26/20 06/26/20 06:59 14:59 22:59 Intake Total 200 630 Balance 200 630 Imaging Impressions - Last 24 Hours: monitoring coordinator shows atrial fibrillation with heart rate in the 90s to 100s with no ectopy or arrhythmia. Lab Results Last 24 Hours: Laboratory Results - last 24 hr 06/25/20 06/26/20 06/26/20 Range/Units 15:45 07:40 07:40 WBC 6.1 (4.0-10.2) K/uL RBC 4.95 (4.33-5.41) M/uL Hgb 13.4 (13.1-16.8) g/dL Hct 42.0 (39.0-49.0) % MCV 84.8 (84.0-98.0) fL MCH 27.1 L (28.2-33.3) pg MCHC 31.9 (31.7-36.0) g/dL RDW 16.5 H (11.2-14.1) % Plt Count 200 (150-350) K/uL Neut % (Auto) 57.1 (45.0-80.0) % Lymph % (Auto) 29.6 (10.0-50.0) % Mower % (Auto) 12.2 (2.0-14.0) % Eos % (Auto) 0.8 (0.0-5.0) % Baso % (Auto) 0.3 (0.0-2.0) % Neut # (Auto) 3.50 (1.40-7.00) K/uL Lymph # (Auto) 1.82 (0.50-3.50) K/uL Mower # (Auto) 0.75 (0.00-1.00) K/uL Eos # (Auto) 0.05 (0.00-0.50) K/uL Baso # (Auto) 0.02 (0.00-0.20) K/uL D-Dimer, Quantitative 908 H (0-400) ng/mL Sodium (136-145) mmol/L Potassium (3.5-5.1) mmol/L Chloride (98-107) mmol/L Carbon Dioxide (21.0-32.0) mmol/L BUN (7-18) mg/dL Creatinine (0.51-1.17) mg/dL Est Cr Clr Drug Dosing mL/min Estimated GFR (MDRD) mL/min Glucose (74-106) mg/dL Hemoglobin A1c (4.3-5.7) % Lactic Acid 1.0 (0.4-2.0) mmol/L Calcium (8.5-10.1) mg/dL Total Bilirubin (0.2-1.0) mg/dL AST (15-37) U/L ALT (12-78) U/L Alkaline Phosphatase (46-116) IU/L Creatine Kinase (26-308) U/L Creatine Kinase Index (0.0-2.5) % CK-MB (CK-2) (0.00-3.60) ng/mL Troponin I (0.000-0.056) ng/mL NT-Pro-B Natriuret Pep (0-125) pg/mL Total Protein (6.4-8.2) g/dL Albumin (3.4-5.0) g/dL 06/26/20 06/26/20 Range/Units 07:40 07:40 WBC (4.0-10.2) K/uL RBC (4.33-5.41) M/uL Hgb (13.1-16.8) g/dL Hct (39.0-49.0) % MCV (84.0-98.0) fL MCH (28.2-33.3) pg MCHC (31.7-36.0) g/dL RDW (11.2-14.1) % Plt Count (150-350) K/uL Neut % (Auto) (45.0-80.0) % Lymph % (Auto) (10.0-50.0) % Mower % (Auto) (2.0-14.0) % Eos % (Auto) (0.0-5.0) % Baso % (Auto) (0.0-2.0) % Neut # (Auto) (1.40-7.00) K/uL Lymph # (Auto) (0.50-3.50) K/uL Mower # (Auto) (0.00-1.00) K/uL Eos # (Auto) (0.00-0.50) K/uL Baso # (Auto) (0.00-0.20) K/uL D-Dimer, Quantitative (0-400) ng/mL Sodium 137 (136-145) mmol/L Potassium 3.8 (3.5-5.1) mmol/L Chloride 97 L (98-107) mmol/L Carbon Dioxide 30.2 (21.0-32.0) mmol/L BUN 24 H (7-18) mg/dL Creatinine 1.29 H (0.51-1.17) mg/dL Est Cr Clr Drug Dosing 50.96 mL/min Estimated GFR (MDRD) 54 mL/min Glucose 108 H (74-106) mg/dL Hemoglobin A1c 7.7 H (4.3-5.7) % Lactic Acid (0.4-2.0) mmol/L Calcium 8.8 (8.5-10.1) mg/dL Total Bilirubin 0.4 (0.2-1.0) mg/dL AST 25 (15-37) U/L ALT 25 (12-78) U/L Alkaline Phosphatase 115 (46-116) IU/L Creatine Kinase 36 (26-308) U/L Creatine Kinase Index 2.2 (0.0-2.5) % CK-MB (CK-2) 0.80 (0.00-3.60) ng/mL Troponin I 0.000 (0.000-0.056) ng/mL NT-Pro-B Natriuret Pep 1243 H (0-125) pg/mL Total Protein 7.8 (6.4-8.2) g/dL Albumin 3.2 L (3.4-5.0) g/dL Arik Results Last 24 Hours: Microbiology 06/25/20 12:15 Aerobic Blood Culture - Preliminary Blood - Venous NO GROWTH AFTER 1 DAY Anaerobic Blood Culture - Preliminary NO GROWTH AFTER 1 DAY 06/25/20 17:00 Stool Occult Blood (ARIK) - Final Stool / Feces NEGATIVE OCCULT BLOOD REFERENCE RANGE: NEGATIVE Med Orders - Current: Current Medications Acetaminophen (Tylenol Arthritis Pain) 650 mg PO TID [facility] Last Admin: 06/26/20 12:07 Dose: 650 mg Documented by: Acetaminophen (Tylenol) 650 mg PO Q4H PRN PRN Reason: Pain Albuterol (Ventolin Hfa) 0 gm INH Q2H PRN PRN Reason: Dyspnea Albuterol/Ipratropium (Combivent Respimat) 0 gm INH QID [facility] Last Admin: 06/26/20 12:08 Dose: 2 puff Documented by: Apixaban (Eliquis) 5 mg PO BID [facility] Last Admin: 06/26/20 07:58 Dose: 5 mg Documented by: Aspirin (Halfprin) 81 mg PO DAILY [facility] Last Admin: 06/26/20 07:59 Dose: 81 mg Documented by: Cyanocobalamin (Vitamin B12) 1,000 mcg PO DAILY [facility] Last Admin: 06/26/20 07:58 Dose: 1,000 mcg Documented by: Diltiazem HCl (Cardizem Cd) 180 mg PO DAILY [facility] Last Admin: 06/26/20 07:58 Dose: 180 mg Documented by: Doxycycline Monohydrate (Doxycycline Monohydrate) 100 mg PO Q12HR [facility] Last Admin: 06/26/20 07:58 Dose: 100 mg Documented by: Ferrous Sulfate (Ferrous Sulfate) 325 mg PO DAILY [facility] Last Admin: 06/26/20 07:57 Dose: 325 mg Documented by: Furosemide (Lasix) 40 mg IVPUSH Q8H [facility] Last Admin: 06/26/20 07:59 Dose: 40 mg Documented by: Gabapentin (Neurontin) 300 mg PO DAILY@16 PRN PRN Reason: RLS Gabapentin (Neurontin) 300 mg PO TID@08,,20 [facility] Last Admin: 06/26/20 12:07 Dose: 300 mg Documented by: Guaifenesin/Dextromethorphan (Mucinex Dm Er 600-30 Mg) 1 tab PO BID [facility] Last Admin: 06/26/20 07:57 Dose: 1 tab Documented by: Levofloxacin/Dextrose 500 mg/ (Premix) 100 mls @ 100 mls/hr IV Q24H [facility] Last Admin: 06/26/20 12:08 Dose: 100 mls/hr Documented by: Insulin Glargine (Lantus) 22 unit SUBCUT BEDTIME [facility] Last Admin: 06/25/20 21:15 Dose: 22 units Documented by: Magnesium Oxide (Magnesium Oxide) 400 mg PO DAILY [facility] Last Admin: 06/26/20 07:58 Dose: 400 mg Documented by: Metformin HCl (Glucophage) 1,000 mg PO BIDMEALS [facility] Last Admin: 06/26/20 07:57 Dose: 1,000 mg Documented by: Mometasone Furoate/Formoterol Fumar (Dulera 200-5 Mcg) 2 puff IH BID [facility] Last Admin: 06/26/20 08:00 Dose: 2 puff Documented by: Pantoprazole Sodium (Protonix) 40 mg PO DAILY [facility] Last Admin: 06/26/20 07:57 Dose: 40 mg Documented by: Potassium Chloride (Klor-Con M20) 20 meq PO TID [facility] Last Admin: 06/26/20 12:07 Dose: 20 meq Documented by: Ropinirole HCl (Requip) 1 mg PO DAILY PRN PRN Reason: restless legs Ropinirole HCl (Requip) 1 mg PO TID@0800,1600,2000 [facility] Last Admin: 06/26/20 07:59 Dose: 1 mg Documented by: Sertraline HCl (Zoloft) 125 mg PO QAM [facility] Last Admin: 06/26/20 07:59 Dose: 125 mg Documented by: Simvastatin (Zocor) 10 mg PO BEDTIME [facility] Last Admin: 06/25/20 21:11 Dose: 10 mg Documented by: Sodium Chloride (Saline Flush) 10 ml FLUSH Q12HR PRN PRN Reason: Keep Vein Open Last Admin: 06/26/20 07:59 Dose: 10 ml Documented by: Trazodone HCl (Trazodone) 50 mg PO BEDTIME [facility] Last Admin: 06/25/20 21:11 Dose: 50 mg Documented by: Triamcinolone Acetonide (Triamcinolone Acetonide 0.1% Crm) 1 gm TOP BID PRN PRN Reason: Itching Discontinued Medications Levofloxacin/Dextrose 500 mg/ (Premix) 100 mls @ 100 mls/hr IV ONETIME ONE Stop: 06/25/20 12:46 Last Admin: 06/25/20 12:15 Dose: 100 mls/hr Documented by: Ropinirole HCl (Requip) 1 mg PO BID@08,16,20 [facility] Last Admin: 06/25/20 16:11 Dose: 1 mg Documented by: - Exam Quality Assessment: DVT Prophylaxis. No: Supplemental Oxygen, Central Line/PICC, Urine Catheter, Skin Breakdown, Restraints General: Alert, Oriented, Cooperative, No Acute Distress HEENT: Pupils Equal, Pupils Reactive, EOMI, Mucous Membr. Moist/[place]. No: Scleral Icterus Neck: Supple, Carotid Bruit (Mild bilateral carotid bruits versus transmitted heart sounds). No: Trachea Midline, No JVD, No Thyromegaly, Lymphadenopathy Lungs: Normal Respiratory Effort, Rales (Mild bilateral basilar). No: Rhonchi, Rub, Stridor, Wheezing Cardiovascular: Regular Rate, Irregular Rhythm, Murmurs (Stable 1/6 ANDREW of the aortic and mitral valves). No: Gallops, Rubs GI/Abdominal Exam: Normal Bowel Sounds, Soft, Non-Tender, No Organomegaly, No Distention, No Abnormal Bruit, No Mass, Other (Obese). No: Guarding (Male) Exam: Deferred Back Exam: Normal Inspection, Full Range of Motion. No: CVA Tenderness (L), CVA Tenderness (R), Muscle Spasm Extremities: Normal Range of Motion, Non-Tender, Normal Capillary Refill, Pedal Edema (Somewhat improved trace bilateral pedal/pretibial edema with stable venous stasis dermatitis of the anterior tibial regions). No: Blas's Sign Peripheral Pulses: 2+: Radial (L), Radial (R), Dorsalis Pedis (L), Dorsalis Pedis (R) Skin: Warm, Dry, Intact Neurological: No New Focal Deficit Psy/Mental Status: Alert, Normal Affect, Normal Mood. No: Agitated, Hallucinations, Withdrawal Symptoms #1 Interpretation EKG Date: 06/26/20 Time: 07:45 Rhythm: A-Fib Rate (Beats/Min): 91 [place]: Normal (Neutral cardiac axis) P-Wave: Variable QRS: Normal (0.09 seconds) ST-T: Normal QT: Normal DC/PQ Interval: Variable. Poor R wave progression in the anterior leads. Comparison: No Change (Since last EKG on 06/25/2020) EKG Interpretation Comments: 1. No acute ischemic changes 2. Atrial fibrillation Sepsis Event Note - Evaluation Sepsis Screening Result: No Definite Risk - Focused Exam Vital Signs: Vital Signs Temp Pulse Resp BP BP Pulse Ox 06/26/20 12:00 37.5 C 94 20 95 06/26/20 07:54 37.6 C 86 20 143/93 H 90 L 06/26/20 04:00 37.6 C 68 20 120/77 90 L - Problem List & Annotations (1) COVID-19 SNOMED Code(s): 687021227 Code(s): U07.1 - COVID-19 Status: Acute Priority: High Current Visit: Yes Onset Date: 06/24/20 Annotation/Comment:: Patient completely nonsymptomatic and was referred to our emergency room secondary to multiple risk factors. Despite elevated lactic acid level and possible concomitant pneumonia the patient refused on several occasions to leave [place], however was finally convinced to be admitted. Unfortunately only one blood culture was collected prior to initiation of IV Levaquin therapy. Still unable to obtain sputum for culture and sensitivity. Per telephone consultation with his regular provider, STANLEY Becerra at the [facility], his influenza screen on 06/24 was negative. Secondary to lack of current O2 requirement the patient is not a candidate for dexamethasone, remdesivir, etc.. Patient feels much better on 06/26 and wants to go home tomorrow, however he is still febrile with further in patient care possibly being required secondary to his concomitant pneumonia and multiple risk factors. monotype keyboard operator physician assumes care in the a.m. (2) CHF, Congestive heart failure SNOMED Code(s): 08380516 Code(s): I50.9 - HEART FAILURE, UNSPECIFIED Status: Acute Priority: High Current Visit: Yes Onset Date: ~12/23/19 Annotation/Comment:: Note recurrent CHF with initiation of IV Lasix therapy shortly after admission. Note recent echocardiogram as above. No chest pain or anginal type symptoms on admission. Repeat EKG and cardiac enzymes in the a.m. Chest pain protocol not initiated in the emergency room secondary to absence of cardiac type symptoms. Note occasional issues with medication noncompliance as an outpatient. Patient is clinically improved. No significant CHF by chest x-ray on 06/25. (3) D-dimer, elevated SNOMED Code(s): 806867138 Code(s): R79.89 - OTHER SPECIFIED ABNORMAL FINDINGS OF BLOOD CHEMISTRY Status: Acute Priority: High Current Visit: Yes Onset Date: 12/13/19 Annotation/Comment:: Known history of chronic d-dimer elevation with negative workup in the past as above. Patient was previously on Coumadin and is apparently on Eliquis per [facility], although problems with medication noncompliance in the past. No direct clinical evidence of DVT or PE. (4) Lactic acid increased SNOMED Code(s): 33312194 Code(s): E87.2 - ACIDOSIS Status: Acute Priority: High Current Visit: Yes Onset Date: 12/30/19 Annotation/Comment:: Blood cultures obtained x1 as above. IV Levaquin initiated in the emergency room with additional oral doxycycline therapy secondary to his COVID-19 and possible concomitant pneumonia. Repeat lactic acid level in the p.m. on 06/25 was negative with no clinical evidence of sepsis. Patient will likely be discharged on Levaquin and doxycycline over the weekend with prescription already called to his pharmacy. Secondary to his CHF IV fluid bolus was not given for his lactic acid elevation. (5) Renal insufficiency SNOMED Code(s): 920023931, 453955903 Code(s): N28.9 - DISORDER OF KIDNEY AND URETER, UNSPECIFIED Status: Acute Priority: High Current Visit: Yes Annotation/Comment:: Continue to observe closely during this hospitalization secondary to IV Lasix therapy with additional concomitant hyperuricemia. (6) Anemia SNOMED Code(s): 130367111 Code(s): D64.9 - ANEMIA, UNSPECIFIED Status: Chronic Priority: Medium Current Visit: Yes Onset Date: ~12/14/19 Qualifiers: Anemia type: iron deficiency Iron deficiency anemia type: other iron deficiency Qualified Code(s): D50.8 - Other iron deficiency anemias Annotation/Comment:: Stable anemia secondary to his renal insufficiency, iron deficiency, and vitamin B12 deficiency. No evidence of GI bleed, etc. Observe for now. (7) Atrial fibrillation SNOMED Code(s): 76933621 Code(s): I48.91 - UNSPECIFIED ATRIAL FIBRILLATION Status: Chronic Priority: Medium Current Visit: Yes Qualifiers: Atrial fibrillation type: longstanding persistent Qualified Code(s): I48.11 - Longstanding persistent atrial fibrillation Annotation/Comment:: As above. (8) COPD (chronic obstructive pulmonary disease) SNOMED Code(s): 07375991 Code(s): J44.9 - CHRONIC OBSTRUCTIVE PULMONARY DISEASE, UNSPECIFIED Status: Chronic Priority: Medium Current Visit: Yes Qualifiers: COPD type: COPD with acute lower respiratory infection Qualified Code(s): J44.0 - Chronic obstructive pulmonary disease with (acute) lower respiratory infection Annotation/Comment:: No recent fever or bronchitic type symptoms. Secondary to COVID-19 patient will be changed to inhaler rather than nebulizer treatments while in the hospital to decrease hospital staff exposure. Note current negative pressure room. (9) Coronary artery disease SNOMED Code(s): 20587450 Code(s): I25.10 - ATHSCL HEART DISEASE OF [place] CORONARY ARTERY W/O ANG PCTRS Status: Chronic Priority: Medium Current Visit: Yes Qualifiers: Coronary Disease-Associated Artery/Lesion type: [place] artery [place] vs. transplanted heart: [place] heart Associated angina: without angina Qualified Code(s): I25.10 - Atherosclerotic heart disease of [place] coronary artery without angina pectoris Annotation/Comment:: As above. (10) IDDM (insulin dependent diabetes mellitus) SNOMED Code(s): 49540479 Code(s): IAB5951 - Status: Chronic Priority: Medium Current Visit: Yes Annotation/Comment:: Glycosylated hemoglobin on 06/26/2020 elevated at 7.7% with continued close observation by his regular providers. Note current obesity with weight loss in moderation advisable. (11) Mixed anxiety depressive disorder SNOMED Code(s): 722916390 Code(s): F41.8 - OTHER SPECIFIED ANXIETY DISORDERS Status: Chronic Priority: Medium Current Visit: Yes Annotation/Comment:: Stable by history. Patient denies alcohol abuse as above. No evidence of intoxication on admission with no history of DTs. (12) Hypoalbuminemia SNOMED Code(s): 292009898 Code(s): E88.09 - [facility] DISORDERS OF PLASMA-PROTEIN METABOLISM, NEC Status: Acute Priority: Medium Current Visit: Yes Onset Date: 12/13/19 An notation/Comment:: Observe for now. Consider high protein Glucerna supplements as snacks. Note current obesity. (13) Hypertension SNOMED Code(s): 99552885 Code(s): I10 - ESSENTIAL (PRIMARY) HYPERTENSION Status: Chronic Priority: Medium Current Visit: Yes Qualifiers: Hypertension type: essential hypertension Qualified Code(s): I10 - Essential (primary) hypertension Annotation/Comment:: Stable by history and under good control in the emergency room. (14) Hyperuricemia SNOMED Code(s): 15735540 Code(s): E79.0 - HYPERURICEMIA W/O SIGNS OF INFLAM ARTHRIT AND TOPHACEOUS DIS Status: Chronic Priority: Medium Current Visit: Yes Onset Date: ~12/23/19 Annotation/Comment:: As above. - Problem List Review Problem List Initiated/Reviewed/Updated: Yes - My Orders Last 24 Hours: My Active Orders 06/25/20 14:49 rOPINIRole [Requip] 1 mg PO DAILY PRN 06/25/20 14:53 Communication Order [RC] PER UNIT ROUTINE Height and Weight [RC] DAILY Intake and Output Strict [RC] 06,18 Oxygen Therapy [RC] .PRN Pulse Oximetry [RC] .PRN Up With Assistance [RC] ASDIRECTED Vital Signs [RC] Q4HR Sodium Chloride 0.9% [Saline Flush] 10 ml FLUSH Q12HR PRN Antiembolic Hose [OM.PC] Routine CHF Questionnaire [COMM] Routine DVT/VTE Prophylaxis Reflex [OM.PC] Routine GM Immunization Reflex [OM.PC] Click to Edit 06/25/20 14:54 Antiembolic Devices [RC] 08,20 Communication, Vaccine [RC] PER UNIT ROUTINE VTE/DVT Education [RC] PER UNIT ROUTINE Vaccines to be Administered [RC] PER UNIT ROUTINE 06/25/20 14:57 Communication Order [RC] PER UNIT ROUTINE 06/25/20 14:59 RT Post Treatment Assessment [RC] Click to Edit RT Pre-Treatment Assessment [RC] Click to Edit 06/25/20 15:00 Communication Order [RC] ROUTINE Acetaminophen [TylenoL] 650 mg PO Q4H PRN Albuterol [Ventolin HFA] See Dose Instructions INH Q2H PRN 06/25/20 15:01 Communication Order [RC] ROUTINE 06/25/20 15:10 CULTURE SPUTUM + SMEAR [RM] Routine 06/25/20 15:11 Isolation [COMM] Routine 06/25/20 15:42 Triamcinolone Acetonide [Triamcinolone Acetonide 0.1% Crm] 1 gm TOP BID PRN 06/25/20 16:00 Albuterol/Ipratropium [Combivent Respimat] See Dose Instructions INH QID Furosemide [Lasix] 40 mg IVPUSH Q8H Gabapentin [Neurontin] 300 mg PO DAILY@16 PRN 06/25/20 17:30 metFORMIN [Glucophage] 1,000 mg PO BIDMEALS 06/25/20 18:00 Acetaminophen [Tylenol Arthritis Pain] 650 mg PO TID Apixaban [Eliquis] 5 mg PO BID Dextromethorphan/guaiFENesin [Mucinex DM ER 600-30 MG] 1 tab PO BID Mometasone/Formoterol [Dulera 200-5 MCG] 2 puff IH BID Potassium Chloride [Klor-Con M20] 20 meq PO TID 06/25/20 20:00 Doxycycline Monohydrate 100 mg PO Q12HR Gabapentin [Neurontin] 300 mg PO TID@08,, Insulin Glarg,Human.Rec.Analog [LantUS] 22 unit SUBCUT BEDTIME Simvastatin [Zocor] 10 mg PO BEDTIME rOPINIRole [Requip] 1 mg PO TID@0800,1600,2000 traZODone 50 mg PO BEDTIME 06/26/20 05:11 EKG Documentation Completion [RC] ASDIRECTED 06/26/20 08:00 Aspirin [Halfprin] 81 mg PO DAILY Cyanocobalamin (Vitamin B12) [Vitamin B12] 1,000 mcg PO DAILY Diltiazem [Cardizem CD] 180 mg PO DAILY Ferrous Sulfate 325 mg PO DAILY Magnesium Oxide 400 mg PO DAILY Pantoprazole [ProTONIX] 40 mg PO DAILY Sertraline [Zoloft] 125 mg PO QAM 06/26/20 12:00 Levofloxacin/Dextrose 5%-Water [Levaquin in D5W 500 MG/100 ML] 500 mg Premix Bag 1 bag IV Q24H - Assessment Assessment:: As above - Plan Plan:: As above. Extensive precautions were given to the patient, who is in agreement with the treatment plan. The patient will require about 1-3 days of inpatien t/acute care secondary to multiple health problems as above. monotype keyboard operator physician assumes care in the a.m.
[2020-06-26] MEDS: Simvastatin 10 MG Tab PO SCH (20:58)
[2020-06-26] MEDS: traZODone 50 MG Tab PO SCH (20:58)
[2020-06-26] MEDS: Insulin Glarg,Human.Rec.Analog 100 Unit/ML SUBCUT SCH (21:00)
[2020-06-27] MEDS: Sodium Chloride 0.9% 10 ML Syringe FLUSH PRN ×3 (00:22→11:40)
[2020-06-27] MEDS: Furosemide 40 MG/4 ML VIAL IVPUSH SCH ×2 (00:23→07:44)
[2020-06-27] MEDS: Albuterol/Ipratropium 4 GM Inhalation Spray INH SCH ×2 (07:43→11:41)
[2020-06-27] MEDS: Dextromethorphan/guaiFENesin 600-30 MG Tab.ER PO SCH (07:44)
[2020-06-27] MEDS: Doxycycline Monohydrate 100 MG Cap PO SCH (07:44)
[2020-06-27] MEDS: Magnesium Oxide 400 MG Tab PO SCH (07:44)
[2020-06-27] MEDS: Sertraline 50 MG Tab PO SCH (07:45)
[2020-06-27] MEDS: Gabapentin 300 MG Cap PO SCH ×2 (07:45→11:40)
[2020-06-27] MEDS: rOPINIRole 1 MG Tab PO SCH (07:45)
[2020-06-27] MEDS: Diltiazem 180 MG Cap.CD PO SCH (07:45)
[2020-06-27] MEDS: Apixaban 5 MG Tab PO SCH (07:46)
[2020-06-27] MEDS: Pantoprazole 40 MG Tab.CR PO SCH (07:46)
[2020-06-27] MEDS: Potassium Chloride 20 MEQ Tab.ER PO SCH ×2 (07:46→11:40)
[2020-06-27] MEDS: Aspirin 81 MG Tab.EC PO SCH (07:46)
[2020-06-27] MEDS: Ferrous Sulfate 325 MG Tab PO SCH (07:46)
[2020-06-27] MEDS: metFORMIN 500 MG Tab PO SCH (07:46)
[2020-06-27] MEDS: Cyanocobalamin (Vitamin B12) 1,000 MCG Tab PO SCH (07:46)
[2020-06-27] MEDS: Acetaminophen 650 MG Tab.ER PO SCH ×2 (07:47→11:40)
[2020-06-27] MEDS: Formoterol/Mometasone 200-5 MCG 8.8 GM Inhaler IH SCH (07:49)
[2020-06-27] MEDS: Levofloxacin/Dextrose 5%-Water 500 MG in Premix Bag 1 BAG IV SCH (11:39)
[2020-06-27 11:53] VITALS: BP 114/71; PULSE 88
--- NOTE | 2020-06-27 16:45 | PCM.DCSUM1 ---
Discharge Summary - Hospital Course Brief History: Admitted to hospital for further evaluation and treatment of shortness of breath related to recent Covid 19 infection. Diagnosis: Stroke: No - Discharge Data Discharge Date: 06/27/20 Discharge Disposition: Home, Self-Care 01 Condition: Good - Referral to Home Health Primary Care Physician: Kleley Nagel NP - Discharge Diagnosis/Problem(s) (1) COVID-19 SNOMED Code(s): 466764817 ICD Code: U07.1 - COVID-19 Status: Acute Priority: High Onset Date: 06/24/20 Problem Details: Patient completely nonsymptomatic and was referred to our emergency room secondary to multiple risk factors. Despite elevated lactic acid level and possible concomitant pneumonia the patient refused on several occasions to be admitted and wanted to leave [place], however was finally convinced to be admitted. Unfortunately only one blood culture was collected prior to initiation of IV Levaquin therapy. Unable to obtain sputum for culture and sensitivity. Per telephone consultation with his regular provider, STANLEY Becerra at the [facility], his influenza screen on 06/24 was negative. Secondary to lack of current O2 requirement the patient is not a candidate for dexamethasone, remdesivir, etc.. Patient feels much better on 06/27 and wants to go home. Will be continued on oral antibiotics. (2) D-dimer, elevated SNOMED Code(s): 497375444 ICD Code: R79.89 - OTHER SPECIFIED ABNORMAL FINDINGS OF BLOOD CHEMISTRY Status: Acute Priority: High Onset Date: 12/13/19 Problem Details: Known history of chronic d-dimer elevation with negative workup in the past as above. Patient was previously on Coumadin and is apparently on Eliquis per [place] EMR, although problems with medication noncompliance in the past. No direct clinical evidence of DVT or PE. (3) Lactic acid increased SNOMED Code(s): 86825127 ICD Code: E87.2 - ACIDOSIS Status: Acute Priority: High Onset Date: 12/30/19 Problem Details: Blood cultures obtained x1 as above and negative. IV Levaquin initiated in the emergency room with additional oral doxycycline therapy secondary to his COVID-19 and possible concomitant pneumonia. Repeat lactic acid level in the p.m. on 06/25 was negative with no clinical evidence of sepsis. Patient will be discharged on Levaquin and doxycycline over the weekend with prescription already called to his pharmacy. Secondary to his CHF IV fluid bolus was not given for his lactic acid elevation. (4) CHF, Congestive heart failure SNOMED Code(s): 07208512 ICD Code: I50.9 - HEART FAILURE, UNSPECIFIED Status: Chronic Priority: High Onset Date: ~12/23/19 Problem Details: Note recurrent CHF with initiation of IV Lasix therapy shortly after admission. Note recent echocardiogram as above. No chest pain or anginal type symptoms on admission. Chest pain protocol not initiated in the emergency room secondary to absence of cardiac type symptoms. Note occasional issues with medication noncompliance as an outpatient. Patient is clinically improved. No significant CHF by chest x- ray on 06/25. (5) Hypoalbuminemia SNOMED Code(s): 323686120 ICD Code: E88.09 - OTH DISORDERS OF PLASMA-PROTEIN METABOLISM, NEC Status: Chronic Priority: Medium Onset Date: 12/13/19 Problem Details: Follow up with PCP (6) Renal insufficiency SNOMED Code(s): 386160408, 082900418 ICD Code: N28.9 - DISORDER OF KIDNEY AND URETER, UNSPECIFIED Status: Chronic Priority: High Problem Details: Overall stable during hospitalization (7) Anemia SNOMED Code(s): 803673385 ICD Code: D64.9 - ANEMIA, UNSPECIFIED Status: Chronic Priority: Medium Onset Date: ~12/14/19 Problem Details: Stable anemia secondary to his renal insufficiency, iron deficiency, and vitamin B12 deficiency. No evidence of GI bleed, etc. Observe for now. Qualifiers: Anemia type: iron deficiency Iron deficiency anemia type: other iron deficiency Qualified Code(s): D50.8 - Other iron deficiency anemias (8) Atrial fibrillation SNOMED Code(s): 39387906 ICD Code: I48.91 - UNSPECIFIED ATRIAL FIBRILLATION Status: Chronic Priority: Medium Problem Details: As above. Qualifiers: Atrial fibrillation type: longstanding persistent Qualified Code(s): I48.11 - Longstanding persistent atrial fibrillation (9) COPD (chronic obstructive pulmonary disease) SNOMED Code(s): 20481007 ICD Code: J44.9 - CHRONIC OBSTRUCTIVE PULMONARY DISEASE, UNSPECIFIED Status: Chronic Priority: Medium Problem Details: No recent fever or bronchitic type symptoms. Secondary to COVID-19 patient changed to inhaler rather than nebulizer treatments while in the hospital to decrease hospital staff exposure. Note current negative pressure room. Qualifiers: COPD type: COPD with acute lower respiratory infection Qualified Code(s): J44.0 - Chronic obstructive pulmonary disease with (acute) lower respiratory infection (10) Coronary artery disease SNOMED Code(s): 86549231 ICD Code: I25.10 - ATHSCL HEART DISEASE OF [place] CORONARY ARTERY W/O ANG PCTRS Status: Chronic Priority: Medium Problem Details: As above. Qualifiers: Coronary Disease-Associated Artery/Lesion type: [place] artery [place] vs. transplanted heart: [place] heart Associated angina: without angina Qualified Code(s): I25.10 - Atherosclerotic heart disease of [place] coronary artery without angina pectoris (11) Hypertension SNOMED Code(s): 88067003 ICD Code: I10 - ESSENTIAL (PRIMARY) HYPERTENSION Status: Chronic Priority: Medium Problem Details: Stable by history and under good control in the emergency room. Qualifiers: Hypertension type: essential hypertension Qualified Code(s): I10 - Essential (primary) hypertension (12) Hyperuricemia SNOMED Code(s): 62094485 ICD Code: E79.0 - HYPERURICEMIA W/O SIGNS OF INFLAM ARTHRIT AND TOPHACEOUS DIS Status: Chronic Priority: Medium Onset Date: ~12/23/19 Problem Details: As above. (13) IDDM (insulin dependent diabetes mellitus) SNOMED Code(s): 82050351 ICD Code: [id number] - Status: Chronic Priority: Medium Problem Details: Glycosylated hemoglobin on 06/26/2020 elevated at 7.7% with continued close observation by his regular providers. Note current obesity with weight loss in moderation advisable. (14) Mixed anxiety depressive disorder SNOMED Code(s): 827238961 ICD Code: F41.8 - OTHER SPECIFIED ANXIETY DISORDERS Status: Chronic Priority: Medium Problem Details: Stable by history. Patient denies alcohol abuse as above. No evidence of intoxication on admission with no history of DTs. - Patient Summary/Data Hospital Course: Patient admitted and started on IV antibiotic. No noted O2 requirement. Vital signs remained stable. No significant fevers noted. He reports that he feels like his usual self today and wants discharged from hospital. Given how well he has been doing he can be discharged today with close follow up by PCP next week. Precautions reviewed prior to discharge. To continue oral antibiotics. Follow up as needed if any worsening noted. - Patient Instructions Diet: Usual Diet as Tolerated Activity: Apply Ice Driving: May Drive Today Showering/Bathing: May Shower Notify Provider of: Fever, Increased Pain - Discharge Plan *PRESCRIPTION DRUG MONITORING PROGRAM REVIEWED*: Not Applicable *COPY OF PRESCRIPTION DRUG MONITORING REPORT IN PATIENT JOSE: Not Applicable Prescriptions/Med Rec: levoFLOXacin [Levaquin] 500 mg PO DAILY 7 Days tab Doxycycline [Vibra-Tabs] 100 mg PO Q12HR 10 Days tab Home Medications: Home Meds Budesonide/Formoterol [Symbicort 160-4.5 MCG] 2 puff INH BID 07/21/16 [History] Calcium Carbonate/Vitamin D3 [Calcium 600 + Vit D Tablet] 1 tab PO QAM 07/21/16 [History] Cholecalciferol (Vitamin D3) [Vitamin D3] 1,000 unit PO QAM 07/21/16 [History] Multivitamins [Tab-A-Juan] 1 tab PO DAILY 07/21/16 [History] Sertraline [Zoloft] 100 mg PO QAM 07/21/16 [History] metFORMIN HCl [Metformin HCl] 1,000 mg PO BIDMEALS 07/21/16 [History] rOPINIRole [Requip] 1 mg PO DAILY PRN 07/21/16 [History] rOPINIRole [Requip] 1 tab PO TID@,,07/21/16 [History] Cyanocobalamin (Vitamin B-12) [Vitamin B-12] 1,000 mcg PO DAILY 12/13/19 [History] Gabapentin [Neurontin] 300 mg PO DAILY@16 PRN 12/13/19 [History] Gabapentin [Neurontin] 300 mg PO TID@,,12/13/19 [History] Insulin Detemir [Levemir] 22 unit SUBCUT BEDTIME 12/13/19 [History] Triamcinolone Acetonide [Kenalog 0.1% Crm] 1 applic TOP BID PRN 12/13/19 [History] Lovastatin [Mevacor] 20 mg PO BEDTIME #30 tablet 12/17/19 [Rx] Magnesium Oxide 400 mg PO DAILY #30 tablet 12/17/19 [Rx] Furosemide [Lasix] 60 mg PO BID 12/30/19 [History] dilTIAZem HCL [Cartia Xt] 180 mg PO DAILY 12/30/19 [History] Albuterol/Ipratropium [DuoNeb 3.0-0.5 MG/3 ML] 3 ml NEB QID PRN 01/09/20 [History] Ferrous Sulfate 325 mg PO DAILY 01/09/20 [History] Pantoprazole Sodium [Protonix] 40 mg PO DAILY 01/09/20 [History] Potassium Chloride 10 meq PO DAILY 01/09/20 [History] Sildenafil [Viagra] 100 mg PO ASDIRECTED PRN 01/09/20 [History] Acetaminophen [Tylenol Arthritis] 650 mg PO TID 06/25/20 [History] Apixaban [Eliquis] 5 mg PO BID 06/25/20 [History] Aspirin [Aspirin EC] 81 mg PO DAILY 06/25/20 [History] Sertraline [Zoloft] 25 mg PO DAILY 06/25/20 [History] traZODone HCl [Trazodone HCl] 50 mg PO BEDTIME 06/25/20 [History] Doxycycline [Vibra-Tabs] 100 mg PO Q12HR 10 Days tab 06/27/20 [Rx] levoFLOXacin [Levaquin] 500 mg PO DAILY 7 Days tab 06/27/20 [Rx] Forms: ED Department Discharge Referrals: Kelley Nagel NP [Primary Care Provider] - - Discharge Summary/Plan Comment DC Time >30 min.: No - General Info Date of Service: 06/27/20 Admission Dx/Problem (Free Text: 1. COVID-19 2. Bilateral pneumonia 3. CHF 4. COPD Subjective Update: feels back to baseline usual self today Functional Status: Reports: Pain Controlled, Tolerating Diet, Ambulating, Urinating. Denies: New Symptoms - Review of Systems General: Reports: No Symptoms HEENT: Denies: Dysphasia, Headaches, Sinus Congestion, Sore Throat, Rhinitis, Visual Changes Pulmonary: Reports: Cough (improved). Denies: Shortness of Breath, Pleuritic Chest Pain, Sputum, Hemoptysis, Wheezing Cardiovascular: Reports: No Symptoms, Chest Pain Gastrointestinal: Reports: No Symptoms Genitourinary: Reports: No Symptoms Musculoskeletal: Reports: Other (no acute changes from baseline) Skin: Reports: No Symptoms Neurological: Reports: No Symptoms Psychiatric: Reports: No Symptoms - Patient Data Vitals - Most Recent: Last Vital Signs Temp 36.2 C 06/27/20 11:51 Pulse 88 06/27/20 11:51 Resp 18 06/27/20 11:51 BP 114/71 06/27/20 11:51 Pulse Ox 94 L 06/27/20 11:51 Weight - Most Recent: 150.457 kg I&O - Last 24 hours: Intake & Output 06/27/20 06/27/20 06/27/20 06:59 14:59 22:59 Intake Total 680 Balance 680 Lab Results - Last 24 hrs: Laboratory Results - last 24 hr 06/27/20 06/27/20 06/27/20 Range/Units 06:50 06:50 06:50 WBC 5.4 (4.0-10.2) K/uL RBC 4.60 (4.33-5.41) M/uL Hgb 12.4 L (13.1-16.8) g/dL Hct 39.2 (39.0-49.0) % MCV 85.2 (84.0-98.0) fL MCH 27.0 L (28.2-33.3) pg MCHC 31.6 L (31.7-36.0) g/dL RDW 16.3 H (11.2-14.1) % Plt Count 165 (150-350) K/uL Neut % (Auto) 58.6 (45.0-80.0) % Lymph % (Auto) 26.6 (10.0-50.0) % [place] % (Auto) 13.7 (2.0-14.0) % Eos % (Auto) 0.9 (0.0-5.0) % Baso % (Auto) 0.2 (0.0-2.0) % Neut # (Auto) 3.17 (1.40-7.00) K/uL Lymph # (Auto) 1.44 (0.50-3.50) K/uL [place] # (Auto) 0.74 (0.00-1.00) K/uL Eos # (Auto) 0.05 (0.00-0.50) K/uL Baso # (Auto) 0.01 (0.00-0.20) K/uL D-Dimer, Quantitative 800 H (0-400) ng/mL Sodium 138 (136-145) mmol/L Potassium 4.0 (3.5-5.1) mmol/L Chloride 99 (98-107) mmol/L Carbon Dioxide 28.1 (21.0-32.0) mmol/L BUN 29 H (7-18) mg/dL Creatinine 1.27 H (0.51-1.17) mg/dL Est Cr Clr Drug Dosing 51.84 mL/min Estimated GFR (MDRD) 55 mL/min Glucose 100 (74-106) mg/dL Uric Acid 11.8 H (2.6-7.2) mg/dL Calcium 8.5 (8.5-10.1) mg/dL Troponin I 0.000 (0.000-0.056) ng/mL NT-Pro-B Natriuret Pep 948 H (0-125) pg/mL DION Results - Last 24 hrs: Microbiology 06/25/20 12:15 Aerobic Blood Culture - Preliminary Blood - Venous NO GROWTH AFTER 2 DAYS Anaerobic Blood Culture - Preliminary NO GROWTH AFTER 2 DAYS Med Orders - Current: Current Medications Discontinued Medications Acetaminophen (Tylenol Arthritis Pain) 650 mg PO TID [facility] Last Admin: 06/27/20 11:40 Dose: 650 mg Documented by: Acetaminophen (Tylenol) 650 mg PO Q4H PRN PRN Reason: Pain Albuterol (Ventolin Hfa) 0 gm INH Q2H PRN PRN Reason: Dyspnea Albuterol/Ipratropium (Combivent Respimat) 0 gm INH QID [facility] Last Admin: 06/27/20 11:41 Dose: 2 puff Documented by: Apixaban (Eliquis) 5 mg PO BID [facility] Last Admin: 06/27/20 07:46 Dose: 5 mg Documented by: Aspirin (Halfprin) 81 mg PO DAILY [facility] Last Admin: 06/27/20 07:46 Dose: 81 mg Documented by: Cyanocobalamin (Vitamin B12) 1,000 mcg PO DAILY [facility] Last Admin: 06/27/20 07:46 Dose: 1,000 mcg Documented by: Diltiazem HCl (Cardizem Cd) 180 mg PO DAILY [facility] Last Admin: 06/27/20 07:45 Dose: 180 mg Documented by: Doxycycline Monohydrate (Doxycycline Monohydrate) 100 mg PO Q12HR [facility] Last Admin: 06/27/20 07:44 Dose: 100 mg Documented by: Ferrous Sulfate (Ferrous Sulfate) 325 mg PO DAILY [facility] Last Admin: 06/27/20 07:46 Dose: 325 mg Documented by: Furosemide (Lasix) 40 mg IVPUSH Q8H [facility] Last Admin: 06/27/20 07:44 Dose: 40 mg Documented by: Gabapentin (Neurontin) 300 mg PO DAILY@16 PRN PRN Reason: RLS Gabapentin (Neurontin) 300 mg PO TID@08,12,20 [facility] Last Admin: 06/27/20 11:40 Dose: 300 mg Documented by: Guaifenesin/Dextromethorphan (Mucinex Dm Er 600-30 Mg) 1 tab PO BID [facility] Last Admin: 06/27/20 07:44 Dose: 1 tab Documented by: Levofloxacin/Dextrose 500 mg/ (Premix) 100 mls @ 100 mls/hr IV ONETIME ONE Stop: 06/25/20 12:46 Last Admin: 06/25/20 12:15 Dose: 100 mls/hr Documented by: Levofloxacin/Dextrose 500 mg/ (Premix) 100 mls @ 100 mls/hr IV Q24H [facility] Last Admin: 06/27/20 11:39 Dose: 100 mls/hr Documented by: Insulin Glargine (Lantus) 22 unit SUBCUT BEDTIME [facility] Last Admin: 06/26/20 21:00 Dose: 22 units Documented by: Magnesium Oxide (Magnesium Oxide) 400 mg PO DAILY [facility] Last Admin: 06/27/20 07:44 Dose: 400 mg Documented by: Metformin HCl (Glucophage) 1,000 mg PO BIDMEALS [facility] Last Admin: 06/27/20 07:46 Dose: 1,000 mg Documented by: Mometasone Furoate/Formoterol Fumar (Dulera 200-5 Mcg) 2 puff IH BID [facility] Last Admin: 06/27/20 07:49 Dose: 2 puff Documented by: Pantoprazole Sodium (Protonix) 40 mg PO DAILY [facility] Last Admin: 06/27/20 07:46 Dose: 40 mg Documented by: Potassium Chloride (Klor-Con M20) 20 meq PO TID [facility] Last Admin: 06/27/20 11:40 Dose: 20 meq Documented by: Ropinirole HCl (Requip) 1 mg PO DAILY PRN PRN Reason: restless legs Ropinirole HCl (Requip) 1 mg PO BID@08,16,20 [facility] Last Admin: 06/25/20 16:11 Dose: 1 mg Documented by: Ropinirole HCl (Requip) 1 mg PO TID@0800,1600,2000 [facility] Last Admin: 06/27/20 07:45 Dose: 1 mg Documented by: Sertraline HCl (Zoloft) 125 mg PO QAM [facility] Last Admin: 06/27/20 07:45 Dose: 125 mg Documented by: Simvastatin (Zocor) 10 mg PO BEDTIME [facility] Last Admin: 06/26/20 20:58 Dose: 10 mg Documented by: Sodium Chloride (Saline Flush) 10 ml FLUSH Q12HR PRN PRN Reason: Keep Vein Open Last Admin: 06/27/20 11:40 Dose: 10 ml Documented by: Trazodone HCl (Trazodone) 50 mg PO BEDTIME [facility] Last Admin: 06/26/20 20:58 Dose: 50 mg Documented by: Triamcinolone Acetonide (Triamcinolone Acetonide 0.1% Crm) 1 gm TOP BID PRN PRN Reason: Itching - Exam General: Reports: Alert, Oriented, Cooperative, No Acute Distress HEENT: Reports: Pupils Equal, Pupils Reactive, EOMI, Mucous Membr. Moist/[place] Neck: Reports: Supple Lungs: Reports: Clear to Auscultation, Normal Respiratory Effort Cardiovascular: Reports: Irregular Rhythm GI/Abdominal Exam: Normal Bowel Sounds, Soft, Non-Tender, No Distention (Male) Exam: Deferred Rectal (Males) Exam: Deferred Back Exam: Reports: Normal Inspection Extremities: Non-Tender, Normal Capillary Refill Skin: Reports: Warm, Dry Neurological: Reports: No New Focal Deficit Psy/Mental Status: Reports: Alert, Normal Affect, Normal Mood
== END 2020-06-27 15:10 | disposition home or self-care (01) | DRG 177 ==
LOC: LL.ED 10:05 → LL.MS 14:34 → UNDOADMIN 14:34 → LL.MS 14:43
PROVIDERS: ADMIT Family Medicine; ATTEND Family Medicine
PROC: 8E0ZXY6 Isolation (ICD-10-PCS; principal; 2020-06-25)
DX: U07.1 COVID-19 (principal); J18.9 Pneumonia, unspecified organism; E87.2 Acidosis; I48.11 Longstanding persistent atrial fibrillation; J44.0 Chronic obstructive pulmonary disease with (acute) lower respiratory infection; I42.9 Cardiomyopathy, unspecified; D64.9 Anemia, unspecified; I13.0 Hypertensive heart and chronic kidney disease with heart failure and stage 1 through stage 4 chronic kidney disease, or unspecified chronic kidney disease; R79.89 Other specified abnormal findings of blood chemistry; I50.9 Heart failure, unspecified; E11.9 Type 2 diabetes mellitus without complications; E88.09 Other disorders of plasma-protein metabolism, not elsewhere classified; N28.9 Disorder of kidney and ureter, unspecified; D50.8 Other iron deficiency anemias; I25.10 Atherosclerotic heart disease of native coronary artery without angina pectoris; E79.0 Hyperuricemia without signs of inflammatory arthritis and tophaceous disease; F41.8 Other specified anxiety disorders; Z79.899 Other long term (current) drug therapy; Z79.82 Long term (current) use of aspirin; F09 Unspecified mental disorder due to known physiological condition; Z88.1 Allergy status to other antibiotic agents; Z88.0 Allergy status to penicillin; Z88.8 Allergy status to other drugs, medicaments and biological substances; Z79.4 Long term (current) use of insulin; H91.90 Unspecified hearing loss, unspecified ear; H54.7 Unspecified visual loss; H91.13 Presbycusis, bilateral; E78.00 Pure hypercholesterolemia, unspecified; I11.0 Hypertensive heart disease with heart failure; I25.2 Old myocardial infarction; I27.20 Pulmonary hypertension, unspecified; Z95.0 Presence of cardiac pacemaker; G47.30 Sleep apnea, unspecified; J84.10 Pulmonary fibrosis, unspecified; Z87.01 Personal history of pneumonia (recurrent); Z99.81 Dependence on supplemental oxygen; K57.90 Diverticulosis of intestine, part unspecified, without perforation or abscess without bleeding; Z86.010 Personal history of colon polyps; K21.9 Gastro-esophageal reflux disease without esophagitis; K44.9 Diaphragmatic hernia without obstruction or gangrene; K29.70 Gastritis, unspecified, without bleeding; E11.21 Type 2 diabetes mellitus with diabetic nephropathy; N18.9 Chronic kidney disease, unspecified; N40.1 Benign prostatic hyperplasia with lower urinary tract symptoms; N39.498 Other specified urinary incontinence; G89.29 Other chronic pain; M54.9 Dorsalgia, unspecified; M54.2 Cervicalgia; M81.0 Age-related osteoporosis without current pathological fracture; E11.42 Type 2 diabetes mellitus with diabetic polyneuropathy; G25.81 Restless legs syndrome; F41.9 Anxiety disorder, unspecified; F03.90 Unspecified dementia, unspecified severity, without behavioral disturbance, psychotic disturbance, mood disturbance, and anxiety; F32.9 Major depressive disorder, single episode, unspecified; G47.00 Insomnia, unspecified; D50.9 Iron deficiency anemia, unspecified; E87.5 Hyperkalemia; Z85.820 Personal history of malignant melanoma of skin; Z96.653 Presence of artificial knee joint, bilateral; Z98.890 Other specified postprocedural states; Z98.52 Vasectomy status; Z87.891 Personal history of nicotine dependence
CPT/HCPCS: 36415; 71045; 80048; 80053; 82272; 82550; 82553; 83036; 83605; 83735; 83880; 84443; 84484; 84550; 85025; 85379; 85610; 85730; 87040; 93005; 94640; 96365; 99285-25; A9270-GY; J1815-GY; J1940; J1956

== ENCOUNTER 2021-03-24 17:30 | Emergency (ER) | payer MEDICARE, BC ==
[2021-03-24 17:44] VITALS: BP 144/70; PULSE 102
--- NOTE | 2021-03-24 18:37 | EDM.PDOC ---
ED HPI GENERAL MEDICAL PROBLEM - General Chief Complaint: Upper Extremity Injury/Pain Stated Complaint: bleeding incision from recent lt shoulder surgery Time Seen by Provider: 03/24/21 17:54 Source of Information: Reports: Patient, Family History Limitations: Reports: No Limitations - History of Present Illness INITIAL COMMENTS - FREE TEXT/NARRATIVE: Patient had left sided shoulder surgery Monday, two days ago. Started to have a large amount of bleeding from incision site today. No increased pain. No fever. Is on a baby ASA daily. Did not try to contact surgeon about this. Had surgery performed at [facility] by independent Ortho, Dr.Philip Marte. - Related Data Allergies Allergy/AdvReac Type Severity Reaction Status Date / Time atorvastatin [From Lipitor] Allergy UNKNOWN Verified 03/24/21 17:45 clindamycin Allergy UNKNOWN Verified 03/24/21 17:45 lisinopril Allergy Cough Verified 03/24/21 17:45 Penicillins Allergy UNKNOWN Verified 03/24/21 17:45 rosuvastatin [From Crestor] Allergy unknown Verified 03/24/21 17:45 valsartan [From Diovan] Allergy UNKNOWN Verified 03/24/21 17:45 Home Meds: Home Meds Budesonide/Formoterol [Symbicort 160-4.5 MCG] 2 puff INH BID 07/21/16 [History] Multivitamins [Tab-A-Juan] 1 tab PO DAILY 07/21/16 [History] Sertraline [Zoloft] 100 mg PO QAM 07/21/16 [History] metFORMIN HCl [Metformin HCl] 1,000 mg PO BIDMEALS 07/21/16 [History] rOPINIRole [Requip] 1 mg PO DAILY PRN 07/21/16 [History] rOPINIRole [Requip] 1 tab PO TID@,,07/21/16 [History] Cyanocobalamin (Vitamin B-12) [Vitamin B-12] 1,000 mcg PO DAILY 12/13/19 [History] Gabapentin [Neurontin] 300 mg PO TID@,,12/13/19 [History] Insulin Detemir [Levemir] 22 unit SUBCUT BEDTIME 12/13/19 [History] Triamcinolone Acetonide [Kenalog 0.1% Crm] 1 applic TOP BID PRN 12/13/19 [History] Lovastatin [Mevacor] 20 mg PO BEDTIME #30 tablet 12/17/19 [Rx] Furosemide [Lasix] 60 mg PO BID 12/30/19 [History] dilTIAZem HCL [Cartia Xt] 180 mg PO DAILY 12/30/19 [History] Albuterol/Ipratropium [DuoNeb 3.0-0.5 MG/3 ML] 3 ml NEB QID PRN 01/09/20 [History] Ferrous Sulfate 325 mg PO DAILY 01/09/20 [History] Pantoprazole Sodium [Protonix] 40 mg PO DAILY 01/09/20 [History] Potassium Chloride 10 meq PO BID 01/09/20 [History] Sildenafil [Viagra] 100 mg PO ASDIRECTED PRN 01/09/20 [History] Aspirin [Aspirin EC] 81 mg PO DAILY 06/25/20 [History] Sertraline [Zoloft] 25 mg PO DAILY 06/25/20 [History] ALPRAZolam [Xanax] 0.25 mg PO Q12HR PRN 03/24/21 [History] Docusate Sodium/Sennosides [Senokot-S] 1 each PO BID 03/24/21 [History] oxyCODONE 5 - 10 mg PO Q4H PRN 03/24/21 [History] traZODone HCl [Trazodone HCl] 100 mg PO BEDTIME 03/24/21 [History] Past Medical History HEENT History: Reports: Cataract, Hard of Hearing, Impaired Vision, Other (See Below) Other HEENT History: He wears glasses. No surgeries for his cataracts to this point. No history of diabetic retinopathy. Mild bilateral presbycusis with no current therapy. Cardiovascular History: Reports: Afib, Aneurysm, Arrhythmia, CAD, Cardi omyopathy, Heart Failure, Heart Murmur, High Cholesterol, Hypertension, DC, Pulmonary Hypertension, Other (See Below) Other Cardiovascular History: Large pericardial effusion on 12/31/2019 with cardiac tamponade requiring procedure as below. Previous junctional bradycardia secondary to medications on 12/23/19 with chronic atrial fibrillation and required pacemaker placement as below. History of possible small inferior wall DC, which was not known by the patient, per Cardiolite scan on 09/22/19 with evidence of reversible inferior wall cardiac ischemia and small reversible anterior wall reversible ischemia. Moderate left atrial enlargement, mild to moderate mitral valve insufficiency and mitral valve stenosis with diastolic dysfunction by echocardiograms as below. Recurrent CHF with secondary hypoxia although overall good systolic ejection fraction by echocardiogram as below. Recurrent atrial fibrillation/flutter with rapid ventricular response, including previous 3:1 AND 4:1 AV block. Small abdominal aortic aneurysm by CT scan of the abdomen and pelvis on 11/10/19. Chronic D-dimer elevation on 12/13/19 with negative workup as below. Respiratory History: Reports: Bronchitis, Recurrent, COPD, Intubation, Previous, Pneumonia, Recurrent, Pulmonary Fibrosis, Sleep Apnea, SOB, Other (See Below) Other Respiratory History: O2 dependent COPD with previous history of oxygen noncompliance, however no oxygen is required when his CHF is under good control. Patient is compliant with his CPAP. Multiple bilateral pulmonary nodules, including 9 millimeter lesion in the right middle lobe with additional 1.5 cm right-sided paratracheal lymphadenopathy by CT scan on 11/10/19. History of respiratory failure. Gastrointestinal History: Reports: Colon Polyp, Diverticulosis, Gastritis, GERD, Hiatal Hernia, Other (See Below) Other Gastrointestinal History: History of recurrent colonic polyps including hyperplastic colonic polyp removed from the proximal ascending colon and 2 tubular adenomas removed from the rectal region on 07/21/16. Genitourinary History: Reports: Acute Renal Failure, BPH, Chronic Renal Insuffiency, Diabetic Nephropathy, Prostate Disorder, Other (See Below) Other Genitourinary History: Bilateral complex renal cysts by CT scan on 11/10/19 with patient apparently refusing biopsies. Musculoskeletal History: Reports: Arthritis, Back Pain, Chronic, Fracture, Gout, Neck Pain, Chronic, Osteoarthritis, Osteoporosis, Other (See Below) Other Musculoskeletal History: C7 cervical fracture requiring surgery as below. Multiple possible bilateral rib fractures secondary to football injuries, etc. as a teenager and in his 20s. 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 Restless leg syndrome; bIlateral carpal tunnel syndrome? Psychiatric History: Reports: Addiction, Anxiety, Dementia, Depression, Other (See Below) Other Psychiatric History: Insomnia and claustrophobia. Per medical records history of previous alcohol abuse, which the patient adamantly denies. 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 Endocrine/Metabolic History: Reports: Diabetes, Type II, Hypomagnesemia, IDDM, Obesity/BMI 30+, Osteopenia, Osteoporosis, Other (See Below) Other Endocrine/Metabolic History: Hyperkalemia. 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 Dermatologic History: Reports: Venous Stasis Dermatitis - Infectious Disease History Infectious Disease History: Reports: Chicken Pox, Measles, Mumps, Novel Coronavirus - Past Surgical History Head Surgeries/Procedures: Reports: None HEENT Surgical History: Reports: Oral Surgery, Other (See Below) Other HEENT Surgeries/Procedures: Initial excision of large right auricular melanoma on 09/28/05, including superficial parotidectomy, with subsequent reexcision/biopsy on 10/26/05 with no evidence of recurrence. Multiple teeth extractions with partial lowers. Cardiovascular Surgical History: Reports: Cardiac Ablation, Other (See Below) Other Cardiovascular Surgeries/Procedures: Aspiration of large pericardial effusion on 12/31/2019. Watchman left atrial appendage closure placement on 06/11/2020. Briefly successful cardiac ablation for atrial flutter on 11/14/19 in [place] with previous electrocardioversion at [facility] on 05/23/18. Respiratory Surgical History: Reports: None GI Surgical History: Reports: Colonoscopy, EGD, Polypectomy, Other (See Below) Other GI Surgeries/Procedures: Last EGD and colonoscopy on 06/18/19 with previous colonoscopy including multiple polypectomies as below on 07/21/16. Note cauterization without biopsy of hyperplastic appearing polyp in the transverse colon at that time. Male Surgical History: Reports: Vasectomy, Other (See Below) Other Male Surgeries/Procedures: Vasectomy in about 1968 Endocrine Surgical History: Reports: None Neurological Surgical History: Reports: C-Spine, Discectomy, Laminectomy, Spinal Fusion, Other (See Below) Other Neurological Surgeries/Procedures: C6C7 anterior laminectomy and spinal fusion on 03/27/12 with additional Aburto head pins secondary to previous C7 fracture. Musculoskeletal Surgical History: Reports: Knee Replacement, Other (See Below) Other Musculoskeletal Surgeries/Procedures:: Bilateral TKAs in the Oncologic Surgical History: Reports: Other (See Below) Other Oncologic Surgeries/Procedures: Melanoma excision as above. Dermatological Surgical History: Reports: Other (See Below) - Past Imaging History Past Imaging History: Reports: Cardiac Echo (Last echocardiogram at [facility] on 06/12/2020 with ejection fraction of 55% and otherwise findings as above. Additional echocardiogram on 03/11/2020 showed resolution of previous large pericardial effusion with previous large pericardial effusion on 12/31/2019. Otherwise echocardiogram on 12/23/19 with no pericardial effusion at that time and ejection fraction of 65%. Additional evaluation at [facility] in [place] on 01/29/13. Additional recent echocardiogram [facility] on 11/14/2019 with ejection fraction of 5560 percent with previous echocardiogram in [place] on 09/22/19 with ejection fraction of 55% and otherwise findings as above.), CAT Scan (Negative CTA of the chest on 01/09/2020 and 12/13/[address] scan of the brain on 09/21/[address] scan of the chest, abdomen, and pelvis without contrast on 11/10/19 with findings as above.), Event Monitor (03/27/2020 with findings as above.), MRI (Lumbar spine on 04/12/19.), Stress Testing (Lexiscan Cardiolite evaluation on 09/22/19 with findings as above and ejection fraction of 65%.), Venous Doppler (Negative Doppler studies of the legs bilaterally on 12/16/19 with previous negative venous Doppler studies of the lower extremities on 12/16/19.). Denies: Holter Monitor Social & Family History - Family History HEENT: Reports: None Cardiac: Reports: CAD, Hypertension, DC, Other (See Below) Other Cardiac Family History: Parents from an DC in their 70s with no apparent procedures. Hypertension in brother. Respiratory: Reports: None GI: Reports: None : Reports: None OBGYN: Reports: None Musculoskeletal: Reports: Arthritis, Osteoarthritis, Other (See Below) Other Musculoskeletal Family History: Arthritis in parents, sisters 2, and brothers 2 Neurological: Reports: None Psychiatric: Reports: None Endocrine/Metabolic: Reports: None Hematologic: Reports: None Immunologic: Reports: None Dermatologic: Reports: None Oncologic: Reports: Leukemia, Other (See Below) Other Oncologic Family History: Brother with fatal CLL and another brother with unknown type of cancer. 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 Otherwise feels he is at baseline) Skin: Reports: Other (Has bandage in place over shoulder incision site/blood has soaked into absorbent portion of the bandage. Quite a bit of bruising noted in axillary area. Patient's arm left in arm sling. ) Neurological: Reports: No Symptoms ED EXAM, GENERAL - Physical Exam Exam: See Below Exam Limited By: No Limitations General Appearance: Alert, No Apparent Distress, Obese Eye Exam: Bilateral Eye: EOMI, PERRL Ears: Hearing Loss Nose: No: Nasal Deformity, Nasal Swelling, Nasal Drainage Throat/Mouth: Normal Lips, Normal Voice, No Airway Compromise Head: Atraumatic, Normocephalic Neck: Supple Respiratory/Chest: No Respiratory Distress, Lungs Clear, Normal Breath Sounds, No Accessory Muscle Use Cardiovascular: Regular Rate, Rhythm, No Murmur GI/Abdominal: Soft Extremities: Normal Capillary Refill, Other (Left shoulder/arm in sling. Blood soaked bandage over incision line of shoulder with some bleeding from bandage down arm. Tissue of prox arm/axilla very bruised. ) Neurological: Alert, Oriented, Normal Cognition Psychiatric: Normal Affect, Normal Mood Skin Exam: Warm, Ecchymosis, Wound/Incision. No: Erythema Course - Vital Signs Last Recorded V/S: Last Vital Signs Temp 36.6 C 03/24/21 17:37 Pulse 102 H 03/24/21 17:37 Resp 18 03/24/21 17:37 BP 144/70 H 03/24/21 17:37 Pulse Ox 92 L 03/24/21 17:37 - Re-Assessments/Exams Free Text/Narrative Re-Assessment/Exam: 03/24/21 19:28 Call placed to patient's surgeon, Dr. Marte, and message left. CBC/Chem ordered. After no response for 30min call placed to [facility] to speak to Ortho tonnage compilation clerk, . He recommended we apply new bandaging and have patient follow up tomorrow with as long as patient was feeling well and Hgb did not drop below 11. Patient's Hgb post surgery was 13 at [facility] two days ago. Bandage changed. Noted that steri strips had loosened near base of incision and very large blood clot was in area. Blood clot left undisturbed in order to not further reduce remaining efficacy of steri strips. Gauze followed by ABDdeuce fo llowed by pressure bandage applied over site. At this point we did receive a call back from at 19:17. He also recommended bandage change and he plans on calling patient in AM to see how patient is doing/arrange further followup as needed this week. Patient's Hgb 11.9. Patient feels well and wants to go home. Precautions reviewed. Return to ER if bleeding suddenly worsens Departure - Departure Time of Disposition: 19:33 Disposition: Home, Self-Care 01 Condition: Good Clinical Impression: Post-op bleeding Qualifiers: Surgical complication system/body Area: musculoskeletal system Procedure type: musculoskeletal Qualified Code(s): M96.830 - Postprocedural hemorrhage of a musculoskeletal structure following a musculoskeletal system procedure S/P shoulder joint replacement Qualifiers: Laterality: left Qualified Code(s): Z96.612 - Presence of left artificial shoulder joint - Discharge Information *PRESCRIPTION DRUG MONITORING PROGRAM REVIEWED*: Not Applicable *COPY OF PRESCRIPTION DRUG MONITORING REPORT IN PATIENT JOSE: Not Applicable Referrals: Kelley Nagel NP [Primary Care Provider] - Additional Instructions: Anticipate a phone call from tomorrow morning to see how things are going. If bleeding continues then you will likely need to be seen in [place] in person. Return to ER if you have sudden severe bleeding noted. Sepsis Event Note (ED) - Evaluation Sepsis Screening Result: No Definite Risk - Focused Exam Vital Signs: Vital Signs Temp Pulse Resp BP Pulse Ox 03/24/21 17:37 36.6 C 102 H 18 144/70 H 92 L
[2021-03-24 19:24] LABS: CHLORIDE,CL 96 mmol/L (98-107); SODIUM,NA 133 mmol/L (136-145)
[2021-03-24] MEDS ORDERED: 50% Dextrose in Water 50 ML Syringe IVPUSH PRN (19:38)
[2021-03-24] MEDS ORDERED: Glucagon,Human Recombinant 1 MG Vial IM PRN (19:38)
[2021-03-24] MEDS: Insulin Glarg,Human.Rec.Analog 100 Unit/ML SUBCUT ONE (19:55)
--- OUTSIDE RECORDS SUMMARY | 2021-03-29 15:36 | XMSREPORT ---
:1940 Author Organization [facility] Address [address] [place] [address] [address] [place] [address] Care Team Providers Name Role Phone KAYLENE NagelDIYA Primary Care Provider Provider, Attributed RESOURCE Attributed Provider Unavailab le Reason for Visit Auth/Cert (Routine) Status Reason Specialty Diagnoses / Referred By Referred To Procedures Contact Contact Continuity of Diagnoses Primary osteoarthritis, left shoulder Dwaine Marte Care Procedures ARTHROPLASTY GLENOHUMERAL JOINT TOTAL HEIDY Jon MD [facility] [facility] [address] [address] Encounter Details Date Type Department Care Team Description 03/22/2021 - [facility] Dwaine Marte Osteoarthri tis of 03/23/2021 Encounter [place] [facility] Jon MD left shoulder [address] [facility] [place] [address] [place] [address] [phone] Allergies Active Allergy Reactions Severity Noted Date Comments Aspirin Aspirin Contraindication - 01/14/2019 S topped d/t etoh Risk of Drug Interaction use Cleocin Unknown/Not Verified 02/17/2012 Rosuvastatin Calcium Hives (High), Rash, High 02/17/2012 Itching Valsartan Other (Specify in 02/17/2012 cough Comments) Atorvastatin Calcium Other (Specify in 02/17/2012 my algia Comments) Lisinopril Other (Specify in 02/17/2012 Cough Comments) Penicillin Hives (High), Rash High 02/17/2012 documented as of this encounter (statuses as of 03/23/2021) Medications Medication Sig Dispensed Refills Start Date End Date Status respiratory therapy CPAP with heated 0 Active supplies LUCIO humidity masks MISC 0 Active albuterol-ipratropiu Inhale 1 unit-dose 3 box 11 02/27/2017 Active m (DUO-NEB) 2.5-0.5 (3 mL) by mg/3 mL inhalation nebulization 4 times solutionIndications: a day as needed for Chronic obstructive shortness of breath pulmonary disease, unspecified COPD type (HCC) Additional Information Patient taking differently: 1 unit-dose Nebulization Four times a day prn, shortness of breath, wheezing, Informant: MED Bottles or MED List, Reported on 06/11/2020 budesonide-formoterol (SYMBICORT) Inhale 2 puffs 3 Inhaler 4 0 02/27/2017 Active 160-4.5 mcg/puff orally 2 times a day inhalerIndications: Chronic Shake well before obstructive pulmonary disease, using. Rinse mouth unspecified COPD type (HCC) after use. cyanocobalamin (VITAMIN B-12) Take 1 tablet (1,000 30 tablet 0 02/27/2017 Active 1000 mcg tabletIndications: mcg) by mouth 1 time Vitamin B12 deficiency per day blood glucose test strip (CONTOUR To test BG values 50 each 4 02/07/2018 Active NEXT) STRPIndications: Type 2 1-2 times daily diabetes mellitus with hyperglycemia, with long-term current use of insulin (HCC) Multiple Vitamins-Minerals Take 1 tablet by 0 Active (MULTIVITAL) tablet mouth 1 time per day triamcinolone acetonide Apply topically 2 0 Active (KENALOG,ARISTOCORT) 0.1 % cream times a day as needed for itching sertraline (ZOLOFT) 100 mg TAKE 1 TABLET (100 90 tablet 4 02/09 Active tabletIndications: Generalized MG) BY MOUTH 1 TIME anxiety disorder PER DAY Additional Information Patient taking differently: 100 mg Oral DAILY, Along with 25 mg- Total 125 mg daily, Informant: MED Bottles or MED List, Reported on 01/28/2021 sildenafil (VIAGRA) 25 Take 100 mg by mouth 0 Active MG tablet 1 time a day as needed for other (Specify) Take 1 hour prior to anticipated sexual activity. ferrous sulfate (65 MG Take 325 mg by mouth 0 Active FE PER 325 MG TABLET) 1 time per day 325 mg tablet aspirin 81 mg enteric Take 1 tablet (81 mg) 30 tablet 0 2019 Active coated by mouth 1 time per tabletIndications: day Paroxysmal atrial fibrillation (HCC), Presence of Watchman left atrial appendage closure device BD PEN NEEDLE SARAH U/F USE WITH LEVEMIR 100 each 3 06/25/2020 Active 32G X 4 MMIndications: DAILY DIRECTED. Controlled diabetes mellitus type 2 with complications, unspecified whether kiln remover insulin use (HCC) traZODone (DESYREL) 100 Take 1 tablet (100 90 tablet 4 020 07/20/2021 Active mg tabletIndications: mg) by mouth every Primary insomnia night at bedtime lovastatin (MEVACOR) 20 TAKE 1 TABLET (20 MG) 90 tablet 3 12/1003/25/2021 Active mg tabletIndications: BY MOUTH EVERY NIGHT Mixed hyperlipidemia AT BEDTIME dilTIAZem (CARDIZEM CD) TAKE 1 CAPSULE BY 90 capsule 1 021 Active 180 mg extended release MOUTH ONCE A DAY capsuleIndications: Essential hypertension Additional Information Patient taking differently: 180 mg Oral DAILY, Reported on 03/22/2021 potassium chloride (K-TAB) 10 TAKE 1 TABLET BY 180 tablet 1 Active mEq CR tabletIndications: MOUTH TWICE A DAY Essential hypertension Additional Information Patient taking differently: 10 mEq Oral Two times a day, Reported on 03/22/2021 ALPRAZolam (XANAX) 0.25 mg Take 0.25 mg by mouth 0 Active tablet Every 12 hours as needed for anxiety rOPINIRole (REQUIP) 1 mg TAKE 1 TABLET BY MOUTH IN 270 tablet 0 01/01/2021 Active tabletIndications: Restless THE MORNING, 1 TAB IN THE leg syndrome AFTERNOON, & 1 TAB IN THE EVENING. MAY TAKE EXTRA TAB IN THE AFTERNOON NEEDED. 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 (HCC) daily insulin detemir (LEVEMIR Inject 22 Units 0 Active FLEXTOUCH) subcutaneous subcutaneously every injection (pen) night at bedtime metFORMIN (GLUCOPHAGE) 1000 TAKE 1 TABLET BY MOUTH 180 tablet 0 03/03/2021 Active MG tabletIndications: Type 2 TWICE A DAY WITH MEALS diabetes mellitus with hyperglycemia, with long-term current use of insulin ([facility]) Additional Information Patient taking differently: 1,000 mg Oral Two times a day with meals, Reported on 03/22/2021 pantoprazole (PROTONIX) 40 mg TAKE 1 TABLET BY 90 tablet 0 03/2021 Active enteric coated MOUTH ONCE DAILY tabletIndications: EVERY MORNING Gastroesophageal reflux disease without esophagitis Additional Information Patient taking differently: 40 mg Oral Every morning, Reported on 03/22/2021 furosemide (LASIX) 40 mg TAKE 1 & 1/2 TABLETS 270 tablet 0 03/2021 Active tabletIndications: Essential (60MG) BY MOUTH hypertension TWICE A DAY Additional Information Patient taking differently: 60 mg Oral Two times a day, Reported on 03/22/2021 gabapentin (NEURONTIN) 300 mg TAKE 1 CAPSULE BY 270 capsule 0 03/31/2021 Active capsuleIndications: Diabetic MOUTH THREE TIMES A polyneuropathy associated with DAY type 2 diabetes mellitus (HCC) Additional Information Patient taking differently: 300 mg Oral Three times a day, TAKE 1 CAPSULE BY MOUTH THREE TIMES A DAY, Reported on 03/22/2021 acetaminophen (TYLENOL) Take 2 tablets 60 tablet 0 03/23/2021 Active 325 mg (650 mg) by mouth tabletIndications: Every 4 hours as Status post total needed for mild shoulder arthroplasty, pain left senna-docusate sodium Take 1 tablet by 30 tablet 0 03/23/2021 Active (SENOKOT-S;PERICOLACE) mouth 2 times a 8.6-50 MG day tabletIndications: Status post total shoulder arthroplasty, left polyethylene glycol Take 3 238 g 0 03/23/2021 Active (MIRALAX) 17 GM/SCOOP teaspoonsful (17 powderIndications: g) by mouth 1 Status post total time a day as shoulder arthroplasty, needed for left constipation Dissolve in 4 to 8 ounces of water, juice, soda, coffee, tea. traMADol (ULTRAM) 50 mg Take 1 tablet (50 25 tablet 1 03/23/20 21 03/12 Active tabletIndications: mg) by mouth Primary osteoarthritis Every 6 hours for 21 of left shoulder 3 days oxyCODONE (OXY-IR) 5 mg Take 1 to 2 10 tablet 0 03/23/202103/11 Active tablet (immediate tablets (5-10 mg) 02/28 release)Indications: by mouth Every 4 21 Primary osteoarthritis hours as needed of left shoulder for moderate pain or severe pain for up to 3 days nalOXone (NARCAN) 4 Collins 1 spray (4 0.2 mL 0 03/23/2021 10 Active MG/0.1ML nasal mg) into one 02/28 sprayIndications: nostril 1 time; 22 Primary osteoarthritis may repeat in of left shoulder opposite nostril in 2 to 3 minutes if person does not respond. 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 Type 2 diabetes 21 erro r) mellitus with hyperglycemia, with long-term current use of insulin (HCC) Acetaminophen (TYLENOL Take 650 mg by 0 Discontinued ARTHRITIS PAIN PO) mouth 1 time per 11/28 (Stop Taking at day 3 times per Disc harge) day furosemide (LASIX) 40 TAKE 1 & 09/12 270 tablet 0 12/25/2020 07 0 Discontinued mg tabletIndications: TABLETS (60MG) BY 03/30 Essential hypertension MOUTH TWICE A DAY 21 pantoprazole (PROTONIX) TAKE 1 TABLET BY 90 tablet 0 07/0 Discontinued 40 mg enteric coated MOUTH EVERY 03/30 tabletIndications: MORNING 21 Gastroesophageal reflux disease without esophagitis gabapentin (NEURONTIN) TAKE 1 CAPSULE BY 270 capsule 0 021 07/0 Discontinued 300 mg MOUTH THREE TIMES 04/30 capsuleIndications: A DAY 21 Diabetic polyneuropathy associated with type 2 diabetes mellitus (HCC) documented as of this encounter (statuses as of 03/23/2021) Active Problems Problem Noted Date Osteoarthritis of left shoulder 03/22/2021 Presence of Watchman left atrial appendage closure dev ice 06/11/2020 Multiple falls 06/10/2020 Pericardial tamponade 01/02/2020 Lactic acidosis 12/31/2019 Bradycardia 12/31/2019 CHF (congestive heart failure) 12/31/2019 COPD exacerbation 12/23/2019 Acute exacerbation of CHF (congestive heart failure) 0 12/23/2019 Erosive gastropathy 06/19/2019 Overview: Due to Iron deficiency anemia, EGD with "Non-bleeding erosive gastropathy", PPI x 2 mo and Biopsied. 06/19/2019 Chronic bilateral low back pain without sciatica 05/17 Overview: MRI : multilevel central stenosis as we ll as foraminal narrowing on the right at L4-5 and bilaterally at L5-S1. Sent to Neurosurgery Apr 2019 - then pain clinic and ROSARIO helped a lot. PT referral. 05/17/2019 RONALDO (iron deficiency anemia) 04/17/2019 Overview: New on labs April 08, 2019. Stopped given suspected cramps. EGD/Colonoscopy 06/18/19 unremarkable for source. Recommended Capsule/pill study. Memory changes 01/14/2019 Overview: January 2019 min cog 4/5 (2/3 word; 2/2 cloc k). 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 02/27/2017 Erectile dysfunction 02/27/2017 Chronic diastolic heart failure 01/07/2016 Overview: In hospital in [place], Sep 19, 2015 for diast HF, had afib and pna. Sep 2018 spironolactone increased while in [place]. Paroxysmal atrial fibrillation 01/07/2016 Overview: New in [place] Sep 2015, converted in the hos pital and remains sinus rhythm. Osteoarthritis of knee 01/07/2016 Diabetic neuropathy 06/16/2014 Overview: Of toes. GERD (gastroesophageal reflux disease) 01/08/2014 COPD (chronic obstructive pulmonary disease) 3 Overview: Prior smoker, PFT moderate COPD, January 3 - didn't feel spiriva helped (and was ex pensive). 06/15/2015: home oxygen eval completed, di d not qualify for oxygen. S/P cervical spinal fusion 06/21/2012 Overview: C7 facetectomy and C6-7 posterior fusion on 03/27/[address] Trinidad C7 cervical fracture 04/09/2012 Overview: With surgery, fusion, s/p Fall, March 2 Obesity, morbid 01/05/2011 Overview: Body mass index is 48.14 kg/(m^2). 2016 Arthritis of shoulder 05/10/2010 Carpal tunnel syndrome 05/10/2010 S/P knee replacement 05/10/2010 CALIXTO (obstructive sleep apnea) 04/09/2009 Overview: Has cpap. He is using Alcohol abuse 02/05/2009 Generalized anxiety disorder 01/07/2009 Overview: Has claustrophobia Diabetes mellitus, type 2 01/07/2009 Overview: Asa stopped by cardiology given his etoh consumption and risk for bleeding. Essential hypertension 01/03/2009 Overview: Stop coreg 3.125mg, due to HR in the 45- 50. 02/27/2017. Mixed hyperlipidemia 01/03/2009 Overview: Stopped zetia in December 2013, increased l ovastatin to 40mg Insomnia Restless legs syndrome (RLS) Overview: On requip / gabapentin. 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 Cochran saw the patient and performed surgery on September 28, 2005, with a right-sided partial auriculectomy with wide local excision of a malignant lesion measuring 2.1 to 3 cm. There was right super ficial parotidectomy with facial nerve i dentification and preservation and a sentinel lymph node injection. Pathology at that time showed a segment of skin that which was 2.5 x 2 x 1. The salivary gla nd was 6 x 4.5 x 2 cm. Within the saliv any gland was a lymph node. There was extensive fatty replacement of the salivary gland. There were a proliferation of atypical m elanocytes involving the dermal/epidermal junction with multiple margins involved. The lymph node was negative. Subsequently, Dr. Cochran had the pathology review ed at [facility] and it was not felt th at the neoplastic cells represented intransient metastases. Subsequently, Dr. Cochran re-resected chaim tional margins on October 26, 2005, and this showed skin with scar patchy chronic inflammation solar elastosis and no residual melanoma in situ found. No adjuvant therapy was recommended. documented as of this encounter (statuses as of 03/23/2021) Immunizations Name Administration Dates Next Due FLU VACCINE HIGH DOSE 65YR+(Fluzone) 06/11/2020, 06/17/2019, 05/23/2018, 05/23/2018, 06/15/2015, 06/15/2015, 06/16/2014, 06/16/2014, 06/20/2011, 06/20/2011 Influenza Vaccine,unspecified 07/04/2017, 07/18/2008 Moderna COVID-19 Vaccine 01/21/2021, 12/24/2020 Pneumococcal Conj PCV13 01/02/2015 Pneumococcal Polysaccharide PPSV23 01/07/2009 TDAP 06/25/2019 Td(adult)preservative free 01/07/2009 Zoster Live(Zostavax) 01/08/2010 Zoster Recombinant (Shingrix) 02/27/2019, 06/28/2018 documented as of this encounter Social History Tobacco Use Types Packs/Day Years Used Date Former Smoker Cigarettes 4 Quit: 09/11/18 87 Smokeless Tobacco: Never Used Comments: smoked 30 yrs, about 4-5 ppd. Alcohol Use Standard Drinks/Week Comments Yes 16 (1 standard drink = 0.6 oz pure 8-10 at one sitting "couple times a alcohol) week", Rum + diet co ke Alcohol Habits Answer Date Recorded How often do you have a drink containing alcohol? 2-4 times a month 03/18/2021 How many drinks containing alcohol do you have on 7 to 9 05/07/2019 a typical day when you are drinking? How often do you have six or more drinks on one Daily or tessy ost daily 05/07/2019 occasion? Physical Activity Answer Date Recorded On average, how many days per week do you engage in moderate to 0 days 12/30/2020 strenuous exercise (like walking fast, running, jogging, dancing, swimming, biking, or other activities that cause a light or heavy sweat)? On average, how many minutes do you engage in exercise at th is 0 min 12/30/2020 level? Food Insecurity Answer Date Recorded Within the past 12 months, you worried that your food would Never true 05/15/2020 run out before you got money to buy more. Within the past 12 months, the food you bought just didn't N ever true 05/15/2020 last and you didn't have money to get more. Transportation Needs Answer Date Recorded In the past 12 months, has lack of transportation kept you f rom No 12/30/2020 medical appointments or from getting medications? In the past 12 months, has lack of transportation kept you f rom No 12/30/2020 meetings, work, or getting things needed for daily living? Sex Assigned at Date Recorded Not on file documented as of this encounter Last Filed Vital Signs Vital Sign Reading Time Taken Comments Blood Pressure 149/91 03/23/2021 1:33 PM CDT Pulse 90 03/23/2021 1:33 PM CDT Temperature 36.4 C (97.6 F) 03/23/2021 1:33 PM CDT Respiratory Rate 16 03/23/2021 1:33 PM CDT Oxygen Saturation 95% 03/23/2021 1:33 PM CDT Inhaled Oxygen Concentration - - Weight 158.5 kg (349 lb 6.9 oz) 03/22/2021 6:15 AM CDT Height 180.3 cm (5' 11") 03/22/2021 6:13 AM CDT Body Mass Index 48.74 03/22/2021 6:13 AM CDT documented in this encounter Functional Status Functional Status Response Date of Assessment Is the person deaf or does he/she have serious difficulty No 04/22/2020 hearing? Is this person blind or does he/she have difficulty No 04/22/2020 seeing even when wearing glasses? Do you have difficulty with walking, balance, climbing Yes 12/30/2020 stairs, or had a fall in the last 3 months? Does the patient have difficulty dressing or bathing? No 01/04/2020 Because of a physical, mental, or emotional condition; No 01/04/2020 does this person have difficulty doing errands alone such as visiting a doctor's office or shopping? Cognitive Status Response Date of Assessment Because of a physical, mental, or emotional condition; No 01/04/2020 does this person have serious difficulty concentrating, remembering, or making decisions? documented as of this encounter Discharge Summaries Lanette Prakash APRN-CNP - 03/23/2021 9:46 AM CDT Images from the original note were not included. Hospital Discharge Summary Attending Physician: Dwaine Marte MD Attending Physician Specialty: Orthopedic Surgery Admit Date: 03/22/2021 Discharge Date: 03/23/21 Primary Care Physician: ROBINSON Becerra Discharge Diagnoses #Status post left total shoulder arthroplasty #Postop hypoxia likely related to anesthesia versus COPDimproved, patient will have home oxygen evaluation prior to discharge. #Coronary artery disease #Chronic diastolic congestive heart failure #Atrial fibrillation status post watchman #Hypertension #Diabetes mellitus type 2 #Hypokalemiastable #COPD #Mild hyponatremia #Hyperlipidemia #Anxiety #Peripheral neuropathy #Restless leg syndrome #Obstructive sleep apnea #Morbid obesity Hospital Course Valentino is postop day 1 from a left total shoulder arthroplasty. No acute events overnight. His vitalsigns are stable. Postop hemoglobin of 13.0, creatinine 1.11, GFR 64. His sodium today is slightlylow at 134. This should normalize. His pain is controlled on oral pain medication. He is still requiring some oxygen therapy. The patient does have evidence at home prior to therapy. He will have a home oxygen evaluation done today to confirm his oxygen needs requirement. He is tolerating regular diet with no nausea or vomiting. He is voiding well, but has not had a bowel movement. He does report passing flatus. He currently denies any chest pain, worsening shortness of breath, nausea, and h eadache. He will work with occupational therapy and plan will be for him to discharge home when cleared by therapy and orthopedics. Medically stable for discharge. OT followed and recommend home with family. ASA 81 mg daily for dvt prophylaxis per ortho preference. Narcotics prescribed by orthopedics. Reinforced risks of narcotics including but not limited to drowsiness, falls, constipation, respiratory depression, addiction, and . Discussed signs and symptoms of infection including Temperature greater than 100.4. Any increase in redness, drainage, or foul odor from incision. Increased in pain or numbness and tingling. Patient to seek emergency care if any chest pain or shortness of breath. Discussed constipation regimen of Miralax and Senokot Patient verbalizes understanding of discharge instructions. LabTests Pending at Discharge Unresulted Lab Orders (From admission, onward) Start Ordered 03/23/21431 HEMOGLOBIN Early AM draw, Routine Start: 03/23/21431 End: 03/24/21 04:32 AM 03/22/21 1114 Unresulted Pathology Orders (From admission, onward) Start Ordered 03/22/21758 TISSUE EXAM RELEASE UPON ORDERING, Routine Comments: Specimen A: Gross only Start: 03/22/21758 End: None 03/22/21758 Follow-Up Scheduled Contact information for follow-up Dwaine Marte MD Specialty: Orthopedic Surgery [address] [place] [address] Next Steps: Follow up Preliminary Discharge Medications This list of medications is preliminary and tentative. Please see the After Visit Summary for the final and accurate medication list. Discharge Medication List START taking these medications START: acetaminophen 325 mg tablet Commonly known as: TYLENOL Dose: 650 mg Take 2 tablets (650 mg) by mouth Every 4 hours as needed for mild pain Replaces: TYLENOL ARTHRITIS PAIN PO START: polyethylene glycol 17 GM/SCOOP powder Commonly known as: MIRALAX Dose: 1 capful Take 3 teaspoonsful (17 g) by mouth 1 time a day as needed for constipation Dissolve in 4 to 8 ounces of water, juice, soda, coffee, tea. START: senna-docusate sodium 8.6-50 MG tablet Commonly known as: SENOKOT-S;PERICOLACE Dose: 1 tablet Take 1 tablet by mouth 2 times a day CONTINUE taking these medications which have CHANGED CONTINUE: albuterol-ipratropium 2.5-0.5 mg/3 mL inhalation solution Commonly known as: DUO-NEB Dose: 1 unit-dose Inhale 1 unit-dose (3 mL) by nebulization 4 times a day as needed for shortness of breath What changed: reasons to take this CONTINUE: dilTIAZem 180 mg extended release capsule Commonly known as: CARDIZEM CD TAKE 1 CAPSULE BY MOUTH ONCE A DAY What changed: See the new instructions. CONTINUE: furosemide 40 mg tablet Commonly known as: LASIX TAKE 1 & 1/2 TABLETS (60MG) BY MOUTH TWICE A DAY What changed: See the new instructions. CONTINUE: gabapentin 300 mg capsule Commonly known as: NEURONTIN TAKE 1 CAPSULE BY MOUTH THREE TIMES A DAY Start taking on: March 31, 2021 What changed: See the new instructions. CONTINUE: metFORMIN 1000 MG tablet Commonly known as: GLUCOPHAGE TAKE 1 TABLET BY MOUTH TWICE A DAY WITH MEALS What changed: See the new instructions. CONTINUE: pantoprazole 40 mg enteric coated tablet Commonly known as: PROTONIX TAKE 1 TABLET BY MOUTH ONCE DAILY EVERY MORNING What changed: See the new instructions. CONTINUE: rOPINIRole 1 mg tablet Commonly known as: REQUIP TAKE 1 TABLET BY MOUTH IN THE MORNING, 1 TAB IN THE AFTERNOON, & 1 TAB IN THE EVENING. MAY TAKE EXTRA TAB IN THE AFTERNOON NEEDED. What changed: how much to take how to take this when to take this additional instructions CONTINUE: * sertraline 100 mg tablet Commonly known as: ZOLOFT Dose: 100 mg TAKE 1 TABLET (100 MG) BY MOUTH 1 TIME PER DAY What changed: additional instructions CONTINUE: * sertraline 25 mg tablet Commonly known as: ZOLOFT Dose: 25 mg Take 25 mg by mouth 1 time per day Along with 100 mg- Total 125 mg daily What changed: Another medication with the same name was changed. Make sure you understand how and when to take each. * This list has 2 medication(s) that are the same as other medications prescribed for you. Read thedirections carefully, and ask your doctor or other care provider to review them with you. CONTINUE taking these medications which have NOT CHANGED CONTINUE: ALPRAZolam 0.25 mg tablet Commonly known as: XANAX Dose: 0.25 mg Take 0.25 mg by mouth Every 12 hours as needed for anxiety CONTINUE: aspirin 81 mg enteric coated tablet Dose: 81 mg Take 1 tablet (81 mg) by mouth 1 time per day CONTINUE: BD Pen Needle Sarah U/F 32G X 4 MM Generic drug: insulin needle USE WITH LEVEMIR DAILY DIRECTED. CONTINUE: budesonide-formoterol 160-4.5 mcg/puff inhaler Commonly known as: SYMBICORT Dose: 2 puff Inhale 2 puffs orally 2 times a day Shake well before using. Rinse mouth after use. CONTINUE: CONTOUR NEXT Strp To test BG values 1-2 times daily CONTINUE: cyanocobalamin 1000 mcg tablet Commonly known as: vitamin B-12 Dose: 1,000 mcg Take 1 tablet (1,000 mcg) by mouth 1 time per day CONTINUE: ferrous sulfate 325 mg tablet Commonly known as: 65 mg FE per 325 mg tablet Dose: 325 mg Take 325 mg by mouth 1 time per day CONTINUE: FreeStyle Linus 14 Day Sensor Apply one new sensor to the back of the upper arm once every 14 days as directed to monitor blood sugars continuously. CONTINUE: insulin detemir subcutaneous injection (pen) Commonly known as: LEVEMIR FLEXTOUCH Dose: 22 Units Inject 22 Units subcutaneously every night at bedtime CONTINUE: lovastatin 20 mg tablet Commonly known as: MEVACOR Dose: 20 mg TAKE 1 TABLET (20 MG) BY MOUTH EVERY NIGHT AT BEDTIME CONTINUE: masks Misc CONTINUE: Multivital tablet Dose: 1 tablet Take 1 tablet by mouth 1 time per day CONTINUE: potassium chloride 10 mEq CR tablet Commonly known as: K-TAB TAKE 1 TABLET BY MOUTH TWICE A DAY CONTINUE: respiratory therapy supplies Lucio CPAP with heated humidity CONTINUE: sildenafil 25 MG tablet Commonly known as: VIAGRA Dose: 100 mg Take 100 mg by mouth 1 time a day as needed for other (Specify) Take 1 hour prior to anticipated sexual activity. CONTINUE: traZODone 100 mg tablet Commonly known as: DESYREL Dose: 100 mg Take 1 tablet (100 mg) by mouth every night at bedtime CONTINUE: triamcinolone acetonide 0.1 % cream Commonly known as: KENALOG,ARISTOCORT Apply topically 2 times a day as needed for itching You might also be taking other medications not listed above. If you have questions about any of your other medications, talk to the person who prescribed them or your Primary Care Provider. STOP taking these medications STOP: TYLENOL ARTHRITIS PAIN PO Replaced by: acetaminophen 325 mg tablet Where to Get Your Medications These medications were sent to [facility] [address] [place] [address] Jose Alberto ACUNA [id number] Hours: M-F 7am-9pm, Sat-Sun 7am-9pm acetaminophen 325 mg tablet polyethylene glycol 17 GM/SCOOP powder senna-docusate sodium 8.6-50 MG tablet Temp: 97.8 F (36.6 C) BP: 115/73 Weight: (!) 158.5 kg (349 lb 6.9 oz) SpO2: 97 % Resp: 16 Pulse: 78 Current BMI (>50 = increased risk): (!) 48.76 O2 Device: NC - no humidity O2 Flow Rate (L/min): 4 l/min Physical Exam Vitals and nursing note reviewed. Constitutional: General: He is not in acute distress. Appearance: He is well-developed. He is obese. He is not diaphoretic. HENT: Head: Normocephalic and atraumatic. Eyes: Conjunctiva/sclera: Conjunctivae normal. Cardiovascular: Rate and Rhythm: Normal rate and regular rhythm. Pulses: Normal pulses. Heart sounds: Normal heart sounds. No murmur heard. No friction rub. No gallop. Pulmonary: Effort: Pulmonary effort is normal. No respiratory distress. Breath sounds: Normal breath sounds. No wheezing or rales. Abdominal: General: Bowel sounds are normal. There is no distension. Palpations: Abdomen is soft. Tenderness: There is no abdominal tenderness. Musculoskeletal: Left shoulder: Decreased range of motion. Cervical back: Normal range of motion. Skin: General: Skin is warm and dry. Neurological: Mental Status: He is alert and oriented to person, place, and time. Psychiatric: Behavior: Behavior normal. Thought Content: Thought content normal. Judgment: Judgment normal. Procedures Performed and Findings All procedures during admission Procedure(s): Left - LEFT TOTAL SHOULDER ARTHROPLASTY - Wound Class: Clean Consultations Obtained CONSULT INTERNAL MEDICINE Discharge Disposition Medical Decision Making A total of 25 minutes were spent on discharge coordination. documented in this encounter Medications at Time of Discharge Medication Sig Dispensed Refills Start Date End Date acetaminophen (TYLENOL) Take 2 tablets (650 60 tablet 0 325 mg mg) by mouth Every 4 tabletIndications: hours as needed for Status post total mild pain shoulder arthroplasty, left senna-docusate sodium Take 1 tablet by 30 tablet 0 03/23/20 21 (SENOKOT-S;PERICOLACE) mouth 2 times a day 8.6-50 MG tabletIndications: Status post total shoulder arthroplasty, left polyethylene glycol Take 3 teaspoonsful 238 g 0 021 (MIRALAX) 17 GM/SCOOP (17 g) by mouth 1 powderIndications: time a day as needed Status post total for constipation shoulder arthroplasty, Dissolve in 4 to 8 left ounces of water, juice, soda, coffee, tea. traMADol (ULTRAM) 50 mg Take 1 tablet (50 mg) 25 tablet 1 0 03/23/2021 03/30/2021 tabletIndications: by mouth Every 6 Primary osteoarthritis hours for 3 days of left shoulder oxyCODONE (OXY-IR) 5 mg Take 1 to 2 tablets 10 tablet 0 03/26/2021 tablet (immediate (5-10 mg) by mouth release)Indications: Every 4 hours as Primary osteoarthritis needed for moderate of left shoulder pain or severe pain for up to 3 days nalOXone (NARCAN) 4 Collins 1 spray (4 mg) 0.2 mL 0 202006/16/2022 MG/0.1ML nasal into one nostril 1 sprayIndications: time; may repeat in Primary osteoarthritis opposite nostril in 2 of left shoulder to 3 minutes if person does not respond. gabapentin (NEURONTIN) TAKE 1 CAPSULE BY 270 capsule 0 03/31 300 mg MOUTH THREE TIMES A capsuleIndications: DAY Diabetic polyneuropathy associated with type 2 diabetes mellitus (HCC) pantoprazole (PROTONIX) TAKE 1 TABLET BY 90 tablet 0 2020 40 mg enteric coated MOUTH ONCE DAILY tabletIndications: EVERY MORNING Gastroesophageal reflux disease without esophagitis furosemide (LASIX) 40 TAKE 1 & 1/2 TABLETS 270 tablet 0 03/2021 mg tabletIndications: (60MG) BY MOUTH TWICE Essential hypertension A DAY metFORMIN (GLUCOPHAGE) TAKE 1 TABLET BY 180 tablet 0 021 1000 MG MOUTH TWICE A DAY tabletIndications: Type WITH MEALS 2 diabetes mellitus with hyperglycemia, with long-term current use of insulin ([facility]) FREESTYLE LINUS 14 day Apply one new sensor 2 each sensorIndications: Type to the back of the 2 diabetes mellitus upper arm once every with hyperglycemia, 14 days as directed with long-term current to monitor blood use of insulin ([facility]) sugars continuously. insulin detemir Inject 22 Units 0 (LEVEMIR FLEXTOUCH) subcutaneously every subcutaneous injection night at bedtime (pen) rOPINIRole (REQUIP) 1 TAKE 1 TABLET BY 270 tablet 0 01/02/20 21 mg tabletIndications: MOUTH IN THE MORNING, Restless leg syndrome 1 TAB IN THE AFTERNOON, & 1 TAB IN THE EVENING. MAY TAKE EXTRA TAB IN THE AFTERNOON NEEDED. 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 (HCC) ALPRAZolam (XANAX) 0.25 Take 0.25 mg by mouth 0 mg tablet Every 12 hours as needed for anxiety lovastatin (MEVACOR) 20 TAKE 1 TABLET (20 MG) 90 tablet 3 0 12/25/2020 03/25/2021 mg tabletIndications: BY MOUTH EVERY NIGHT Mixed hyperlipidemia AT BEDTIME dilTIAZem (CARDIZEM CD) TAKE 1 CAPSULE BY 90 capsule 1 12/25 180 mg extended release MOUTH ONCE A DAY capsuleIndications: Essential hypertension potassium chloride TAKE 1 TABLET BY 180 tablet 1 12/25/2020 (K-TAB) 10 mEq CR MOUTH TWICE A DAY tabletIndications: Essential hypertension traZODone (DESYREL) 100 Take 1 tablet (100 90 tablet 4 12/201907/20/2021 mg tabletIndications: mg) by mouth every Primary insomnia night at bedtime BD PEN NEEDLE SARAH U/F USE WITH LEVEMIR 100 each 3 06/25/ 020 32G X 4 MMIndications: DAILY DIRECTED. Controlled diabetes mellitus type 2 with complications, unspecified whether kiln remover insulin use ([facility]) aspirin 81 mg enteric Take 1 tablet (81 mg) 30 tablet 0 10/2019 coated by mouth 1 time per tabletIndications: day Paroxysmal atrial fibrillation (HCC), Presence of Watchman left atrial appendage closure device ferrous sulfate (65 MG Take 325 mg by mouth 0 FE PER 325 MG TABLET) 1 time per day 325 mg tablet sildenafil (VIAGRA) 25 Take 100 mg by mouth 0 MG tablet 1 time a day as needed for other (Specify) Take 1 hour prior to anticipated sexual activity. sertraline (ZOLOFT) 100 TAKE 1 TABLET (100 90 tablet 4 02/09 mg tabletIndications: MG) BY MOUTH 1 TIME Generalized anxiety PER DAY disorder triamcinolone acetonide Apply topically 2 0 (KENALOG,ARISTOCORT) times a day as needed 0.1 % cream for itching Multiple Take 1 tablet by 0 Vitamins-Minerals mouth 1 time per day (MULTIVITAL) tablet blood glucose test To test BG values 1-2 50 each 4 2017 strip (CONTOUR NEXT) times daily STRPIndications: Type 2 diabetes mellitus with hyperglycemia, with long-term current use of insulin ([facility]) albuterol-ipratropium Inhale 1 unit-dose (3 3 box 11 (DUO-NEB) 2.5-0.5 mg/3 mL) by nebulization 4 mL inhalation times a day as needed solutionIndications: for shortness of Chronic obstructive breath pulmonary disease, unspecified COPD type ([facility]) budesonide-formoterol Inhale 2 puffs orally 3 Inhaler 4 (SYMBICORT) 160-4.5 2 times a day Shake mcg/puff well before using. inhalerIndications: Rinse mouth after Chronic obstructive use. pulmonary disease, unspecified COPD type ([facility]) cyanocobalamin (VITAMIN Take 1 tablet (1,000 30 tablet 0 B-12) 1000 mcg mcg) by mouth 1 time tabletIndications: per day Vitamin B12 deficiency respiratory therapy CPAP with heated 0 supplies LUCIO humidity masks MISC 0 documented as of this encounter Progress Notes Dwaine Marte MD - 03/23/2021 12:19 PM CDT S; pain controlled O; vss afeb Cms intact Findings discussed I; stable P; home Shankar Zamora, [facility], [facility] - 03/22/2021 6:50 AM CDT 03/22/2021 6:50 AM CDT - Patient was seen by pharmacy. HOME MEDICATIONS have been reconciled and updated to match the patient's home usage. Medications added: None Medications removed: Hydroxyzine Pramiprexole Medications changed: None Prior to Admission Medications Prescriptions Last Dose Informant Patient Reported? Taking? ALPRAZolam (XANAX) 0.25 mg tablet 03/21/2021 at Yes Yes Sig: Take 0.25 mg by mouth Every 12 hours as needed for anxiety Acetaminophen (TYLENOL ARTHRITIS PAIN PO) 03/21/2021 at MED Bottles or MED List Yes Yes Sig: Take 650 mg by mouth 1 time per day 3 times per day BD PEN NEEDLE SARAH U/F 32G X 4 MM No No Sig: USE WITH LEVEMIR DAILY DIRECTED. FREESTYLE LINUS 14 day sensor No No Sig: Apply one new sensor to the back of the upper arm once every 14 days as directed to monitor blood sugars continuously. Multiple Vitamins-Minerals (MULTIVITAL) tablet Past Week at Unknown time MED Bottles or MED List YesYes Sig: Take 1 tablet by mouth 1 time per day albuterol-ipratropium (DUO-NEB) 2.5-0.5 mg/3 mL inhalation solution Past Month at Unknown time MED Bottles or MED List No Yes Sig: Inhale 1 unit-dose (3 mL) by nebulization 4 times a day as needed for shortness of breath Patient taking differently: Inhale 1 unit-dose by nebulization 4 times a day as needed for shortnessof breath or wheezing aspirin 81 mg enteric coated tablet Past Week at Unknown time No Yes Sig: Take 1 tablet (81 mg) by mouth 1 time per day blood glucose test strip (CONTOUR NEXT) STRP MED Bottles or MED List No No Sig: To test BG values 1-2 times daily budesonide-formoterol (SYMBICORT) 160-4.5 mcg/puff inhaler Greater than 1 Month at Unknown time MED Bottles or MED List No Yes Sig: Inhale 2 puffs orally 2 times a day Shake well before using. Rinse mouth after use. cyanocobalamin (VITAMIN B-12) 1000 mcg tablet Past Week at Unknown time MED Bottles or MED List No Yes Sig: Take 1 tablet (1,000 mcg) by mouth 1 time per day dilTIAZem (CARDIZEM CD) 180 mg extended release capsule 03/21/2021 at am No Yes Sig: TAKE 1 CAPSULE BY MOUTH ONCE A DAY Patient taking differently: Take 180 mg by mouth 1 time per day ferrous sulfate (65 MG FE PER 325 MG TABLET) 325 mg tablet 03/21/2021 at am MED Bottles or MED List Yes Yes Sig: Take 325 mg by mouth 1 time per day furosemide (LASIX) 40 mg tablet 03/21/2021 at am No Yes Sig: TAKE 1 & 1/2 TABLETS (60MG) BY MOUTH TWICE A DAY Patient taking differently: Take 60 mg by mouth 2 times a day gabapentin (NEURONTIN) 300 mg capsule 03/21/2021 at hs No Yes Sig: TAKE 1 CAPSULE BY MOUTH THREE TIMES A DAY Patient taking differently: Take 300 mg by mouth 3 times a day TAKE 1 CAPSULE BY MOUTH THREE TIMES ADAY insulin detemir (LEVEMIR FLEXTOUCH) subcutaneous injection (pen) 03/21/2021 at hs Yes Yes Sig: Inject 22 Units subcutaneously every night at bedtime lovastatin (MEVACOR) 20 mg tablet 03/21/2021 at hs No Yes Sig: TAKE 1 TABLET (20 MG) BY MOUTH EVERY NIGHT AT BEDTIME masks MISC MED Bottles or MED List Yes No Sig: metFORMIN (GLUCOPHAGE) 1000 MG tablet 03/21/2021 at pm No Yes Sig: TAKE 1 TABLET BY MOUTH TWICE A DAY WITH MEALS Patient taking differently: Take 1,000 mg by mouth 2 times a day with meals pantoprazole (PROTONIX) 40 mg enteric coated tablet 03/21/2021 at am No Yes Sig: TAKE 1 TABLET BY MOUTH ONCE DAILY EVERY MORNING Patient taking differently: Take 40 mg by mouth 1 time a day in the morning potassium chloride (K-TAB) 10 mEq CR tablet 03/21/2021 at hs No Yes Sig: TAKE 1 TABLET BY MOUTH TWICE A DAY Patient taking differently: Take 10 mEq by mouth 2 times a day rOPINIRole (REQUIP) 1 mg tablet 03/21/2021 at hs No Yes Sig: TAKE 1 TABLET BY MOUTH IN THE MORNING, 1 TAB IN THE AFTERNOON, & 1 TAB IN THE EVENING. MAY TAKE EXTRA TAB IN THE AFTERNOON NEEDED. Patient taking differently: Take 1 mg by mouth 3 times a day respiratory therapy supplies LUCIO MED Bottles or MED List Yes No Sig: CPAP with heated humidity sertraline (ZOLOFT) 100 mg tablet 03/21/2021 at am MED Bottles or MED List No Yes Sig: TAKE 1 TABLET (100 MG) BY MOUTH 1 TIME PER DAY Patient taking differently: Take 100 mg by mouth 1 time per day Along with 25 mg- Total 125 mg daily sertraline (ZOLOFT) 25 mg tablet 03/21/2021 at am Yes Yes Sig: Take 25 mg by mouth 1 time per day Along with 100 mg- Total 125 mg daily sildenafil (VIAGRA) 25 MG tablet Greater than 1 Month at Unknown time MED Bottles or MED List Yes Yes Sig: Take 100 mg by mouth 1 time a day as needed for other (Specify) Take 1 hour prior to anticipated sexual activity. traZODone (DESYREL) 100 mg tablet 03/21/2021 at hs No Yes Sig: Take 1 tablet (100 mg) by mouth every night at bedtime triamcinolone acetonide (KENALOG,ARISTOCORT) 0.1 % cream Past Month at Unknown time MED Bottles or MED List Yes Yes Sig: Apply topically 2 times a day as needed for itching Facility-Administered Medications: None Shankar Zamora RPh Dwaine Marte MD - 03/22/2021 6:41 AM CDT Current h an p reflects his status documented in this encounter Consult Notes Lanette Prakash APRN-ORLY - 03/22/2021 9:03 AM CDTAssociated Order(s): CONSULT INTERNAL MEDICINE Images from the original note were not included. HOSPITAL CONSULT NOTE Patient ID: Valentino Landin is a 80yr male. PCP: ROBINSON Becerra Attending Provider: Dwaine Marte MD CONSULT INTERNAL MEDICINE Consult performed by: Lanette Prakash APRN-CNP Consult ordered by: Dwaine Marte MD Impression / Plan # post op hypoxia likely related to anesthesia versus COPD -monitor oxygen saturation -RT to follow #Coronary artery disease Continue aspirin #Chronic diastolic congestive heart failure Hold Lasix until a.m. labs #Atrial fibrillation status post watchman Continue Cardizem, hold if systolic blood pressure less than 100 or heart rate less than 60 #Hypertension Continue Cardizem with holding parameters #Diabetes mellitus type 2 Hold Metformin while in the hospital Continue Levemir Low-dose sliding scale insulin 3 times daily with meals, blood sugars before meals and at bedtime Hypoglycemia protocol Last hemoglobin A1c 7.7 on 03-31 #Hypokalemia Continue potassium chloride #COPD Maintain oxygen greater than 88%, patient does have home oxygen which he does not use at home. Continue Symbicort and DuoNeb RT to follow #Status post left total shoulder arthroplasty Managed by orthopedics Aspirin 325 mg daily for 30 days for DVT prophylaxis per orthopedic preference Tylenol and tramadol scheduled for pain, oxycodone as needed Hemoglobin in a.m., preop hemoglobin 14.1 OT to see Case management to assist with discharge planning. Patient plans to discharge home with his daughter. #Hyperlipidemia Continue lovastatin #Anxiety Continue Zoloft and Xanax #Peripheral neuropathy Continue gabapentin #Restless leg syndrome Continue Requip #Obstructive sleep apnea Continue CPAP per home settings #Obesity Body mass index is 48.74 kg/m. Chief Complaint / HPI HPI Valentino Landin is admitted under the orthopedic service status post left total shoulder arthroplasty on 03/22/2021. General anesthesia with interscalene brachial plexus block. Estimated bloodloss unlisted. Internal medicine consultation requested to assist with co-managment postoperatively. Valentino was seen in the recovery room. He currently complains of some pain to his left shoulder. Postoperatively he has been having some acute hypoxia likely related to his underlying COPD with also having an interscalene brachial plexus block. He was seen by RT in the recovery room and given a nebulizertreatment. Prior to transfer to the floor he maintained his sats from 90-92 on 5 L of oxygen. He will continue to be encouraged to IS and followed by respiratory therapy. He does deny any chest pain, shortness of breath, nausea, and headache. He does have numbness and tingling remaining from his anesthesia. Patient has had left shoulder pain for a couple of years. Preoperatively he rates his pain 8 out of 10. He had difficulty with any movement. He tried [id number] analgesics and cortisone injections in the past for pain control. Medications Current Facility-Administered Medications Medication sodium chloride 0.9% flush (adult) 10 mL nalOXone (NARCAN) injection solution (vial) 0.4 mg nalOXone (NARCAN) injection solution (vial) 0.2 mg ondansetron (ZOFRAN) injection solution 4 mg And prochlorperazine (COMPAZINE) 10 mg/2 mL injection solution 5 mg And diphenhydrAMINE (BENADRYL) injection solution 12.5 mg albuterol (PROVENTIL) (2.5 mg/3mL) 0.083% inhalation soln 2.5 mg racepinephrine (S-2) 2.25 % inhalation solution 0.5 mL benzocaine-menthol (CEPACOL w/ BENZOCAINE) lozenge 1 lozenge lactated ringers IV solution acetaminophen (TYLENOL) tablet 500 mg fentaNYL 100 mcg/2 mL preservative free injection solution 50 mcg HYDROmorphone (DILAUDID) injection solution (conc: 1 mg/mL) 0.5 mg diphenhydrAMINE (BENADRYL) injection solution 25 mg diazePAM (VALIUM) injection solution 5 mg Or LORazepam (ATIVAN) 2 mg/mL injection solution 1 mg ondansetron (ZOFRAN) injection solution 4 mg vancomycin in dextrose 200 mL IV piggyback (premix) 1,000 mg sodium chloride 0.9% IV solution Facility-Administered Medications Ordered in Other Encounters Medication PHENYLephrine (ANNALEE-SYNEPHRINE) in sod chloride 0.9% (100 mcg/mL) infusion fentaNYL 100 mcg/2 mL preservative free injection solution lidocaine PF (XYLOCAINE-MPF) 2 % injection solution propofol (DIPRIVAN) 200 mg/20 mL IV emulsion rocuronium (ZEMURON) IV solution (vial) succinylcholine chloride (QUELICIN;ANECTINE) injection solution (vial) dexAMETHasone sodium phosphate (DECADRON) (10 mg/mL) injection solution ondansetron (ZOFRAN) injection solution Allergies Allergies Allergen Reactions Penicillin Hives (High) and Rash Crestor [Rosuvastatin Calcium] Hives (High), Rash and Itching Asa [Aspirin] Aspirin Contraindication - Risk of Drug Interaction Stopped d/t etoh use Clindamycin Phosphate [Cleocin] Unknown/Not Verified Diovan [Valsartan] Other (Specify in Comments) cough Lipitor [Atorvastatin Calcium] Other (Specify in Comments) myalgia Lisinopril Other (Specify in Comments) Cough Medical / Surgical / Family History Past Medical History: Diagnosis Date Acute respiratory failure (HCC) Anxiety Arthritis of shoulder Bradycardia C7 cervical fracture ([facility]) Carpal tunnel syndrome, bilateral CHF (congestive heart failure) ([facility]) Chronic bilateral low back pain without sciatica Chronic diastolic heart failure (HCC) Chronic right shoulder pain COPD (chronic obstructive pulmonary disease) ([facility]) COPD exacerbation ([facility]) Diabetes mellitus type II Diabetic neuropathy ([facility]) ED (erectile dysfunction) Encounter for long-term (current) use of other medications Erosive gastropathy Family history of malignant neoplasm of colon Generalized anxiety disorder claustrophobia GERD (gastroesophageal reflux disease) H/O alcohol abuse Heart murmur History of colonoscopy HTN (hypertension) Hyperlipidemia Insomnia Iron deficiency anemia Lactic acidosis Malignant melanoma of ear (HCC) Melanoma (HCC) Memory changes Multiple falls Multiple falls Obesity, morbid (HCC) Osteoarthritis of knee 01/07/2016 PAF (paroxysmal atrial fibrillation) ([facility]) Pericardial tamponade Preventative health care RLS (restless legs syndrome) S/P cervical spinal fusion Sleep apnea, obstructive Special screening for malignant neoplasm of prostate Substance abuse (HCC) alcohol Vitamin B12 deficiency Weakness Past Surgical History: Procedure Laterality Date CERVICAL FUSION 03/27/2012 FUSION CERVICAL POSTERIOR [CERFSPO] PRONE ROJAS HEAD PINS MICROSCOPE C[facility] RT. C6-7 FORMANIOTOMY WITH FUSION; Surgeon: Shaji Trinidad MD COLONOSCOPY COLONOSCOPY N/A 06/18/2019 Procedure: COLONOSCOPY;; Surgeon: Merlene Kwok MD KNEE SURGERY PACEMAKER 04/23/2020 Dual-cchamber permanent pacemaker with system implantation. SPINE SURGERY SURGERY 10/26/2005 Wide local re-excision of a malignant melanoma of the right ear with local flap reconstruction. SURGERY 06/11/2020 Watchman insertion TOTAL KNEE BILATERAL UPPER ENDOSCOPY N/A 06/18/2019 Procedure: UPPER ENDOSCOPY;; Surgeon: Merlene Kwok MD Family History Problem Relation Age of Onset Heart Disease Mother Arthritis Mother Heart Disease Father Arthritis Father Arthritis Sister Arthritis Brother Not otherwise listed - Cancer Brother Arthritis Sister Arthritis Brother Not otherwise listed - Cancer Brother Arthritis Brother Not otherwise listed - Cancer Brother Arthritis Brother Not otherwise listed - Cancer Brother Social History Social History Tobacco Use Smoking status: Former Smoker Packs/day: 4.00 Types: Cigarettes Quit date: 09/11/1986 Years since quittin.5 Smokeless tobacco: Never Used Tobacco comment: smoked 30 yrs, about 4-5 ppd. Substance Use Topics Alcohol use: Yes Alcohol/week: 16.0 - 20.0 standard drinks Types: 16 - 20 Shots of liquor per week Comment: 8-10 at one sitting "couple times a week", Rum + diet coke Drug use: Not Currently Types: Marijuana Comment: salve for shoulder, last use 2 months ago ROS Review of Systems Constitutional: Negative. HENT: Negative. Eyes: Negative. Respiratory: Negative for chest tightness and shortness of breath. Cardiovascular: Negative for chest pain. Gastrointestinal: Negative for nausea and vomiting. Genitourinary: Positive for difficulty urinating. Musculoskeletal: Positive for arthralgias. Skin: Negative. Neurological: Negative for headaches. Hematological: Negative. Psychiatric/Behavioral: Negative. Physical Exam BP 161/112 | Pulse 80 | Temp 98.3 F (36.8 C) | Resp 16 | Ht 1.803 m (5' 11") | Wt (!) 158.5kg (349 lb 6.9 oz) | SpO2 93% | BMI 48.74 kg/m Physical Exam Vitals and nursing note reviewed. Constitutional: General: He is not in acute distress. Appearance: He is well-developed. He is obese. He is not diaphoretic. HENT: Head: Normocephalic and atraumatic. Eyes: Conjunctiva/sclera: Conjunctivae normal. Cardiovascular: Rate and Rhythm: Normal rate and regular rhythm. Pulses: Normal pulses. Heart sounds: Normal heart sounds. No murmur heard. No friction rub. No gallop. Pulmonary: Effort: Pulmonary effort is normal. No respiratory distress. Breath sounds: Normal breath sounds. No wheezing or rales. Abdominal: General: Bowel sounds are normal. There is no distension. Palpations: Abdomen is soft. Tenderness: There is no abdominal tenderness. Musculoskeletal: Left shoulder: Decreased range of motion. Cervical back: Normal range of motion. Skin: General: Skin is warm and dry. Neurological: Mental Status: He is alert and oriented to person, place, and time. Psychiatric: Behavior: Behavior normal. Thought Content: Thought content normal. Judgment: Judgment normal. Labs Labs (Last day) 03/22/21 0552 - 03/22/21 0552 CHEMISTRY 03/22/21551 CHEMISTRY Potassium 3.5-5.3 (meq/L) 4.3 03/22/21 0552 - 03/22/21 0552 GLUCOSE POINT OF CARE 03/22/21551 GLUCOSE POINT OF CARE Glucose POC 70-99 (mg/dL) 155 Medical Decision Making MDM Reviewed: previous chart, nursing note and vitals Reviewed previous: labs and ECG (PET Stress) documented in this encounter Miscellaneous Notes Clinical Team - Lupe Leo LPN - 03/23/2021 3:10 PM CDT Patient discharged to car via wheelchair and transport staff daughter will transport pt home. Discharge instructions provided utilizing discharge AVS and discharge video. Patient verbalized understanding via teach back. Questions answered. Personal belongings sent home with patient. are Planning - Lupe eLo LPN - 03/23/2021 3:00 PM CDT Discharge goals Problem: ACUTE PAIN Goal: CLIENT SATISFACTION: PAIN MANAGEMENT Description: DEFINITION: Extent of positive perception of nursing care to relieve pain. 1=Not at all satisfied, 2=Somewhat satisfied, 3=Moderately satisfied, 4=Very satisfied, 5=Completely satisfied. Flowsheets (Taken 03/23/2021 0958) Plan of care reviewed with: Patient Patient specific goal for the day: pain control with pain med Patient specific goal for the stay: control pain with po pain pills Achieve goal for stay: By discharge Patient Progress: voices adequate pain control with po pain pills and the use of ice packs Problem: IMPAIRED GAS EXCHANGE Goal: RESPIRATORY STATUS Description: DEFINITION: Movement of air in and out of the lungs and exchange of carbon dioxide and oxygen at the alveolar level. 1=Severe deviation from normal range, 2=Substantial deviation from normal range, 3=Moderate deviation from normal range, 4=Mild deviation from normal range, 5=No deviationfrom normal range. Flowsheets (Taken 03/23/2021 0909) Plan of care reviewed with: Patient Patient specific goal for the day: try to wean off o2 Patient specific goal for the stay: return to basic Achieve goal for stay: By discharge met ATCdez Cabrera - Lupe Leo LPN - 03/23/2021 1:31 PM CDT Discharge goals met Problem: ACUTE PAIN Goal: CLIENT SATISFACTION: PAIN MANAGEMENT Description: DEFINITION: Extent of positive perception of nursing care to relieve pain. 1=Not at all satisfied, 2=Somewhat satisfied, 3=Moderately satisfied, 4=Very satisfied, 5=Completely satisfied. Flowsheets (Taken 03/23/2021 0913) Plan of care reviewed with: Patient Patient specific goal for the day: pain control with pain med Patient specific goal for the stay: control pain with po pain pills Achieve goal for stay: By discharge Patient Progress: voices adequate pain control with po pain pills and the use of ice packs Problem: IMPAIRED GAS EXCHANGE Goal: RESPIRATORY STATUS Description: DEFINITION: Movement of air in and out of the lungs and exchange of carbon dioxide and oxygen at the alveolar level. 1=Severe deviation from normal range, 2=Substantial deviation from normal range, 3=Moderate deviation from normal range, 4=Mild deviation from normal range, 5=No deviationfrom normal range. Flowsheets (Taken 03/23/2021 0915) Plan of care reviewed with: Patient Patient specific goal for the day: try to wean off o2 Patient specific goal for the stay: return to basic Achieve goal for stay: By discharge ATCRojas Galeano), RN - 03/23/2021 1:01 PM CDT CASE MANAGEMENT PROGRESS NOTE Met with patient He is ready for discharge When recommended by clinician he will have therapy in [place] He will call his daughter to come and give him a ride home.. SIGNED: Saumya Morales RN (Dorea) [facility] [address] [email or web address] Respiratory Therapy - Ange Rome RRT - 03/23/2021 10:45 AM CDT DM RT notified of need for updated home oxygen orders and testing. Patient currently has home oxygenset up through [facility], including stationary concentrator, portable concentrator, and portabletanks. Patient declined an oxygen tank for transport home. Updated order and testing have been entered and [employer] notified. Ange Rome, JEN, CTTS Disease Management Respiratory Care Services [facility] Respiratory Therapy - Ash Coffey RRT - 03/23/2021 10:20 AM CDT Home Oxygen Evaluation A home oxygen evaluation was completed because of Hypoxemia. The patient has a history of COPD. The patient qualifies for 0 L/min at rest or sleep and 3 L/min with activity to keep SpO2 levels greater than 88%. During the home oxygen evaluation the patient walked until exertion. The patient will be set up with [employer] ([phone]). Occupational Therapy - Yola Marte OTR/Fatemeh - 03/23/2021 9:37 AM CDT Occupational Therapy Total Shoulder ADL Eval/Discharge Requesting physician: Titi Marte MD Admitting Diagnosis: s/p L TSA PMH: Past Medical History: Diagnosis Date Acute respiratory failure (HCC) Anxiety Arthritis of shoulder Bradycardia C7 cervical fracture (HCC) Carpal tunnel syndrome, bilateral CHF (congestive heart failure) (HCC) Chronic bilateral low back pain without sciatica Chronic diastolic heart failure (HCC) Chronic right shoulder pain COPD (chronic obstructive pulmonary disease) (HCC) COPD exacerbation (HCC) Diabetes mellitus type II Diabetic neuropathy (HCC) ED (erectile dysfunction) Encounter for long-term (current) use of other medications Erosive gastropathy Family history of malignant neoplasm of colon Generalized anxiety disorder claustrophobia GERD (gastroesophageal reflux disease) H/O alcohol abuse Heart murmur History of colonoscopy HTN (hypertension) Hyperlipidemia Insomnia Iron deficiency anemia Lactic acidosis Malignant melanoma of ear (HCC) Melanoma (HCC) Memory changes Multiple falls Multiple falls Obesity, morbid (HCC) Osteoarthritis of knee 01/07/2016 PAF (paroxysmal atrial fibrillation) ([facility]) Pericardial tamponade Preventative health care RLS (restless legs syndrome) S/P cervical spinal fusion Sleep apnea, obstructive Special screening for malignant neoplasm of prostate Substance abuse ([facility]) alcohol Vitamin B12 deficiency Weakness Date of surgery: 03/22/2021 Was Pre-op ADL Assessment completed? No Parking Enforcement Manager present during eval: none SOCIAL/HOME ENVIRONMENT House: house Lives Alone: Yes - daughter will be assisting upon discharge Bed/Bath on Main Floor: Yes Interior stairs: 6 Handrails: yes If yes which side: right side Bath Setup: Combo with curtain Prior Level of Functioning: Independent Adaptive Equipment Available: No adaptive equipment needed Current Level: Level of Assist with Gait: No Assistive Device PT Eval indicated: No Pain: Pain at rest: 3/10 Pain during activity: 3/10 Location: L shoulder Recent Falls: No Activities of Daily Living: Dominant Hand: right Feeding: independent with picking up water glass from tray Grooming: not assessed this date. Pt states that he will be getting a haircut after he discharges to help so that he does not have to comb his hair Upper Extremity Dressing: minimum assistance Lower Extremity Dressing: moderate assistance with buttoning pants Bathing: not address, verbally discussed bathing Toileting: Not addressed but pt states that he has had no issues using the bathroom in his room Homemaking: daughter will be assisting if needed. Transfers: Pt declined all transfers this date due to "not having any concerns". Pt was able to stand from chair while pushing with R hand. He appeared stable. Through chart review, he has been walking to bathroom with SBA. Education: Sling/Immobilizer Don/Doff minimum assistance UB Dressing: minimum assistance HEP: Education completed on TSA exercises per physician guidelines TSA Precautions: Reviewed with patient Adaptive Equipment Recommended: No adaptive equipment needed Plan to obtain adaptive equipment: Patient indicates all needed adaptive equipment obtained prior to hospitalization. Assessment: Patient performing at baseline and will be receiving assistance from daughter upon returning home. Plan: d/c OT Treatment/Minutes: Today's Evaluation/Treatment Evaluation Self care/home management: 15 minutes Total Treatment Time: 15 minutes Evaluation Complexity PMH/Comorbidities that affect Occupational Performance: see above for PMH Occupational Profile/Medical and Therapy History: LOW - Brief history relating to presenting problem Patient Assessment: LOW - 1-3 performance deficits relating to physical, cognitive, psychosocial limitations/restrictions Clinical Decision Making: LOW - Low complexity, limited amount of treatment options, no assessment modification, no comorbidities Evaluation Complexity: Low Treatment provided: Pt was educated on the role and benefits of Occupational Therapy and the plan for todays session. Ptverbalized agreement. Therapist provided education on TSA precautions, ADL/IADL tasks and functionaltransfers, home and kitchen strategies and AE to increase safety and independence while adhering to precautions. Pt was educated/trained on one handed grooming, UB and LB dressing and bathing techniques to increase independence. Pt verbalized understanding but had poor carry over. OT had to provide frequent cueing to not use L UE during dressing tasks or moving of UE. OT educated pt on dressing techniques with button up shirt. Pt unable to put R arm through sleeve due to poor shoulder ROM and asked if shirt can drape over L UE with sling underneath. OT proivded min A with donning of sling, button up shirt, and buttoning pants. Following dressing, OT educated and demonstrated UE exercises with goodfollow through by patient. Educated on reasoning for these exercises and the importance of not moving L shoulder during the exercise. Pt verbalized understanding. Pt declined/refused to complete transfers due to feeling comfortable with no concerns. OT attempted to encourage pt he continued to decline. Again OT reviewed precautions at end of the session to ensure follow through. Pt understanding and agreeable. Gait belt, non-slip foot wear utilized for all out of bed activity/transfers. At end of session, pt resting comfortable in chair with call light, phone and tray table within reach. Patient would not benefit from further education/ training on dressing tasks and UE HEP to ensure compliance and understanding of education and TSA precautions. Discontinue OT services. Therapist pager #: [phone] Certification Dates: 03/23/2021 to 03/23/2021 CERTIFICATION I certify that the services as described in the above note are furnished while the patient is under my care; a plan for furnishing these services has been established and will be periodically reviewed;the services are required for the patient; and the services are subject to established guidelines [id number] signed by Dwaine Marte MD at 03/23/2021 12:19 PM CDTRespiratory Therapy - Myra Hill RRT - 03/23/2021 6:21 AM CDT Pt seen for scheduled RT tx. Pt sitting up in chair this am, denies SOB. Pt continues on 4 LPM via NC, Spo2 92-97%. BS clear and diminished. Pt given 1 puff Breo Ellipta DPI. Pt has good technique. Pt rinses mouth post. Pt wore Home AutoPAP last noc. RT will continue to follow pt. are Planning - Brittaney Pickett RN - 03/23/2021 5:05 AM CDT Problem: ACUTE PAIN Goal: CLIENT SATISFACTION: PAIN MANAGEMENT Description: DEFINITION: Extent of positive perception of nursing care to relieve pain. 1=Not at all satisfied, 2=Somewhat satisfied, 3=Moderately satisfied, 4=Very satisfied, 5=Completely satisfied. Outcome: NOC Rating 3 Flowsheets (Taken 03/23/2021 0452) Initial Score: 3 Target Score: 4 Plan of care reviewed with: Patient Patient specific goal for the day: pain control with pain med Patient specific goal for the stay: pain control, therap, ADLS Achieve goal for stay: By discharge Patient Progress: Pain 5/10 tramadol with good effect Problem: IMPAIRED PHYSICAL MOBILITY Goal: MOBILITY Description: DEFINITION: Ability to move purposefully in own environment independently with or without assistive device. 1=Severely compromised / Total assistance: Performs less than 25% of activity; 2=Substantially compromised / Maximal assistance: Performs 25-49% of activity; 3=Moderately compromised / Moderate assistance: Performs 50-74% of activity; 4=Mildly compromised / Modified independence: Needs assistive device, supervision, minimal contact,or safety is a concern; 5=Not compromised / Complete independence. Outcome: NOC Rating 3 Flowsheets (Taken 03/23/2021 9072) Initial Score: 3 Target Score: 4 Plan of care reviewed with: Patient Patient specific goal for the day: will ambulate with staff during the shift Patient specific goal for the stay: will ambulate with PT jovi OT Achieve goal for stay: By discharge Patient Progress: stand by assist to the bathroom are Planning - Shanon Prieto RN - 03/22/2021 6:59 PM CDT Problem: ACUTE PAIN Goal: CLIENT SATISFACTION: PAIN MANAGEMENT Description: DEFINITION: Extent of positive perception of nursing care to relieve pain. 1=Not at all satisfied, 2=Somewhat satisfied, 3=Moderately satisfied, 4=Very satisfied, 5=Completely satisfied. Outcome: NOC Rating 4 Flowsheets (Taken 03/22/2021 2084) Patient specific goal for the day: Pain below 4/10 on pain scale. Patient specific goal for the stay: Pain controlled on oral pain medications. Note: Pt taking scheduled pain medications with relief. Will continue to monitor. Respiratory Therapy - Dylon Murphy, JEN - 03/22/2021 3:11 PM CDT Acknowledge orders for PRN Duo-neb offered at this time patient declined. Q day Breo Ellipta 200-25one puff. Patient has Symbicort 160/4.5 two puffs, on ordered home routine, patient states he has not been using. Plan to follow PRN and offer Breo Ellipta 200/25 daily. ase Mgmt - Andrew Rojas (Saumya), RN - 03/22/2021 2:30 PM CDT CASE MANAGEMENT / SOCIAL SERVICE TRANSITION PLAN - INITIAL ASSESSMENT & FINAL PLAN TRANSITION PLAN: goal is home with family help and outpatient therapy if needed at the [facility] BARRIERS TO TRANSITION: Awaiting Therapy Recommendations / progress towards goals for safety Medical barriers: pain control COMMENTS / PATIENT AND FAMILY RESPONSE TO PLAN: Discussed with interdisciplinary team. Met with patient at the patient's bedside. Introduced Case Management and role in patient care. daughter Perla call/text updates [phone] Patient lives alone in [place], [place]. Patient was independent with ADLs prior to this admissions. He iscurrently a calles and active. Patient's goal upon discharge is home with family support, he has adult children that live close. Plans to do OPPT at discharge. Anticipating home later tomorrow. Education provided in regards to anticipated plan of care. Encouraged patient to voice any concerns. Patient voiced understanding. Questions answered. ADMISSION DX: Arthritis of left shoulder region [M19.012] LEFT TOTAL SHOULDER ARTHROPLASTY PATIENT STATUS: Admit w/ Surgery RELEASE OF INFORMATION: Yes -- verbal for: discharge planning SOURCES OF INFORMATION (See demographics for contact information): Medical Doctor Medical Record Nurse: Bedside Nurse Practitioner/Physician's Outside Operator Occupational Therapy Patient Physical Therapy CURRENT LIVING SITUATION / LEVEL OF ASSISTANCE: Lives alone COMMUNITY SERVICES: None HEALTHCARE DIRECTIVE: Yes-On File and reviewed POWER OF GUEST EXPERIENCE CAPTAIN: None FINANCIAL CONCERNS: No Concerns PRIMARY CARE PHYSICIAN: Yes Kelley Nagel APRN-ORLY [phone] / [facility] [id number] : No IS PATIENT'S ADMISSION ASSOCIATED WITH TIA, ISCHEMIC, OR HEMORRHAGIC STROKE?: No LANGUAGE / COMMUNICATION BARRIERS: No PATIENT / SUBSTITUTE DECISION MAKER GOAL UPON TRANSITION: First Choice: Outpatient Therapy: Physical Therapy PATIENT CHOICE EDUCATION: Not applicable MEDICARE 3 IP MIDNIGHT CRITERIA MET: N/A TRANSITION CHOICES OFFERED: Home Health: Bath Aid, Nurse, Occupational Therapy and Physical Therapy Home: Family/Friend Support Outpatient Therapy: Physical Therapy Transitional Care REFERRAL(S) MADE: No RESOURCE(S) PROVIDED: OPPT DOES PATIENT HAVE CLOTHING TO WEAR AT DISCHARGE? Yes ANTICIPATED MODE OF TRANSPORT UPON DISCHARGE: Family Car - daughter to drive VERIFIED CORRECT PHARMACY IS ENTERED FOR DISCHARGE: Yes - Pharmacy: [id number] [address] [facility] [address] [facility] METHOD OF PRESCRIBING MEDICATIONS: Medications to be E-prescribed to above pharmacy TRANSITION ROUNDING COMPLETED WITH THE FOLLOWING: Patient / family Mining Speculator Bedside certified medical coding specialist RN Discussed in person CURRENT READMISSION RISK SCORE / HANDOFF: Predictive Risk Score Risk of Unplanned Readmission: 13 Handoff given: N/A Please refer to readmission risk assessment flowsheet for further details. FINAL TRANSITION PLAN TRANSITION DATE: 03/23/21 TRANSITION TIME: when cleared by therapy INTENDED PAYER SOURCE FOR AGENCY: Medicare TRANSITION DESTINATION: Home OPPT DOES ACCEPTING FACILITY REQUIRE COVID TESTING BEFORE DISCHARGE: N/A TRANSITION TRANSPORTATION: Family Car TRANSPORTATION PAYMENT: Not applicable SPECIAL TRANSITION DAY INSTRUCTIONS TO NURSE / MD: Patient plans to do OPPT at: [facility] SIGNED: Saumya Morales RN (Dorea) [facility] [address] [email or web address] Clinical Team - Lupe Leo LPN - 03/22/2021 11:35 AM CDT Patient arrived to unit in room 471 via cart, pt walked from cart to recliner in his room very restless PACU nurse and transport staff. Report received. VSS, see graphics. Patient orientated to room, call system, admission packet given and educated on care rounding. Dressing to left shoulder has scantdotting of sanguinous drainage left arm ,hand fingers feel numb to pt o2 on 5L via nasal cannula toKeep sats above 90 four eyes on skin completed with PACU nurse noting multiple ecchymotic areas on extremities no open rashmi noted linical Team - Monika Ash RN - 03/22/2021 11:33 AM CDT Listened to report at 1135 from Maria RODRIGUEZ, PACU Nurse and found patient appropriate for Dustin Head continue care. VSS and patient is resting comfortably in bed with family at bedside. POC initiated. Respiratory Therapy - Dylon Murphy RRT - 03/22/2021 10:21 AM CDT Called to PACU for nebulizer, given 2.5 mg Albuterol. Breath sounds decreased more decreased to left. Patient verbalized that breathing is about the same as usual. Patient states she has a nebulizerat home and inhalers but has not used in a couple years. States he did not bring any inhalers with to hospital. Patient uses home CPAP at night. Will follow as need and orderd. ostOp Progress Note - Dwaine Marte MD - 03/22/2021 8:43 AM CDT Immediate Post-Operative / Post Procedure Progress Note Att. Phys: Dwaine Marte MD Pt. Type: Admit w/ Surgery Operative Date: 03/22/2021 Surgeon: Surgeon(s) and Role: * Dwaine Marte MD - Primary Outside Operator: Pre/Post RN : Trey Zelaya, STUDENT Order Manager : Delfina Gutiérrez RN RN Scrub Person: Sidra Weinberg RN Scrub Person : Olimpia Yousif ST; Mimi Ozuna ST Pre-Operative Diagnosis: Pre-Op Diagnosis Codes: * Arthritis of left shoulder region [M19.012] Post-Operative Diagnosis: oa grade 3 Anesthesia Type: general, regional block Operative Procedure: Procedure(s): LEFT TOTAL SHOULDER ARTHROPLASTY - Wound Class: Clean ID Type Source Tests Collected by Time A : Left shoulder bone and tissue Bone Shoulder TISSUE EXAM Dwaine Marte MD 03/22/2021 0758 no implants used for procedure Fluids Given: See Anesthesia Record Urine Output: See Anesthesia Record Estimated Blood Loss: 100 mL Drains: none Findings: oa Complications: none Postoperative Condition: stable Operative Note - Dwaine Marte MD - 03/22/2021 1:00 AM CDT [facility] PATIENT NAME: VALENTINO LANDIN DATE OF SERVICE: 03/22/2021 ALEXIS: [id number] PREOPERATIVE DIAGNOSIS: Advanced grade-3 osteoarthritis, left shoulder. POSTOPERATIVE DIAGNOSIS: Advanced grade-3 osteoarthritis, left shoulder. PROCEDURE: Left total shoulder replacement with size-15 humeral step, a 27 x 52-mm head and a 52-mmglenoid. SURGEON: Dwaine Marte MD. ANESTHESIA: Interscalene block and general. DRAIN: None. PROCEDURE: The patient was brought to the operating room after having interscalene block for the left shoulder. He was then placed in modified beachchair positioner. The left shoulder was then prepped and draped in the usual, sterile fashion after general anesthesia was administered. Time-out was then performed, and then through a standard anterior approach, the deltopectoral interval was then developed. The conjoined tendon was gently retracted and the musculocutaneous nerve was distal to our retractor. We then incised the subscapularis vertically and detached that as tagging that with #2 Ti-Cron. His rotator cuff repair was still intact. He had a very arthritic humeral head. He had significant osteophytes inferiorly so we carefully debrided the soft tissue and released it around that inferior aspect and then made our humeral osteotomy. He best sized with a 52-mm head. Additional osteophytes were then removed as well. We then reamed up to 15 for the humeral stem, then placed a trial stem and it fit very well on the calcar. We then retracted that posteriorly. He had significant wear of his glenoid, as we would expect, but it was concentric. Identifying the central portion afterremoving soft tissue around the glenoid, we then made our initial co pilot hole. We then brought in the reamer and reamed it to a relatively flat surface. Superior and inferior anteroposterior holes were then made and then we were able to securely place the glenoid without any instability into the central peg holes. We then brought the proximal humerous out anteriorly, exchanged the stems and then tried different head and neck combinations and found the 52 x 27 to give us the best soft tissue tension. At this juncture we then placed a final humeral wall and then reduced the joint. Excellent stability was afforded. I then irrigated the wound and then reattached the subscapularis using #2 Ti-Cronfor both the rotator cuff interval and the attachment laterally. We then irrigated the wound again and closed subcutaneous tissue with 2-0 Vicryl, subcuticular stitch with 4-0 Monocryl. Steri-Strips applied and a sterile dressing was then applied. He was then placed into a sling. He was then awakened and taken to the postoperative recovery room in good condition. All sponge and needles were accounted for. Dwaine Marte MD Receipt: [id number] Trans ID: [id number] CARDIAC NURSE PRACTITIONER CST documented in this encounter Plan of Treatment Date Type Specialty Care Team Description 04/30/2021 Orders Only Cardiovascular Services 07/29/2021 Clinical Support Visit Cardiovascular Services Name Type Priority Associated Diagnoses Date/Ti me TISSUE EXAM PATH Routine Arthritis of left shoulder r egion 03/22/2021 7:58 AM CDT Name Type Priority Associated Diagnoses Order S chedule TISSUE EXAM PATH Routine Arthritis of left shoulder R elease Upon Ordering for 1 region Occurrences sta rting 03/22/2021 HEMOGLOBIN Lab Routine Early AM draw f or labs for 2 Days starting 0 03/23/2021 until 03/24/2021, 1 c ompleted documented as of this encounter Goals Goal Patient Goal Associated Recent Patient-Stated? Author Type Problems Progress Blood Pressure Blood Pressure 149/91 No Kandace ho, < 140/90 (03/23/2021 Radha Thurman, 1:33 PM CDT) LIQUIFIED NATURAL GAS SPECIALIST LIFESTYLE - Lifestyle No SUSANA Merino RN Health Carina Kenyon, Parking Enforcement Manager RN Note: Goal #1 Patient centered goal. Valentino will cut back on the glorified rice . HGB A1C < 8.0 Result Component 7.7 (03/12/2021 12:23 PM CD T) No Carina Merino RN documented as of this encounter Implants Implanted Type Area Rn Anesthesiology Device Shelf Model / Identifier Expiration Serial / Date Lot Allo Putty Dbm [employer] 1ml N [id number] Ea - [id number] Bone/Tissue/ Allo SPINALGRAFT 03/27/2014 [id number] / Implanted: Qty: 1 on 03/27/2012 by Shaji Trinidad MD at [facility] graft TECHNOLOGIES / [id number] [place] Dbm 1.0cc N [id number] Ea - [id number] Bone/Tissue/Allo OSTEOTECH 03/27/2014 [id number] / Implanted: Qty: 1 on 03/27/2012 at [facility] graft [id number] / Medtornic Dual Chamber Pacemaker Cardiovascular Left: MEDTRONIC [id number] ALMA DELIA XT DR MRI / Implanted: 04/23/2020 by Danis Juares MD (Quantity not on file) CHEST [id number] / Screw Oct F/A Depuy 3.5x14mm N Ea - [id number] Neurology J&J DEPUY, / Implanted: Qty: 4 on 03/27/2012 at [facility] / Kris Mtnr Depuy 3.5x60mm N Ea - [id number] Neurology J&J DEPUY, / Implanted: Qty: 2 on 03/27/2012 at [facility] / Screw Pa Inner Mtnr Depuy N Ea - [id number] Neurology J&J DEPUY, / Implanted: Qty: 4 on 03/27/2012 at [facility] / Shldr Humr Hd Std [id number] N Ea1 - [id number] Zack Thorpe Left: REYMUNDO 04/10/2022 / Implanted: Qty: 1 on 03/22/2021 by Dwaine Sullivan MD at [facility] Shoulder SHOULDER / [id number] 2 Shldr Trabecular Gleno 52mm N Ea1 - [id number] To michelle Jt Left: REYMUNDO 06/10/2023 [id number] / Implanted: Qty: 1 on 03/22/2021 by Dwaine Sullivan MD at [facility] Shoulder SHOULDER / [id number] Dev Kaseyr Carrie Watchman 24mm N [id number]/[id number] /2020 [facility] [place] [id number] / Implanted: Qty: 1 on 06/11/2020 by Yanely Short MD SCIENTIFIC / [id number] Description:DEV CLSR CARRIE WATCHMAN 24MM N [id number] EA1-CARDIOVASCULAR Stem Hum [id number] Left: SHOULDER 025 / Implanted: Qty: 1 on 03/22/2021 by Dwaine Sullivan MD at [facility] / [id number] documented as of this encounter Procedures Procedure Name Priority Date/Time Associated Comments Diagnosis GLUCOSE BY METER, Routine 03/23/2021 12:27 PM Res ults for this POCT CDT procedure are i n the results section. HEMOGLOBIN Routine 03/23/2021 6:07 AM Results for this CDT procedure are i n the results section. BASIC METABOLIC Routine 03/23/2021 6:07 AM Resul ts for this PANEL CDT procedure are i n the results section. GLUCOSE BY METER, Routine 03/23/2021 5:41 AM Res ults for this POCT CDT procedure are i n the results section. GLUCOSE BY METER, Routine 03/22/2021 9:39 PM Res ults for this POCT CDT procedure are i n the results section. GLUCOSE BY METER, Routine 03/22/2021 5:32 PM Res ults for this POCT CDT procedure are i n the results section. GLUCOSE BY METER, Routine 03/22/2021 11:56 AM Res ults for this POCT CDT procedure are i n the results section. XRAY SHOULDER 1 VIEW Routine 03/22/2021 9:34 AM Results for this LT CDT procedure are i n the results section. GLUCOSE BY METER, Routine 03/22/2021 9:20 AM Res ults for this POCT CDT procedure are i n the results section. GLUCOSE BY METER, Routine 03/22/2021 5:52 AM Res ults for this POCT CDT procedure are i n the results section. POTASSIUM STAT 03/22/2021 5:52 AM Results for this CDT procedure are i n the results section. documented in this encounter Results GLUCOSE BY METER, POCT (03/23/2021 12:27 PM CDT) Pathologist Sig formerly [facility] Glucose POC 328 (H) 70 - 99 mg/dL [facility] Specimen Blood - Blood specimen (specimen) Performing Organization Address City/[facility]/ZIP Code Phon e Number [facility] [address] [place] [address] BASIC METABOLIC PANEL (03/23/2021 6:07 AM CDT) [facility] Glucose 273 (H) 70 - 100 mg/dL [facility] BUN 37 (H) 6 - 22 mg/dL [facility] Creatinine 1.11 0.80 - 1.30 [facility] mg/dL [place] BUN/Creatinine Ratio 33.3 (H) 10.0 - 25.0 [facility] Sodium 134 (L) 135 - 145 meq/L [facility] Potassium 4.9 3.5 - 5.3 meq/L [facility] Chloride 99 99 - 110 meq/L [facility] CO2 26 20 - 29 meq/L [facility] Anion Gap with K 14 6 - 20 meq/L [facility] Calcium 8.9 8.5 - 10.5 [facility] mg/dL [place] Age [address] [facility] eGFR Non- 64 >=60 [facility] mL/min/1.73m2 [place] eGFR 77 >=60 [facility] mL/min/1.73m2 [place] Specimen Blood - Blood specimen (specimen) Performing Organization Address City/[facility]/ZIP Code Phon e Number [facility] [address] [place], [place] [address] HEMOGLOBIN (03/23/2021 6:07 AM CDT) [facility] Hemoglobin 13.0 (L) 13.5 - 17.5 g/dL [facility] Specimen Blood - Blood specimen (specimen) Performing Organization Address City/[facility]/ZIP Code Phon e Number [facility] [address] [place], [place] [address] GLUCOSE BY METER, POCT (03/23/2021 5:41 AM CDT) Pathologist Sig nature Glucose POC 257 (H) 70 - 99 mg/dL [facility] Specimen Blood - Blood specimen (specimen) Performing Organization Address City/[facility]/ZIP Code Phon e Number [facility] [address] [place] [address] GLUCOSE BY METER, POCT (03/22/2021 9:39 PM CDT) Pathologist Sig nature Glucose POC 376 (H) 70 - 99 mg/dL [facility] Specimen Blood - Blood specimen (specimen) Performing Organization Address City/[facility]/ZIP Code Phon e Number [facility] [address] [place], [place] [address] GLUCOSE BY METER, POCT (03/22/2021 5:32 PM CDT) Pathologist Sig nature Glucose POC 378 (H) 70 - 99 mg/dL [facility] Specimen Blood - Blood specimen (specimen) Performing Organization Address City/[facility]/ZIP Code Phon e Number [facility] [address] [place] [address] GLUCOSE BY METER, POCT (03/22/2021 11:56 AM CDT) Pathologist Sig nature Glucose POC 225 (H) 70 - 99 mg/dL [facility] Specimen Blood - Blood specimen (specimen) Performing Organization Address City/[facility]/ZIP Code Phon e Number [facility] [address] [place] [address] XRAY SHOULDER 1 VIEW LT (03/22/2021 9:34 AM CDT) Specimen Narrative Performed At [id number] Patient Name: VALENTINO LANDIN Date of : 1940 Procedure: XRAY SHOULDER 1 VIEW LT Date of Service: 03/22/2021 EXAM: XRAY SHOULDER 1 VIEW LT INDICATION: tsa COMPARISON(S): 01/26/2021. FINDINGS/IMPRESSION: 1. Interval left shoulder arthroplasty in good anato rodney alignment on this single portable radiograph. Expected postoperativ e change of the overlying soft tissues. 2. Dual-lead left pacemaker partially visualized. Finalized by: Lupis Daly MD on 03/11 10:07 AM CDT Patient/Procedure Information: [facility] MRN/ALEXIS: [id number] Order Number: [id number] Accession Number: [id number] Ordering Provider: DWAINE MARTE Authorizing Provider: DWAINE MARTE Procedure Note Interface, Radiantres - 03/22/2021 10:09 AM CDT Patient Name: VALENTINO LANDIN Date of : 1940 Procedure: XRAY SHOULDER 1 VIEW LT Date of Service: 03/22/2021 EXAM: XRAY SHOULDER 1 VIEW LT INDICATION: tsa COMPARISON(S): 01/26/2021. FINDINGS/IMPRESSION: 1. Interval left shoulder arthroplasty in good anatomic alignment on this single portable radiograph. Expected postoperative change of the overlying soft tissues. 2. Dual-lead left pacemaker partially v isualized. Finalized by: Lupis Daly MD on 03/11 10:07 AM CDT Patient/Procedure Information: [facility] MRN/ALEXIS: [id number] Order Number: [id number] Accession Number: [id number] Ordering Provider: DWAINE MARTE Authorizing Provider: DWAINE MARTE Performing Organization Address [facility]/ZIP [facility] Phon e Number [id number] GLUCOSE BY METER, POCT (03/22/2021 9:20 AM CDT) Pathologist Sig nature Glucose POC 183 (H) 70 - 99 mg/dL [facility] Specimen Blood - Blood specimen (specimen) Performing Organization Address City/[facility]/ZIP Code Phon e Number [facility] [address] [place] [address] GLUCOSE BY METER, POCT (03/22/2021 5:52 AM CDT) Pathologist Sig nature Glucose POC 155 (H) 70 - 99 mg/dL [facility] Specimen Blood - Blood specimen (specimen) Performing Organization Address [facility]/ZIP [facility] Phon e Number [facility] [address] [place] [address] POTASSIUM (03/22/2021 5:52 AM CDT) Pathologist Sig nature Potassium 4.3 3.5 - 5.3 meq/L [facility] Specimen Blood - Blood specimen (specimen) Performing Organization Address City/State/ZIP Code Phon e Number [facility] [address] [place] [address] [phone] documented in this encounter Visit Diagnoses Diagnosis Status post total shoulder arthroplasty, left - Primary Arthritis of left shoulder region Unspecified arthropathy, shoulder region CHF (congestive heart failure) (HCC) Congestive heart failure, unspecified COPD (chronic obstructive pulmonary dise ase) (HCC) Chronic airway obstruction, not elsewher e classified Primary osteoarthritis of left shoulder Primary localized osteoarthrosis, should er region documented in this encounter Discharge Diagnoses Not on filedocumented in this encounter Administered Medications Medication Order MAR Action Action Date Dose Rate Site acetaminophen (TYLENOL) tablet Given 03/23/2021 12:36 PM CDT 650 mg 650 mg 650 mg, Oral, Every six hours, First dose on Mon03/22/21 at 1230, Until Discontinued, Post - Op, Alternate with tramadol (ULTRAM); Adult patients: Total dose of acetaminophen from all acetaminophen containing products should not exceed 4 grams (4000 mg) per day. Pediatric Patients 0 - 3 months: Maximum of 60 mg/kg/24 hours of acetaminophen. Pediatric Patients older than 3 months: Maximum of 75 mg/kg/24 hours of acetaminophen (Never exceeding 4 grams/day). Given 03/23/2021 5:48 AM CDT 650 mg Given 03/22/2021 11:53 PM CDT 650 mg ALPRAZolam (XANAX) tablet 0.25 mg Given 03/23/2021 10:30 AM CDT 0.25 mg 0.25 mg, Oral, Every twelve hours prn, Starting on Mon03/22/21 at 1114, Until Discontinued, anxiety Given 03/22/2021 5:21 PM CDT 0.25 mg aspirin enteric coated tablet 81 mg Given 03/23/2021 8:40 AM CDT 81 mg 81 mg, Oral, Daily, 30 doses, First dose on Mon03/23/21 at 0900, Last dose on Mon04/21/21 at 0900, Post - Op, Tablet should be swallowed whole and not be divided, crushed or chewed. carbohydrate 15 g 15 g, Oral, PRN per parameter, Starting on Mon03/22/21 at 1424, Until Discontinued, low blood glucose, Give 15 grams of carb ohydrate if blood glucose is less than 70 mg/dL, patient is responsive and able to take food or oral meds. Recheck blood glucose in 15 minutes. Repeat 1 time and call MD. If recheck is greater than 70 mg/dL and able to take food or oral meds, give 15 gram carbohydrate if meal or snack due in more than an hour. Serve meal or snack if due in less than 1 hour. See hypoglycemia treatment on cardex. S ources of 15 grams carbohydrate: a. 4 oz of fruit juice (Do NOT give orange juice to dialysis p atients due to risk of hyperkalemia) or b. 4 oz of soda pop (NOT diet) or c . 1 tablespoon of honey dextrose 50% IV solution 50 mL 50 mL (25 g), IV, PRN per parameter, Starting on Mon at 1424, Until Discontinued, low blood glucose, 50 mL, Give if blood glucose is less than 70 mg/dL, patient is unresponsive or NPO, a nd has IV access. Recheck blood glucose in 15 minutes and call MD. Repeat dose if r echeck less than 70 mg/dL and call MD. If recheck is greater than 70 mg/dL and abl e to take food or oral meds, give 15 gram carbohydrate if meal or snack due in mor e than an hour. Serve meal or snack if due in less than 1 hour. See hypoglycemia treatment on car dex. dilTIAZem (CARDIZEM CD) extended release Given 03/23/2021 8:40 AM CDT 180 mg capsule 180 mg 180 mg, Oral, DAILY, First dose on Mon03/23/21 at 0900, Until Discontinued, Swallow capsule whole. Do not crush, chew or open. Hold for SBP less than 100 Hold for HR less than 60 ferrous sulfate (65 mg FE per 325 mg tablet) Given 8:41 AM CDT 325 mg tablet 325 mg 325 mg, Oral, DAILY, First dose on Mon03/23/21 at 0900, Until Discontinued fluticasone-vilanterol (BREO ELLIPTA) 200-25 Given 6:18 AM CDT 1 puff mcg/puff inhaler 1 puff 1 puff, Inhalation, DAILY, First dose on Mon03/23/21 at 0600, Until Discontinued, Formulary Substitute for Symbicort 160/4.5mcg 2 puffs bid Shake well for 5 seconds before using. Rinse mouth after each dose. furosemide (LASIX) tablet 60 mg Given 03/23/2021 8:41 AM CDT 60 mg 60 mg, Oral, Two times a day, First dose on Mon03/23/21 at 0900, Until Discontinued gabapentin (NEURONTIN) capsule 300 mg Given 03/23/2021 8:40 AM CDT 300 mg 300 mg, Oral, Three times a day, First dose on Mon03/22/21 at 1500, Until Discontinued Given 03/22/2021 8:46 PM CDT 300 mg Given 03/22/2021 3:22 PM CDT 300 mg glucagon for injection 1 mg vial 1 mg 1 mg, Intramuscular, PRN per parameter, Starting on 03/22/21 at 1424, Until Discontinued, low blood glucose, Give if blood glucose less than 70 mg/dL, patient is unresponsive or NPO, and has no IV ac cess. Establish IV access. Recheck blood glucose in 15 minutes and call MD. If r echeck is greater than 70 mg/dL and able to take food or oral meds, give 15 gram car bohydrate if meal or snack due in more than an hour. Serve meals or snack if due in less than 1 ho ur. See hypoglycemia treatment on cardex. Reconstitute vial with 1 mL of sterile water for injection for reconstitution for a final concentra tion of 1 mg/mL. Shake vial gently. Use immediately and discard unused portion. Reconstitute with 1 mL of sterile water for injection to yield 1 mg/mL. Shake vial gently. Use immediately and discard unused portion. glucose chewable tablet 16 g 16 g (4 tablet), Oral, PRN per parameter , Starting on Mon03/22/21 at 1424, Until Discontinued, low blood glucose, Chew before swallowin g. Give 15 gram of carbohydrate if blood glucose is less th an 70 mg/dL, patient is responsive and able to take food or oral meds. Recheck blood glucose in 15 minutes. Repeat 15 gram carbohydrate if recheck is less than 70 mg/dL and call MD. If recheck is greater than 70 mg/dL and able to take food or o ral meds, give 15 gram carbohydrate if meal or snack due in more than an hour. Serve meal or snack if due in less than 1 hour. See hypoglycemia treatment on cardex. S ources of 15 grams carbohydrate: a. 4 oz of fruit juice (Do NOT give orange juice to dialysis p atients due to risk of hyperkalemia) or b. 4 oz of soda pop (NOT diet) or c . 1 tablespoon of honey insulin aspart (NovoLOG) SQ correction Given 03/23/2021 12:35 PM CDT 7 Units scale (Adult) 2-8 Units, Subcutaneous, Three times a day, First dose on Mon03/22/21 at 1730, Until Discontinued, 0.08 mL, Give this dose whether patient is eating or patient is NPO LOW DOSE insulin aspart (NovoLOG) subcutaneous correction scale Premeal Blood Glucose = Insulin Dose 150-199 2 units 200-249 3 units 250-299 5 units 300-349 7 units Over 349 8 units Given 03/23/2021 5:48 AM CDT 5 Units Abdo men Right Lower TD Given 03/22/2021 5:35 PM CDT 8 Units insulin detemir (LEVEMIR) SQ injection Given 03/22/2021 10:33 PM CDT 22 Units 22 Units, Subcutaneous, Bedtime, First dose on Mon03/22/21 at 2100, Until Discontinued, 0.22 mL, Formulary Substitute for Levemir insulin pen Blood Glucose greater than or equal to 100 mg/dL - Do Not Hold If Blood Glucose LESS than 100 mg/dL, if patient changed to NPO, or if tube feedings stopped - Immediately notify provider before administration. lovastatin (MEVACOR) tablet 20 mg Given 03/22/2021 8:46 PM CDT 20 mg 20 mg, Oral, Bedtime, First dose on Mon03/22/21 at 2100, Until Discontinued oxyCODONE (OXY-IR) tablet 5-10 mg Given 03/23/2021 12:39 PM CDT 10 mg 5-10 mg, Oral, Every four hours prn, Starting on Mon03/22/21 at 1114, Until Discontinued, moderate pain, severe pain, Post - Op, For patients with moderate pain, pain rating of 4-6, give oxyCODONE 5 mg PO every 4 hours PRN. For patients with severe pain, pain rating of 7 or greater, give oxyCODONE 10 mg PO every 4 hours PRN. May administer less potent prescribed medication based on patient request per the organization's medication management policy. Given 03/23/2021 5:48 AM CDT 5 mg Given 03/22/2021 11:54 PM CDT 5 mg pantoprazole (PROTONIX) enteric coated tablet Given 8:42 AM CDT 40 mg 40 mg 40 mg, Oral, Every morning, First dose on Mon03/23/21 at 0730, Until Discontinued, Tablet should be swallowed whole and not be divided, crushed or chewed. polyethylene glycol (MIRALAX) packet 1 Given 03/23/2021 9:00 AM CDT 1 packet packet 1 packet, Oral, Daily, First dose on Mon03/23/21 at 0900, Until Discontinued, Post - Op, Hold if 2 loose stools occur in the last 24 hours. Do NOT give if patient on thickened liquids. Contact provider for alternative if needed. potassium chloride (K-TAB) CR tablet 10 mEq Given 03/23/2021 8:42 AM CDT 10 mEq 10 mEq, Oral, Two times a day, First dose on Mon03/22/21 at 2100, Until Discontinued, Tablet should not be crushed or chewed. Given 03/22/2021 8:47 PM CDT 10 mEq rOPINIRole (REQUIP) tablet 1 mg Given 03/23/2021 8:42 AM CDT 1 mg 1 mg, Oral, Three times a day, First dose on Mon03/22/21 at 1500, Until Discontinued Given 03/22/2021 8:46 PM CDT 1 mg Given 03/22/2021 3:22 PM CDT 1 mg senna-docusate sodium Given 03/23/2021 8:46 AM CDT 1 tablet (SENOKOT-S;PERICOLACE) tablet 1 tablet 1 tablet, Oral, Two times a day, First dose on Mon03/22/21 at 2100, Until Discontinued, Post - Op, Hold if 2 loose stools occur in the last 24 hours. Given 03/22/2021 8:46 PM CDT 1 tablet sertraline (ZOLOFT) tablet 100 mg Given 03/23/2021 8:43 AM CDT 100 mg 100 mg, Oral, DAILY, First dose on Mon03/23/21 at 0900, Until Discontinued sertraline (ZOLOFT) tablet 25 mg Given 03/23/2021 8:43 AM CDT 25 mg 25 mg, Oral, DAILY, First dose on Mon03/23/21 at 0900, Until Discontinued sodium chloride 0.9% flush (adult) 10 mL Given 03/23/2021 8:43 AM CDT 10 mL 10 mL, IV, Two times a day and prn, First dose on Mon03/22/21 at 0900, Until Discontinued, 10 mL, Active Now, Flush PIV line as scheduled and as often as necessary before and after meds. Use a push / pause technique when flushing to create turbulence. Given 03/22/2021 8:47 PM CDT 10 mL Righ t Arm traMADol (ULTRAM) tablet 50 mg Given 03/23/2021 8:46 AM CDT 50 mg 50 mg, Oral, Every six hours, First dose (after last reorder) on Mon03/22/21 at 1500, Until Discontinued, Post - Op, Alternate with acetaminophen (TYLENOL). Recommended maximum daily dose of traMADol = 400 mg. Recommended maximum daily dose in patients greater than 75 years of age = 300 mg Given 03/23/2021 3:08 AM CDT 50 mg Given 03/22/2021 8:46 PM CDT 50 mg traZODone (DESYREL) tablet 100 mg Given 03/22/2021 8:46 PM CDT 100 mg 100 mg, Oral, Bedtime, First dose on Mon03/22/21 at 2100, Until Discontinued Medication Order MAR Action Action Date Dose Rate Site albuterol (PROVENTIL) (2.5 Given 03/22/2021 10:05 AM CDT 2.5 mg mg/3mL) 0.083% inhalation soln 2.5 mg 2.5 mg, Nebulization, One time prn, Starting on Mon03/22/21 at 0845, Until Mon03/22/21 at 1135, shortness of breath, wheezing, 3 mL, PACU, Standard Neb and PPE Guidelines fentaNYL 100 mcg/2 mL preservative free Given 03/22/2021 7:04 A M CDT 50 mcg injection solution 25-100 mcg 25-100 mcg, IV, Every five minutes prn, 3 doses, Starting on Mon03/22/21 at 0649, Until Mon03/22/21 at 0858, for block, 2 mL, Pre - Op, Fentanyl 25-100 mcg q 5 min prn over the next 2 hours to a MAX of 300 mcg as needed for analgesia during procedure lactated ringers IV solution Restarted 03/22/2021 7:13 AM CDT IV, at 25 mL/hr, Continuous, Starting on Mon03/22/21 at 0645, Until Mon03/22/21 at 0858, 1,000 mL, Pre - Op Now New Bag/Tubing 03/22/2021 6:26 AM CDT 25 mL/hr lactated ringers IV solution Already Infusing 03/22/2021 9:00 AM CDT 125 mL/hr IV, at 125 mL/hr, Continuous, Starting on Mon03/22/21 at 0850, Until Mon03/22/21 at 1135, 1,000 mL, PACU, TKO current fluids if patient is going to Day Unit / ARU and tolerating PO fluids without nausea. ropivacaine 0.5 % 150 mg Peripheral Nerve Block Given 03/22/2021 7:04 AM CDT Injection Syringe Perineural, Now, 1 dose, On Mon03/22/21 at 0650, 30 mL, Pre - Op, Inject 5-10 mL per administration as directed by Anesthesia with a total maximum of 40 mL vancomycin (VANCOCIN) 1,500 mg in sodium Given 03/22/2021 6 :23 PM CDT 1,500 mg chloride 0.9% 250 mL (Locked) 1,500 mg, IV, One time, 1 dose, On Mon03/22/21 at 1830, 250 mL, PACU - Continue Post-Op, Vanco Dose 1500 mg- Total Volume: 295 mL @ 148 mL/hr x 2 hours vancomycin in dextrose 200 mL IV piggyback Given 03/22 6:41 AM CDT 1,000 mg (premix) 1,000 mg 1,000 mg, IV, Pre-op, 1 dose, On Mon03/22/21 at 0630, 200 mL, Pre - Op, Give in PREOP area. Start 1-2 hours prior to cut time and complete prior to cut time documented in this encounter Active and Recently Administered Medications Times are shown in CDT. Medication Order 03/21/2021 03/22/2021 03/23/2021 acetaminophen (TYLENOL) tablet 650 mg 24 05 (Given - Provider: Lupe Leo LPN)1721 (Given - Provider: Shanon Prieto, RN)2353 (Given - Provider: Brittaney Pickett, MICHAEL) 0548 (Given - Provider: Brittaney Pickett RN)1236 (Given - Provider: Lupe Leo LPN)1800 (Due) 650 mg, Oral, Every six hours, First dos e on Mon03/22/21 at 1230, Until Discontinued, Post - Op, Alternate with tramadol (ULTRAM); Adult patients: Total dose of acetaminophen from all acetaminophen co ntaining products should not exceed 4 gr ams (4000 mg) per day. Pediatric Patients 0 - 3 months: Maximum of 60 mg/kg/24 hours of acetaminophen. Pediatric Patients older than 3 months: Maximum of 75 mg /kg/24 hours of acetaminophen (Never exceeding 4 grams/day). aspirin enteric coated tablet 81 mg 0840 (Given - Provider: Lupe Leo LPN) 81 mg, Oral, Daily, 30 doses, First dose on Mon03/23/21 at 0900, Last dose on Mon04/21/21 at 0900, Post - Op, Tablet should be swallowed whole and not be divided, crushed or chewed. dilTIAZem (CARDIZEM CD) extended release capsule 180 mg 0840 (Given - Provider: Lupe Leo LPN) 180 mg, Oral, DAILY, First dose on Mon at 0900, Until Discontinued, Swallow capsule whole. Do not crush, chew or open. Hold for SBP less than 100 Hold for HR less than 60 ferrous sulfate (65 mg FE per 325 mg tablet) tablet 325 mg 0841 (Given - Provider: Lupe Leo LPN) 325 mg, Oral, DAILY, First dose on Mon03/23/21 at 0900, Until Di scontinued fluticasone-vilanterol (BREO ELLIPTA) 200-25 mcg/puff inhaler 1 puff 0618 (Given - Provider: Myra Hill, HAND BASEBALL SEWER) 1 puff, Inhalation, DAILY, First dose on Mon03/23/21 at 0600, Until Discontinued, Formulary Substitute for Symbicort 160/4.5mcg 2 puffs bid Shake well for 5 seconds before using. Rinse mouth after each dose. furosemide (LASIX) tablet 60 mg 0841 (Given - Provider: Lupe Leo LPN)1500 (Due) 60 mg, Oral, Two times a day, First dose on Mon03/23/21 at 0900, Until Discontinued gabapentin (NEURONTIN) capsule 300 mg 15 (Given - Provider: Lupe Leo LPN)204 (Given - Provider: Brittaney Pickett RN) 0840 (Given - Provider: Lupe Leo LPN)1500 (Due)2100 (Due) 300 mg, Oral, Three times a day, First d ose on Mon03/22/21 at 1500, Until Discontinued insulin aspart (NovoLOG) SQ correction scale (Adult) 1735 (Given - Provider: Shanon Prieto RN - Comment: [id number]) 0548 (Given - Provider: Brittaney Pickett RN)1235 (Given - Provider: Lupe Leo LPN)1730 (Due) 2-8 Units, Subcutaneous, Three times a d ay, First dose on Mon03/22/21 at 1730, Until Discontinued, 0.08 mL, Give this dose whether patient is eating or patient is NPO LOW DOSE insulin aspart (NovoL OG) subcutaneous correction scale Preme al Blood Glucose = Insulin Dose 150-199 2 units 200- 249 3 units 250-299 5 units 300-349 7 units Over 349 8 units insulin detemir (LEVEMIR) SQ injection 2 233 (Given - Provider: Brittaney Pickett RN) 2100 (Due) 22 Units, Subcutaneous, Bedtime, First d ose on Mon03/22/21 at 2100, Until Discontinued, 0.22 mL, Formulary Substitute for Levemir insulin pen Blood Glucose greater than or equal to 100 mg/dL - Do Not Ho ld If Blood Glucose LESS than 100 mg/dL , if patient changed to NPO, or if tube feedings stopped - Immediately notify provider before administration. lovastatin (MEVACOR) tablet 20 mg 2045 (Given - Provider: Brittaney Pickett RN) 2100 (Due) 20 mg, Oral, Bedtime, First dose on Mon03/22/21 at 2100, Until D iscontinued pantoprazole (PROTONIX) enteric coated tablet 40 mg 0842 (Given - Provider: Lupe Leo LPN) 40 mg, Oral, Every morning, First dose o n Mon03/23/21 at 0730, Until Discontinued, Tablet should be swallowed whole and not be divided, crushed or chewed. polyethylene glycol (MIRALAX) packet 1 packet 0900 (Given - Provider: Lupe Leo LPN) 1 packet, Oral, Daily, First dose on Mon03/23/21 at 0900, Until Discontinued, Post - Op, Hold if 2 loose stools occur in the last 24 hours. Do NOT give if patient on thickened liquids. Contact provider for alternative if needed. potassium chloride (K-TAB) CR tablet 10 mEq 2046 (Given - Provider: Brittaney Pickett RN) 0842 (Given - Provider: Fatemeh Farah)2100 (Due) 10 mEq, Oral, Two times a day, First dos e on Mon03/22/21 at 2100, Until Discontinued, Tablet should not be crushed or chewed. rOPINIRole (REQUIP) tablet 1 mg 1522 (Gi cortez - Provider: Lupe Leo LPN)2045 (Given - Provider: Brittaney Pickett RN) 0842 (Given - Provider: Lupe Leo LPN)1500 (Due)2100 (Due) 1 mg, Oral, Three times a day, First dos e on Mon03/22/21 at 1500, Until Discontinued ropivacaine 0.5 % 150 mg Peripheral Nerve Block Injection Sy ringheather (COMPLETED) 07 (Given - Provider: Ruthann Marte RN) Perineural, Now, 1 dose, On Mon03/22/21 at 0650, 30 mL, Pre - Op, Inject 5-10 mL per administration as directed by Anesthesia with a total maximum of 40 mL senna-docusate sodium (SENOKOT-S;PERICOLACE) tablet 1 tablet 2045 (Given - Provider: Brittaney Pickett RN) 0846 (Given - Provider: Fatemeh Farah)2099 (Due) 1 tablet, Oral, Two times a day, First d ose on Mon03/22/21 at 2100, Until Discontinued, Post - Op, Hold if 2 loose stools occur in the last 24 hours. sertraline (ZOLOFT) tablet 100 mg 08 (Given - Provider: Lupe Leo LPN) 100 mg, Oral, DAILY, First dose on Mon03/23/21 at 0900, Until Di scontinued sertraline (ZOLOFT) tablet 25 mg 08 (Given - Provider: Lupe Leo LPN) 25 mg, Oral, DAILY, First dose on Mon03/23/21 at 0900, Until Dis continued sodium chloride 0.9% flush (adult) 10 mL 899 (Due)2046 (Given - Provider: Brittaney Pickett RN) 08 (Given - Provider: Fatemeh Farah)2099 (Due) 10 mL, IV, Two times a day and prn, Firs t dose on Mon03/22/21 at 0900, Until Discontinued, 10 mL, Active Now, Flush PIV line as scheduled and as often as necessary before and after meds. Use a push / p ause technique when flushing to create turbulence. sodium chloride 0.9% flush (adult) 10 mL 2108 (Duplicate Entry - Provider: Brittaney Pickett RN) 0844 (Duplicate Entry - Provider: Lupe Leo LPN)2099 (Due) 10 mL, IV, Two times a day and prn, Firs t dose on Mon03/22/21 at 2100, Until Discontinued, 10 mL, Post - Op, Flush unused lumens as scheduled and as often as necessary before and after meds. Use a push/ pause technique when flushing to create turbulence. traMADol (ULTRAM) tablet 50 mg 1522 (Giv en - Provider: Lupe Leo LPN)2045 (Given - Provider: Brittaney Pickett RN) 030 (Given - Provider: Brittaney Pickett RN)0846 (Given - Provider: Lupe Leo LPN)1500 (Due)2099 (Due) 50 mg, Oral, Every six hours, First dose (after last reorder) on Mon03/22/21 at 1500, Until Discontinued, Post - Op, Alternate with acetaminophen (TYLENOL). Recommended maximum daily dose of traMADol = 400 mg. Recommended maximum daily dose in patients greater than 75 years of age = 300 mg traZODone (DESYREL) tablet 100 mg 2045 (Given - Provider: Brittaney Pickett, MICHAEL) 2100 (Due) 100 mg, Oral, Bedtime, First dose on Mon03/22/21 at 2100, Until Discontinued vancomycin (VANCOCIN) 1,500 mg in sodium chloride 0.9% 250 mL (Locked) (COMPLETED) 1822 (Given - Provider: Rosalba Prieto RN)225 (Stopped Infusion - Provider: Brittaney Pickett RN) 1,500 mg, IV, One time, 1 dose, On Mon at 1830, 250 mL, PACU - Continue Post-Op, Vanco Dose 1500 mg- Total Volume: 295 mL @ 148 mL/hr x 2 hours vancomycin in dextrose 200 mL IV piggyback (premix) 1,000 mg (COMPLETED) 0641 (Given - Provider: Kylah Sen, MICHAEL)0751 (Stopped Infusion - Provider: MYA Chen) 1,000 mg, IV, Pre-op, 1 dose, On 03/11 at 0630, 200 mL, Pre - Op, Give in PREOP area. Start 1-2 hours prior to cut time and complete prior to cut time Medication Order 03/21/2021 03/22/2021 03/23/2021 lactated ringers IV solution (CANCELED) 0626 (New Bag/Tubing - Provider: Kylah Sen RN)0712 (Paused - Provider: MYA Chen - Comment: Switch to gravity)0713 (Restarted - Provider: MYA Chen)0902 (Anesthesia Volume Adjustment - Provider: MYA Chen) IV, at 25 mL/hr, Continuous, Starting on Mon03/22/21 at 0645, Until Mon03/22/21 at 0858, 1,000 mL, Pre - Op Now lactated ringers IV solution (CANCELED) 0900 (Already Infusing - Provider: Maria Olguin, MICHAEL) IV, at 125 mL/hr, Continuous, Starting o n Mon03/22/21 at 0850, Until Mon03/22/21 at 1135, 1,000 mL, PACU, TKO current fluids if patient is going to Day Unit / ARU and tolerating PO fluids without nausea. Medication Order 03/21/2021 03/22/2021 03/23/2021 albuterol (PROVENTIL) (2.5 mg/3mL) 0.083% inhalation soln 2. 5 mg (CANCELED) 1005 (Given - Provider: Dylon Murphy, JEN) 2.5 mg, Nebulization, One time prn, Star ting on Mon03/22/21 at 0845, Until Mon03/22/21 at 1135, shortness of breath, wheezing, 3 mL, PACU, Standard Neb and PPE Guidelines albuterol-ipratropium (DUO-NEB) 2.5-0.5 mg/3 mL inhalation solut ion 3 mL 3 mL (1 unit-dose), Nebulization, Four t imes a day prn, Starting on Mon03/22/21 at 1400, Until Discontinued, shortness of breath, wheezing, 3 mL ALPRAZolam (XANAX) tablet 0.25 mg 1721 ( Given - Provider: Shanon Prieto, MICHAEL) 1030 (Given - Provider: Fatemeh Farah) 0.25 mg, Oral, Every twelve hours prn, S tarting on Mon03/22/21 at 1114, Until Discontinued, anxiety benzocaine-menthol (CEPACOL w/ BENZOCAINE) lozenge 1 lozenge 1 lozenge, Mouth/Throat, Every four hour s prn, Starting on Mon03/22/21 at 1114, Until Discontinued, sore throat, other (Specify), throat irritation, Post - Op, Exception: Patients with dysphagia, radiat ion mucositis/esophagitis or without a gag reflex. bisacodyl (DULCOLAX) enteric coated tablet 5 mg 5 mg, Oral, Two times a day prn, Startin g on Mon03/22/21 at 1114, Until Discontinued, constipation, Post - Op, SECOND choice or per patient preference bisacodyl (DULCOLAX) suppository 10 mg 10 mg, Rectal, One time a day prn, Start ing on Mon03/22/21 at 1114, Until Discontinued, constipation, Post - Op, THIRD choice or per patient preference. If patient cannot take oral medications, use first for constipation. carbohydrate 15 g(Linked Group 1) 15 g, Oral, PRN per parameter, Starting on Mon03/22/21 at 1424, Until Discontinued, low blood glucose, Give 15 grams of carbohydrate if blood glucose is less than 70 mg/dL, patient is responsive and abl e to take food or oral meds. Recheck b lood glucose in 15 minutes. Repeat 1 time and call MD. If recheck is greater than 70 mg/dL and able to take food or oral meds, give 15 gram carbohydrate if meal or snack due in more than an hour. Serve meal or snack if due in less than 1 hour. See hypoglycemia treatment on cardex. Sources of 15 grams carbohydrate: a. 4 oz of fruit juice (Do NOT give orange j uice to dialysis patients due to risk of hyperkalemia) or b. 4 oz of soda pop (NOT diet) or c. 1 tablespoon of honey dextrose 50% IV solution 50 mL 50 mL (25 g), IV, PRN per parameter, Sta rting on Mon03/22/21 at 1424, Until Discontinued, low blood glucose, 50 mL, Give if blood glucose is less than 70 mg/dL, patient is unresponsive or NPO, and has I V access. Recheck blood glucose in 15 mi nutes and call MD. Repeat dose if recheck less than 70 mg/dL and call MD. If recheck is greater than 70 mg/dL and able to take food or oral meds, give 15 gram car bohydrate if meal or snack due in more t zhao an hour. Serve meal or snack if due in less than 1 hour. See hypoglycemia treatment on cardex. diphenhydrAMINE (BENADRYL) injection solution 25 mg 25 mg, IV, Every four hours prn, Startin g on Mon03/22/21 at 1114, Until Discontinued, itching, 0.5 mL, Post - Op, May repeat 4 times If preference is to further dilute for IV administration: First draw up patient-specific dose, then dilute to 10 mL with 0.9% sodium chloride. fentaNYL 100 mcg/2 mL preservative free injection solution 25-100 mcg (CANCELED) 0704 (Given - Provider: Ruthann Marte RN) 25-100 mcg, IV, Every five minutes prn, 3 doses, Starting on Mon03/22/21 at 0649, Until Mon03/22/21 at 0858, for block, 2 mL, Pre - Op, Fentanyl 25-100 mcg q 5 min prn over the next 2 hours to a MAX of 300 mcg as needed for analgesia during procedure glucagon for injection 1 mg vial 1 mg 1 mg, Intramuscular, PRN per parameter, Starting on Mon03/22/21 at 1424, Until Discontinued, low blood glucose, Give if blood glucose less than 70 mg/dL, patient is unresponsive or NPO, and has no IV ac cess. Establish IV access. Recheck bloo d glucose in 15 minutes and call MD. If recheck is greater than 70 mg/dL and able to take food or oral meds, give 15 gram carbohydrate if meal or snack due in mo re than an hour. Serve meals or snack if due in less than 1 hour. See hypoglycemia treatment on cardex. Reconstitute vial with 1 mL of sterile water for injection for reconstitution for a final concent ration of 1 mg/mL. Shake vial gently. U se immediately and discard unused portion. Reconstitute with 1 mL of sterile water for injection to yield 1 mg/mL. Shake vial gently. Use immediately and discard unused portion. glucose chewable tablet 16 g(Linked Group 1) 16 g (4 tablet), Oral, PRN per parameter , Starting on Mon03/22/21 at 1424, Until Discontinued, low blood glucose, Chew before swallowing. Give 15 gram of carbohydrate if blood glucose is less than 70 mg /dL, patient is responsive and able to t manjinder food or oral meds. Recheck blood glucose in 15 minutes. Repeat 15 gram carbohydrate if recheck is less than 70 mg/dL and call MD. If recheck is greater than 70 mg/dL and able to take food or oral m eds, give 15 gram carbohydrate if meal or snack due in more than an hour. Serve meal or snack if due in less than 1 hour. See hypoglycemia treatment on cardex. Sources of 15 grams carbohydrate: a. 4 oz of fruit juice (Do NOT give orange juice to dialysis patients due to risk of hyperkalemia) or b. 4 oz of soda pop (NOT diet) or c. 1 tablespoon of honey ketorolac (TORADOL) intravenous injection 15 mg 15 mg, IV, Every six hours prn, Starting on Mon03/22/21 at 1114, Until Mon03/23/21 at 1113, severe pain, 1 mL, Post - Op, If pain unrelieved by fentanyl; Max prn dose = 60 mg/day If preference is to f laurie dilute for IV administration: Fir st draw up patient-specific dose, then dilute to 10 mL with 0.9% sodium chloride. magnesium hydroxide (MILK OF MAGNESIA) oral suspension 30 mL 30 mL, Oral, Two times a day prn, Starti ng on Mon03/22/21 at 1114, Until Discontinued, constipation, 30 mL, Post - Op, FIRST choice or per patient preference. Exception: Nephrology/renal patients nalOXone (NARCAN) injection solution (vial) 0.2 mg 0.2 mg, Injection, Every two minutes prn , Starting on Mon03/22/21 at 1114, Until Discontinued, other (Specify), opioid induced respiratory depression - PARTIAL reversal, 0.5 mL, Post - Op, PARTIAL REVER LEVON/RESPIRATORY DEPRESSION If respirator y rate less than 8/minute - call rapid response and administer (until respiratory rate increases to 10/minute). Give IV (preferred), IM or SUBQ nalOXone (NARCAN) injection solution (vial) 0.4 mg 0.4 mg, Injection, Every two minutes prn , Starting on Mon03/22/21 at 1114, Until Discontinued, other (Specify), opioid induced respiratory arrest - FULL reversal, 1 mL, Post - Op, FULL REVERSAL/RESPIRAT ORY ARREST If patient is not breathing - call CODE BLUE and administer. Give IV (preferred), IM or SUBQ ondansetron (ZOFRAN) injection solution 4 mg 4 mg, IV, Every four hours prn, Starting on Mon03/22/21 at 0846, Until Discontinued, nausea, vomiting, 2 mL, PACU - Continue Post-Op, Use FIRST for nausea/vomiting. If ineffective after 15 minutes use h aloperidol if ordered for nausea/vomitin g. If preference is to further dilute for IV administration: First draw up patient-specific dose, then dilute to 10 mL with 0.9% sodium chloride. oxyCODONE (OXY-IR) tablet 5-10 mg 2354 (Given - Provider: Brittaney Pickett RN) 0548 (Given - Provider: Brittaney Pickett RN)1239 (Given - Provider: Lupe Leo LPN) 5-10 mg, Oral, Every four hours prn, Sta rting on Mon03/22/21 at 1114, Until Discontinued, moderate pain, severe pain, Post - Op, For patients with moderate pain, pain rating of 4-6, give oxyCODONE 5 mg PO every 4 hours PRN. For patients with severe pain, pain rating of 7 or greater, give oxyCODONE 10 mg PO every 4 hours PRN. May administer less potent prescribed medication based on patient request p er the organization's medication management policy. Order Group 1: glucose chewable tablet 16 gJump to med 16 g (4 tablet), Oral, PRN per parameter , Starting on Mon03/22/21 at 1424, Until Discontinued, low blood glucose
Chew before swallowing. Give 15 gram of carbohydrate if blood glucose i s less than 70 mg/dL, patient is respons roni and able to take food or oral meds. Recheck blood glucose in 15 minutes. Repeat 15 gram carbohydrate if recheck is less than 70 mg/dL and call MD. &a mp;nbsp;If recheck is greater than 70 mg /dL and able to take food or oral meds, give 15 gram carbohydrate if meal or snack due in more than an hour. Serve meal or snack if due in less than 1 hour.&n bsp; See hypoglycemia treatment on cardex. Sources of 15 grams carbohydrate: a. 4 oz of fruit juice (Do NOT give orange juice to dialysis patients due to risk of hy perkalemia) or b. 4 oz of soda pop (NOT diet) or c. 1 tablespoon of honey
Or carbohydrate 15 gJump to med 15 g, Oral, PRN per parameter, Starting on Mon03/22/21 at 1424, Until Discontinued, low blood glucose
Give 15 grams of carbohydrate if blood glucose is less than 70 mg/dL, patient is responsive and able to take food or oral meds. &nb sp; Recheck blood glucose in 15 minutes. Repeat 1 time and call MD. If recheck is greater than 70 mg/dL and able to take food or o ral meds, give 15 gram carbohydrate if m eal or snack due in more than an hour. Serve meal or snack if due in less than 1 hour. See hypoglycemia treatment on cardex. &nbsp ;Sources of 15 grams carbohydrate: a. 4 oz of fruit juice (Do NOT give orange juice to dialysis patients due to risk of hyperkalemia) or b. 4 oz of soda pop (NOT diet) or c. 1 tablespoon of honey
documented in this encounter
== END 2021-03-24 20:02 | disposition home or self-care (01) ==
LOC: LL.ED 17:30
DX: M96.830 Postprocedural hemorrhage of a musculoskeletal structure following a musculoskeletal system procedure (principal); I48.91 Unspecified atrial fibrillation; I25.10 Atherosclerotic heart disease of native coronary artery without angina pectoris; I13.0 Hypertensive heart and chronic kidney disease with heart failure and stage 1 through stage 4 chronic kidney disease, or unspecified chronic kidney disease; E11.22 Type 2 diabetes mellitus with diabetic chronic kidney disease; N18.9 Chronic kidney disease, unspecified; I50.9 Heart failure, unspecified; D63.1 Anemia in chronic kidney disease; I25.2 Old myocardial infarction; E78.00 Pure hypercholesterolemia, unspecified; J44.9 Chronic obstructive pulmonary disease, unspecified; K21.9 Gastro-esophageal reflux disease without esophagitis; E11.21 Type 2 diabetes mellitus with diabetic nephropathy; M10.9 Gout, unspecified; E11.42 Type 2 diabetes mellitus with diabetic polyneuropathy; E66.9 Obesity, unspecified; Z68.42 Body mass index [BMI] 45.0-49.9, adult; Z96.612 Presence of left artificial shoulder joint; Z87.891 Personal history of nicotine dependence; Z88.8 Allergy status to other drugs, medicaments and biological substances; Z88.1 Allergy status to other antibiotic agents; Z88.0 Allergy status to penicillin; Z79.82 Long term (current) use of aspirin; Z79.4 Long term (current) use of insulin; Z79.899 Other long term (current) drug therapy
CPT/HCPCS: 36415; 80053; 83735; 85025; 99283; 99284; J1815

== ENCOUNTER 2021-03-26 11:00 | Emergency (ER) | payer MEDICARE, BC ==
[2021-03-26] MEDS: Lactated Ringers 1,000 ML IV ONE ×2 (11:39→13:32)
--- NOTE | 2021-03-26 11:49 | PCM.EKG ---
#1 Interpretation EKG Date: 03/26/21 Time: 11:44 Rhythm: A-Fib Rate (Beats/Min): 72 [place]: Normal P-Wave: Variable QRS: Normal ST-T: Normal QT: Normal Comparison: No Change
--- NOTE | 2021-03-26 11:55 | EDM.PDOC ---
ED HPI GENERAL MEDICAL PROBLEM - General Chief Complaint: Upper Extremity Injury/Pain Stated Complaint: Post-Op Bleeding Time Seen by Provider: 03/26/21 11:20 Source of Information: Reports: Patient History Limitations: Reports: No Limitations - History of Present Illness INITIAL COMMENTS - FREE TEXT/NARRATIVE: Patient comes emergency department today from home with complaints of continued bleeding from the left shoulder surgery. This patient had a left total shoulder replacement by Dr. Milan Marte at [facility] in [place] on 03-22-21. He has a history of coronary artery disease atrial fibrillation with a watchman procedure diabetes hypertension high cholesterol and multiple other surgeries in the past. He was seen in the emergency department on 03-24-21 with concerns of continued bleeding from the left shoulder site. Surgery was consulted at that time from the emergency department and was told to change the dressing and to follow-up next week. He continues to have quite a bit more bleeding through the incision of his shoulder he also has quite a bit of increased bruising to his chest. He complains of generalized weakness lightheadedness. He does complain of sh ortness of breath but this is not more than his shortness of breath from baseline. He denies any vertigo syncope palpitations. No chest pressure or chest pain. No nausea no vomiting. He denies any fever or chills. No abdominal pain. No black or tarry stools. His pain is well controlled. He does not take any aspirin or anticoagulants and he has no bleeding disorders of himself or his family according to the patient. Patient's daughter was in the room reports that he has also had some confusion and change in his mental status. - Related Data Allergies Allergy/AdvReac Type Severity Reaction Status Date / Time atorvastatin [From Lipitor] Allergy UNKNOWN Verified 03/24/21 17:45 clindamycin Allergy UNKNOWN Verified 03/24/21 17:45 lisinopril Allergy Cough Verified 03/24/21 17:45 Penicillins Allergy UNKNOWN Verified 03/24/21 17:45 rosuvastatin [From Crestor] Allergy unknown Verified 03/24/21 17:45 valsartan [From Diovan] Allergy UNKNOWN Verified 03/24/21 17:45 Home Meds: Home Meds Budesonide/Formoterol [Symbicort 160-4.5 MCG] 2 puff INH BID 07/21/16 [History] Multivitamins [Tab-A-Juan] 1 tab PO DAILY 07/21/16 [History] Sertraline [Zoloft] 100 mg PO QAM 07/21/16 [History] metFORMIN HCl [Metformin HCl] 1,000 mg PO BIDMEALS 07/21/16 [History] rOPINIRole [Requip] 1 mg PO DAILY PRN 07/21/16 [History] rOPINIRole [Requip] 1 tab PO TID@,07/21/16 [History] Cyanocobalamin (Vitamin B-12) [Vitamin B-12] 1,000 mcg PO DAILY 12/13/19 [History] Gabapentin [Neurontin] 300 mg PO TID@,12/13/19 [History] Insulin Detemir [Levemir] 22 unit SUBCUT BEDTIME 12/13/19 [History] Triamcinolone Acetonide [Kenalog 0.1% Crm] 1 applic TOP BID PRN 12/13/19 [History] Lovastatin [Mevacor] 20 mg PO BEDTIME #30 tablet 12/17/19 [Rx] Furosemide [Lasix] 60 mg PO BID 12/30/19 [History] dilTIAZem HCL [Cartia Xt] 180 mg PO DAILY 12/30/19 [History] Albuterol/Ipratropium [DuoNeb 3.0-0.5 MG/3 ML] 3 ml NEB QID PRN 01/09/20 [History] Ferrous Sulfate 325 mg PO DAILY 01/09/20 [History] Pantoprazole Sodium [Protonix] 40 mg PO DAILY 01/09/20 [History] Potassium Chloride 10 meq PO BID 01/09/20 [History] Sildenafil [Viagra] 100 mg PO ASDIRECTED PRN 01/09/20 [History] Aspirin [Aspirin EC] 81 mg PO DAILY 06/25/20 [History] Sertraline [Zoloft] 25 mg PO DAILY 06/25/20 [History] ALPRAZolam [Xanax] 0.25 mg PO Q12HR PRN 03/24/21 [History] Docusate Sodium/Sennosides [Senokot-S] 1 each PO BID 03/24/21 [History] oxyCODONE 5 - 10 mg PO Q4H PRN 03/24/21 [History] traZODone HCl [Trazodone HCl] 100 mg PO BEDTIME 03/24/21 [History] Past Medical History HEENT History: Reports: Cataract, Hard of Hearing, Impaired Vision, Other (See Below) Other HEENT History: He wears glasses. No surgeries for his cataracts to this point. No history of diabetic retinopathy. Mild bilateral presbycusis with no current therapy. Cardiovascular History: Reports: Afib, Aneurysm, Arrhythmia, CAD, Cardiomyopathy, Heart Failure, Heart Murmur, High Cholesterol, Hypertension, UT, Pulmonary Hypertension, Other (See Below) Other Cardiovascular History: Large pericardial effusion on 12/31/2019 with cardiac tamponade requiring procedure as below. Previous junctional bradycardia secondary to medications on 12/23/19 with chronic atrial fibrillation and required pacemaker placement as below. History of possible small inferior wall UT, which was not known by the patient, per Cardiolite scan on 09/22/19 with evidence of reversible inferior wall cardiac ischemia and small reversible anterior wall reversible ischemia. Moderate left atrial enlargement, mild to moderate mitral valve insufficiency and mitral valve stenosis with diastolic dysfunction by echocardiograms as below. Recurrent CHF with secondary hypoxia although overall good systolic ejection fraction by echocardiogram as below. Recurrent atrial fibrillation/flutter with rapid ventricular response, including previous 3:1 AND 4:1 AV block. Small abdominal aortic aneurysm by CT scan of the abdomen and pelvis on 11/10/19. Chronic D-dimer elevation on 12/13/19 with negative workup as below. Respiratory History: Reports: Bronchitis, Recurrent, COPD, Intubation, Previous, Pneumonia, Recurrent, Pulmonary Fibrosis, Sleep Apnea, SOB, Other (See Below) Other Respiratory History: O2 dependent COPD with previous history of oxygen noncompliance, however no oxygen is required when his CHF is under good control. Patient is compliant with his CPAP. Multiple bilateral pulmonary nodules, including 9 millimeter lesion in the right middle lobe with additional 1.5 cm right-sided paratracheal lymphadenopathy by CT scan on 11/10/19. History of respiratory failure. Gastrointestinal History: Reports: Colon Polyp, Diverticulosis, Gastritis, GERD, Hiatal Hernia, Other (See Below) Other Gastrointestinal History: History of recurrent colonic polyps including hyperplastic colonic polyp removed from the proximal ascending colon and 2 tubular adenomas removed from the rectal region on 07/21/16. Genitourinary History: Reports: Acute Renal Failure, BPH, Chronic Renal Insuffiency, Diabetic Nephropathy, Prostate Disorder, Other (See Below) Other Genitourinary History: Bilateral complex renal cysts by CT scan on 11/10/19 with patient apparently refusing biopsies. Musculoskeletal History: Reports: Arthritis, Back Pain, Chronic, Fracture, Gout, Neck Pain, Chronic, Osteoarthritis, Osteoporosis, Other (See Below) Other Musculoskeletal History: C7 cervical fracture requiring surgery as below. Multiple possible bilateral rib fractures secondary to football injuries, etc. as a teenager and in his 20s. 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 Restless leg syndrome; bIlateral carpal tunnel syndrome? Psychiatric History: Reports: Addiction, Anxiety, Dementia, Depression, Other (See Below) Other Psychiatric History: Insomnia and claustrophobia. Per medical records history of previous alcohol abuse, which the patient adamantly denies. 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 Endocrine/Metabolic History: Reports: Diabetes, Type II, Hypomagnesemia, IDDM, Obesity/BMI 30+, Osteopenia, Osteoporosis, Other (See Below) Other Endocrine/Metabolic History: Hyperkalemia. 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 Dermatologic History: Reports: Venous Stasis Dermatitis - Infectious Disease History Infectious Disease History: Reports: Chicken Pox, Measles, Mumps, Novel Coronavirus - Past Surgical History Head Surgeries/Procedures: Reports: None HEENT Surgical History: Reports: Oral Surgery, Other (See Below) Other HEENT Surgeries/Procedures: Initial excision of large right auricular melanoma on 09/28/05, including superficial parotidectomy, with subsequent reexcision/biopsy on 10/26/05 with no evidence of recurrence. Multiple teeth extractions with partial lowers. Cardiovascular Surgical History: Reports: Cardiac Ablation, Other (See Below) Other Cardiovascular Surgeries/Procedures: Aspiration of large pericardial effusion on 12/31/2019. Watchman left atrial appendage closure placement on 06/11/2020. Briefly successful cardiac ablation for atrial flutter on 11/14/19 in [place] with previous electrocardioversion at [facility] on 05/23/18. Respiratory Surgical History: Reports: None GI Surgical History: Reports: Colonoscopy, EGD, Polypectomy, Other (See Below) Other GI Surgeries/Procedures: Last EGD and colonoscopy on 06/18/19 with previous colonoscopy including multiple polypectomies as below on 07/21/16. Note cauterization without biopsy of hyperplastic appearing polyp in the transverse colon at that time. Male Surgical History: Reports: Vasectomy, Other (See Below) Other Male Surgeries/Procedures: Vasectomy in about 1968 Endocrine Surgical History: Reports: None Neurological Surgical History: Reports: C-Spine, Discectomy, Laminectomy, Spinal Fusion, Other (See Below) Other Neurological Surgeries/Procedures: C6C7 anterior laminectomy and spinal fusion on 03/27/12 with additional Aburto head pins secondary to previous C7 fracture. Musculoskeletal Surgical History: Reports: Knee Replacement, Other (See Below) Other Musculoskeletal Surgeries/Procedures:: Bilateral TKAs in the Oncologic Surgical History: Reports: Other (See Below) Other Oncologic Surgeries/Procedures: Melanoma excision as above. Dermatological Surgical History: Reports: Other (See Below) - Past Imaging History Past Imaging History: Reports: Cardiac Echo (Last echocardiogram at [facility] on 06/12/2020 with ejection fraction of 55% and otherwise findings as above. Additional echocardiogram on 03/11/2020 showed resolution of previous large pericardial effusion with previous large pericardial effusion on 12/31/2019. Otherwise echocardiogram on 12/23/19 with no pericardial effusion at that time and ejection fraction of 65%. Additional evaluation at [facility] in [place] on 01/29/13. Additional recent echocardiogram [place] on 11/14/2019 with ejection fraction of 5560 percent with previous echocardiogram in [place] on 09/22/19 with ejection fraction of 55% and otherwise findings as above.), CAT Scan (Negative CTA of the chest on 01/09/2020 and 12/13/[address] scan of the brain on 09/21/[address] scan of the chest, abdomen, and pelvis without contrast on 11/10/19 with findings as above.), Event Monitor (03/27/2020 with findings as above.), MRI (Lumbar spine on 04/12/19.), Stress Testing (Lexiscan Cardiolite evaluation on 09/22/19 with findings as above and ejection fraction of 65%.), Venous Doppler (Negative Doppler studies of the legs bilaterally on 12/16/19 with previous negative venous Doppler studies of the lower extremities on 12/16/19.). Denies: Holter Monitor Social & Family History - Family History HEENT: Reports: None Cardiac: Reports: CAD, Hypertension, UT, Other (See Below) Other Cardiac Family History: Parents from an [place] in their 70s with no apparent procedures. Hypertension in brother. Respiratory: Reports: None GI: Reports: None : Reports: None OBGYN: Reports: None Musculoskeletal: Reports: Arthritis, Osteoarthritis, Other (See Below) Other Musculoskeletal Family History: Arthritis in parents, sisters 2, and brothers 2 Neurological: Reports: None Psychiatric: Reports: None Endocrine/Metabolic: Reports: None Hematologic: Reports: None Immunologic: Reports: None Dermatologic: Reports: None Oncologic: Reports: Leukemia, Other (See Below) Other Oncologic Family History: Brother with fatal CLL and another brother with unknown type of cancer. 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 ED EXAM, GENERAL - Physical Exam Exam: See Below Free Text/Narrative:: Went into the room is quite apparent that he is pale and quite diaphoretic and somewhat anxious. He will not lay down on the cot as he gets too short of breath. He has a dressing on the left anterior shoulder that is soaked through with a small amount of bleeding still noted from the distal aspect of the transverse incision of the left anterior shoulder. There is a rather large area of ecchymosis hematoma of the left humerus as well as his left breast that is rather large both of these are semifirm. He does have good distal pulses but there is somewhat decreased symmetrically in all 4 extremities. His blood pressure is somewhat labile at 98/76. He also has some ecchymosis on the sternum which is developed over the past couple of days according to the patie nt. Exam Limited By: No Limitations General Appearance: Alert, WD/WN, Anxious Eye Exam: Bilateral Eye: EOMI, PERRL, Other (His conjunctive a bilaterally is exquisitely pale.) Ears: Normal External Exam Nose: Normal Inspection Throat/Mouth: Normal Inspection Head: Atraumatic, Normocephalic Neck: Normal Inspection Respiratory/Chest: No Respiratory Distress, Lungs Clear, No Accessory Muscle Use, Decreased Breath Sounds Cardiovascular: Normal Peripheral Pulses, No Murmur, Irregularly Irregular Peripheral Pulses: 1+: Radial (L), Radial (R) GI/Abdominal: Normal Bowel Sounds, Soft, Non-Tender Back Exam: Normal Inspection Extremities: No: Normal Inspection (As above in the narrative. He does have decreased range of motion of the left arm due to the recent shoulder replacement. He does have some weak pulses peripherally. All of his extremities are cool clammy diaphoretic) Psychiatric: Anxious Skin Exam: Cool, Diaphoretic, Pallor Course - Vital Signs Last Recorded V/S: Last Vital Signs Temp 98 F 03/26/21 11:00 Pulse 78 03/26/21 15:50 Resp 20 03/26/21 15:50 BP 115/61 03/26/21 15:50 Pulse Ox 100 03/26/21 15:28 - Orders/Labs/Meds Orders: Active Orders 24 hr Category Date Time Status CTA Chest W WO Contrast [Ang Chest] [CT] Stat Exams 03/26/21 12:40 Taken Chest 1V Frontal [CR] Stat Exams 03/26/21 11:32 Taken CULTURE BLOOD [BC] Stat Lab 03/26/21 11:30 Received CULTURE BLOOD [BC] Stat Lab 03/26/21 12:15 Received Blood Culture x2 Reflex Set [OM.PC] Stat Oth 03/26/21 12:06 Ordered Labs: Laboratory Tests 03/26/21 03/26/21 03/26/21 Range/Units 11:30 11:30 11:30 WBC 10.7 H (4.0-10.2) K/uL RBC 4.13 L (4.33-5.41) M/uL Hgb 11.6 L (13.1-16.8) g/dL Hct 35.5 L (39.0-49.0) % MCV 86.0 (84.0-98.0) fL MCH 28.1 L (28.2-33.3) pg MCHC 32.7 (31.7-36.0) g/dL RDW 16.1 H (11.2-14.1) % Plt Count 235 (150-350) K/uL Neut % (Auto) 73.9 (45.0-80.0) % Lymph % (Auto) 14.7 (10.0-50.0) % Crowley % (Auto) 8.2 (2.0-14.0) % Eos % (Auto) 2.9 (0.0-5.0) % Baso % (Auto) 0.3 (0.0-2.0) % Neut # (Auto) 7.92 H (1.40-7.00) K/uL Lymph # (Auto) 1.57 (0.50-3.50) K/uL Crowley # (Auto) 0.88 (0.00-1.00) K/uL Eos # (Auto) 0.31 (0.00-0.50) K/uL Baso # (Auto) 0.03 (0.00-0.20) K/uL PT 10.3 (9.5-12.0) SEC INR 1.0 APTT 27.9 (24.5-32.8) SEC Sodium 139 (136-145) mmol/L Potassium 3.9 (3.5-5.1) mmol/L Chloride 101 (98-107) mmol/L Carbon Dioxide 28.1 (21.0-32.0) mmol/L BUN 28 H (7-18) mg/dL Creatinine 0.93 (0.51-1.17) mg/dL Est Cr Clr Drug Dosing 67.47 mL/min Estimated GFR (MDRD) > 60 mL/min Glucose 189 H (70-99) mg/dL Lactic Acid (0.4-2.0) mmol/L Calcium 8.9 (8.5-10.1) mg/dL Total Bilirubin 0.7 (0.2-1.0) mg/dL AST 17 (15-37) U/L ALT 26 (12-78) U/L Alkaline Phosphatase 101 (46-116) IU/L Troponin I (0.000-0.056) ng/mL NT-Pro-B Natriuret Pep (0-125) pg/mL Total Protein 7.4 (6.4-8.2) g/dL Albumin 3.0 L (3.4-5.0) g/dL Specimen Type Urine Color Urine Appearance Urine pH (5.0-9.0) Ur Specific Kramer (1.005-1.030) Urine Protein (NEGATIVE) mg/dL Urine Glucose (UA) (NEGATIVE) mg/dL Urine Ketones (NEGATIVE) mg/dL Urine Occult Blood (NEGATIVE) Urine Nitrite (NEGATIVE) Urine Bilirubin (NEGATIVE) Urine Urobilinogen (0.2-1.0) E.U./dL Ur Leukocyte Esterase (NEGATIVE) 03/26/21 03/26/21 03/26/21 Range/Units 11:30 11:30 11:30 WBC (4.0-10.2) K/uL RBC (4.33-5.41) M/uL Hgb (13.1-16.8) g/dL Hct (39.0-49.0) % MCV (84.0-98.0) fL MCH (28.2-33.3) pg MCHC (31.7-36.0) g/dL RDW (11.2-14.1) % Plt Count (150-350) K/uL Neut % (Auto) (45.0-80.0) % Lymph % (Auto) (10.0-50.0) % Crowley % (Auto) (2.0-14.0) % Eos % (Auto) (0.0-5.0) % Baso % (Auto) (0.0-2.0) % Neut # (Auto) (1.40-7.00) K/uL Lymph # (Auto) (0.50-3.50) K/uL Crowley # (Auto) (0.00-1.00) K/uL Eos # (Auto) (0.00-0.50) K/uL Baso # (Auto) (0.00-0.20) K/uL PT (9.5-12.0) SEC INR APTT (24.5-32.8) SEC Sodium (136-145) mmol/L Potassium (3.5-5.1) mmol/L Chloride (98-107) mmol/L Carbon Dioxide (21.0-32.0) mmol/L BUN (7-18) mg/dL Creatinine (0.51-1.17) mg/dL Est Cr Clr Drug Dosing mL/min Estimated GFR (MDRD) mL/min Glucose (70-99) mg/dL Lactic Acid 1.3 (0.4-2.0) mmol/L Calcium (8.5-10.1) mg/dL Total Bilirubin (0.2-1.0) mg/dL AST (15-37) U/L ALT (12-78) U/L Alkaline Phosphatase (46-116) IU/L Troponin I 0.000 (0.000-0.056) ng/mL NT-Pro-B Natriuret Pep 2766 H (0-125) pg/mL Total Protein (6.4-8.2) g/dL Albumin (3.4-5.0) g/dL Specimen Type Urine Color Urine Appearance Urine pH (5.0-9.0) Ur Specific Kramer (1.005-1.030) Urine Protein (NEGATIVE) mg/dL Urine Glucose (UA) (NEGATIVE) mg/dL Urine Ketones (NEGATIVE) mg/dL Urine Occult Blood (NEGATIVE) Urine Nitrite (NEGATIVE) Urine Bilirubin (NEGATIVE) Urine Urobilinogen (0.2-1.0) E.U./dL Ur Leukocyte Esterase (NEGATIVE) 03/26/21 Range/Units 13:50 WBC (4.0-10.2) K/uL RBC (4.33-5.41) M/uL Hgb (13.1-16.8) g/dL Hct (39.0-49.0) % MCV (84.0-98.0) fL MCH (28.2-33.3) pg MCHC (31.7-36.0) g/dL RDW (11.2-14.1) % Plt Count (150-350) K/uL Neut % (Auto) (45.0-80.0) % Lymph % (Auto) (10.0-50.0) % Crowley % (Auto) (2.0-14.0) % Eos % (Auto) (0.0-5.0) % Baso % (Auto) (0.0-2.0) % Neut # (Auto) (1.40-7.00) K/uL Lymph # (Auto) (0.50-3.50) K/uL Crowley # (Auto) (0.00-1.00) K/uL Eos # (Auto) (0.00-0.50) K/uL Baso # (Auto) (0.00-0.20) K/uL PT (9.5-12.0) SEC INR APTT (24.5-32.8) SEC Sodium (136-145) mmol/L Potassium (3.5-5.1) mmol/L Chloride (98-107) mmol/L Carbon Dioxide (21.0-32.0) mmol/L BUN (7-18) mg/dL Creatinine (0.51-1.17) mg/dL Est Cr Clr Drug Dosing mL/min Estimated GFR (MDRD) mL/min Glucose (70-99) mg/dL Lactic Acid (0.4-2.0) mmol/L Calcium (8.5-10.1) mg/dL Total Bilirubin (0.2-1.0) mg/dL AST (15-37) U/L ALT (12-78) U/L Alkaline Phosphatase (46-116) IU/L Troponin I (0.000-0.056) ng/mL NT-Pro-B Natriuret Pep (0-125) pg/mL Total Protein (6.4-8.2) g/dL Albumin (3.4-5.0) g/dL Specimen Type Urinvoid Urine Color Yellow Urine Appearance Clear Urine pH 5.0 (5.0-9.0) Ur Specific Kramer 1.010 (1.005-1.030) Urine Protein Negative (NEGATIVE) mg/dL Urine Glucose (UA) Negative (NEGATIVE) mg/dL Urine Ketones Negative (NEGATIVE) mg/dL Urine Occult Blood Negative (NEGATIVE) Urine Nitrite Negative (NEGATIVE) Urine Bilirubin Negative (NEGATIVE) Urine Urobilinogen 0.2 (0.2-1.0) E.U./dL Ur Leukocyte Esterase Negative (NEGATIVE) Meds: Medications Discontinued Medications Generic Name Dose Route Start Last Admin Trade Name Freq PRN Reason Stop Dose Admin Lactated Ringer's 1,000 mls @ 1,000 mls/hr 03/26/21 11:35 03/26/21 11:39 Ringers, Lactated IV 03/26/21 12:34 1,000 mls/hr .BOLUS ONE Administration Lactated Ringer's 1,000 mls @ 1,000 mls/hr 03/26/21 12:41 03/26/21 13:32 Ringers, Lactated IV 03/26/21 13:40 1,000 mls/hr .BOLUS ONE Administration Iopamidol Confirm 03/26/21 13:23 Iopamidol 755 Mg/Ml 100 Ml Bottle Administered 03/26/21 13:24 Dose 100 ml .ROUTE .STK-MED ONE Iopamidol 100 ml 03/26/21 13:27 03/26/21 14:05 Iopamidol 755 Mg/Ml 100 Ml Bottle IVPUSH 03/26/21 13:28 100 ml ONETIME STA Administration Lorazepam 1 mg 03/26/21 13:06 03/26/21 13:12 Lorazepam 2 Mg/Ml Sdv IVPUSH 03/26/21 13:07 1 mg ONETIME ONE Administration Lorazepam 0.5 mg 03/26/21 15:43 03/26/21 15:54 Lorazepam 2 Mg/Ml Sdv IVPUSH 03/26/21 15:44 0.5 mg ONETIME ONE Administration - Radiology Interpretation Free Text/Narrative:: CT PE chest postoperative change of left shoulder arthroplasty with associated streak artifact which hampers assessment of the subjacent tissues. No evidence of active extravasation. Consider ultrasound for focal hematoma. No evidence of central pulmonary embolism the mild to distal pulmonary arteries are poorly seen due to streak and motion artifact. Chest x-ray initially reviewed extemporaneously by myself. Shows some mild central vascular congestion. No hemopneumothorax. No notable pleural effusion. Pacemaker present with what appears to be appropriate lead placement. Question shadowing versus atelectasis in the left lower base. Radiology to follow with report. Chest x-ray per radiology shows streaky opacification left lung base is favored to represent atelectasis/scarring. Mildly prominent interstitial markings are favored to represent chronic changes, however, mild interstitial edema is also possibility. Cardiomediastinal silhouette is mildly enlarged. Mild central pulmonary vascular congestion. No large pleural effusion. No pneumothorax. Pacemaker in the left chest with leads in stable position - Re-Assessments/Exams Free Text/Narrative Re-Assessment/Exam: 03/26/21 12:07 IV established labs drawn. 500ml LR bolus and then 125 mls/hr EKG unchanged without any signs of acute ischemia The dressing was removed and he has small amount of bleeding oozing from the incision site with a large clot on the dressing as well. 03/26/21 12:34 Laboratory evaluation with a WBC 10.7, hemoglobin 11.6 and a platelet count of 235. His hemoglobin on 03-24-21 was 11.9. This was checked 3 times today as well as with the control of the machine. His hematocrit went from 37.12 days ago down to 35.5. I wonder if this is not an aspect of his dehydration as well as he has not been drinking much for fluids and he has not urinated since yesterday morning. Although his hemoglobin is unchanged I have concerns for the amount of blood loss with his physical exam. His PT INR and PTT are normal. His CMP is rather unremarkable other than a glucose of 189. His lactic acid is normal at 1.3. Troponin I is negative at 0.000. 500ml bolus of LR. Blood pressure still decreasing to 89 systolically with a Map of 64 03/26/21 12:47 With the concerns of the continued bleeding which is clearly gotten quite a bit worse since Monday has hypotension his diaphoresis and his shortness of breath I called and spoke with Dr. Dobbs at [facility] in [place]. HPI ER COURSE findings and concerns were relayed to him verbally over the phone. He would like a CTA of the chest looking for PE and or active bleeding in the shoulder prior to transfer. HE would also like a second liter of fluid after the CT scan. I discussed my findings and concerns with the patient as well as his daughter. They are understanding their questions answered and they are comfortable with this plan. 03/26/21 13:55 Second liter of fluid started. Blood pressure improving. Skin little more pink still cool but not diaphoretic. PT did require some ativan to have his CT done do to anxiety. Initial verbal report from the CT shows no overt large PE suboptimal study and no active bleed at surgical site. His blood pressure continues to improve 111/60. He is more alert and appropriate now. Update to Dr. Dobbs at [facility] in [place]. I reviewed the results with the accepting as well as the patient and family. They are both comfortable with this plan and questions answered. 03/26/21 17:45 Although he hemoglobin is unchanged I believe that he is dehydrated and he has a concentration of his hemoglobin on her labs and Dr. Dobbs agrees. He still continues to ooze bleeding from the incision site as well. 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 Post-op bleeding Qualifiers: Surgical complication system/body Area: musculoskeletal system Procedure type: musculoskeletal Qualified Code(s): M96.830 - Postprocedural hemorrhage of a musculoskeletal structure following a musculoskeletal system procedure Hypotension Qualifiers: Hypotension type: other hypotension type Qualified Code(s): I95.89 - Other hypotension - Discharge Information Referrals: Kelley Nagel NP [Primary Care Provider] - Forms: ED Department Discharge, Interfacility Transfer [facility] Sepsis Event Note (ED) - Evaluation Sepsis Screening Result: No Definite Risk - Focused Exam Vital Signs: Vital Signs Temp Pulse Resp BP Pulse Ox 03/26/21 15:50 78 20 115/61 03/26/21 15:28 80 20 113/63 100 03/26/21 15:00 80 18 115/67 100 03/26/21 13:50 90/41 L 03/26/21 13:30 111/81 03/26/21 13:00 79 18 96/69 96 03/26/21 12:30 76 19 87/44 L 95 03/26/21 12:10 80 19 98/59 L 96 03/26/21 11:57 78 20 89/74 L 97 03/26/21 11:45 84 18 114/97 H 95 03/26/21 11:00 98 F 87 20 98/78 93 L - My Orders Last 24 Hours: My Active Orders 03/26/21 11:30 CULTURE BLOOD [BC] Stat 03/26/21 11:32 Chest 1V Frontal [CR] Stat 03/26/21 12:06 Blood Culture x2 Reflex Set [OM.PC] Stat 03/26/21 12:15 CULTURE BLOOD [BC] Stat 03/26/21 12:40 CTA Chest W WO Contrast [Ang Chest] [CT] Stat - Assessment/Plan Last 24 Hours: My Active Orders 03/26/21 11:30 CULTURE BLOOD [BC] Stat 03/26/21 11:32 Chest 1V Frontal [CR] Stat 03/26/21 12:06 Blood Culture x2 Reflex Set [OM.PC] Stat 03/26/21 12:15 CULTURE BLOOD [BC] Stat 03/26/21 12:40 CTA Chest W WO Contrast [Ang Chest] [CT] Stat
[2021-03-26 12:07] LABS: PTT,PARTIAL THROMBOPLSTIN TIME 27.9 SEC (24.5-32.8)
[2021-03-26 12:10] LABS: CHLORIDE,CL 101 mmol/L (98-107); SODIUM,NA 139 mmol/L (136-145)
[2021-03-26] MEDS ORDERED: Iopamidol 612 MG/ML 100 ML Bottle IVPUSH STA (12:52)
[2021-03-26] MEDS: LORazepam 2 MG/ML SDV IVPUSH ONE ×2 (13:12→15:54)
[2021-03-26] MEDS ORDERED: Iopamidol 755 Mg/ML 100 ML Bottle ONE (13:23)
[2021-03-26] MEDS: Iopamidol 755 Mg/ML 100 ML Bottle IVPUSH STA (14:05)
[2021-03-26 16:19] VITALS: BP 115/61; PULSE 78
== END 2021-03-26 16:00 ==
LOC: LL.ED 11:00
DX: M96.830 Postprocedural hemorrhage of a musculoskeletal structure following a musculoskeletal system procedure (principal); I95.89 Other hypotension; I48.91 Unspecified atrial fibrillation; I25.10 Atherosclerotic heart disease of native coronary artery without angina pectoris; I13.0 Hypertensive heart and chronic kidney disease with heart failure and stage 1 through stage 4 chronic kidney disease, or unspecified chronic kidney disease; N18.9 Chronic kidney disease, unspecified; J44.9 Chronic obstructive pulmonary disease, unspecified; I50.9 Heart failure, unspecified; E78.00 Pure hypercholesterolemia, unspecified; Z79.82 Long term (current) use of aspirin; E11.22 Type 2 diabetes mellitus with diabetic chronic kidney disease; E11.40 Type 2 diabetes mellitus with diabetic neuropathy, unspecified; E66.9 Obesity, unspecified; Z68.30 Body mass index [BMI] 30.0-30.9, adult; Z96.621 Presence of right artificial elbow joint; Z88.0 Allergy status to penicillin; Z88.8 Allergy status to other drugs, medicaments and biological substances
CPT/HCPCS: 36415; 71045; 71275; 80053; 81003; 83605; 83880; 84484; 85025; 85610; 85730; 87040; 93005; 96374; 96376; 99284; 99285-25; J2060; J7120; Q9967

== ENCOUNTER 2021-03-29 14:00 | Inpatient (IN) | payer MEDICARE, BC ==
[2021-03-29] MEDS ORDERED: traMADol 50 MG Tab PO ONE (17:29)
[2021-03-29] MEDS ORDERED: Calcium Carbonate 500 MG Tab.Chew PO PRN (19:06)
[2021-03-29] MEDS ORDERED: Ondansetron 4 MG Tab.DIS PO PRN (19:06)
[2021-03-29] MEDS ORDERED: Acetaminophen 500 MG Tab PO PRN (20:44)
[2021-03-29] MEDS ORDERED: Albuterol/Ipratropium 3.0-0.5 MG/3 ML Neb Soln NEB PRN (20:46)
[2021-03-29] MEDS ORDERED: oxyCODONE 5 MG Tab PO PRN (20:58)
[2021-03-29] MEDS ORDERED: Polyethylene Glycol 3350 Powder 17 GM Packet PO PRN (21:16)
[2021-03-29] MEDS ORDERED: Triamcinolone Acetonide 0.1% Crm 15 GM Tube TOP PRN (21:21)
[2021-03-29] MEDS ORDERED: traMADol 50 MG Tab PO PRN (21:24)
[2021-03-29] MEDS: Nystatin Crm 30 GM Tube TOP SCH (22:23)
[2021-03-29] MEDS: Insulin Glarg,Human.Rec.Analog 100 Unit/ML SUBCUT SCH (22:24)
[2021-03-29] MEDS: Potassium Chloride 10 MEQ Tab.ER PO SCH (22:24)
[2021-03-29] MEDS: Gabapentin 300 MG Cap PO SCH (22:30)
[2021-03-29] MEDS: ALPRAZolam 0.25 MG Tab PO PRN (22:30)
[2021-03-29] MEDS: Acetaminophen 500 MG Tab PO SCH (22:32)
[2021-03-29] MEDS: rOPINIRole 1 MG Tab PO SCH (22:39)
[2021-03-29] MEDS: traZODone 50 MG Tab PO SCH (22:39)
[2021-03-30] MEDS: traMADol 50 MG Tab PO SCH ×4 (04:06→17:07)
[2021-03-30] MEDS ORDERED: metFORMIN 500 MG Tab PO SCH (08:00)
[2021-03-30] MEDS: Nystatin Crm 30 GM Tube TOP SCH ×2 (08:09→20:20)
[2021-03-30] MEDS: Multivitamin Tab PO SCH (08:13)
[2021-03-30] MEDS: Aspirin 81 MG Tab.EC PO SCH (08:13)
[2021-03-30] MEDS: Acetaminophen 500 MG Tab PO SCH ×3 (08:14→17:04)
[2021-03-30] MEDS: Cyanocobalamin (Vitamin B12) 1,000 MCG Tab PO SCH (08:14)
[2021-03-30] MEDS: Pantoprazole 40 MG Tab.CR PO SCH (08:34)
[2021-03-30] MEDS: Diltiazem 180 MG Cap.CD PO SCH (08:35)
[2021-03-30] MEDS: Formoterol/Mometasone 200-5 MCG 8.8 GM Inhaler IH SCH ×2 (08:35→20:07)
[2021-03-30] MEDS: Potassium Chloride 10 MEQ Tab.ER PO SCH ×2 (08:36→20:08)
[2021-03-30] MEDS: Gabapentin 300 MG Cap PO SCH ×3 (08:37→20:14)
[2021-03-30] MEDS: Sertraline 25 MG Tab PO SCH (08:38)
[2021-03-30] MEDS: Sertraline 50 MG Tab PO SCH (08:38)
[2021-03-30] MEDS: rOPINIRole 1 MG Tab PO SCH ×3 (08:38→20:21)
[2021-03-30] MEDS: Furosemide 40 MG Tab PO SCH ×2 (08:46→12:07)
[2021-03-30] MEDS ORDERED: Polyethylene Glycol 3350 Powder 510 GM Bot PO PRN (12:00)
--- NOTE | 2021-03-30 13:37 | PCM.HP.2 ---
H&P History of Present Illness - General Date of Service: 03/29/21 Admit Problem/Dx: Admission Diagnosis/Problem Admission Diagnosis/Problem Arthropathy of shoulder region Other admission diagnoses/problems 2. Hematoma status post arthroplasty/anticoagulation usage left shoulder 3. Diabetes type 2 4. Obstructive sleep apnea COPD Source of Information: Patient, Old Records History Limitations: Reports: No Limitations - History of Present Illness Initial Comments - Free Text/Narative: Patient has been admitted here for swing bed secondary to a hemiarthroplasty of the left shoulder. Patient had significant hematoma postop and at that time they discontinued all blood thinners. He had been sent here for rehab and physical therapy. Patient states he is doing fine overall feels much better than he has in the last couple of days. The only request he has is to be able to take a shower today. He said his pain is about a 5 out of 10 today in the Ultram , oxycodone works well He has no other complaints at this time Duration of Symptoms: Reports: Day(s): Location: Reports: Lower Extremity, Left Quality: Reports: Pressure, Throbbing Improves with: Reports: Medication Worsens with: Reports: Movement Associated Symptoms: Reports: No Other Symptoms Right Upper Shoulder Pain Score (Numeric/FACES): 0 - Related Data Allergies/Adverse Reactions: Allergies Allergy/AdvReac Type Severity Reaction Status Date / Time atorvastatin [From Lipitor] Allergy UNKNOWN Verified 03/29/21 14:47 clindamycin Allergy UNKNOWN Verified 03/29/21 14:47 lisinopril Allergy Cough Verified 03/29/21 14:47 Penicillins Allergy UNKNOWN Verified 03/29/21 14:47 rosuvastatin [From Crestor] Allergy unknown Verified 03/29/21 14:47 valsartan [From Diovan] Allergy UNKNOWN Verified 03/29/21 14:47 Home Medications: Home Meds Budesonide/Formoterol [Symbicort 160-4.5 MCG] 2 puff INH BID 07/21/16 [History] Multivitamins [Tab-A-Juan] 1 tab PO DAILY 07/21/16 [History] Sertraline [Zoloft] 100 mg PO QAM 07/21/16 [History] metFORMIN HCl [Metformin HCl] 1,000 mg PO BIDMEALS 07/21/16 [History] rOPINIRole [Requip] 1 mg PO DAILY PRN 07/21/16 [History] rOPINIRole [Requip] 1 mg PO TID@,,07/21/16 [History] Cyanocobalamin (Vitamin B-12) [Vitamin B-12] 1,000 mcg PO DAILY 12/13/19 [History] Gabapentin [Neurontin] 300 mg PO TID@08,,20 12/13/19 [History] Insulin Detemir [Levemir] 15 unit SUBCUT BEDTIME 12/13/19 [History] Triamcinolone Acetonide [Kenalog 0.1% Crm] 1 applic TOP BID PRN 12/13/19 [History] Lovastatin [Mevacor] 20 mg PO BEDTIME #30 tablet 12/17/19 [Rx] Furosemide [Lasix] 60 mg PO BID 12/30/19 [History] dilTIAZem HCL [Cartia Xt] 180 mg PO DAILY 12/30/19 [History] Albuterol/Ipratropium [DuoNeb 3.0-0.5 MG/3 ML] 3 ml NEB QID PRN 01/09/20 [History] Ferrous Sulfate 325 mg PO DAILY 01/09/20 [History] Pantoprazole Sodium [Protonix] 40 mg PO DAILY 01/09/20 [History] Potassium Chloride 10 meq PO BID 01/09/20 [History] Aspirin [Aspirin EC] 81 mg PO DAILY 06/25/20 [History] Sertraline [Zoloft] 25 mg PO DAILY 06/25/20 [History] ALPRAZolam [Xanax] 0.25 mg PO Q12HR PRN 03/24/21 [History] Docusate Sodium/Sennosides [Senokot-S] 1 each PO BID 03/24/21 [History] oxyCODONE 2.5 mg PO Q6H PRN 03/24/21 [History] traZODone HCl [Trazodone HCl] 100 mg PO BEDTIME 03/24/21 [History] Acetaminophen 1,000 mg PO TID 03/29/21 [History] Sennosides/Docusate Sodium [Stool Softener-Laxative] 1 tab PO BID 03/29/21 [History] polyethylene glycoL 3350 [MiraLAX] 17 gm PO DAILY PRN 03/29/21 [History] traMADol [Ultram] 50 mg PO Q6H 03/29/21 [History] Past Medical History - Past Health History Medical/Surgical History: Denies Medical/Surgical History (Past medical history to include COPD obstructive sleep apnea diabetes type 2 hyperlipidemia A. fib chronic diastolic heart failure) HEENT History: Reports: Cataract, Hard of Hearing, Impaired Vision, Other (See Below) Other HEENT History: He wears glasses. No surgeries for his cataracts to this point. No history of diabetic retinopathy. Mild bilateral presbycusis with no current therapy. Cardiovascular History: Reports: Afib, Aneurysm, Arrhythmia, CAD, Cardiomyopathy, Heart Failure, Heart Murmur, High Cholesterol, Hypertension, IL, Pulmonary Hypertension, Other (See Below) Other Cardiovascular History: Large pericardial effusion on 12/31/2019 with cardiac tamponade requiring procedure as below. Previous junctional bradycardia secondary to medications on 12/23/19 with chronic atrial fibrillation and required pacemaker placement as below. History of possible small inferior wall IL, which was not known by the patient, per Cardiolite scan on 09/22/19 with evidence of reversible inferior wall cardiac ischemia and small reversible anterior wall reversible ischemia. Moderate left atrial enlargement, mild to moderate mitral valve insufficiency and mitral valve stenosis with diastolic dysfunction by echocardiograms as below. Recurrent CHF with secondary hypoxia although overall good systolic ejection fraction by echocardiogram as below. Recurrent atrial fibrillation/flutter with rapid ventricular response, including previous 3:1 AND 4:1 AV block. Small abdominal aortic aneurysm by CT scan of t he abdomen and pelvis on 11/10/19. Chronic D-dimer elevation on 12/13/19 with negative workup as below. Respiratory History: Reports: Bronchitis, Recurrent, COPD, Intubation, Previous, Pneumonia, Recurrent, Pulmonary Fibrosis, Sleep Apnea, SOB, Other (See Below) Other Respiratory History: O2 dependent COPD with previous history of oxygen noncompliance, however no oxygen is required when his CHF is under good control. Patient is compliant with his CPAP. Multiple bilateral pulmonary nodules, including 9 millimeter lesion in the right middle lobe with additional 1.5 cm right-sided paratracheal lymphadenopathy by CT scan on 11/10/19. History of respiratory failure. Gastrointestinal History: Reports: Colon Polyp, Diverticulosis, Gastritis, GERD, Hiatal Hernia, Other (See Below) Other Gastrointestinal History: History of recurrent colonic polyps including hyperplastic colonic polyp removed from the proximal ascending colon and 2 tubular adenomas removed from the rectal region on 07/21/16. Genitourinary History: Reports: Acute Renal Failure, BPH, Chronic Renal Insuffiency, Diabetic Nephropathy, Prostate Disorder, Other (See Below) Other Genitourinary History: Bilateral complex renal cysts by CT scan on 11/10/19 with patient apparently refusing biopsies. Musculoskeletal History: Reports: Arthritis, Back Pain, Chronic, Fracture, Gout, Neck Pain, Chronic, Osteoarthritis, Osteoporosis, Other (See Below) Other Musculoskeletal History: C7 cervical fracture requiring surgery as below. Multiple possible bilateral rib fractures secondary to football injuries, etc. as a teenager and in his 20s. 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 Restless leg syndrome; bIlateral carpal tunnel syndrome? Psychiatric History: Reports: Addiction, Anxiety, Dementia, Depression, Other (See Below) Other Psychiatric History: Insomnia and claustrophobia. Per medical records history of previous alcohol abuse, which the patient adamantly denies. 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 Endocrine/Metabolic History: Reports: Diabetes, Type II, Hypomagnesemia, IDDM, Obesity/BMI 30+, Osteopenia, Osteoporosis, Other (See Below) Other Endocrine/Metabolic History: Hyperkalemia. 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 Dermatologic History: Reports: Venous Stasis Dermatitis - Infectious Disease History Infectious Disease History: Reports: Chicken Pox, Measles, Mumps, Novel Coronavirus - Past Surgical History Head Surgeries/Procedures: Reports: None HEENT Surgical History: Reports: Oral Surgery, Other (See Below) Other HEENT Surgeries/Procedures: Initial excision of large right auricular melanoma on 09/28/05, including superficial parotidectomy, with subsequent reexcision/biopsy on 10/26/05 with no evidence of recurrence. Multiple teeth extractions with partial lowers. Cardiovascular Surgical History: Reports: Cardiac Ablation, Other (See Below) Other Cardiovascular Surgeries/Procedures: Aspiration of large pericardial effusion on 12/31/2019. Watchman left atrial appendage closure placement on . Briefly successful cardiac ablation for atrial flutter on 11/14/19 in [place] with previous electrocardioversion at [facility] on 05/23/18. Respiratory Surgical History: Reports: None GI Surgical History: Reports: Colonoscopy, EGD, Polypectomy, Other (See Below) Other GI Surgeries/Procedures: Last EGD and colonoscopy on 06/18/19 with previous colonoscopy including multiple polypectomies as below on 07/21/16. Note cauterization without biopsy of hyperplastic appearing polyp in the transverse colon at that time. Male Surgical History: Reports: Vasectomy, Other (See Below) Other Male Surgeries/Procedures: Vasectomy in about 1968 Endocrine Surgical History: Reports: None Neurological Surgical History: Reports: C-Spine, Discectomy, Laminectomy, Spinal Fusion, Other (See Below) Other Neurological Surgeries/Procedures: C6C7 anterior laminectomy and spinal fusion on 03/27/12 with additional Aburto head pins secondary to previous C7 fracture. Musculoskeletal Surgical History: Reports: Knee Replacement, Other (See Below) Other Musculoskeletal Surgeries/Procedures:: Bilateral TKAs in the Oncologic Surgical History: Reports: Other (See Below) Other Oncologic Surgeries/Procedures: Melanoma excision as above. Dermatological Surgical History: Reports: Other (See Below) - Past Imaging History Past Imaging History: Reports: Cardiac Echo (Last echocardiogram at [facility] on 06/12/2020 with ejection fraction of 55% and otherwise findings as above. Additional echocardiogram on 03/11/2020 showed resolution of previous large pericardial effusion with previous large pericardial effusion on 12/31/2019. Otherwise echocardiogram on 12/23/19 with no pericardial effusion at that time and ejection fraction of 65%. Additional evaluation at [facility] in [place] on 01/29/13. Additional recent echocardiogram [place] on 11/14/2019 with ejection fraction of 5560 percent with previous echocardiogram in [place] on 09/22/19 with ejection fraction of 55% and otherwise findings as above.), CAT Scan (Negative CTA of the chest on 01/09/2020 and 12/13/[address] scan of the brain on 09/21/[address] scan of the chest, abdomen, and pelvis without contrast on 11/10/19 with findings as above.), Event Monitor (03/27/2020 with findings as above.), MRI (Lumbar spine on 04/12/19.), Stress Testing (Lexiscan Cardiolite evaluation on 09/22/19 with findings as above and ejection fraction of 65%.), Venous Doppler (Negative Doppler studies of the legs bilaterally on 12/16/19 with previous negative venous Doppler studies of the lower extremities on 12/16/19.). Denies: Holter Monitor Social & Family History - Family History HEENT: Reports: None Cardiac: Reports: CAD, Hypertension, IL, Other (See Below) Other Cardiac Family History: Parents from an [place] in their 70s with no apparent procedures. Hypertension in brother. Respiratory: Reports: None GI: Reports: None : Reports: None OBGYN: Reports: None Musculoskeletal: Reports: Arthritis, Osteoarthritis, Other (See Below) Other Musculoskeletal Family History: Arthritis in parents, sisters 2, and brothers 2 Neurological: Reports: None Psychiatric: Reports: None Endocrine/Metabolic: Reports: None Hematologic: Reports: None Immunologic: Reports: None Dermatologic: Reports: None Oncologic: Reports: Leukemia, Other (See Below) Other Oncologic Family History: Brother with fatal CLL and another brother with unknown type of cancer. 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.) H&P Review of Systems - Review of Systems: Review Of Systems: See Below General: Reports: No Symptoms HEENT: Reports: No Symptoms Pulmonary: Reports: No Symptoms Cardiovascular: Reports: No Symptoms Gastrointestinal: Reports: No Symptoms Genitourinary: Reports: No Symptoms Musculoskeletal: Reports: Shoulder Pain Skin: Reports: Bruising, Other (Bruising down the left shoulder and into the left chest wall secondary to the hemiarthroplasty and being on Eliquis) Psychiatric: Reports: No Symptoms Neurological: Reports: No Symptoms Hematologic/Lymphatic: Reports: No Symptoms Immunologic: Reports: No Symptoms Exam - Exam Exam: See Below - Vital Signs Vital Signs: Last Vital Signs Temp 36.9 C 03/29/21 15:00 Pulse 83 03/29/21 15:00 Resp 19 03/29/21 15:00 BP 132/78 03/29/21 15:00 Pulse Ox 94 L 03/29/21 20:47 Weight: 161.025 kg - Exam General: Alert, Oriented HEENT: Conjunctiva Clear, EOMI, Hearing Intact, Mucosa Moist & [place], Nares Patent, Posterior Pharynx Clear, Pupils Equal, Pupils Reactive, TMs Clear Neck: Supple, Trachea Midline Lungs: Clear to Auscultation, Normal Respiratory Effort Cardiovascular: Regular Rate, Regular Rhythm GI/Abdominal Exam: Normal Bowel Sounds, Soft, Non-Tender, No Organomegaly, No Distention, No Abnormal Bruit, No Mass Back Exam: Normal Inspection, Full Range of Motion Extremities: Normal Inspection, No Pedal Edema, Normal Capillary Refill, Other (Exam to the left anterior shoulder patient has decreased range of motion to about 30 degrees of mobility secondary to recent hemiarthroplasty there is scattered 3 to 4-day ecchymosis from the shoulder down into the left anterior chest wall ). No: Normal Range of Motion, Non-Tender Skin: Warm, Dry, Intact, Other (Incision looks well on the anterior aspect of the shoulder. Patient is noted to have slightly erythematous well demarcated borders under the left breast and left axilla diagnosis of candidiasis) Skin Alteration Location (Drawings Not To Scale): 1 - There is scattered different color different stage III-IV day ecchymosis from the left shoulder down into the deltoid and forearm along with the left anterior chest wall down below the breast Neurological: Cranial Nerves Intact, Reflexes Equal Bilateral Neuro Extensive - Mental Status: Alert, Oriented x3, Normal Mood/Affect, Normal Cognition, Memory Intact Neuro Extensive - Motor, Sensory, Reflexes: CN II-XII Intact, Normal Gait, Other (Patient is neurovascular intact strong radius and ulna equal soft touch sensation full range of motion with the wrist and the hand 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) Psychiatric: Alert, Normal Affect, Normal Mood - Patient Data Lab Results Last 24 hrs: Laboratory Results - last 24 hr 03/29/21 03/30/21 Range/Units 21:08 08:06 POC Glucose 195 H 112 H (70-99) mg/dL Sepsis Event Note - Evaluation Sepsis Screening Result: No Definite Risk *Q Meaningful Use (ADM) - VTE *Q VTE Mechanical Contraindications *Q: Further Opinion Sought (While the patient is sitting or in bed mechanical SCDs will be placed he will also have CARMINA hoses placed and has been instructed to get up and walk at least 6 times a day for 10 minutes at a time as well as perform in physical therapy.) VTE Pharmacological Contraindications *Q: Anticoagult Intol No Alt (Oral anticoagulants will not be used secondary to being stopped while in the hospital secondary to extensive ecchymosis and bleeding and a recent hemiarthroplasty who will be started on a baby aspirin daily as recommended by orthopedics) - VTE Risk Assess *Q Each Risk Factor Represents 3 Points: Age 75 Years or Greater Total Score 3 Point Risk Factors: 3 - Stroke *Q Aspirin Contraindications Stroke *Q: Other (Use Special Inst) Anticoagulation Contraindications Stroke *Q: Medical/Procedure Contrai Antithrombotic Contraindications Stroke *Q: Med/TX Not Indicated/Need Thrombolytic/Fibrinolytic Contraindications Stroke *Q: Med/TX Not Indicated/Need Statin Contraindications Stroke *Q: Med/TX Not Indicated/Need - AMI *Q Aspirin Contraindications AMI *Q: Further Opinion Sought Thrombolytic/Fibrinolytic Contraindications IV (AMI) *Q: Med/tx not indicated/need - Problem List (1) Status post left shoulder hemiarthroplasty SNOMED Code(s): 336337728 ICD Code: Z96.612 - PRESENCE OF LEFT ARTIFICIAL SHOULDER JOINT Status: Acute Current Visit: Yes (2) Anticoagulation excessive SNOMED Code(s): 03544495, 064232460 ICD Code: [id number] - Status: Acute Current Visit: Yes (3) IDDM (insulin dependent diabetes mellitus) SNOMED Code(s): 43906553 ICD Code: YES8000 - Status: Chronic Priority: Medium Current Visit: No Problem Details: Glycosylated hemoglobin on 06/26/2020 elevated at 7.7% with continued close observation by his regular providers. Note current obesity with weight loss in moderation advisable. (4) Candidiasis of breast SNOMED Code(s): 33798709, 189683926 ICD Code: B37.89 - OTHER SITES OF CANDIDIASIS Status: Acute Current Visit: Yes Problem List Initiated/Reviewed/Updated: Yes Orders Last 24hrs: Active Orders 24 hr Category Date Time Status Patient Status [ADT] Routine ADT 03/29/21 19:06 Active Ambulate [RC] ASDIRECTED Care 03/29/21 19:06 Active Antiembolic Devices [RC] PER UNIT ROUTINE Care 03/29/21 19:15 Active Blood Glucose Check, Bedside [RC] BIDMEALS Care 03/29/21 19:06 Active Communication Order [RC] BID Care 03/30/21 08:00 Active Communication Order [RC] DAILY Care 03/30/21 00:25 Active Communication Order [RC] DAILY Care 03/30/21 08:00 Active Communication Order [RC] DAILY Care 03/30/21 08:00 Active Intake and Output [RC] ASDIRECTED Care 03/29/21 19:06 Active May Shower [RC] ASDIRECTED Care 03/29/21 19:06 Active Oxygen Therapy [RC] PRN Care 03/29/21 19:06 Active RT Aerosol Therapy [RC] ASDIRECTED Care 03/29/21 20:47 Active Up ad Jackie [RC] ASDIRECTED Care 03/29/21 19:06 Active VTE/DVT Education [RC] PER UNIT ROUTINE Care 03/29/21 19:06 Active Vital Signs [RC] Fr@08 Care 03/29/21 19:06 Active Consult to Occupational Therapy [OT Evaluation and Cons 03/30/21 10:17 Active Treatment] [CONS] Routine PT Evaluation and Treatment [CONS] Routine Cons 03/29/21 19:06 Active [employer] Diet [DIET] Diet 03/30/21 Breakfast Active ALPRAZolam [Xanax] Med 03/29/21 21:09 Active 0.25 mg PO Q12H PRN Acetaminophen [Tylenol Extra Strength] Med 03/29/21 22:15 Active 1,000 mg PO TID Albuterol/Ipratropium [DuoNeb 3.0-0.5 MG/3 ML] Med 03/29/21 20:46 Active 3 ml NEB Q6HR PRN Aspirin [Halfprin] Med 03/30/21 08:00 Active 81 mg PO WITHBREAKFAST Calcium Carbonate [Tums] Med 03/29/21 19:06 Active 1,000 mg PO Q2HR PRN Cyanocobalamin (Vitamin B12) [Vitamin B12] Med 03/30/21 08:00 Active 1,000 mcg PO DAILY Diltiazem [Cardizem CD] Med 03/30/21 08:00 Active 180 mg PO DAILY Docusate Sodium/Sennosides [Senna Plus] Med 03/30/21 08:00 Active 1 tab PO BID Ferrous Sulfate Med 03/30/21 20:00 Active 325 mg PO DAILY@20 Furosemide [Lasix] Med 03/30/21 08:00 Active 60 mg PO BID@08,12 Gabapentin [Neurontin] Med 03/29/21 22:00 Active 300 mg PO TID@08,12,20 Insulin Glarg,Human.Rec.Analog [LantUS] Med 03/29/21 22:00 Active 15 unit SUBCUT BEDTIME Mometasone/Formoterol [Dulera 200-5 MCG] Med 03/30/21 08:00 Active 0 puff IH BID@,20 Multivitamins [Tab-A-Juan] Med 03/30/21 08:00 Active 1 tab PO DAILY Non-Formulary Medication [NF Drug] Med 03/30/21 20:00 Active 1 each PO BEDTIME Nystatin [Nystatin Crm] Med 03/30/21 20:00 Active 1 gm TOP BID@0800,2000 Ondansetron [Zofran ODT] Med 03/29/21 19:06 Active 4 mg PO Q6H PRN Pantoprazole [ProTONIX] Med 03/30/21 07:30 Active 40 mg PO ACBREAKFAST Potassium Chloride [Klor-Con 10] Med 03/29/21 21:17 Active 10 meq PO BID@08,20 Sertraline [Zoloft] Med 03/30/21 08:00 Active 100 mg PO DAILY Sertraline [Zoloft] Med 03/30/21 08:00 Active 25 mg PO DAILY Triamcinolone Acetonide [Triamcinolone Acetonide 0.1% Med 03/29/21 21:21 Active Crm] 0 gm TOP BID PRN metFORMIN [Glucophage] Med 03/30/21 18:00 Active 1,000 mg PO BID@0800,1800 oxyCODONE Med 03/29/21 20:58 Active 2.5 mg PO Q6H PRN polyethylene glycoL 3350 [MiraLAX] Med 03/30/21 12:00 Active 17 gm PO DAILY PRN rOPINIRole [Requip] Med 03/30/21 14:00 Active 1 mg PO DAILY PRN rOPINIRole [Requip] Med 03/29/21 21:01 Active 1 mg PO TID@08,12,20 traMADol [Ultram] Med 03/30/21 00:00 Active 50 mg PO Q6H traZODone Med 03/29/21 22:15 Active 100 mg PO BEDTIME Antiembolic Hose [OM.PC] Routine Oth 03/29/21 19:06 Ordered VTE Mechanical Contraindications [AST] Routine Oth 03/29/21 19:06 Ordered VTE Pharmacological Contraindications [AST] Click to Oth 03/29/21 19:06 Ordered Edit Resuscitation Status Routine Resus Stat 03/29/21 19:06 Ordered Medication Orders Acetaminophen (Acetaminophen 500 Mg Tab) 1,000 mg PO TID [facility] Stop: 04/05/21 12:01 Last Admin: 03/30/21 12:08 Dose: 1,000 mg Documented by: Admin: 03/30/21 08:14 Dose: 1,000 mg Documented by: Admin: 03/29/21 22:32 Dose: 1,000 mg Documented by: GUILHERME Albuterol/Ipratropium (Albuterol/Ipratropium 3.0-0.5 Mg/3 Ml Neb Soln) 3 ml NEB Q6HR PRN PRN Reason: Shortness of Breath Alprazolam (Alprazolam 0.25 Mg Tab) 0.25 mg PO Q12H PRN PRN Reason: Anxiety Last Admin: 03/29/21 22:30 Dose: 0.25 mg Documented by: GUILHERME Aspirin (Aspirin 81 Mg Tab.Ec) 81 mg PO WITHBREAKFAST [facility] Last Admin: 03/30/21 08:13 Dose: 81 mg Documented by: SHAYAN Calcium Carbonate/Glycine (Calcium Carbonate 500 Mg Tab.Chew) 1,000 mg PO Q2HR PRN PRN Reason: Nausea Cyanocobalamin (Cyanocobalamin (Vitamin B12) 1,000 Mcg Tab) 1,000 mcg PO DAILY [facility] Last Admin: 03/30/21 08:14 Dose: 1,000 mcg Documented by: SHAYAN Diltiazem HCl (Diltiazem 180 Mg Cap.Cd) 180 mg PO DAILY [facility] Last Admin: 03/30/21 08:35 Dose: 180 mg Documented by: SHAYAN Ferrous Sulfate (Ferrous Sulfate 325 Mg Tab) 325 mg PO DAILY@20 BAILEY Furosemide (Furosemide 40 Mg Tab) 60 mg PO BID@,12 [facility] Last Admin: 03/30/21 12:07 Dose: 60 mg Documented by: Admin: 03/30/21 08:46 Dose: 60 mg Documented by: SHAYAN Gabapentin (Gabapentin 300 Mg Cap) 300 mg PO TID@,, [facility] Last Admin: 03/30/21 12:07 Dose: 300 mg Documented by: Admin: 03/30/21 08:37 Dose: 300 mg Documented by: Admin: 03/29/21 22:30 Dose: 300 mg Documented by: GUILHERME Insulin Glargine (Insulin Glarg,Human.Rec.Analog 100 Unit/Ml) 15 unit SUBCUT BEDTIME [facility] Last Admin: 03/29/21 22:24 Dose: 15 unit Documented by: GUILHERME Metformin HCl (Metformin 500 Mg Tab) 1,000 mg PO BID@0800,1800 [facility] Mometasone Furoate/Formoterol Fumar (Formoterol/Mometasone 200-5 Mcg 8.8 Gm Inhaler) 0 puff IH BID@ [facility] Last Admin: 03/30/21 08:35 Dose: 2 puff Documented by: SHAYAN Multivitamins/Minerals/Vitamin C (Multivitamin Tab) 1 tab PO DAILY [facility] Last Admin: 03/30/21 08:13 Dose: 1 tab Documented by: SHAYAN Lovastatin 20mg (Tablets) 1 each PO BEDTIME [facility] Nystatin (Nystatin Crm 30 Gm Tube) 1 gm TOP BID@0800,2000 [facility] Ondansetron HCl (Ondansetron 4 Mg Tab.Dis) 4 mg PO Q6H PRN PRN Reason: Nausea/Vomiting Oxycodone HCl (Oxycodone 5 Mg Tab) 2.5 mg PO Q6H PRN PRN Reason: Pain (severe 7-10) Pantoprazole Sodium (Pantoprazole 40 Mg Tab.Cr) 40 mg PO ACBREAKFAST [facility] Last Admin: 03/30/21 08:34 Dose: 40 mg Documented by: SHAYAN Polyethylene Glycol (Polyethylene Glycol 3350 Powder 510 Gm Bot) 17 gm PO DAILY PRN PRN Reason: Constipation Potassium Chloride (Potassium Chloride 10 Meq Tab.Er) 10 meq PO BID@ [facility] Last Admin: 03/30/21 08:36 Dose: 10 meq Documented by: Admin: 03/29/21 22:24 Dose: 10 meq Documented by: GUILHERME Ropinirole HCl (Ropinirole 1 Mg Tab) 1 mg PO TID@,,20 [facility] Last Admin: 03/30/21 12:08 Dose: 1 mg Documented by: Admin: 03/30/21 08:38 Dose: 1 mg Documented by: Admin: 03/29/21 22:39 Dose: 1 mg Documented by: GUILHERME Ropinirole HCl (Ropinirole 1 Mg Tab) 1 mg PO DAILY PRN PRN Reason: restless leg syndrome Senna/Docusate Sodium (Docusate Sodium/Sennosides 50-8.6 Mg Tab) 1 tab PO BID [facility] Last Admin: 03/30/21 08:13 Dose: 1 tab Documented by: SHAYAN Sertraline HCl (Sertraline 25 Mg Tab) 25 mg PO DAILY [facility] Last Admin: 03/30/21 08:38 Dose: 25 mg Documented by: SHAYAN Sertraline HCl (Sertraline 50 Mg Tab) 100 mg PO DAILY [facility] Last Admin: 03/30/21 08:38 Dose: 100 mg Documented by: SHAYAN Tramadol HCl (Tramadol 50 Mg Tab) 50 mg PO Q6H [facility] Stop: 04/01/21 23:59 Last Admin: 03/30/21 12:09 Dose: 50 mg Documented by: Admin: 03/30/21 08:08 Dose: 50 mg Documented by: Admin: 03/30/21 04:06 Dose: Not Given Documented by: GUILHERME Trazodone HCl (Trazodone 50 Mg Tab) 100 mg PO BEDTIME [facility] Last Admin: 03/29/21 22:39 Dose: 100 mg Documented by: GUILHERME Triamcinolone Acetonide (Triamcinolone Acetonide 0.1% Crm 15 Gm Tube) 0 gm TOP BID PRN PRN Reason: Itching Assessment/Plan Comment:: Patient is placed here for physical rehabilitation. All current home medication will be continued Patient will be discontinued on anticoagulation therapy with prophylactic treatment of PE and DVT to consist of aspirin SCDs CARMINA hoses and ambulation. Patient has follow-up with orthopedics Monday. Patient's current diagnosis for assessment 1. Left shoulder hemiarthroplasty 2 hematoma status post surgery status post anticoagulation treatment 3. Diabetes type 2 4. COPD history 5. Obstructive sleep apnea 6. Chronic diastolic heart failure 7. Atrial fibrillation with pacemaker 8. Hypertension 9. Depression 10. Restless leg syndrome Patient CODE STATUS is full
[2021-03-30] MEDS ORDERED: rOPINIRole 1 MG Tab PO PRN (14:00)
[2021-03-30] MEDS: metFORMIN 500 MG Tab PO SCH (17:04)
--- NOTE | 2021-03-30 17:10 | PCM.PN ---
- General Info Date of Service: 03/30/21 Admission Dx/Problem (Free Text): Admission Diagnosis/Problem Admission Diagnosis/Problem Arthropathy of shoulder region Other admission diagnoses/problems 2. Hematoma status post arthroplasty/anticoagulation usage left shoulder 3. Diabetes type 2 4. Obstructive sleep apnea COPD 5. Hypertension 6. Anxiety Functional Status: Reports: Pain Controlled, Tolerating Diet, Ambulating - Review of Systems General: Reports: No Symptoms HEENT: Reports: No Symptoms Pulmonary: Reports: No Symptoms Cardiovascular: Reports: No Symptoms Gastrointestinal: Reports: No Symptoms Musculoskeletal: Reports: Joint Swelling (left shoulder) Skin: Reports: No Symptoms Neurological: Reports: No Symptoms Psychiatric: Reports: No Symptoms - Patient Data Vitals - Most Recent: Last Vital Signs Temp 97.2 F 03/30/21 13:35 Pulse 74 03/30/21 13:35 Resp 18 03/30/21 13:35 BP 111/47 L 03/30/21 13:35 Pulse Ox 97 03/30/21 13:35 Weight - Most Recent: 355 lb Lab Results Last 24 Hours: Laboratory Results - last 24 hr 03/29/21 03/30/21 Range/Units 21:08 08:06 POC Glucose 195 H 112 H (70-99) mg/dL Med Orders - Current: Current Medications Acetaminophen (Acetaminophen 500 Mg Tab) 1,000 mg PO TID [facility] Stop: 04/05/21 12:01 Last Admin: 03/30/21 12:08 Dose: 1,000 mg Documented by: Albuterol/Ipratropium (Albuterol/Ipratropium 3.0-0.5 Mg/3 Ml Neb Soln) 3 ml NEB Q6HR PRN PRN Reason: Shortness of Breath Alprazolam (Alprazolam 0.25 Mg Tab) 0.25 mg PO Q12H PRN PRN Reason: Anxiety Last Admin: 03/29/21 22:30 Dose: 0.25 mg Documented by: Aspirin (Aspirin 81 Mg Tab.Ec) 81 mg PO WITHBREAKFAST [facility] Last Admin: 03/30/21 08:13 Dose: 81 mg Documented by: Calcium Carbonate/Glycine (Calcium Carbonate 500 Mg Tab.Chew) 1,000 mg PO Q2HR PRN PRN Reason: Nausea Cyanocobalamin (Cyanocobalamin (Vitamin B12) 1,000 Mcg Tab) 1,000 mcg PO DAILY [facility] Last Admin: 03/30/21 08:14 Dose: 1,000 mcg Documented by: Diltiazem HCl (Diltiazem 180 Mg Cap.Cd) 180 mg PO DAILY [facility] Last Admin: 03/30/21 08:35 Dose: 180 mg Documented by: Ferrous Sulfate (Ferrous Sulfate 325 Mg Tab) 325 mg PO DAILY@20 [facility] Furosemide (Furosemide 40 Mg Tab) 60 mg PO BID@, [facility] Last Admin: 03/30/21 12:07 Dose: 60 mg Documented by: Gabapentin (Gabapentin 300 Mg Cap) 300 mg PO TID@,, [facility] Last Admin: 03/30/21 12:07 Dose: 300 mg Documented by: Insulin Glargine (Insulin Glarg,Human.Rec.Analog 100 Unit/Ml) 15 unit SUBCUT BEDTIME [facility] Last Admin: 03/29/21 22:24 Dose: 15 unit Documented by: Metformin HCl (Metformin 500 Mg Tab) 1,000 mg PO BID@0800,1800 [facility] Mometasone Furoate/Formoterol Fumar (Formoterol/Mometasone 200-5 Mcg 8.8 Gm Inhaler) 0 puff IH BID@ [facility] Last Admin: 03/30/21 08:35 Dose: 2 puff Documented by: Multivitamins/Minerals/Vitamin C (Multivitamin Tab) 1 tab PO DAILY [facility] Last Admin: 03/30/21 08:13 Dose: 1 tab Documented by: Lovastatin 20mg (Tablets) 1 each PO BEDTIME [facility] Nystatin (Nystatin Crm 30 Gm Tube) 1 gm TOP BID@0800,2000 [facility] Ondansetron HCl (Ondansetron 4 Mg Tab.Dis) 4 mg PO Q6H PRN PRN Reason: Nausea/Vomiting Oxycodone HCl (Oxycodone 5 Mg Tab) 2.5 mg PO Q6H PRN PRN Reason: Pain (severe 7-10) Pantoprazole Sodium (Pantoprazole 40 Mg Tab.Cr) 40 mg PO ACBREAKFAST [facility] Last Admin: 03/30/21 08:34 Dose: 40 mg Documented by: Polyethylene Glycol (Polyethylene Glycol 3350 Powder 510 Gm Bot) 17 gm PO DAILY PRN PRN Reason: Constipation Potassium Chloride (Potassium Chloride 10 Meq Tab.Er) 10 meq PO BID@ [facility] Last Admin: 03/30/21 08:36 Dose: 10 meq Documented by: Ropinirole HCl (Ropinirole 1 Mg Tab) 1 mg PO TID@ [facility] Last Admin: 03/30/21 12:08 Dose: 1 mg Documented by: Ropinirole HCl (Ropinirole 1 Mg Tab) 1 mg PO DAILY PRN PRN Reason: restless leg syndrome Senna/Docusate Sodium (Docusate Sodium/Sennosides 50-8.6 Mg Tab) 1 tab PO BID [facility] Last Admin: 03/30/21 08:13 Dose: 1 tab Documented by: Sertraline HCl (Sertraline 25 Mg Tab) 25 mg PO DAILY [facility] Last Admin: 03/30/21 08:38 Dose: 25 mg Documented by: Sertraline HCl (Sertraline 50 Mg Tab) 100 mg PO DAILY [facility] Last Admin: 03/30/21 08:38 Dose: 100 mg Documented by: Tramadol HCl (Tramadol 50 Mg Tab) 50 mg PO Q6H [facility] Stop: 04/01/21 23:59 Last Admin: 03/30/21 12:09 Dose: 50 mg Documented by: Trazodone HCl (Trazodone 50 Mg Tab) 100 mg PO BEDTIME [facility] Last Admin: 03/29/21 22:39 Dose: 100 mg Documented by: Triamcinolone Acetonide (Triamcinolone Acetonide 0.1% Crm 15 Gm Tube) 0 gm TOP BID PRN PRN Reason: Itching Discontinued Medications Acetaminophen (Acetaminophen 500 Mg Tab) 1,000 mg PO TID PRN PRN Reason: Pain Acetaminophen (Acetaminophen 500 Mg Tab) 1,000 mg PO TID [facility] Metformin HCl (Metformin 500 Mg Tab) 1,000 mg PO BIDMEALS@ [facility] Last Admin: 03/30/21 08:35 Dose: 1,000 mg Documented by: Nystatin (Nystatin Crm 30 Gm Tube) 0 gm TOP BID [facility] Last Admin: 03/30/21 08:09 Dose: 1 applic Documented by: Polyethylene Glycol (Polyethylene Glycol 3350 Powder 17 Gm Packet) 17 gm PO DAILY PRN PRN Reason: Constipation Tramadol HCl (Tramadol 50 Mg Tab) 50 mg PO ONETIME ONE Stop: 03/29/21 17:30 Last Admin: 03/29/21 18:34 Dose: 50 mg Documented by: Tramadol HCl (Tramadol 50 Mg Tab) 50 mg PO Q6H PRN PRN Reason: Pain (moderate 4-6) Stop: 04/01/21 23:59 - Exam General: Alert, Oriented, Cooperative Neck: Supple Lungs: Clear to Auscultation, Normal Respiratory Effort Cardiovascular: Regular Rate, Regular Rhythm, No Murmurs GI/Abdominal Exam: Normal Bowel Sounds, Soft, Non-Tender Back Exam: Normal Inspection, Full Range of Motion Extremities: Joint Swelling (left shoulder area, incision dry and intact, left fingers edematous) Skin: Warm, Dry, Intact Wound/Incisions: Healing Well, Dressing Dry and Intact Neurological: No New Focal Deficit Psy/Mental Status: Alert, Normal Affect, Normal Mood - Patient Data Lab Results Last 24 hrs: Laboratory Results - last 24 hr 03/29/21 03/30/21 Range/Units 21:08 08:06 POC Glucose 195 H 112 H (70-99) mg/dL Sepsis Event Note - Evaluation Sepsis Screening Result: No Definite Risk - Focused Exam Vital Signs: Vital Signs Temp Pulse Resp BP Pulse Ox 03/30/21 13:35 97.2 F 74 18 111/47 L 97 - Problem List & Annotations (1) Diabetes mellitus SNOMED Code(s): 09991595 Code(s): E11.9 - TYPE 2 DIABETES MELLITUS WITHOUT COMPLICATIONS Status: Acute Current Visit: Yes Qualifiers: Diabetes mellitus type: type 2 Diabetes mellitus alf insulin use: with ocean transportation intermediary use Diabetes mellitus complication status: without complication Qualified Code(s): E11.9 - Type 2 diabetes mellitus without complications; Z79.4 - watermaster (current) use of insulin (2) S/P shoulder joint replacement SNOMED Code(s): 047374545, 75035733, 055763603, 354701898, 175870995 Code(s): Z96.619 - PRESENCE OF UNSPECIFIED ARTIFICIAL SHOULDER JOINT Status: Acute Current Visit: No Qualifiers: Laterality: left Qualified Code(s): Z96.612 - Presence of left artificial shoulder joint (3) Anemia SNOMED Code(s): 321111957 Code(s): D64.9 - ANEMIA, UNSPECIFIED Status: Chronic Priority: Medium Current Visit: No Onset Date: ~12/14/19 Qualifiers: Anemia type: iron deficiency Iron deficiency anemia type: other iron deficiency Qualified Code(s): D50.8 - Other iron deficiency anemias Annotation/Comment:: Stable anemia secondary to his renal insufficiency, iron deficiency, and vitamin B12 deficiency. No evidence of GI bleed, etc. Observe for now. (4) Atrial fibrillation SNOMED Code(s): 30522431 Code(s): I48.91 - UNSPECIFIED ATRIAL FIBRILLATION Status: Chronic Priority: Medium Current Visit: No Qualifiers: Atrial fibrillation type: longstanding persistent Qualified Code(s): I48.11 - Longstanding persistent atrial fibrillation Annotation/Comment:: As above. (5) COPD (chronic obstructive pulmonary disease) SNOMED Code(s): 47753616 Code(s): J44.9 - CHRONIC OBSTRUCTIVE PULMONARY DISEASE, UNSPECIFIED Status: Chronic Priority: Medium Current Visit: No Qualifiers: COPD type: COPD with acute lower respiratory infection Qualified Code(s): J44.0 - Chronic obstructive pulmonary disease with (acute) lower respiratory infection Annotation/Comment:: No recent fever or bronchitic type symptoms. Secondary to COVID-19 patient changed to inhaler rather than nebulizer treatments while in the hospital to decrease hospital staff exposure. Note current negative pressure room. (6) Coronary artery disease SNOMED Code(s): 56083919 Code(s): I25.10 - ATHSCL HEART DISEASE OF [place] CORONARY ARTERY W/O ANG PCTRS Status: Chronic Priority: Medium Current Visit: No Qualifiers: Coronary Disease-Associated Artery/Lesion type: [place] artery [place] vs. transplanted heart: [place] heart Associated angina: without angina Qualified Code(s): I25.10 - Atherosclerotic heart disease of [place] coronary artery without angina pectoris Annotation/Comment:: As above. (7) Hyperlipidemia SNOMED Code(s): 53885173 Code(s): E78.5 - HYPERLIPIDEMIA, UNSPECIFIED Status: Chronic Priority: Medium Current Visit: No Qualifiers: Hyperlipidemia type: mixed hyperlipidemia Qualified Code(s): E78.2 - Mixed hyperlipidemia Annotation/Comment:: Lipid panel on 12/13 showed persistent moderate dyslipidemia. Weight loss in moderation is advisable. (8) Hypertension SNOMED Code(s): 15817699 Code(s): I10 - ESSENTIAL (PRIMARY) HYPERTENSION Status: Chronic Priority: Medium Current Visit: No Qualifiers: Hypertension type: essential hypertension Qualified Code(s): I10 - Essential (primary) hypertension Annotation/Comment:: Stable by history and under good control in the emergency room. (9) Sleep apnea SNOMED Code(s): 02462167 Code(s): G47.30 - SLEEP APNEA, UNSPECIFIED Status: Chronic Priority: Medium Current Visit: No Qualifiers: Sleep apnea type: obstructive Qualified Code(s): G47.33 - Obstructive sleep apnea (adult) (pediatric) Annotation/Comment:: He has been compliant with his CPAP with his daughter bringing his CPAP equipment to the hospital. Note previous oxygen requirement while awake, however this is no longer needed at this time. - Problem List Review Problem List Initiated/Reviewed/Updated: Yes - My Orders Last 24 Hours: My Active Orders 03/30/21 10:17 Consult to Occupational Therapy [OT Evaluation and Treatment] [CONS] Routine 03/30/21 16:48 Communication Order [RC] DAILY 03/30/21 18:00 metFORMIN [Glucophage] 1,000 mg PO BID@0800,1800 - Plan Plan:: Patient is placed here for physical rehabilitation. All current home medication will be continued Patient will be discontinued on anticoagulation therapy with prophylactic treatment of PE and DVT to consist of aspirin SCDs CARMINA hoses and ambulation. Patient has follow-up with orthopedics Monday. Patient's current diagnosis for assessment 1. Left shoulder hemiarthroplasty 2 hematoma status post surgery status post anticoagulation treatment 3. Diabetes type 2 4. COPD history 5. Obstructive sleep apnea 6. Chronic diastolic heart failure 7. Atrial fibrillation with pacemaker 8. Hypertension 9. Depression 10. Restless leg syndrome Patient CODE STATUS is full 03/30/2021 1. s/p left shoulder replacement: with post operative bleeding/hematoma. Steri strips are dry and intact. Left fingers are edematous due to patient hanging left arm down even though the arm is in the sling. Will need to elevated the left UE 2. Type 2 DM: monitor blood sugars, no medication changes done 3. Hypertension: continue on current medications, blood pressures are reviewed. 4. COPD: O2 sats are stable 5. Sleep apnea: patient to use CPAP machine at night 6. Atrial Fibrillation: Rate controlled 7. Anxiety: continue on Zoloft Patient to see orthopedic surgeon tomorrow for further recommendations for physical therapy. Patient is educated on not to be using the left arm until in structed by orthopedics. Patient was discontinued on aspirin due to hematoma, patient has CARMINA stockings and ambulating 4-6 times a day. He is not wanting to wear SCDs. CBC will be ordered for the am due to anemia. Consulted with Dr Sujata Nagel, ELECTROENCEPHALOGRAPH TECHNOLOGIST
[2021-03-30] MEDS: Ferrous Sulfate 325 MG Tab PO SCH (20:08)
[2021-03-30] MEDS: Insulin Glarg,Human.Rec.Analog 100 Unit/ML SUBCUT SCH (20:11)
[2021-03-30] MEDS: LOVASTATIN 20 MG PO SCH (20:19)
[2021-03-30] MEDS: traZODone 50 MG Tab PO SCH (20:22)
[2021-03-31] MEDS: traMADol 50 MG Tab PO SCH ×4 (00:38→17:16)
[2021-03-31] MEDS: Sertraline 50 MG Tab PO SCH (07:59)
[2021-03-31] MEDS ORDERED: Acetaminophen 500 MG Tab PO SCH (08:00)
[2021-03-31] MEDS: Sertraline 25 MG Tab PO SCH (08:00)
[2021-03-31] MEDS: Diltiazem 180 MG Cap.CD PO SCH (08:01)
[2021-03-31] MEDS: Furosemide 40 MG Tab PO SCH ×2 (08:02→12:09)
[2021-03-31] MEDS: Pantoprazole 40 MG Tab.CR PO SCH (08:04)
[2021-03-31] MEDS: metFORMIN 500 MG Tab PO SCH ×2 (08:05→17:13)
[2021-03-31] MEDS: Potassium Chloride 10 MEQ Tab.ER PO SCH ×2 (08:05→20:27)
[2021-03-31] MEDS: rOPINIRole 1 MG Tab PO SCH ×3 (08:06→20:36)
[2021-03-31] MEDS: Formoterol/Mometasone 200-5 MCG 8.8 GM Inhaler IH SCH ×2 (08:07→20:24)
[2021-03-31] MEDS: Nystatin Crm 30 GM Tube TOP SCH ×2 (08:07→20:34)
[2021-03-31] MEDS: Aspirin 81 MG Tab.EC PO SCH (08:10)
[2021-03-31] MEDS: Cyanocobalamin (Vitamin B12) 1,000 MCG Tab PO SCH (08:11)
[2021-03-31] MEDS: Multivitamin Tab PO SCH (08:12)
[2021-03-31] MEDS: Gabapentin 300 MG Cap PO SCH ×3 (08:12→20:32)
[2021-03-31] MEDS: Acetaminophen 500 MG Tab PO SCH ×3 (08:13→17:14)
[2021-03-31] MEDS: Ferrous Sulfate 325 MG Tab PO SCH (20:25)
[2021-03-31] MEDS: Insulin Glarg,Human.Rec.Analog 100 Unit/ML SUBCUT SCH (20:29)
[2021-03-31] MEDS: LOVASTATIN 20 MG PO SCH (20:33)
[2021-03-31] MEDS: traZODone 50 MG Tab PO SCH (20:37)
[2021-04-01] MEDS: traMADol 50 MG Tab PO SCH ×4 (00:42→17:11)
[2021-04-01] MEDS: Formoterol/Mometasone 200-5 MCG 8.8 GM Inhaler IH SCH ×2 (08:09→20:50)
[2021-04-01] MEDS: Pantoprazole 40 MG Tab.CR PO SCH (08:10)
[2021-04-01] MEDS: metFORMIN 500 MG Tab PO SCH ×2 (08:11→17:09)
[2021-04-01] MEDS: Diltiazem 180 MG Cap.CD PO SCH (08:11)
[2021-04-01] MEDS: Potassium Chloride 10 MEQ Tab.ER PO SCH ×2 (08:12→20:53)
[2021-04-01] MEDS: Aspirin 81 MG Tab.EC PO SCH (08:12)
[2021-04-01] MEDS: Furosemide 40 MG Tab PO SCH ×2 (08:13→14:00)
[2021-04-01] MEDS: Nystatin Crm 30 GM Tube TOP SCH ×2 (08:14→20:57)
[2021-04-01] MEDS: Gabapentin 300 MG Cap PO SCH ×3 (08:14→20:56)
[2021-04-01] MEDS: rOPINIRole 1 MG Tab PO SCH ×3 (08:16→20:58)
[2021-04-01] MEDS: Cyanocobalamin (Vitamin B12) 1,000 MCG Tab PO SCH (08:17)
[2021-04-01] MEDS: Multivitamin Tab PO SCH (08:17)
[2021-04-01] MEDS: Acetaminophen 500 MG Tab PO SCH ×3 (08:17→17:11)
[2021-04-01] MEDS: Sertraline 25 MG Tab PO SCH (08:18)
[2021-04-01] MEDS: Sertraline 50 MG Tab PO SCH (08:19)
[2021-04-01] MEDS: Ferrous Sulfate 325 MG Tab PO SCH (20:51)
[2021-04-01] MEDS: Insulin Glarg,Human.Rec.Analog 100 Unit/ML SUBCUT SCH (20:53)
[2021-04-01] MEDS: LOVASTATIN 20 MG PO SCH (20:56)
[2021-04-01] MEDS: traZODone 50 MG Tab PO SCH (20:59)
[2021-04-01] MEDS: ALPRAZolam 0.25 MG Tab PO PRN (22:18)
[2021-04-02] MEDS: Formoterol/Mometasone 200-5 MCG 8.8 GM Inhaler IH SCH (08:20)
[2021-04-02] MEDS: Potassium Chloride 10 MEQ Tab.ER PO SCH (08:20)
[2021-04-02] MEDS: Sertraline 50 MG Tab PO SCH (08:21)
[2021-04-02] MEDS: Aspirin 81 MG Tab.EC PO SCH (08:21)
[2021-04-02] MEDS: Diltiazem 180 MG Cap.CD PO SCH (08:22)
[2021-04-02] MEDS: Sertraline 25 MG Tab PO SCH (08:22)
[2021-04-02] MEDS: Furosemide 40 MG Tab PO SCH ×2 (08:23→11:32)
[2021-04-02] MEDS: Pantoprazole 40 MG Tab.CR PO SCH (08:23)
[2021-04-02] MEDS: rOPINIRole 1 MG Tab PO SCH ×2 (08:24→11:32)
[2021-04-02] MEDS: metFORMIN 500 MG Tab PO SCH (08:25)
[2021-04-02] MEDS: Cyanocobalamin (Vitamin B12) 1,000 MCG Tab PO SCH (08:26)
[2021-04-02] MEDS: Multivitamin Tab PO SCH (08:27)
[2021-04-02] MEDS: Acetaminophen 500 MG Tab PO SCH ×2 (08:27→11:31)
[2021-04-02] MEDS: Nystatin Crm 30 GM Tube TOP SCH (08:29)
[2021-04-02] MEDS: Gabapentin 300 MG Cap PO SCH ×2 (08:31→11:31)
[2021-04-02 09:24] VITALS: BP 125/68; PULSE 84
--- NOTE | 2021-04-02 12:37 | PCM.PN ---
- General Info Date of Service: 04/02/21 Admission Dx/Problem (Free Text): Admission Diagnosis/Problem Admission Diagnosis/Problem Arthropathy of shoulder region Other admission diagnoses/problems 2. Hematoma status post arthroplasty/anticoagulation usage left shoulder 3. Diabetes type 2 4. Obstructive sleep apnea COPD 5. Hypertension 6. Anxiety Functional Status: Reports: Pain Controlled, Tolerating Diet, Ambulating - Review of Systems General: Reports: No Symptoms HEENT: Reports: No Symptoms Pulmonary: Reports: No Symptoms Cardiovascular: Reports: No Symptoms Gastrointestinal: Reports: No Symptoms Genitourinary: Reports: No Symptoms Musculoskeletal: Reports: Joint Swelling (Left shoulder) Skin: Reports: Bruising (To the left shoulder) Neurological: Reports: No Symptoms Psychiatric: Reports: No Symptoms - Patient Data Vitals - Most Recent: Last Vital Signs Temp 97.6 F 04/02/21 08:00 Pulse 84 04/02/21 08:00 Resp 18 04/02/21 08:00 BP 125/68 04/02/21 08:00 Pulse Ox 95 04/02/21 08:00 Weight - Most Recent: 361 lb 1.6 oz I&O - Last 24 Hours: Intake & Output 04/01/21 04/02/21 04/02/21 22:59 06:59 14:59 Intake Total 480 500 Balance 480 500 Lab Results Last 24 Hours: Laboratory Results - last 24 hr 04/01/21 Range/Units 16:52 POC Glucose 168 H (70-99) mg/dL Med Orders - Current: Current Medications Acetaminophen (Acetaminophen 500 Mg Tab) 1,000 mg PO TID [facility] Stop: 04/05/21 12:01 Last Admin: 04/02/21 11:31 Dose: 1,000 mg Documented by: Albuterol/Ipratropium (Albuterol/Ipratropium 3.0-0.5 Mg/3 Ml Neb Soln) 3 ml NEB Q6HR PRN PRN Reason: Shortness of Breath Alprazolam (Alprazolam 0.25 Mg Tab) 0.25 mg PO Q12H PRN PRN Reason: Anxiety Last Admin: 04/01/21 22:18 Dose: 0.25 mg Documented by: Aspirin (Aspirin 81 Mg Tab.Ec) 81 mg PO WITHBREAKFAST [place] Last Admin: 04/02/21 08:21 Dose: 81 mg Documented by: Calcium Carbonate/Glycine (Calcium Carbonate 500 Mg Tab.Chew) 1,000 mg PO Q2HR PRN PRN Reason: Nausea Cyanocobalamin (Cyanocobalamin (Vitamin B12) 1,000 Mcg Tab) 1,000 mcg PO DAILY [facility] Last Admin: 04/02/21 08:26 Dose: 1,000 mcg Documented by: Diltiazem HCl (Diltiazem 180 Mg Cap.Cd) 180 mg PO DAILY [facility] Last Admin: 04/02/21 08:22 Dose: 180 mg Documented by: Ferrous Sulfate (Ferrous Sulfate 325 Mg Tab) 325 mg PO DAILY@20 [facility] Last Admin: 04/01/21 20:51 Dose: 325 mg Documented by: Furosemide (Furosemide 40 Mg Tab) 60 mg PO BID@ [facility] Last Admin: 04/02/21 11:32 Dose: 60 mg Documented by: Gabapentin (Gabapentin 300 Mg Cap) 300 mg PO TID@, [facility] Last Admin: 04/02/21 11:31 Dose: 300 mg Documented by: Insulin Glargine (Insulin Glarg,Human.Rec.Analog 100 Unit/Ml) 15 unit SUBCUT BEDTIME [facility] Last Admin: 04/01/21 20:53 Dose: 15 unit Documented by: Metformin HCl (Metformin 500 Mg Tab) 1,000 mg PO BID@0800,1800 [facility] Last Admin: 04/02/21 08:25 Dose: 1,000 mg Documented by: Mometasone Furoate/Formoterol Fumar (Formoterol/Mometasone 200-5 Mcg 8.8 Gm Inhaler) 0 puff IH BID@08,20 [facility] Last Admin: 04/02/21 08:20 Dose: 2 puff Documented by: Multivitamins/Minerals/Vitamin C (Multivitamin Tab) 1 tab PO DAILY [facility] Last Admin: 04/02/21 08:27 Dose: 1 tab Documented by: Lovastatin 20mg (Tablets) 1 each PO BEDTIME [facility] Last Admin: 04/01/21 20:56 Dose: 1 each Documented by: Nystatin (Nystatin Crm 30 Gm Tube) 1 gm TOP BID@0800,2000 [facility] Last Admin: 04/02/21 08:29 Dose: 1 applic Documented by: Ondansetron HCl (Ondansetron 4 Mg Tab.Dis) 4 mg PO Q6H PRN PRN Reason: Nausea/Vomiting Oxycodone HCl (Oxycodone 5 Mg Tab) 2.5 mg PO Q6H PRN PRN Reason: Pain (severe 7-10) Pantoprazole Sodium (Pantoprazole 40 Mg Tab.Cr) 40 mg PO ACBREAKFAST [facility] Last Admin: 04/02/21 08:23 Dose: 40 mg Documented by: Polyethylene Glycol (Polyethylene Glycol 3350 Powder 510 Gm Bot) 17 gm PO DAILY PRN PRN Reason: Constipation Potassium Chloride (Potassium Chloride 10 Meq Tab.Er) 10 meq PO BID@ [facility] Last Admin: 04/02/21 08:20 Dose: 10 meq Documented by: Ropinirole HCl (Ropinirole 1 Mg Tab) 1 mg PO TID@ [facility] Last Admin: 04/02/21 11:32 Dose: 1 mg Documented by: Ropinirole HCl (Ropinirole 1 Mg Tab) 1 mg PO DAILY PRN PRN Reason: restless leg syndrome Senna/Docusate Sodium (Docusate Sodium/Sennosides 50-8.6 Mg Tab) 1 tab PO BID [facility] Last Admin: 04/02/21 08:28 Dose: 1 tab Documented by: Sertraline HCl (Sertraline 25 Mg Tab) 25 mg PO DAILY [facility] Last Admin: 04/02/21 08:22 Dose: 25 mg Documented by: Sertraline HCl (Sertraline 50 Mg Tab) 100 mg PO DAILY [facility] Last Admin: 04/02/21 08:21 Dose: 100 mg Documented by: Trazodone HCl (Trazodone 50 Mg Tab) 100 mg PO BEDTIME [facility] Last Admin: 04/01/21 20:59 Dose: 100 mg Documented by: Triamcinolone Acetonide (Triamcinolone Acetonide 0.1% Crm 15 Gm Tube) 0 gm TOP BID PRN PRN Reason: Itching Discontinued Medications Acetaminophen (Acetaminophen 500 Mg Tab) 1,000 mg PO TID PRN PRN Reason: Pain Acetaminophen (Acetaminophen 500 Mg Tab) 1,000 mg PO TID [facility] Metformin HCl (Metformin 500 Mg Tab) 1,000 mg PO BIDMEALS@,12 [facility] Last Admin: 03/30/21 08:35 Dose: 1,000 mg Documented by: Nystatin (Nystatin Crm 30 Gm Tube) 0 gm TOP BID [facility] Last Admin: 03/30/21 08:09 Dose: 1 applic Documented by: Polyethylene Glycol (Polyethylene Glycol 3350 Powder 17 Gm Packet) 17 gm PO DAILY PRN PRN Reason: Constipation Tramadol HCl (Tramadol 50 Mg Tab) 50 mg PO ONETIME ONE Stop: 03/29/21 17:30 Last Admin: 03/29/21 18:34 Dose: 50 mg Documented by: Tramadol HCl (Tramadol 50 Mg Tab) 50 mg PO Q6H PRN PRN Reason: Pain (moderate 4-6) Stop: 04/01/21 23:59 Tramadol HCl (Tramadol 50 Mg Tab) 50 mg PO Q6H [facility] Stop: 04/01/21 23:59 Last Admin: 04/01/21 17:11 Dose: 50 mg Documented by: - Exam General: Alert, Oriented, Cooperative, No Acute Distress Neck: Supple Lungs: Clear to Auscultation, Normal Respiratory Effort Cardiovascular: Regular Rate, Regular Rhythm GI/Abdominal Exam: Normal Bowel Sounds, Soft, Non-Tender, No Organomegaly, No Distention Back Exam: Normal Inspection Extremities: Joint Swelling (left shoulder edematous and ecchymotic, the swelling does extend down into the left hand, CMS checks within normal limits) Skin: Warm, Dry, Intact Neurological: No New Focal Deficit Psy/Mental Status: Alert, Normal Affect, Normal Mood - Patient Data Lab Results Last 24 hrs: Laboratory Results - last 24 hr 04/01/21 Range/Units 16:52 POC Glucose 168 H (70-99) mg/dL Result Diagrams: 03/31/21 08:00 Sepsis Event Note - Evaluation Sepsis Screening Result: No Definite Risk - Focused Exam Vital Signs: Vital Signs Temp Pulse Resp BP Pulse Ox 04/02/21 08:00 97.6 F 84 18 125/68 95 - Problem List & Annotations (1) Diabetes mellitus SNOMED Code(s): 94089880 Code(s): E11.9 - TYPE 2 DIABETES MELLITUS WITHOUT COMPLICATIONS Status: Acute Current Visit: Yes Qualifiers: Diabetes mellitus type: type 2 Diabetes mellitus shelter insulin use: w ith ocean transportation intermediary use Diabetes mellitus complication status: without complication Qualified Code(s): E11.9 - Type 2 diabetes mellitus without complications; Z79.4 - intermediate manager (current) use of insulin (2) S/P shoulder joint replacement SNOMED Code(s): 483343027, 48656211, 164215625, 414102482, 401191073 Code(s): Z96.619 - PRESENCE OF UNSPECIFIED ARTIFICIAL SHOULDER JOINT Status: Acute Current Visit: No Qualifiers: Laterality: left Qualified Code(s): Z96.612 - Presence of left artificial shoulder joint (3) Anemia SNOMED Code(s): 340636550 Code(s): D64.9 - ANEMIA, UNSPECIFIED Status: Chronic Priority: Medium Current Visit: No Onset Date: ~12/14/19 Qualifiers: Anemia type: iron deficiency Iron deficiency anemia type: other iron deficiency Qualified Code(s): D50.8 - Other iron deficiency anemias Annotation/Comment:: Stable anemia secondary to his renal insufficiency, iron deficiency, and vitamin B12 deficiency. No evidence of GI bleed, etc. Observe for now. (4) Atrial fibrillation SNOMED Code(s): 29817358 Code(s): I48.91 - UNSPECIFIED ATRIAL FIBRILLATION Status: Chronic Priority: Medium Current Visit: No Qualifiers: Atrial fibrillation type: longstanding persistent Qualified Code(s): I48.11 - Longstanding persistent atrial fibrillation Annotation/Comment:: As above. (5) COPD (chronic obstructive pulmonary disease) SNOMED Code(s): 11615432 Code(s): J44.9 - CHRONIC OBSTRUCTIVE PULMONARY DISEASE, UNSPECIFIED Status: Chronic Priority: Medium Current Visit: No Qualifiers: COPD type: COPD with acute lower respiratory infection Qualified Code(s): J44.0 - Chronic obstructive pulmonary disease with (acute) lower respiratory infection (6) Coronary artery disease SNOMED Code(s): 19777207 Code(s): I25.10 - ATHSCL HEART DISEASE OF [place] CORONARY ARTERY W/O ANG PCTRS Status: Chronic Priority: Medium Current Visit: No Qualifiers: Coronary Disease-Associated Artery/Lesion type: [place] artery [place] vs. transplanted heart: [place] heart Associated angina: without angina Qualified Code(s): I25.10 - Atherosclerotic heart disease of [place] coronary artery without angina pectoris Annotation/Comment:: As above. (7) Hyperlipidemia SNOMED Code(s): 92601845 Code(s): E78.5 - HYPERLIPIDEMIA, UNSPECIFIED Status: Chronic Priority: Medium Current Visit: No Qualifiers: Hyperlipidemia type: mixed hyperlipidemia Qualified Code(s): E78.2 - Mixed hyperlipidemia Annotation/Comment:: Lipid panel on 12/13 showed persistent moderate dyslipidemia. Weight loss in moderation is advisable. (8) Hypertension SNOMED Code(s): 75912618 Code(s): I10 - ESSENTIAL (PRIMARY) HYPERTENSION Status: Chronic Priority: Medium Current Visit: No Qualifiers: Hypertension type: essential hypertension Qualified Code(s): I10 - Essential (primary) hypertension (9) Sleep apnea SNOMED Code(s): 00505228 Code(s): G47.30 - SLEEP APNEA, UNSPECIFIED Status: Chronic Priority: Medium Current Visit: No Qualifiers: Sleep apnea type: obstructive Qualified Code(s): G47.33 - Obstructive sleep apnea (adult) (pediatric) Annotation/Comment:: He has been compliant with his CPAP - Problem List Review Problem List Initiated/Reviewed/Updated: Yes - My Orders Last 24 Hours: My Active Orders 04/01/21 14:42 Communication Order [RC] DAILY 04/02/21 09:25 Ready for Discharge [RC] PER UNIT ROUTINE - Plan Plan:: Patient is placed here for physical rehabilitation. All current home medication will be continued Patient will be discontinued on anticoagulation therapy with prophylactic treatment of PE and DVT to consist of aspirin SCDs CARMINA hoses and ambulation. Patient has follow-up with orthopedics Monday. Patient's current diagnosis for assessment 1. Left shoulder hemiarthroplasty 2 hematoma status post surgery status post anticoagulation treatment 3. Diabetes type 2 4. COPD history 5. Obstructive sleep apnea 6. Chronic diastolic heart failure 7. Atrial fibrillation with pacemaker 8. Hypertension 9. Depression 10. Restless leg syndrome Patient CODE STATUS is full 03/30/2021 1. s/p left shoulder replacement: with post operative bleeding/hematoma. Steri strips are dry and intact. Left fingers are edematous due to patient hanging left arm down even though the arm is in the sling. Will need to elevated the left UE 2. Type 2 DM: monitor blood sugars, no medication changes done 3. Hypertension: continue on current medications, blood pressures are reviewed. 4. COPD: O2 sats are stable 5. Sleep apnea: patient to use CPAP machine at night 6. Atrial Fibrillation: Rate controlled 7. Anxiety: continue on Zoloft Patient to see orthopedic surgeon tomorrow for further recommendations for physical therapy. Patient is educated on not to be using the left arm until instructed by orthopedics. Patient was discontinued on aspirin due to hematoma, patient has CARMINA stockings and ambulating 4-6 times a day. He is not wanting to wear SCDs. CBC will be ordered for the am due to anemia. Consulted with Dr Sujata Nagel CNP 04/02/2021 1. s/p shoulder replacement with secondary hematoma which is now under control. Dressing to left shoulder is dry and intact. The patient does have edema into the left hand as he is noncompliant in keeping his left arm in the sling. Pain is controlled. Patient rates pain 1 out of 10 2. Hypertension: Continue on current medications. 3. COPD: Oxygen saturations are stable 4. Type 2 diabetes mellitus: Blood sugars controlled 5. Anxiety: On Zoloft and alprazolam as needed Patient has improved with physical and occupational therapy will be discharged home later today. Continue on Tylenol as needed for the pain. Medications are reviewed with the patient. Kelley Nagel CNP
--- NOTE | 2021-04-02 17:47 | PCM.DCSUM1 ---
Discharge Summary - Hospital Course Free Text/Narrative:: The patient is an 80-year-old male who is admitted into swing bed after having left total shoulder repair with secondary postoperative bleeding. The patient presented to the emergency room 2 before being admitted to the swing bed stay. Patient denies any trauma to the left shoulder however he states he has been using it more than what he should and he does not keep it in the sling. The patient was admitted for further strengthening with physical and not positional therapy. Diagnosis: Stroke: No - Discharge Data Discharge Date: 04/02/21 Discharge Disposition: Home, Self-Care 01 Condition: Good - Referral to Home Health Primary Care Physician: Kelley Nagel NP - Discharge Diagnosis/Problem(s) (1) Diabetes mellitus SNOMED Code(s): 12623420 ICD Code: E11.9 - TYPE 2 DIABETES MELLITUS WITHOUT COMPLICATIONS Status: Acute Qualifiers: Diabetes mellitus type: type 2 Diabetes mellitus intermediate insulin use: with intermediate use Diabetes mellitus complication status: without complication Qualified Code(s): E11.9 - Type 2 diabetes mellitus without complications; Z79.4 - longterm (current) use of insulin (2) S/P shoulder joint replacement SNOMED Code(s): 167276837, 83777052, 200123192, 520538610, 760653501 ICD Code: Z96.619 - PRESENCE OF UNSPECIFIED ARTIFICIAL SHOULDER JOINT Status: Acute Qualifiers: Laterality: left Qualified Code(s): Z96.612 - Presence of left artificial shoulder joint (3) Anemia SNOMED Code(s): 950198361 ICD Code: D64.9 - ANEMIA, UNSPECIFIED Status: Chronic Priority: Medium Onset Date: ~12/14/19 Problem Details: Stable anemia secondary to his renal insufficiency, iron deficiency, and vitamin B12 deficiency. No evidence of GI bleed, etc. Observe for now. Qualifiers: Anemia type: iron deficiency Iron deficiency anemia type: other iron deficiency Qualified Code(s): D50.8 - Other iron deficiency anemias (4) Atrial fibrillation SNOMED Code(s): 16783005 ICD Code: I48.91 - UNSPECIFIED ATRIAL FIBRILLATION Status: Chronic Priority: Medium Problem Details: As above. Qualifiers: Atrial fibrillation type: longstanding persistent Qualified Code(s): I48.11 - Longstanding persistent atrial fibrillation (5) COPD (chronic obstructive pulmonary disease) SNOMED Code(s): 61409111 ICD Code: J44.9 - CHRONIC OBSTRUCTIVE PULMONARY DISEASE, UNSPECIFIED Status: Chronic Priority: Medium Qualifiers: COPD type: COPD with acute lower respiratory infection Qualified Code(s): J44.0 - Chronic obstructive pulmonary disease with (acute) lower respiratory infection (6) Coronary artery disease SNOMED Code(s): 61685789 ICD Code: I25.10 - ATHSCL HEART DISEASE OF [place] CORONARY ARTERY W/O ANG PCTRS Status: Chronic Priority: Medium Problem Details: As above. Qualifiers: Coronary Disease-Associated Artery/Lesion type: [place] artery [place] vs. transplanted heart: [place] heart Associated angina: without angina Qualified Code(s): I25.10 - Atherosclerotic heart disease of [place] coronary artery without angina pectoris (7) Hyperlipidemia SNOMED Code(s): 20826940 ICD Code: E78.5 - HYPERLIPIDEMIA, UNSPECIFIED Status: Chronic Priority: Medium Problem Details: Lipid panel on 12/13 showed persistent moderate dyslipidemia. Weight loss in moderation is advisable. Qualifiers: Hyperlipidemia type: mixed hyperlipidemia Qualified Code(s): E78.2 - Mixed hyperlipidemia (8) Hypertension SNOMED Code(s): 97271107 ICD Code: I10 - ESSENTIAL (PRIMARY) HYPERTENSION Status: Chronic Priority: Medium Qualifiers: Hypertension type: essential hypertension Qualified Code(s): I10 - Essential (primary) hypertension (9) Sleep apnea SNOMED Code(s): 46740328 ICD Code: G47.30 - SLEEP APNEA, UNSPECIFIED Status: Chronic Priority: Medium Problem Details: He has been compliant with his CPAP Qualifiers: Sleep apnea type: obstructive Qualified Code(s): G47.33 - Obstructive sleep apnea (adult) (pediatric) - Patient Summary/Data Consults: Consultations 03/29/21 19:06 PT Evaluation and Treatment [CONS] Routine 03/30/21 10:17 Consult to Occupational Therapy [OT Evaluation and Treatment] [CONS] Routine - Patient Instructions Diet: Diabetic Diet Activity: Apply Ice, As Tolerated Driving: May Drive Today Showering/Bathing: May Shower Wound/Incision Care: Keep Operative Site/Wound Site Clean and Dry Notify Provider of: Fever, Increased Pain, Swelling and Redness - Discharge Plan *PRESCRIPTION DRUG MONITORING PROGRAM REVIEWED*: Yes *COPY OF PRESCRIPTION DRUG MONITORING REPORT IN PATIENT JOSE: No Home Medications: Home Meds Budesonide/Formoterol [Symbicort 160-4.5 MCG] 2 puff INH BID 07/21/16 [History] Multivitamins [Tab-A-Juan] 1 tab PO DAILY 07/21/16 [History] Sertraline [Zoloft] 100 mg PO QAM 07/21/16 [History] metFORMIN HCl [Metformin HCl] 1,000 mg PO BIDMEALS 07/21/16 [History] rOPINIRole [Requip] 1 mg PO DAILY PRN 07/21/16 [History] rOPINIRole [Requip] 1 mg PO TID@,,07/21/16 [History] Cyanocobalamin (Vitamin B-12) [Vitamin B-12] 1,000 mcg PO DAILY 12/13/19 [History] Gabapentin [Neurontin] 300 mg PO TID@,,12/13/19 [History] Insulin Detemir [Levemir] 15 unit SUBCUT BEDTIME 12/13/19 [History] Triamcinolone Acetonide [Kenalog 0.1% Crm] 1 applic TOP BID PRN 12/13/19 [History] Lovastatin [Mevacor] 20 mg PO BEDTIME #30 tablet 12/17/19 [Rx] Furosemide [Lasix] 60 mg PO BID 12/30/19 [History] dilTIAZem HCL [Cartia Xt] 180 mg PO DAILY 12/30/19 [History] Albuterol/Ipratropium [DuoNeb 3.0-0.5 MG/3 ML] 3 ml NEB QID PRN 01/09/20 [History] Ferrous Sulfate 325 mg PO DAILY 01/09/20 [History] Pantoprazole Sodium [Protonix] 40 mg PO DAILY 01/09/20 [History] Potassium Chloride 10 meq PO BID 01/09/20 [History] Aspirin [Aspirin EC] 81 mg PO DAILY 06/25/20 [History] Sertraline [Zoloft] 25 mg PO DAILY 06/25/20 [History] ALPRAZolam [Xanax] 0.25 mg PO Q12HR PRN 03/24/21 [History] Docusate Sodium/Sennosides [Senokot-S] 1 each PO BID 03/24/21 [History] oxyCODONE 2.5 mg PO Q6H PRN 03/24/21 [History] traZODone HCl [Trazodone HCl] 100 mg PO BEDTIME 03/24/21 [History] Acetaminophen 1,000 mg PO TID 03/29/21 [History] Sennosides/Docusate Sodium [Stool Softener-Laxative] 1 tab PO BID 03/29/21 [History] polyethylene glycoL 3350 [MiraLAX] 17 gm PO DAILY PRN 03/29/21 [History] traMADol [Ultram] 50 mg PO Q6H 03/29/21 [History] ALPRAZolam [Xanax] 0.25 mg PO Q12H PRN tablet 04/02/21 [Rx] Acetaminophen [Tylenol Extra Strength] 1,000 mg PO TID tablet 04/02/21 [Rx] Albuterol/Ipratropium [DuoNeb 3.0-0.5 MG/3 ML] 3 ml NEB Q6HR PRN neb 04/02/21 [Rx] Aspirin [Halfprin] 81 mg PO WITHBREAKFAST tab.ec 04/02/21 [Rx] Cyanocobalamin (Vitamin B12) [Vitamin B12] 1,000 mcg PO DAILY tablet 04/02/21 [Rx] Docusate Sodium/Sennosides [Senna Plus] 1 tab PO BID tablet 04/02/21 [Rx] Ferrous Sulfate 325 mg PO DAILY@20 tablet 04/02/21 [Rx] Furosemide [Lasix] 60 mg PO BID@08,12 tablet 04/02/21 [Rx] Gabapentin [Neurontin] 300 mg PO TID@08,,20 cap 04/02/21 [Rx] Insulin Glarg,Human.Rec.Analog [Lantus] 15 unit SUBCUT BEDTIME ml 04/02/21 [Rx] Mometasone/Formoterol [Dulera 200-5 MCG] 0 puff IH BID@, inhaler 04/02/21 [Rx] Multivitamins [Tab-A-Juan] 1 tab PO DAILY tablet 04/02/21 [Rx] Non-Formulary Medication [NF Drug] 1 each PO BEDTIME each 04/02/21 [Rx] Nystatin [Nystatin Crm] 1 gm TOP BID@0800,2000 tube 04/02/21 [Rx] Pantoprazole [ProTONIX] 40 mg PO ACBREAKFAST tab.cr 04/02/21 [Rx] Potassium Chloride [Klor-Con 10] 10 meq PO BID@,20 tab.er 04/02/21 [Rx] Sertraline [Zoloft] 100 mg PO DAILY tablet 04/02/21 [Rx] Triamcinolone Acetonide [Triamcinolone Acetonide 0.1% Crm] 0 gm TOP BID PRN tube 04/02/21 [Rx] metFORMIN [Glucophage] 1,000 mg PO BID@0800,1800 tablet 04/02/21 [Rx] rOPINIRole [Requip] 1 mg PO TID@08,12,20 tablet 04/02/21 [Rx] traZODone 100 mg PO BEDTIME tablet 04/02/21 [Rx] Referrals: Kelley Nagel, [facility] [Primary Care Provider] - - Discharge Summary/Plan Comment DC Time >30 min.: No Discharge Summary/Plan Comment: The patient is discharged to home with [facility] nursing. Public health nursing will be out today to help the patient set up his medications. Patient will continue with outpatient physical and occupational therapy. Patient will follow with the orthopedic surgeon. The patient was encouraged to keep his left upper extremity in the sling as prescribed by the orthopedic. Patient will follow-up at the [facility] in 2 weeks' time. Kelley Nagel CNP - General Info Date of Service: 04/02/21 Admission Dx/Problem (Free Text: Admission Diagnosis/Problem Admission Diagnosis/Problem Arthropathy of shoulder region Other admission diagnoses/problems 2. Hematoma status post arthroplasty/anticoagulation usage left shoulder 3. Diabetes type 2 4. Obstructive sleep apnea COPD 5. Hypertension 6. Anxiety Functional Status: Reports: Pain Controlled, Tolerating Diet, Ambulating - Review of Systems General: Reports: No Symptoms HEENT: Reports: No Symptoms Pulmonary: Reports: No Symptoms Cardiovascular: Reports: No Symptoms Gastrointestinal: Reports: No Symptoms Musculoskeletal: Reports: Joint Swelling Skin: Reports: No Symptoms, Bruising (Left shoulder with significant ecchymoses noted from the hematoma) Neurological: Reports: No Symptoms Psychiatric: Reports: No Symptoms - Patient Data Vitals - Most Recent: Last Vital Signs Temp 97.6 F 04/02/21 08:00 Pulse 84 04/02/21 08:00 Resp 18 04/02/21 08:00 BP 125/68 04/02/21 08:00 Pulse Ox 95 04/02/21 08:00 Weight - Most Recent: 361 lb 1.6 oz I&O - Last 24 hours: Intake & Output 04/02/21 04/02/21 04/02/21 06:59 14:59 22:59 Intake Total 500 Balance 500 Med Orders - Current: Current Medications Discontinued Medications Acetaminophen (Acetaminophen 500 Mg Tab) 1,000 mg PO TID PRN PRN Reason: Pain Acetaminophen (Acetaminophen 500 Mg Tab) 1,000 mg PO TID [facility] Acetaminophen (Acetaminophen 500 Mg Tab) 1,000 mg PO TID [facility] Stop: 04/05/21 12:01 Last Admin: 04/02/21 11:31 Dose: 1,000 mg Documented by: Albuterol/Ipratropium (Albuterol/Ipratropium 3.0-0.5 Mg/3 Ml Neb Soln) 3 ml NEB Q6HR PRN PRN Reason: Shortness of Breath Alprazolam (Alprazolam 0.25 Mg Tab) 0.25 mg PO Q12H PRN PRN Reason: Anxiety Last Admin: 04/01/21 22:18 Dose: 0.25 mg Documented by: Aspirin (Aspirin 81 Mg Tab.Ec) 81 mg PO WITHBREAKFAST [facility] Last Admin: 04/02/21 08:21 Dose: 81 mg Documented by: Calcium Carbonate/Glycine (Calcium Carbonate 500 Mg Tab.Chew) 1,000 mg PO Q2HR PRN PRN Reason: Nausea Cyanocobalamin (Cyanocobalamin (Vitamin B12) 1,000 Mcg Tab) 1,000 mcg PO DAILY [facility] Last Admin: 04/02/21 08:26 Dose: 1,000 mcg Documented by: Diltiazem HCl (Diltiazem 180 Mg Cap.Cd) 180 mg PO DAILY [facility] Last Admin: 04/02/21 08:22 Dose: 180 mg Documented by: Ferrous Sulfate (Ferrous Sulfate 325 Mg Tab) 325 mg PO DAILY@20 [facility] Last Admin: 04/01/21 20:51 Dose: 325 mg Documented by: Furosemide (Furosemide 40 Mg Tab) 60 mg PO BID@, [facility] Last Admin: 04/02/21 11:32 Dose: 60 mg Documented by: Gabapentin (Gabapentin 300 Mg Cap) 300 mg PO TID@ [facility] Last Admin: 04/02/21 11:31 Dose: 300 mg Documented by: Insulin Glargine (Insulin Glarg,Human.Rec.Analog 100 Unit/Ml) 15 unit SUBCUT BEDTIME [facility] Last Admin: 04/01/21 20:53 Dose: 15 unit Documented by: Metformin HCl (Metformin 500 Mg Tab) 1,000 mg PO BIDMEALS@08,12 [facility] Last Admin: 03/30/21 08:35 Dose: 1,000 mg Documented by: Metformin HCl (Metformin 500 Mg Tab) 1,000 mg PO BID@0800,1800 [facility] Last Admin: 04/02/21 08:25 Dose: 1,000 mg Documented by: Mometasone Furoate/Formoterol Fumar (Formoterol/Mometasone 200-5 Mcg 8.8 Gm Inhaler) 0 puff IH BID@ [facility] Last Admin: 04/02/21 08:20 Dose: 2 puff Documented by: Multivitamins/Minerals/Vitamin C (Multivitamin Tab) 1 tab PO DAILY [facility] Last Admin: 04/02/21 08:27 Dose: 1 tab Documented by: Lovastatin 20mg (Tablets) 1 each PO BEDTIME [facility] Last Admin: 04/01/21 20:56 Dose: 1 each Documented by: Nystatin (Nystatin Crm 30 Gm Tube) 0 gm TOP BID [facility] Last Admin: 03/30/21 08:09 Dose: 1 applic Documented by: Nystatin (Nystatin Crm 30 Gm Tube) 1 gm TOP BID@0800,2000 [facility] Last Admin: 04/02/21 08:29 Dose: 1 applic Documented by: Ondansetron HCl (Ondansetron 4 Mg Tab.Dis) 4 mg PO Q6H PRN PRN Reason: Nausea/Vomiting Oxycodone HCl (Oxycodone 5 Mg Tab) 2.5 mg PO Q6H PRN PRN Reason: Pain (severe 7-10) Pantoprazole Sodium (Pantoprazole 40 Mg Tab.Cr) 40 mg PO ACBREAKFAST [facility] Last Admin: 04/02/21 08:23 Dose: 40 mg Documented by: Polyethylene Glycol (Polyethylene Glycol 3350 Powder 17 Gm Packet) 17 gm PO DAILY PRN PRN Reason: Constipation Polyethylene Glycol (Polyethylene Glycol 3350 Powder 510 Gm Bot) 17 gm PO DAILY PRN PRN Reason: Constipation Potassium Chloride (Potassium Chloride 10 Meq Tab.Er) 10 meq PO BID@ [facility] Last Admin: 04/02/21 08:20 Dose: 10 meq Documented by: Ropinirole HCl (Ropinirole 1 Mg Tab) 1 mg PO TID@,, [facility] Last Admin: 04/02/21 11:32 Dose: 1 mg Documented by: Ropinirole HCl (Ropinirole 1 Mg Tab) 1 mg PO DAILY PRN PRN Reason: restless leg syndrome Senna/Docusate Sodium (Docusate Sodium/Sennosides 50-8.6 Mg Tab) 1 tab PO BID [facility] Last Admin: 04/02/21 08:28 Dose: 1 tab Documented by: Sertraline HCl (Sertraline 25 Mg Tab) 25 mg PO DAILY [facility] Last Admin: 04/02/21 08:22 Dose: 25 mg Documented by: Sertraline HCl (Sertraline 50 Mg Tab) 100 mg PO DAILY [facility] Last Admin: 04/02/21 08:21 Dose: 100 mg Documented by: Tramadol HCl (Tramadol 50 Mg Tab) 50 mg PO ONETIME ONE Stop: 03/29/21 17:30 Last Admin: 03/29/21 18:34 Dose: 50 mg Documented by: Tramadol HCl (Tramadol 50 Mg Tab) 50 mg PO Q6H PRN PRN Reason: Pain (moderate 4-6) Stop: 04/01/21 23:59 Tramadol HCl (Tramadol 50 Mg Tab) 50 mg PO Q6H [facility] Stop: 04/01/21 23:59 Last Admin: 04/01/21 17:11 Dose: 50 mg Documented by: Trazodone HCl (Trazodone 50 Mg Tab) 100 mg PO BEDTIME [facility] Last Admin: 04/01/21 20:59 Dose: 100 mg Documented by: Triamcinolone Acetonide (Triamcinolone Acetonide 0.1% Crm 15 Gm Tube) 0 gm TOP BID PRN PRN Reason: Itching - Exam General: Reports: Alert, Oriented, Cooperative Neck: Reports: Supple Lungs: Reports: Clear to Auscultation, Normal Respiratory Effort Cardiovascular: Reports: Regular Rate, Regular Rhythm GI/Abdominal Exam: Normal Bowel Sounds, Soft, Non-Tender, No Organomegaly Back Exam: Reports: Normal Inspection Extremities: Joint Swelling, Limited Range of Motion (Left shoulder limited range of motion due to the recent surgery, ecchymotic and edema extending down into the left hand) Skin: Reports: Warm, Dry, Intact Wound/Incisions: Reports: Dressing Dry and Intact Neurological: Reports: No New Focal Deficit Psy/Mental Status: Reports: Alert, Normal Affect, Normal Mood *Q Meaningful Use (DIS) - VTE *Q VTE Mechanical Contraindications *Q: Further Opinion Sought (While the patient is sitting or in bed mechanical SCDs will be placed he will also have CARMINA hoses placed and has been instructed to get up and walk at least 6 times a day for 10 minutes at a time as well as perform in physical therapy.) VTE Pharmacological Contraindications *Q: Anticoagult Intol No Alt (Oral anticoagulants will not be used secondary to being stopped while in the hospital secondary to extensive ecchymosis and bleeding and a recent hemiarthroplasty who will be started on a baby aspirin daily as recommended by orthopedics) - Stroke *Q Aspirin Contraindications Stroke *Q: Other (Use Special Inst) Anticoagulation Contraindications Stroke *Q: Medical/Procedure Contrai Antithrombotic Contraindications Stroke *Q: Med/TX Not Indicated/Need Statin Contraindications Stroke *Q: Med/TX Not Indicated/Need - AMI *Q Aspirin Contraindications AMI *Q: Further Opinion Sought
== END 2021-04-02 12:00 | disposition home or self-care (01) | DRG 560 ==
LOC: LL.SWG 14:00
PROVIDERS: ADMIT Physician Assistant Medical; ATTEND Physician Assistant Medical
DX: Z47.1 Aftercare following joint replacement surgery (principal); I48.11 Longstanding persistent atrial fibrillation; J44.0 Chronic obstructive pulmonary disease with (acute) lower respiratory infection; I50.32 Chronic diastolic (congestive) heart failure; I42.9 Cardiomyopathy, unspecified; D50.8 Other iron deficiency anemias; I25.10 Atherosclerotic heart disease of native coronary artery without angina pectoris; E78.2 Mixed hyperlipidemia; E11.9 Type 2 diabetes mellitus without complications; F41.9 Anxiety disorder, unspecified; G47.33 Obstructive sleep apnea (adult) (pediatric); Z96.612 Presence of left artificial shoulder joint; I11.0 Hypertensive heart disease with heart failure; H91.90 Unspecified hearing loss, unspecified ear; H54.7 Unspecified visual loss; H91.13 Presbycusis, bilateral; E78.00 Pure hypercholesterolemia, unspecified; I27.20 Pulmonary hypertension, unspecified; G89.29 Other chronic pain; M19.90 Unspecified osteoarthritis, unspecified site; M54.9 Dorsalgia, unspecified; M54.2 Cervicalgia; M10.9 Gout, unspecified; N40.0 Benign prostatic hyperplasia without lower urinary tract symptoms; E11.21 Type 2 diabetes mellitus with diabetic nephropathy; M81.0 Age-related osteoporosis without current pathological fracture; G25.81 Restless legs syndrome; E11.42 Type 2 diabetes mellitus with diabetic polyneuropathy; F03.90 Unspecified dementia, unspecified severity, without behavioral disturbance, psychotic disturbance, mood disturbance, and anxiety; F32.9 Major depressive disorder, single episode, unspecified; E83.42 Hypomagnesemia; D50.9 Iron deficiency anemia, unspecified; Z79.899 Other long term (current) drug therapy; Z79.82 Long term (current) use of aspirin; Z79.4 Long term (current) use of insulin; Z88.0 Allergy status to penicillin; Z88.8 Allergy status to other drugs, medicaments and biological substances; Z88.1 Allergy status to other antibiotic agents; I25.2 Old myocardial infarction; Z87.01 Personal history of pneumonia (recurrent); Z86.010 Personal history of colon polyps; Z98.1 Arthrodesis status; Z95.0 Presence of cardiac pacemaker
CPT/HCPCS: 36415; 82947; 85025; 97110-GO; 97110-GP; 97161-GP; 97165-GO; 97530-GP; 97535-GO; 99223; A9270-GY; J1815-GY

== ENCOUNTER 2022-05-10 12:41 | Emergency (ER) | payer MEDICARE, BC ==
[2022-05-10] MEDS ORDERED: Sodium Chloride 0.9% 10 ML Syringe FLUSH PRN (12:57)
[2022-05-10 13:34] LABS: CORONAVIRUS COVID-19 NAA NEGATIVE (NEGATIVE); RESPIRATORY SYNCYTIAL VIR NAA NEGATIVE (NEGATIVE)
[2022-05-10 13:36] LABS: PTT,PARTIAL THROMBOPLSTIN TIME 32.3 SEC (23.6-29.8)
[2022-05-10 14:15] LABS: ANION GAP 11.8 meq/L (7-15)
[2022-05-10] MEDS ORDERED: cefTRIAXone 2 GM Vial IVPUSH ONE (15:18)
[2022-05-10 21:42] VITALS: BP 127/65; PULSE 90
== END 2022-05-10 15:33 | disposition home or self-care (01) ==
LOC: LL.ED 12:41
DX: N30.00 Acute cystitis without hematuria (principal); I25.10 Atherosclerotic heart disease of native coronary artery without angina pectoris; I13.0 Hypertensive heart and chronic kidney disease with heart failure and stage 1 through stage 4 chronic kidney disease, or unspecified chronic kidney disease; I50.9 Heart failure, unspecified; E78.00 Pure hypercholesterolemia, unspecified; I48.91 Unspecified atrial fibrillation; J44.9 Chronic obstructive pulmonary disease, unspecified; I25.2 Old myocardial infarction; E11.21 Type 2 diabetes mellitus with diabetic nephropathy; E11.22 Type 2 diabetes mellitus with diabetic chronic kidney disease; N18.9 Chronic kidney disease, unspecified; E66.9 Obesity, unspecified; Z88.0 Allergy status to penicillin; Z88.1 Allergy status to other antibiotic agents; Z79.84 Long term (current) use of oral hypoglycemic drugs; Z79.82 Long term (current) use of aspirin; Z79.4 Long term (current) use of insulin; Z79.899 Other long term (current) drug therapy; Z20.822 Contact with and (suspected) exposure to COVID-19; Z68.42 Body mass index [BMI] 45.0-49.9, adult
CPT/HCPCS: 0241U; 36415; 71046; 80053; 81001; 83605; 83735; 84100; 85025; 85610; 85730; 86140; 87040; 87086; 87088; 87186; 96374; 99284; 99284-25; J0696

== ENCOUNTER 2022-07-02 21:34 | Emergency (ER) | payer MEDICARE, BC ==
[2022-07-02 21:46] VITALS: BP 127/52; PULSE 78
[2022-07-02 22:25] LABS: ANION GAP 8.8 meq/L (7-15); CHLORIDE,CL 105 mmol/L (98-107); SODIUM,NA 143 mmol/L (136-145)
[2022-07-02 22:26] LABS: ESTIMATED GFR 41 mL/min (>=60)
[2022-07-02] MEDS: Sodium Chloride 0.9% 10 ML Syringe FLUSH PRN (23:00)
[2022-07-02] MEDS: Furosemide 40 MG/4 ML VIAL IVPUSH ONE (23:01)
[2022-07-02] MEDS: cefTRIAXone 1 GM in Sodium Chloride 0.9% 100 ML IV ONE (23:08)
[2022-07-02] MEDS: ALPRAZolam 0.25 MG Tab PO ONE (23:19)
== END 2022-07-02 23:35 ==
LOC: LL.ED 21:34
DX: I11.0 Hypertensive heart disease with heart failure (principal); I50.9 Heart failure, unspecified; N39.0 Urinary tract infection, site not specified; I25.10 Atherosclerotic heart disease of native coronary artery without angina pectoris; I25.2 Old myocardial infarction; Z88.8 Allergy status to other drugs, medicaments and biological substances; Z88.1 Allergy status to other antibiotic agents; Z88.0 Allergy status to penicillin; Z79.899 Other long term (current) drug therapy; Z79.82 Long term (current) use of aspirin; Z86.16 Personal history of COVID-19
CPT/HCPCS: 36415; 71045; 80053; 81001; 83605; 83735; 83880; 85025; 87070; 87086; 87088; 87186; 87205; 96374; 96375; 99284; 99285-25; A9270-GY; J0696; J1940; J3490

== ENCOUNTER 2022-07-12 12:45 | Inpatient (IN) | payer MEDICARE, BC ==
[~2022-07-12 12:45] MED LIST changes: +Albuterol/Ipratropium 3.0-0.5 MG/3 ML Neb Soln NEB PRN; -Iopamidol 755 Mg/ML 100 ML Bottle IVPUSH ONE
[2022-07-12] MEDS: Gabapentin 300 MG Cap PO SCH ×2 (13:58→19:47)
[2022-07-12] MEDS: Furosemide 40 MG Tab PO SCH (13:59)
[2022-07-12] MEDS: Pantoprazole 40 MG Tab.CR PO SCH (18:00)
[2022-07-12] MEDS: Formoterol/Mometasone 200-5 MCG 8.8 GM Inhaler IH SCH (18:00)
[2022-07-12] MEDS: Potassium Chloride 10 MEQ Tab.ER PO SCH (18:00)
[2022-07-12] MEDS: Ferrous Sulfate 325 MG Tab PO SCH (19:47)
[2022-07-12] MEDS: Pravastatin 20 MG Tab PO SCH (19:48)
[2022-07-12] MEDS: Acetaminophen 325 MG Tab PO PRN (19:49)
[2022-07-12] MEDS: Insulin Glarg,Human.Rec.Analog 100 Unit/ML SUBCUT SCH (19:50)
[2022-07-12] MEDS ORDERED: rOPINIRole 1 MG Tab PO SCH (20:00)
[2022-07-12] MEDS: ALPRAZolam 0.25 MG Tab PO PRN (21:06)
[2022-07-13] MEDS: Multivitamin Tab PO SCH (07:33)
[2022-07-13] MEDS: Aspirin 81 MG Tab.Chew PO SCH (07:33)
[2022-07-13] MEDS: Pantoprazole 40 MG Tab.CR PO SCH ×2 (07:33→17:30)
[2022-07-13] MEDS: Sertraline 50 MG Tab PO SCH (07:33)
[2022-07-13] MEDS: Cyanocobalamin (Vitamin B12) 1,000 MCG Tab PO SCH (07:33)
[2022-07-13] MEDS: Gabapentin 300 MG Cap PO SCH ×3 (07:33→20:12)
[2022-07-13] MEDS: Diltiazem 180 MG Cap.CD PO SCH (07:33)
[2022-07-13] MEDS: Formoterol/Mometasone 200-5 MCG 8.8 GM Inhaler IH SCH ×2 (07:33→17:30)
[2022-07-13] MEDS: Potassium Chloride 10 MEQ Tab.ER PO SCH ×2 (07:33→17:30)
[2022-07-13] MEDS: Furosemide 40 MG Tab PO SCH ×2 (07:33→11:32)
[2022-07-13 08:37] LABS: ANION GAP 10.4 meq/L (7-15)
[2022-07-13] MEDS: Acetaminophen 325 MG Tab PO PRN (10:12)
[2022-07-13] MEDS: ALPRAZolam 0.25 MG Tab PO PRN (10:12)
[2022-07-13] MEDS: traMADol 50 MG Tab PO PRN ×2 (11:32→20:11)
[2022-07-13] MEDS: Zinc (Zinc Gluconate) 50 MG Tab PO SCH (11:32)
[2022-07-13] MEDS: Insulin Glarg,Human.Rec.Analog 100 Unit/ML SUBCUT SCH (20:08)
[2022-07-13] MEDS: rOPINIRole 1 MG Tab PO SCH (20:10)
[2022-07-13] MEDS: Ferrous Sulfate 325 MG Tab PO SCH (20:11)
[2022-07-13] MEDS: Melatonin 3 MG Tab PO PRN (20:12)
[2022-07-13] MEDS: Pravastatin 20 MG Tab PO SCH (20:12)
[2022-07-14] MEDS: Pantoprazole 40 MG Tab.CR PO SCH ×2 (07:57→17:45)
[2022-07-14] MEDS: Formoterol/Mometasone 200-5 MCG 8.8 GM Inhaler IH SCH ×2 (07:57→17:44)
[2022-07-14] MEDS: Diltiazem 180 MG Cap.CD PO SCH (07:57)
[2022-07-14] MEDS: Aspirin 81 MG Tab.Chew PO SCH (07:57)
[2022-07-14] MEDS: Furosemide 40 MG Tab PO SCH ×2 (07:58→12:16)
[2022-07-14] MEDS: Gabapentin 300 MG Cap PO SCH ×3 (07:58→19:53)
[2022-07-14] MEDS: Multivitamin Tab PO SCH (07:58)
[2022-07-14] MEDS: Cyanocobalamin (Vitamin B12) 1,000 MCG Tab PO SCH (07:58)
[2022-07-14] MEDS: rOPINIRole 1 MG Tab PO SCH ×2 (07:58→19:53)
[2022-07-14] MEDS: Potassium Chloride 10 MEQ Tab.ER PO SCH ×2 (07:58→17:44)
[2022-07-14] MEDS: Sertraline 50 MG Tab PO SCH (07:58)
[2022-07-14] MEDS: traMADol 50 MG Tab PO PRN (08:03)
[2022-07-14] MEDS: Zinc (Zinc Gluconate) 50 MG Tab PO SCH (12:16)
[2022-07-14] MEDS: ALPRAZolam 0.25 MG Tab PO PRN (15:44)
[2022-07-14] MEDS: Ferrous Sulfate 325 MG Tab PO SCH (19:53)
[2022-07-14] MEDS: Pravastatin 20 MG Tab PO SCH (19:54)
[2022-07-14] MEDS: Insulin Glarg,Human.Rec.Analog 100 Unit/ML SUBCUT SCH (19:55)
[2022-07-15] MEDS: Sertraline 50 MG Tab PO SCH (07:56)
[2022-07-15] MEDS: Potassium Chloride 10 MEQ Tab.ER PO SCH ×2 (07:56→17:55)
[2022-07-15] MEDS: Aspirin 81 MG Tab.Chew PO SCH (07:56)
[2022-07-15] MEDS: Diltiazem 180 MG Cap.CD PO SCH (07:57)
[2022-07-15] MEDS: Formoterol/Mometasone 200-5 MCG 8.8 GM Inhaler IH SCH ×2 (07:57→17:55)
[2022-07-15] MEDS: Gabapentin 300 MG Cap PO SCH ×3 (07:57→19:41)
[2022-07-15] MEDS: Furosemide 40 MG Tab PO SCH ×2 (07:58→12:34)
[2022-07-15] MEDS: Cyanocobalamin (Vitamin B12) 1,000 MCG Tab PO SCH (07:58)
[2022-07-15] MEDS: Pantoprazole 40 MG Tab.CR PO SCH ×2 (07:58→17:55)
[2022-07-15] MEDS: Multivitamin Tab PO SCH (07:58)
[2022-07-15] MEDS: rOPINIRole 1 MG Tab PO SCH ×2 (07:58→19:46)
[2022-07-15] MEDS: Zinc (Zinc Gluconate) 50 MG Tab PO SCH (12:34)
[2022-07-15] MEDS: Pravastatin 20 MG Tab PO SCH (19:40)
[2022-07-15] MEDS: Ferrous Sulfate 325 MG Tab PO SCH (19:41)
[2022-07-15] MEDS: Insulin Glarg,Human.Rec.Analog 100 Unit/ML SUBCUT SCH (19:42)
[2022-07-16] MEDS: Multivitamin Tab PO SCH (07:24)
[2022-07-16] MEDS: Aspirin 81 MG Tab.Chew PO SCH (07:24)
[2022-07-16] MEDS: Pantoprazole 40 MG Tab.CR PO SCH ×2 (07:24→17:41)
[2022-07-16] MEDS: Cyanocobalamin (Vitamin B12) 1,000 MCG Tab PO SCH (07:24)
[2022-07-16] MEDS: Furosemide 40 MG Tab PO SCH ×2 (07:24→12:09)
[2022-07-16] MEDS: rOPINIRole 1 MG Tab PO SCH ×2 (07:25→19:14)
[2022-07-16] MEDS: Formoterol/Mometasone 200-5 MCG 8.8 GM Inhaler IH SCH ×2 (07:25→17:40)
[2022-07-16] MEDS: Gabapentin 300 MG Cap PO SCH ×3 (07:25→19:14)
[2022-07-16] MEDS: Potassium Chloride 10 MEQ Tab.ER PO SCH ×2 (07:25→17:41)
[2022-07-16] MEDS: Diltiazem 180 MG Cap.CD PO SCH (07:25)
[2022-07-16] MEDS: Sertraline 50 MG Tab PO SCH (07:25)
[2022-07-16] MEDS: ALPRAZolam 0.25 MG Tab PO PRN (08:29)
[2022-07-16] MEDS: Zinc (Zinc Gluconate) 50 MG Tab PO SCH (12:09)
[2022-07-16] MEDS: Insulin Glarg,Human.Rec.Analog 100 Unit/ML SUBCUT SCH (19:12)
[2022-07-16] MEDS: Ferrous Sulfate 325 MG Tab PO SCH (19:14)
[2022-07-16] MEDS: Pravastatin 20 MG Tab PO SCH (19:14)
[2022-07-16] MEDS: Melatonin 3 MG Tab PO PRN (22:41)
[2022-07-17] MEDS: Cyanocobalamin (Vitamin B12) 1,000 MCG Tab PO SCH (08:13)
[2022-07-17] MEDS: Sertraline 50 MG Tab PO SCH (08:13)
[2022-07-17] MEDS: Formoterol/Mometasone 200-5 MCG 8.8 GM Inhaler IH SCH ×2 (08:13→17:51)
[2022-07-17] MEDS: Aspirin 81 MG Tab.Chew PO SCH (08:14)
[2022-07-17] MEDS: Diltiazem 180 MG Cap.CD PO SCH (08:14)
[2022-07-17] MEDS: Multivitamin Tab PO SCH (08:14)
[2022-07-17] MEDS: Potassium Chloride 10 MEQ Tab.ER PO SCH ×2 (08:14→17:51)
[2022-07-17] MEDS: Furosemide 40 MG Tab PO SCH ×2 (08:14→12:43)
[2022-07-17] MEDS: Gabapentin 300 MG Cap PO SCH ×3 (08:14→19:18)
[2022-07-17] MEDS: Pantoprazole 40 MG Tab.CR PO SCH ×2 (08:14→17:51)
[2022-07-17] MEDS: rOPINIRole 1 MG Tab PO SCH ×2 (08:14→19:18)
[2022-07-17] MEDS: Zinc (Zinc Gluconate) 50 MG Tab PO SCH (12:43)
[2022-07-17] MEDS: Insulin Glarg,Human.Rec.Analog 100 Unit/ML SUBCUT SCH (19:17)
[2022-07-17] MEDS: Pravastatin 20 MG Tab PO SCH (19:18)
[2022-07-17] MEDS: Ferrous Sulfate 325 MG Tab PO SCH (19:18)
[2022-07-17] MEDS: ALPRAZolam 0.25 MG Tab PO PRN (19:23)
[2022-07-18] MEDS: Aspirin 81 MG Tab.Chew PO SCH (07:27)
[2022-07-18] MEDS: Formoterol/Mometasone 200-5 MCG 8.8 GM Inhaler IH SCH ×2 (07:27→18:29)
[2022-07-18] MEDS: Sertraline 50 MG Tab PO SCH (07:27)
[2022-07-18] MEDS: Gabapentin 300 MG Cap PO SCH ×3 (07:27→19:40)
[2022-07-18] MEDS: Pantoprazole 40 MG Tab.CR PO SCH ×2 (07:27→18:29)
[2022-07-18] MEDS: Cyanocobalamin (Vitamin B12) 1,000 MCG Tab PO SCH (07:27)
[2022-07-18] MEDS: Diltiazem 180 MG Cap.CD PO SCH (07:28)
[2022-07-18] MEDS: Potassium Chloride 10 MEQ Tab.ER PO SCH ×2 (07:28→18:29)
[2022-07-18] MEDS: Multivitamin Tab PO SCH (07:28)
[2022-07-18] MEDS: rOPINIRole 1 MG Tab PO SCH ×2 (07:28→19:40)
[2022-07-18] MEDS: Furosemide 40 MG Tab PO SCH ×2 (07:28→12:32)
[2022-07-18] MEDS: Zinc (Zinc Gluconate) 50 MG Tab PO SCH (12:32)
[2022-07-18] MEDS: Ferrous Sulfate 325 MG Tab PO SCH (19:39)
[2022-07-18] MEDS: Pravastatin 20 MG Tab PO SCH (19:40)
[2022-07-18] MEDS: Insulin Glarg,Human.Rec.Analog 100 Unit/ML SUBCUT SCH (19:40)
[2022-07-18] MEDS: ALPRAZolam 0.25 MG Tab PO PRN (19:47)
[2022-07-19] MEDS: Formoterol/Mometasone 200-5 MCG 8.8 GM Inhaler IH SCH ×2 (08:21→17:42)
[2022-07-19] MEDS: Aspirin 81 MG Tab.Chew PO SCH (08:21)
[2022-07-19] MEDS: Sertraline 50 MG Tab PO SCH (08:22)
[2022-07-19] MEDS: Multivitamin Tab PO SCH (08:23)
[2022-07-19] MEDS: Potassium Chloride 10 MEQ Tab.ER PO SCH ×2 (08:23→17:43)
[2022-07-19] MEDS: Furosemide 40 MG Tab PO SCH ×2 (08:23→12:45)
[2022-07-19] MEDS: rOPINIRole 1 MG Tab PO SCH ×2 (08:23→19:57)
[2022-07-19] MEDS: Diltiazem 180 MG Cap.CD PO SCH (08:23)
[2022-07-19] MEDS: Cyanocobalamin (Vitamin B12) 1,000 MCG Tab PO SCH (08:23)
[2022-07-19] MEDS: Gabapentin 300 MG Cap PO SCH ×3 (08:24→19:57)
[2022-07-19] MEDS: Pantoprazole 40 MG Tab.CR PO SCH ×2 (08:24→17:43)
[2022-07-19] MEDS: ALPRAZolam 0.25 MG Tab PO PRN ×2 (08:45→19:57)
[2022-07-19] MEDS: Zinc (Zinc Gluconate) 50 MG Tab PO SCH (12:45)
[2022-07-19] MEDS: Pravastatin 20 MG Tab PO SCH (19:57)
[2022-07-19] MEDS: Ferrous Sulfate 325 MG Tab PO SCH (19:57)
[2022-07-19] MEDS: Insulin Glarg,Human.Rec.Analog 100 Unit/ML SUBCUT SCH (19:57)
[2022-07-19] MEDS: Melatonin 3 MG Tab PO PRN (21:24)
[2022-07-20] MEDS: Multivitamin Tab PO SCH (07:24)
[2022-07-20] MEDS: Sertraline 50 MG Tab PO SCH (07:24)
[2022-07-20] MEDS: Gabapentin 300 MG Cap PO SCH ×3 (07:24→19:49)
[2022-07-20] MEDS: Aspirin 81 MG Tab.Chew PO SCH (07:24)
[2022-07-20] MEDS: Pantoprazole 40 MG Tab.CR PO SCH ×2 (07:24→17:34)
[2022-07-20] MEDS: rOPINIRole 1 MG Tab PO SCH ×2 (07:25→19:49)
[2022-07-20] MEDS: Cyanocobalamin (Vitamin B12) 1,000 MCG Tab PO SCH (07:25)
[2022-07-20] MEDS: Potassium Chloride 10 MEQ Tab.ER PO SCH ×2 (07:25→17:34)
[2022-07-20] MEDS: Furosemide 40 MG Tab PO SCH ×2 (07:25→11:43)
[2022-07-20] MEDS: Formoterol/Mometasone 200-5 MCG 8.8 GM Inhaler IH SCH ×2 (07:26→17:34)
[2022-07-20] MEDS: Diltiazem 180 MG Cap.CD PO SCH (10:10)
[2022-07-20] MEDS: Zinc (Zinc Gluconate) 50 MG Tab PO SCH (11:43)
[2022-07-20] MEDS: Pravastatin 20 MG Tab PO SCH (19:48)
[2022-07-20] MEDS: Ferrous Sulfate 325 MG Tab PO SCH (19:48)
[2022-07-20] MEDS: ALPRAZolam 0.25 MG Tab PO PRN (19:49)
[2022-07-20] MEDS: Insulin Glarg,Human.Rec.Analog 100 Unit/ML SUBCUT SCH (19:49)
[2022-07-20] MEDS: Nystatin Topical Powder 15 GM Bottle TOP PRN (19:50)
[2022-07-20] MEDS: Melatonin 3 MG Tab PO PRN (21:14)
[2022-07-21] MEDS: Furosemide 40 MG Tab PO SCH ×2 (07:56→11:45)
[2022-07-21] MEDS: Cyanocobalamin (Vitamin B12) 1,000 MCG Tab PO SCH (07:56)
[2022-07-21] MEDS: Potassium Chloride 10 MEQ Tab.ER PO SCH ×2 (07:56→17:40)
[2022-07-21] MEDS: Pantoprazole 40 MG Tab.CR PO SCH ×2 (07:56→17:40)
[2022-07-21] MEDS: Gabapentin 300 MG Cap PO SCH ×3 (07:56→19:06)
[2022-07-21] MEDS: Aspirin 81 MG Tab.Chew PO SCH (07:56)
[2022-07-21] MEDS: Sertraline 50 MG Tab PO SCH (07:56)
[2022-07-21] MEDS: Diltiazem 180 MG Cap.CD PO SCH (07:56)
[2022-07-21] MEDS: Multivitamin Tab PO SCH (07:56)
[2022-07-21] MEDS: Formoterol/Mometasone 200-5 MCG 8.8 GM Inhaler IH SCH ×2 (07:57→17:40)
[2022-07-21] MEDS: rOPINIRole 1 MG Tab PO SCH ×2 (07:57→19:06)
[2022-07-21] MEDS: Nystatin Topical Powder 15 GM Bottle TOP PRN (08:01)
[2022-07-21] MEDS: Zinc (Zinc Gluconate) 50 MG Tab PO SCH (11:45)
[2022-07-21] MEDS: traMADol 50 MG Tab PO PRN (13:58)
[2022-07-21] MEDS: Menthol 10%/Methyl Salicylate 15% 85 GM Tube TOP PRN ×2 (14:27→17:44)
[2022-07-21] MEDS: Ferrous Sulfate 325 MG Tab PO SCH (19:06)
[2022-07-21] MEDS: Pravastatin 20 MG Tab PO SCH (19:06)
[2022-07-21] MEDS: Insulin Glarg,Human.Rec.Analog 100 Unit/ML SUBCUT SCH (19:10)
[2022-07-22] MEDS: rOPINIRole 1 MG Tab PO SCH ×2 (07:50→19:44)
[2022-07-22] MEDS: Formoterol/Mometasone 200-5 MCG 8.8 GM Inhaler IH SCH ×2 (07:50→17:37)
[2022-07-22] MEDS: Aspirin 81 MG Tab.Chew PO SCH (07:50)
[2022-07-22] MEDS: Potassium Chloride 10 MEQ Tab.ER PO SCH ×2 (07:50→17:38)
[2022-07-22] MEDS: Pantoprazole 40 MG Tab.CR PO SCH ×2 (07:50→17:38)
[2022-07-22] MEDS: Gabapentin 300 MG Cap PO SCH ×3 (07:50→19:43)
[2022-07-22] MEDS: Sertraline 50 MG Tab PO SCH (07:50)
[2022-07-22] MEDS: Furosemide 40 MG Tab PO SCH ×2 (07:50→12:12)
[2022-07-22] MEDS: Diltiazem 180 MG Cap.CD PO SCH (07:51)
[2022-07-22] MEDS: Multivitamin Tab PO SCH (07:51)
[2022-07-22] MEDS: Cyanocobalamin (Vitamin B12) 1,000 MCG Tab PO SCH (07:51)
[2022-07-22] MEDS: Menthol 10%/Methyl Salicylate 15% 85 GM Tube TOP PRN ×2 (09:20→20:56)
[2022-07-22] MEDS: Zinc (Zinc Gluconate) 50 MG Tab PO SCH (12:12)
[2022-07-22] MEDS: Ferrous Sulfate 325 MG Tab PO SCH (19:42)
[2022-07-22] MEDS: Pravastatin 20 MG Tab PO SCH (19:43)
[2022-07-22] MEDS: Insulin Glarg,Human.Rec.Analog 100 Unit/ML SUBCUT SCH (19:45)
[2022-07-22] MEDS: ALPRAZolam 0.25 MG Tab PO PRN (20:55)
[2022-07-22] MEDS: traMADol 50 MG Tab PO PRN (21:03)
[2022-07-22] MEDS: Nystatin Topical Powder 15 GM Bottle TOP PRN (21:19)
[2022-07-23] MEDS: ALPRAZolam 0.25 MG Tab PO PRN (07:49)
[2022-07-23] MEDS: rOPINIRole 1 MG Tab PO SCH ×2 (07:49→21:11)
[2022-07-23] MEDS: Multivitamin Tab PO SCH (07:49)
[2022-07-23] MEDS: Sertraline 50 MG Tab PO SCH (07:49)
[2022-07-23] MEDS: Pantoprazole 40 MG Tab.CR PO SCH ×2 (07:49→17:29)
[2022-07-23] MEDS: Aspirin 81 MG Tab.Chew PO SCH (07:49)
[2022-07-23] MEDS: Diltiazem 180 MG Cap.CD PO SCH (07:49)
[2022-07-23] MEDS: Gabapentin 300 MG Cap PO SCH ×3 (07:50→21:11)
[2022-07-23] MEDS: Potassium Chloride 10 MEQ Tab.ER PO SCH ×2 (07:50→17:29)
[2022-07-23] MEDS: Furosemide 40 MG Tab PO SCH ×2 (07:50→12:16)
[2022-07-23] MEDS: Formoterol/Mometasone 200-5 MCG 8.8 GM Inhaler IH SCH ×2 (07:50→17:29)
[2022-07-23] MEDS: Cyanocobalamin (Vitamin B12) 1,000 MCG Tab PO SCH (07:53)
[2022-07-23] MEDS: Zinc (Zinc Gluconate) 50 MG Tab PO SCH (12:16)
[2022-07-23] MEDS: Melatonin 3 MG Tab PO PRN (21:10)
[2022-07-23] MEDS: Ferrous Sulfate 325 MG Tab PO SCH (21:11)
[2022-07-23] MEDS: Pravastatin 20 MG Tab PO SCH (21:12)
[2022-07-23] MEDS: Insulin Glarg,Human.Rec.Analog 100 Unit/ML SUBCUT SCH (21:12)
[2022-07-23] MEDS: Menthol 10%/Methyl Salicylate 15% 85 GM Tube TOP PRN (21:15)
[2022-07-23] MEDS: Nystatin Topical Powder 15 GM Bottle TOP PRN (21:17)
[2022-07-24] MEDS: Diltiazem 180 MG Cap.CD PO SCH (07:46)
[2022-07-24] MEDS: Cyanocobalamin (Vitamin B12) 1,000 MCG Tab PO SCH (07:47)
[2022-07-24] MEDS: Multivitamin Tab PO SCH (07:47)
[2022-07-24] MEDS: Sertraline 50 MG Tab PO SCH (07:47)
[2022-07-24] MEDS: Pantoprazole 40 MG Tab.CR PO SCH ×2 (07:47→17:15)
[2022-07-24] MEDS: Potassium Chloride 10 MEQ Tab.ER PO SCH ×2 (07:47→17:15)
[2022-07-24] MEDS: Aspirin 81 MG Tab.Chew PO SCH (07:48)
[2022-07-24] MEDS: ALPRAZolam 0.25 MG Tab PO PRN (07:48)
[2022-07-24] MEDS: Furosemide 40 MG Tab PO SCH ×2 (07:48→12:20)
[2022-07-24] MEDS: Gabapentin 300 MG Cap PO SCH ×3 (07:48→20:46)
[2022-07-24] MEDS: rOPINIRole 1 MG Tab PO SCH ×2 (07:49→20:45)
[2022-07-24] MEDS: Formoterol/Mometasone 200-5 MCG 8.8 GM Inhaler IH SCH ×2 (07:49→17:10)
[2022-07-24] MEDS: Menthol 10%/Methyl Salicylate 15% 85 GM Tube TOP PRN ×2 (07:54→22:07)
[2022-07-24] MEDS: Nystatin Topical Powder 15 GM Bottle TOP PRN ×2 (07:58→20:50)
[2022-07-24] MEDS: Zinc (Zinc Gluconate) 50 MG Tab PO SCH (12:20)
[2022-07-24] MEDS: Pravastatin 20 MG Tab PO SCH (20:45)
[2022-07-24] MEDS: Ferrous Sulfate 325 MG Tab PO SCH (20:46)
[2022-07-24] MEDS: Insulin Glarg,Human.Rec.Analog 100 Unit/ML SUBCUT SCH (20:47)
[2022-07-24] MEDS: Melatonin 3 MG Tab PO PRN (22:06)
[2022-07-25] MEDS: Formoterol/Mometasone 200-5 MCG 8.8 GM Inhaler IH SCH ×2 (07:21→17:18)
[2022-07-25] MEDS: Diltiazem 180 MG Cap.CD PO SCH (07:21)
[2022-07-25] MEDS: Gabapentin 300 MG Cap PO SCH ×3 (07:24→19:31)
[2022-07-25] MEDS: Aspirin 81 MG Tab.Chew PO SCH (07:24)
[2022-07-25] MEDS: rOPINIRole 1 MG Tab PO SCH ×2 (07:25→19:32)
[2022-07-25] MEDS: Sertraline 50 MG Tab PO SCH (07:25)
[2022-07-25] MEDS: ALPRAZolam 0.25 MG Tab PO PRN (07:26)
[2022-07-25] MEDS: Multivitamin Tab PO SCH (07:26)
[2022-07-25] MEDS: Cyanocobalamin (Vitamin B12) 1,000 MCG Tab PO SCH (07:26)
[2022-07-25] MEDS: Nystatin Topical Powder 15 GM Bottle TOP PRN (07:27)
[2022-07-25] MEDS: Potassium Chloride 10 MEQ Tab.ER PO SCH ×2 (07:27→17:17)
[2022-07-25] MEDS: Pantoprazole 40 MG Tab.CR PO SCH ×2 (07:27→17:17)
[2022-07-25] MEDS: Furosemide 40 MG Tab PO SCH ×2 (07:27→12:10)
[2022-07-25] MEDS: Zinc (Zinc Gluconate) 50 MG Tab PO SCH (12:10)
[2022-07-25] MEDS: Insulin Glarg,Human.Rec.Analog 100 Unit/ML SUBCUT SCH (19:30)
[2022-07-25] MEDS: Ferrous Sulfate 325 MG Tab PO SCH (19:31)
[2022-07-25] MEDS: Pravastatin 20 MG Tab PO SCH (19:31)
[2022-07-25] MEDS: Melatonin 3 MG Tab PO PRN (21:44)
[2022-07-25] MEDS: Menthol 10%/Methyl Salicylate 15% 85 GM Tube TOP PRN (21:45)
[2022-07-26 07:18] VITALS: BP 137/81; PULSE 60
[2022-07-26] MEDS: Cyanocobalamin (Vitamin B12) 1,000 MCG Tab PO SCH (07:54)
[2022-07-26] MEDS: Potassium Chloride 10 MEQ Tab.ER PO SCH (07:55)
[2022-07-26] MEDS: Pantoprazole 40 MG Tab.CR PO SCH (07:55)
[2022-07-26] MEDS: Multivitamin Tab PO SCH (07:55)
[2022-07-26] MEDS: Diltiazem 180 MG Cap.CD PO SCH (07:56)
[2022-07-26] MEDS: rOPINIRole 1 MG Tab PO SCH (07:56)
[2022-07-26] MEDS: Sertraline 50 MG Tab PO SCH (07:57)
[2022-07-26] MEDS: Formoterol/Mometasone 200-5 MCG 8.8 GM Inhaler IH SCH (07:57)
[2022-07-26] MEDS: Furosemide 40 MG Tab PO SCH (07:58)
[2022-07-26] MEDS: Gabapentin 300 MG Cap PO SCH (07:58)
[2022-07-26] MEDS: Aspirin 81 MG Tab.Chew PO SCH (07:58)
[2022-07-26] MEDS: Menthol 10%/Methyl Salicylate 15% 85 GM Tube TOP PRN (08:56)
== END 2022-07-26 10:30 | DRG 948 ==
LOC: LL.MS 12:45
PROVIDERS: ADMIT Nurse Practitioner Family; ATTEND Nurse Practitioner Family
DX: R53.81 Other malaise (principal); I48.19 Other persistent atrial fibrillation; I42.9 Cardiomyopathy, unspecified; I50.9 Heart failure, unspecified; J41.8 Mixed simple and mucopurulent chronic bronchitis; I25.10 Atherosclerotic heart disease of native coronary artery without angina pectoris; E11.9 Type 2 diabetes mellitus without complications; I10 Essential (primary) hypertension; H91.90 Unspecified hearing loss, unspecified ear; H54.7 Unspecified visual loss; I11.0 Hypertensive heart disease with heart failure; I27.20 Pulmonary hypertension, unspecified; J84.10 Pulmonary fibrosis, unspecified; G47.30 Sleep apnea, unspecified; R91.8 Other nonspecific abnormal finding of lung field; K57.90 Diverticulosis of intestine, part unspecified, without perforation or abscess without bleeding; K21.9 Gastro-esophageal reflux disease without esophagitis; K44.9 Diaphragmatic hernia without obstruction or gangrene; N40.0 Benign prostatic hyperplasia without lower urinary tract symptoms; N18.9 Chronic kidney disease, unspecified; E11.21 Type 2 diabetes mellitus with diabetic nephropathy; M19.90 Unspecified osteoarthritis, unspecified site; M54.9 Dorsalgia, unspecified; G89.29 Other chronic pain; M10.9 Gout, unspecified; M54.2 Cervicalgia; M81.0 Age-related osteoporosis without current pathological fracture; E11.40 Type 2 diabetes mellitus with diabetic neuropathy, unspecified; F41.9 Anxiety disorder, unspecified; F03.90 Unspecified dementia, unspecified severity, without behavioral disturbance, psychotic disturbance, mood disturbance, and anxiety; F32.A Depression, unspecified; E83.42 Hypomagnesemia; G47.00 Insomnia, unspecified; E66.9 Obesity, unspecified; M85.80 Other specified disorders of bone density and structure, unspecified site; D64.9 Anemia, unspecified; E53.9 Vitamin B deficiency, unspecified; E61.1 Iron deficiency; I87.2 Venous insufficiency (chronic) (peripheral); Z96.653 Presence of artificial knee joint, bilateral; Z86.16 Personal history of COVID-19; Z79.899 Other long term (current) drug therapy; Z79.4 Long term (current) use of insulin; Z79.82 Long term (current) use of aspirin; Z85.820 Personal history of malignant melanoma of skin; Z88.8 Allergy status to other drugs, medicaments and biological substances; Z88.1 Allergy status to other antibiotic agents; Z88.0 Allergy status to penicillin; I25.2 Old myocardial infarction; Z87.01 Personal history of pneumonia (recurrent); Z86.010 Personal history of colon polyps; Z98.52 Vasectomy status; Z87.891 Personal history of nicotine dependence; S81.802D Unspecified open wound, left lower leg, subsequent encounter
CPT/HCPCS: 36415; 71046; 71120; 72070; 80053; 81001; 82272; 82607; 82728; 82746; 82947; 83540; 83550; 85025; 87086; 94640; 94762; 97110-GO; 97110-GP; 97162-GP; 97165-GO; 97530-GO; 97530-GP; A9270-GY; J1815-GY

== ENCOUNTER 2022-08-10 09:12 | Inpatient (IN) | payer MEDICARE, BC ==
[2022-08-10] MEDS ORDERED: Sodium Chloride 0.9% 10 ML Syringe FLUSH PRN (09:23)
[2022-08-10 10:14] LABS: CHLORIDE,CL 99 mmol/L (98-107); SODIUM,NA 139 mmol/L (136-145)
[2022-08-10 10:20] LABS: ESTIMATED GFR 31 mL/min (>=60)
[2022-08-10 10:20] LABS: O2 DELIVERY DEVICE NON REBR MASK; O2 FLOW RATE 10 L/min
[2022-08-10 10:21] LABS: BASE EXCESS ARTERIAL 4 mmol/L (-2-3); O2 SATURATION ARTERIAL 91 % (95-98); PCO2 ARTERIAL 81 mmHG (35-45); PO2 ARTERIAL 75 mmHG (80-105)
[2022-08-10] MEDS ORDERED: Bumetanide 1 MG Tab PO ONE (11:21)
[2022-08-10 12:49] LABS: O2 DELIVERY DEVICE CPAP
[2022-08-10 12:50] LABS: BICARBONATE,ARTERIAL 33.5 mmol/L (22-26); O2 SATURATION ARTERIAL 92 % (95-98); PCO2 ARTERIAL 74 mmHG (35-45); PO2 ARTERIAL 77 mmHG (80-105)
[2022-08-10 12:51] LABS: BASE EXCESS ARTERIAL 4 mmol/L (-2-3)
[2022-08-10 12:54] LABS: CORONAVIRUS COVID-19 NAA NEGATIVE (NEGATIVE); RESPIRATORY SYNCYTIAL VIR NAA NEGATIVE (NEGATIVE)
[2022-08-10 14:51] LABS: O2 DELIVERY DEVICE CPAP
[2022-08-10 14:52] LABS: BICARBONATE,ARTERIAL 30.1 mmol/L (22-26); O2 SATURATION ARTERIAL 93 % (95-98); PCO2 ARTERIAL 67 mmHG (35-45); PO2 ARTERIAL 78 mmHG (80-105)
[2022-08-10 14:53] LABS: BASE EXCESS ARTERIAL 2 mmol/L (-2-3)
[2022-08-10] MEDS ORDERED: Ondansetron 4 MG/2 ML SDV IVPUSH PRN (17:40)
[2022-08-10] MEDS ORDERED: Glucagon,Human Recombinant 1 MG Vial IM PRN (17:46)
[2022-08-10] MEDS ORDERED: 50% Dextrose in Water 50 ML Syringe IVPUSH PRN (17:46)
[2022-08-10 19:05] LABS: O2 DELIVERY DEVICE CPAP
[2022-08-10 19:06] LABS: O2 SATURATION ARTERIAL 25 % (95-98); PCO2 ARTERIAL 89 mmHG (35-45); PO2 ARTERIAL 22 mmHG (80-105)
[2022-08-10 19:07] LABS: BASE EXCESS ARTERIAL 5 mmol/L (-2-3); BICARBONATE,ARTERIAL 36.1 mmol/L (22-26)
[2022-08-10] MEDS: rOPINIRole 1 MG Tab PO SCH (21:59)
[2022-08-10] MEDS: Ferrous Sulfate 325 MG Tab PO SCH (21:59)
[2022-08-10] MEDS: Pantoprazole 40 MG Tab.CR PO SCH (21:59)
[2022-08-10] MEDS: Heparin Sodium 5,000 Units/ML Vial SUBCUT SCH (22:00)
[2022-08-10] MEDS: Formoterol/Mometasone 200-5 MCG 8.8 GM Inhaler IH SCH (22:04)
[2022-08-10] MEDS: Insulin Glarg,Human.Rec.Analog 100 Unit/ML SUBCUT SCH (22:06)
[2022-08-10] MEDS: Insulin Lispro 100 Units/ML 3 ML Vial SUBCUT SCH (22:11)
[2022-08-11] MEDS: LORazepam 0.5 MG Tab PO PRN (02:04)
[2022-08-11] MEDS: Heparin Sodium 5,000 Units/ML Vial SUBCUT SCH ×2 (05:49→14:00)
[2022-08-11 07:17] LABS: O2 DELIVERY DEVICE CPAP; PCO2 ARTERIAL 72 mmHG (35-45); PO2 ARTERIAL 111 mmHG (80-105)
[2022-08-11 07:18] LABS: BASE EXCESS ARTERIAL 6 mmol/L (-2-3); BICARBONATE,ARTERIAL 34.4 mmol/L (22-26); O2 SATURATION ARTERIAL 97 % (95-98)
[2022-08-11] MEDS: rOPINIRole 1 MG Tab PO SCH ×3 (07:54→19:49)
[2022-08-11] MEDS: Pantoprazole 40 MG Tab.CR PO SCH ×2 (07:54→17:10)
[2022-08-11] MEDS: Diltiazem 180 MG Cap.CD PO SCH (07:54)
[2022-08-11] MEDS: Aspirin 81 MG Tab.Chew PO SCH (07:54)
[2022-08-11] MEDS: Potassium Chloride 10 MEQ Tab.ER PO SCH (07:54)
[2022-08-11] MEDS: Sertraline 50 MG Tab PO SCH (07:54)
[2022-08-11] MEDS: Bumetanide 1 MG Tab PO SCH ×2 (07:54→12:43)
[2022-08-11 07:55] LABS: ANION GAP 7.7 meq/L (7-15)
[2022-08-11] MEDS: Formoterol/Mometasone 200-5 MCG 8.8 GM Inhaler IH SCH ×2 (08:00→19:49)
[2022-08-11] MEDS: Insulin Lispro 100 Units/ML 3 ML Vial SUBCUT SCH ×4 (08:48→20:32)
[2022-08-11] MEDS: Ferrous Sulfate 325 MG Tab PO SCH (19:49)
[2022-08-11] MEDS: Insulin Glarg,Human.Rec.Analog 100 Unit/ML SUBCUT SCH (20:33)
[2022-08-12] MEDS: LORazepam 0.5 MG Tab PO PRN ×2 (01:40→16:15)
[2022-08-12] MEDS: Potassium Chloride 10 MEQ Tab.ER PO SCH (07:54)
[2022-08-12] MEDS: rOPINIRole 1 MG Tab PO SCH ×3 (07:55→21:33)
[2022-08-12] MEDS: Bumetanide 1 MG Tab PO SCH ×2 (07:55→11:50)
[2022-08-12] MEDS: Diltiazem 180 MG Cap.CD PO SCH (07:55)
[2022-08-12] MEDS: Sertraline 50 MG Tab PO SCH (07:56)
[2022-08-12] MEDS: Pantoprazole 40 MG Tab.CR PO SCH ×2 (07:57→17:05)
[2022-08-12] MEDS: Insulin Lispro 100 Units/ML 3 ML Vial SUBCUT SCH ×4 (07:57→21:34)
[2022-08-12] MEDS: Aspirin 81 MG Tab.Chew PO SCH (07:57)
[2022-08-12] MEDS: Formoterol/Mometasone 200-5 MCG 8.8 GM Inhaler IH SCH ×2 (07:58→21:34)
[2022-08-12 08:33] LABS: ANION GAP 6.8 meq/L (7-15)
[2022-08-12] MEDS: cefTRIAXone 1 GM in Sodium Chloride 0.9% 100 ML IV SCH (13:17)
[2022-08-12] MEDS: Albuterol/Ipratropium 3.0-0.5 MG/3 ML Neb Soln NEB PRN (16:19)
[2022-08-12] MEDS: Ferrous Sulfate 325 MG Tab PO SCH (21:33)
[2022-08-12 21:37] LABS: PCO2 ARTERIAL,POC 54 mmHg (35-48)
[2022-08-12] MEDS: Insulin Glarg,Human.Rec.Analog 100 Unit/ML SUBCUT SCH (21:39)
[2022-08-12 22:42] LABS: PCO2 ARTERIAL,POC 60 mmHg (35-48)
[2022-08-13] MEDS: Sertraline 50 MG Tab PO SCH (08:39)
[2022-08-13] MEDS: rOPINIRole 1 MG Tab PO SCH ×3 (08:39→20:58)
[2022-08-13] MEDS: Potassium Chloride 10 MEQ Tab.ER PO SCH (08:39)
[2022-08-13] MEDS: Formoterol/Mometasone 200-5 MCG 8.8 GM Inhaler IH SCH ×2 (08:40→20:57)
[2022-08-13] MEDS: Diltiazem 180 MG Cap.CD PO SCH (08:40)
[2022-08-13] MEDS: Aspirin 81 MG Tab.Chew PO SCH (08:40)
[2022-08-13] MEDS: Bumetanide 1 MG Tab PO SCH ×2 (08:40→11:22)
[2022-08-13] MEDS: Pantoprazole 40 MG Tab.CR PO SCH ×2 (08:40→17:10)
[2022-08-13] MEDS: Insulin Lispro 100 Units/ML 3 ML Vial SUBCUT SCH ×4 (08:40→20:59)
[2022-08-13 08:42] LABS: ANION GAP 11.2 meq/L (7-15)
[2022-08-13] MEDS ORDERED: Aluminum Hydroxide/Magnesium Hydroxide/Simethicone Susp 30 ML Cup PO PRN (09:13)
[2022-08-13] MEDS: Acetaminophen 325 MG Tab PO PRN (11:22)
[2022-08-13] MEDS: cefTRIAXone 1 GM in Sodium Chloride 0.9% 100 ML IV SCH (11:22)
[2022-08-13] MEDS: LORazepam 0.5 MG Tab PO PRN ×3 (11:22→22:17)
[2022-08-13] MEDS: Albuterol/Ipratropium 3.0-0.5 MG/3 ML Neb Soln NEB PRN (16:31)
[2022-08-13] MEDS: Ciprofloxacin 500 MG Tab PO SCH (17:10)
[2022-08-13] MEDS: Ferrous Sulfate 325 MG Tab PO SCH (20:57)
[2022-08-13] MEDS: Insulin Glarg,Human.Rec.Analog 100 Unit/ML SUBCUT SCH (20:58)
[2022-08-14] MEDS: Aspirin 81 MG Tab.Chew PO SCH (08:11)
[2022-08-14] MEDS: Bumetanide 1 MG Tab PO SCH ×2 (08:11→11:47)
[2022-08-14] MEDS: Diltiazem 180 MG Cap.CD PO SCH (08:12)
[2022-08-14] MEDS: Formoterol/Mometasone 200-5 MCG 8.8 GM Inhaler IH SCH ×2 (08:12→19:57)
[2022-08-14] MEDS: Ciprofloxacin 500 MG Tab PO SCH ×2 (08:12→17:27)
[2022-08-14] MEDS: Pantoprazole 40 MG Tab.CR PO SCH ×2 (08:13→17:27)
[2022-08-14] MEDS: Potassium Chloride 10 MEQ Tab.ER PO SCH (08:13)
[2022-08-14] MEDS: Sertraline 50 MG Tab PO SCH (08:14)
[2022-08-14] MEDS: rOPINIRole 1 MG Tab PO SCH ×3 (08:14→19:56)
[2022-08-14] MEDS: Insulin Lispro 100 Units/ML 3 ML Vial SUBCUT SCH ×4 (08:15→20:00)
[2022-08-14] MEDS: LORazepam 0.5 MG Tab PO PRN ×2 (12:29→19:56)
[2022-08-14] MEDS: Ferrous Sulfate 325 MG Tab PO SCH (19:56)
[2022-08-14] MEDS: Insulin Glarg,Human.Rec.Analog 100 Unit/ML SUBCUT SCH (19:58)
[2022-08-15] MEDS: Insulin Lispro 100 Units/ML 3 ML Vial SUBCUT SCH ×4 (07:28→20:51)
[2022-08-15] MEDS: Pantoprazole 40 MG Tab.CR PO SCH ×2 (07:46→17:11)
[2022-08-15] MEDS: Bumetanide 1 MG Tab PO SCH ×2 (07:46→11:33)
[2022-08-15] MEDS: Aspirin 81 MG Tab.Chew PO SCH (07:46)
[2022-08-15] MEDS: Sertraline 50 MG Tab PO SCH (07:46)
[2022-08-15] MEDS: Potassium Chloride 10 MEQ Tab.ER PO SCH (07:46)
[2022-08-15] MEDS: Ciprofloxacin 500 MG Tab PO SCH ×2 (07:46→17:11)
[2022-08-15] MEDS: rOPINIRole 1 MG Tab PO SCH ×3 (07:47→20:48)
[2022-08-15] MEDS: Diltiazem 180 MG Cap.CD PO SCH (07:47)
[2022-08-15] MEDS: Formoterol/Mometasone 200-5 MCG 8.8 GM Inhaler IH SCH ×2 (11:33→20:49)
[2022-08-15] MEDS: LORazepam 0.5 MG Tab PO PRN ×2 (13:50→21:50)
[2022-08-15 18:52] LABS: CORONAVIRUS COVID-19 NAA NEGATIVE (NEGATIVE); RESPIRATORY SYNCYTIAL VIR NAA NEGATIVE (NEGATIVE)
[2022-08-15] MEDS ORDERED: Docusate Sodium 100 MG Cap PO ONE (20:00)
[2022-08-15] MEDS ORDERED: Insulin Glarg,Human.Rec.Analog 100 Unit/ML SUBCUT SCH (20:00)
[2022-08-15] MEDS: Ferrous Sulfate 325 MG Tab PO SCH (20:48)
[2022-08-15] MEDS: Acetaminophen 325 MG Tab PO PRN (21:50)
[2022-08-16] MEDS: Acetaminophen 325 MG Tab PO PRN (01:57)
[2022-08-16 06:29] VITALS: BP 132/78; PULSE 76
[2022-08-16] MEDS: Insulin Lispro 100 Units/ML 3 ML Vial SUBCUT SCH ×2 (07:19→11:19)
[2022-08-16 07:34] LABS: ANION GAP 9.6 meq/L (7-15)
[2022-08-16] MEDS: Formoterol/Mometasone 200-5 MCG 8.8 GM Inhaler IH SCH (07:43)
[2022-08-16] MEDS: Ciprofloxacin 500 MG Tab PO SCH (07:43)
[2022-08-16] MEDS: rOPINIRole 1 MG Tab PO SCH (07:44)
[2022-08-16] MEDS: Potassium Chloride 10 MEQ Tab.ER PO SCH (07:44)
[2022-08-16] MEDS: Diltiazem 180 MG Cap.CD PO SCH (07:44)
[2022-08-16] MEDS: Pantoprazole 40 MG Tab.CR PO SCH (07:44)
[2022-08-16] MEDS: Aspirin 81 MG Tab.Chew PO SCH (07:44)
[2022-08-16] MEDS: Sertraline 50 MG Tab PO SCH (07:45)
[2022-08-16] MEDS: Bumetanide 1 MG Tab PO SCH ×2 (07:45→11:23)
== END 2022-08-16 13:38 | DRG 291 ==
LOC: LL.ED 09:12 → LL.MS 11:29 → UNDOADMIN 15:25 → LL.MS 15:25
PROVIDERS: ADMIT Hospitalist; ATTEND Nurse Practitioner Family
DX: I13.0 Hypertensive heart and chronic kidney disease with heart failure and stage 1 through stage 4 chronic kidney disease, or unspecified chronic kidney disease (principal); G93.41 Metabolic encephalopathy; I50.33 Acute on chronic diastolic (congestive) heart failure; E87.4 Mixed disorder of acid-base balance; J96.21 Acute and chronic respiratory failure with hypoxia; J96.22 Acute and chronic respiratory failure with hypercapnia; N18.9 Chronic kidney disease, unspecified; N17.9 Acute kidney failure, unspecified; Z68.43 Body mass index [BMI] 50.0-59.9, adult; N30.00 Acute cystitis without hematuria; Z66 Do not resuscitate; Z20.822 Contact with and (suspected) exposure to COVID-19; Z79.51 Long term (current) use of inhaled steroids; N18.30 Chronic kidney disease, stage 3 unspecified; E11.22 Type 2 diabetes mellitus with diabetic chronic kidney disease; E11.21 Type 2 diabetes mellitus with diabetic nephropathy; I48.0 Paroxysmal atrial fibrillation; E78.2 Mixed hyperlipidemia; F41.8 Other specified anxiety disorders; I25.10 Atherosclerotic heart disease of native coronary artery without angina pectoris; E66.01 Morbid (severe) obesity due to excess calories; E03.9 Hypothyroidism, unspecified; E83.42 Hypomagnesemia; E88.09 Other disorders of plasma-protein metabolism, not elsewhere classified; E11.42 Type 2 diabetes mellitus with diabetic polyneuropathy; E87.6 Hypokalemia; B96.1 Klebsiella pneumoniae [K. pneumoniae] as the cause of diseases classified elsewhere; M54.2 Cervicalgia; M54.9 Dorsalgia, unspecified; G89.29 Other chronic pain; G47.33 Obstructive sleep apnea (adult) (pediatric); M81.0 Age-related osteoporosis without current pathological fracture; N40.0 Benign prostatic hyperplasia without lower urinary tract symptoms; Z87.01 Personal history of pneumonia (recurrent); Z88.0 Allergy status to penicillin; Z88.1 Allergy status to other antibiotic agents; Z88.8 Allergy status to other drugs, medicaments and biological substances; Z79.4 Long term (current) use of insulin; Z79.82 Long term (current) use of aspirin; Z79.899 Other long term (current) drug therapy; Z99.81 Dependence on supplemental oxygen; Z87.891 Personal history of nicotine dependence
CPT/HCPCS: 0241U; 36415; 36600; 70450; 71046; 80048; 80053; 81001; 82803; 82947; 83605; 83735; 83880; 84484; 85025; 85027; 86140; 87086; 87088; 87186; 93005; 94640; 94660; 94761; 97163-GP; 99232; 99239; A9270-GY; J0696; J1644; J1815-GY; J2405; J3490; J7620-GY

== ENCOUNTER 2022-09-07 15:15 | Inpatient (IN) | payer MEDICARE, BC ==
[2022-09-07] MEDS ORDERED: Furosemide 40 MG/4 ML VIAL IVPUSH ONE (15:26)
[2022-09-07] MEDS: Sodium Chloride 0.9% 10 ML Syringe FLUSH PRN (15:38)
[2022-09-07 17:02] LABS: ANION GAP 9.1 meq/L (7-15)
[2022-09-07] MEDS ORDERED: Ondansetron 4 MG Tab.DIS PO PRN (19:14)
[2022-09-07] MEDS ORDERED: Acetaminophen 325 MG Tab PO PRN (19:14)
[2022-09-07] MEDS ORDERED: Albuterol 0.083% 2.5 MG/3 ML Neb Soln NEB PRN (19:14)
[2022-09-07] MEDS ORDERED: Albuterol/Ipratropium 3.0-0.5 MG/3 ML Neb Soln NEB PRN (19:14)
[2022-09-07] MEDS: cefTRIAXone 1 GM in Sodium Chloride 0.9% 100 ML IV SCH (19:59)
[2022-09-07] MEDS: Insulin Glarg,Human.Rec.Analog 100 Unit/ML SUBCUT SCH (20:32)
[2022-09-07] MEDS: Ferrous Sulfate 325 MG Tab PO SCH (20:34)
[2022-09-07] MEDS: Azithromycin 500 MG in Sodium Chloride 0.9% 250 ML IV SCH (20:35)
[2022-09-07] MEDS: Pantoprazole 40 MG Tab.CR PO SCH (20:35)
[2022-09-07] MEDS: traZODone 50 MG Tab PO SCH (20:35)
[2022-09-07] MEDS: ALPRAZolam 0.25 MG Tab PO SCH (20:35)
[2022-09-07] MEDS: Formoterol/Mometasone 200-5 MCG 8.8 GM Inhaler IH SCH (20:35)
[2022-09-07] MEDS: Gabapentin 300 MG Cap PO SCH (20:35)
[2022-09-08] MEDS: ALPRAZolam 0.25 MG Tab PO PRN ×2 (05:45→14:46)
[2022-09-08] MEDS: Gabapentin 300 MG Cap PO SCH ×2 (07:35→19:15)
[2022-09-08] MEDS: Bumetanide 1 MG Tab PO SCH ×3 (07:35→19:15)
[2022-09-08] MEDS: Sertraline 50 MG Tab PO SCH (07:35)
[2022-09-08] MEDS: rOPINIRole 1 MG Tab PO SCH ×3 (07:36→19:15)
[2022-09-08] MEDS: Pantoprazole 40 MG Tab.CR PO SCH ×2 (07:36→19:15)
[2022-09-08] MEDS: Aspirin 81 MG Tab.Chew PO SCH (07:36)
[2022-09-08] MEDS: Diltiazem 180 MG Cap.CD PO SCH (07:37)
[2022-09-08] MEDS: Potassium Chloride 10 MEQ Tab.ER PO SCH (07:37)
[2022-09-08] MEDS: guaiFENesin 600 MG Tab.ER PO SCH (07:38)
[2022-09-08] MEDS: Furosemide 40 MG/4 ML VIAL IVPUSH SCH (07:39)
[2022-09-08] MEDS: Sodium Chloride 0.9% 10 ML Syringe FLUSH PRN ×3 (07:45→21:01)
[2022-09-08] MEDS: Formoterol/Mometasone 200-5 MCG 8.8 GM Inhaler IH SCH ×2 (07:47→20:27)
[2022-09-08 20:18] VITALS: PULSE 75
[2022-09-08] MEDS: cefTRIAXone 1 GM in Sodium Chloride 0.9% 100 ML IV SCH (20:21)
[2022-09-08] MEDS: Ferrous Sulfate 325 MG Tab PO SCH (20:25)
[2022-09-08] MEDS: traZODone 50 MG Tab PO SCH (20:25)
[2022-09-08] MEDS: ALPRAZolam 0.25 MG Tab PO SCH (20:25)
[2022-09-08] MEDS: Insulin Glarg,Human.Rec.Analog 100 Unit/ML SUBCUT SCH (20:27)
[2022-09-08] MEDS: Azithromycin 500 MG in Sodium Chloride 0.9% 250 ML IV SCH (20:57)
[2022-09-09] MEDS: ALPRAZolam 0.25 MG Tab PO PRN ×2 (05:07→13:45)
[2022-09-09] MEDS: rOPINIRole 1 MG Tab PO SCH ×2 (09:03→11:57)
[2022-09-09] MEDS: Furosemide 40 MG/4 ML VIAL IVPUSH SCH (09:03)
[2022-09-09] MEDS: Aspirin 81 MG Tab.Chew PO SCH (09:04)
[2022-09-09] MEDS: Potassium Chloride 10 MEQ Tab.ER PO SCH (09:04)
[2022-09-09] MEDS: Pantoprazole 40 MG Tab.CR PO SCH (09:05)
[2022-09-09] MEDS: Bumetanide 1 MG Tab PO SCH ×2 (09:05→11:57)
[2022-09-09] MEDS: guaiFENesin 600 MG Tab.ER PO SCH (09:05)
[2022-09-09] MEDS: Gabapentin 300 MG Cap PO SCH (09:05)
[2022-09-09] MEDS: Sertraline 50 MG Tab PO SCH (09:06)
[2022-09-09] MEDS: Diltiazem 180 MG Cap.CD PO SCH (09:06)
[2022-09-09] MEDS: Formoterol/Mometasone 200-5 MCG 8.8 GM Inhaler IH SCH (09:06)
[2022-09-09 09:20] VITALS: BP 118/68
== END 2022-09-09 14:05 | DRG 291 ==
LOC: LL.ED 15:15 → LL.MS 18:48
PROVIDERS: ADMIT Family Medicine; ATTEND Family Medicine
DX: I13.0 Hypertensive heart and chronic kidney disease with heart failure and stage 1 through stage 4 chronic kidney disease, or unspecified chronic kidney disease (principal); I50.43 Acute on chronic combined systolic (congestive) and diastolic (congestive) heart failure; N17.9 Acute kidney failure, unspecified; E87.4 Mixed disorder of acid-base balance; H91.90 Unspecified hearing loss, unspecified ear; H54.7 Unspecified visual loss; E11.22 Type 2 diabetes mellitus with diabetic chronic kidney disease; H91.13 Presbycusis, bilateral; N40.0 Benign prostatic hyperplasia without lower urinary tract symptoms; E11.21 Type 2 diabetes mellitus with diabetic nephropathy; Z86.010 Personal history of colon polyps; N42.9 Disorder of prostate, unspecified; M19.90 Unspecified osteoarthritis, unspecified site; G89.29 Other chronic pain; M54.9 Dorsalgia, unspecified; M54.2 Cervicalgia; M81.0 Age-related osteoporosis without current pathological fracture; N18.9 Chronic kidney disease, unspecified; I48.91 Unspecified atrial fibrillation; I25.10 Atherosclerotic heart disease of native coronary artery without angina pectoris; I27.20 Pulmonary hypertension, unspecified; J44.9 Chronic obstructive pulmonary disease, unspecified; I42.9 Cardiomyopathy, unspecified; E78.00 Pure hypercholesterolemia, unspecified; K44.9 Diaphragmatic hernia without obstruction or gangrene; K57.90 Diverticulosis of intestine, part unspecified, without perforation or abscess without bleeding; Z96.653 Presence of artificial knee joint, bilateral; E11.40 Type 2 diabetes mellitus with diabetic neuropathy, unspecified; F41.9 Anxiety disorder, unspecified; F03.90 Unspecified dementia, unspecified severity, without behavioral disturbance, psychotic disturbance, mood disturbance, and anxiety; F32.A Depression, unspecified; G47.00 Insomnia, unspecified; E83.42 Hypomagnesemia; K21.9 Gastro-esophageal reflux disease without esophagitis; Z20.822 Contact with and (suspected) exposure to COVID-19; M85.80 Other specified disorders of bone density and structure, unspecified site; F41.1 Generalized anxiety disorder; G31.9 Degenerative disease of nervous system, unspecified; E79.0 Hyperuricemia without signs of inflammatory arthritis and tophaceous disease; E03.9 Hypothyroidism, unspecified; Z99.81 Dependence on supplemental oxygen; E78.5 Hyperlipidemia, unspecified; G25.81 Restless legs syndrome; D50.9 Iron deficiency anemia, unspecified; E66.01 Morbid (severe) obesity due to excess calories; E53.8 Deficiency of other specified B group vitamins; I87.8 Other specified disorders of veins; I25.2 Old myocardial infarction; Z79.4 Long term (current) use of insulin; Z79.82 Long term (current) use of aspirin; Z88.8 Allergy status to other drugs, medicaments and biological substances; Z88.0 Allergy status to penicillin; Z88.1 Allergy status to other antibiotic agents; Z98.890 Other specified postprocedural states; Z98.52 Vasectomy status; Z98.1 Arthrodesis status; Z79.899 Other long term (current) drug therapy; Z95.0 Presence of cardiac pacemaker; Z79.890 Hormone replacement therapy
CPT/HCPCS: 36415; 71045; 80053; 83880; 85025; 93005; 96374; 99285; J1940; J3490; 82947; 94640; A9270-GY; J0456; J0696; J1815-GY; J7050; U0002